=== PATIENT | male | born 1975 | race Hispanic/Latino ===

== ENCOUNTER 2017-11-17 07:38 | Emergency (ER) | payer BC, SELFPAY ==
[2017-11-17] MEDS ORDERED: NA CHLORIDE 0.9% 2,000 ML ONE (08:10)
[2017-11-17] MEDS ORDERED: KETOROLAC 30 MG/ML INJ ONE (08:10)
[2017-11-17] MEDS ORDERED: ONDANSETRON 4 MG/2 ML VIAL ONE (08:10)
[2017-11-17 08:26] LABS: Absolute Lymphocytes (CBC) 2.7 K/uL (0.7-4.9); Absolute Monocytes 0.8 K/uL (0.1-1.3); Basophils % 0.5 % (0-1.3); Eosinophils % 4.1 % (0-4.4); Hematocrit 46.7 % (39.6-49.0); Lymphocytes % 30.3 % (15.3-44.8); MCH 33.8 pg (27.0-35.0); MCV 99.3 fL (80-100); MPV 9.9 fL (7.6-11.3); Monocytes % 9.2 % (3.3-12.3)
[2017-11-17 08:30] LABS: Magnesium 1.5 mg/dL (1.8-2.5); Potassium 4.4 mEq/L (3.6-5.0)
[2017-11-17] MEDS ORDERED: Magnesium Sulfate 2gm IVPB 2 G/50 ML BAG IV ONE (08:53)
[2017-11-17 10:00] LABS: Urine Blood NEGATIVE (NEG); Urine Glucose TRACE (NEG); Urine Protein NEGATIVE (NEG); Urine pH 5.5 (5.0-7.0)
[2017-11-17] MEDS ORDERED: MORPHINE 4 MG/ML SYR ONE (10:21)
--- NOTE | 2017-11-17 10:40 | ER ---
Nurse's Notes [facility] Name: Josue Kaba Age: 41 yrs Sex: Male : 1975 Arrival Date: 11/17/2017 Time: 07:43 Bed 20 Private MD: None, None; Out, of [facility], [facility] Diagnosis: Weakness;Dehydration;Headache;Hypomagnesemia Presentation: 11/17 07:54 Presenting complaint: Patient states: "i am on a diuretic and it was really hot tw2 yesterday and i feel like it has just wiped me out, and i have a really bad headache, and some muscle cramps". Transition of care: patient was not received from another setting of care. Onset of symptoms was November 17, 2017. Initial Sepsis Screen: Does the patient meet any 2 criteria? No. Patient's initial sepsis screen is negative. Does the patient have a suspected source of infection? No. Patient's initial sepsis screen is negative. Care prior to arrival: None. 07:54 Method Of Arrival: Ambulatory tw2 07:54 Acuity: JOLYNN 3 tw2 Triage Assessment: 07:59 Headache History: The patient has had previous headaches and this one is more severe tw2 than previous episodes. 09:30 General: Appears in no apparent distress. Pain: Also complains of body cramps. tw2 09:30 Pain: Pain currently is 7 out of 10 on a pain scale. Pain began 1 day ago. tw2 Historical: - Allergies: 08:51 No Known Drug Allergies; tw2 - Home Meds: 07:59 atorvastatin 20 mg Oral tab 1 tab once daily for Hyperlipidemia [Active]; lisinopril 40 tw2 mg Oral tab 1 tab once daily for Hypertension [Active]; metformin 1500 mg Oral tab 1 tab 2 times per day [Active]; Trulicity 0.75 mg/0.5 mL subcutaneous pnij 0.5 mL once wkly [Active]; venlafaxine 25 mg oral tab 1 tab 3 times per day [Active]; hydrochlorothiazide 12.5 mg Oral tab 1 tab 2 times per day [Active]; - PMHx: 07:59 Diabetes - IDDM; Hypertension; Kidney stones; tw2 - PSHx: 07:59 Cholecystectomy; CYST REMOVED FROM FACE; LEFT ROTATOR CUFF; HAND SURG; Appendectomy; tw2 - Immunization history:: Adult Immunizations up to date. - Social history:: Smoking status: Patient/guardian denies using tobacco. Screenin:59 Abuse screen: Denies threats or abuse. Nutritional screening: No deficits noted. tw2 Tuberculosis screening: No symptoms or risk factors identified. Fall Risk None identified. Assessment: 07:50 General: Appears in no apparent distress. slender, well groomed, Behavior is calm, tw2 cooperative, appropriate for age. Pain: Complains of pain in "headache, body cramps". Neuro: Level of Consciousness is awake, alert, obeys commands, Oriented to person, place, time, situation. Neuro: Reports headache. Cardiovascular: Denies chest pain, shortness of breath, Heart tones S1 S2 Capillary refill < 3 seconds. Respiratory: Airway is patent Respiratory effort is even, unlabored, Respiratory pattern is regular, symmetrical, Breath sounds are clear bilaterally. GI: No signs and/or symptoms were reported involving the gastrointestinal system. Abdomen is round obese, Bowel sounds present X 4 quads. : No signs and/or symptoms were reported regarding the genitourinary system. EENT:. Derm: No signs and/or symptoms reported regarding the dermatologic system. Musculoskeletal: Circulation, motion, and sensation intact. Range of motion: intact in all extremities, Reports cramping in muscles. 08:33 Reassessment: Patient appears in no apparent distress at this time. No changes from tw2 previously documented assessment. Patient and/or family updated on plan of care and expected duration. Pain level reassessed. Patient is alert, oriented x 3, equal unlabored respirations, skin warm/dry/pink. 09:29 Reassessment: Patient appears in no apparent distress at this time. No changes from tw2 previously documented assessment. Patient and/or family updated on plan of care and expected duration. Pain level reassessed. Patient is alert, oriented x 3, equal unlabored respirations, skin warm/dry/pink. provider notified pt reports "headache and body cramps still" Patient states symptoms have not improved. 10:42 Reassessment: Patient appears in no apparent distress at this time. No changes from tw2 previously documented assessment. Patient and/or family updated on plan of care and expected duration. Pain level reassessed. Patient is alert, oriented x 3, equal unlabored respirations, skin warm/dry/pink. 11:03 Reassessment: Patient appears in no apparent distress at this time. No changes from tw2 previously documented assessment. Patient and/or family updated on plan of care and expected duration. Pain level reassessed. Patient is alert, oriented x 3, equal unlabored respirations, skin warm/dry/pink. Patient states feeling better. Patient states symptoms have improved. Vital Signs: 07:55 BP 135 / 95; Pulse 103; Resp 18; Temp 97.6; Pulse Ox 97% on R/A; Weight 149.69 kg (R); tw2 Height 6 ft. 1 in. (185.42 cm) (R); Pain 7/10; 08:33 BP 119 / 67; Pulse 90; Resp 17; Pulse Ox 95% on R/A; tw2 09:29 BP 108 / 71; Pulse 81; Resp 11; Pulse Ox 97% on R/A; tw2 10:44 BP 111 / 67; Pulse 84; Resp 14; Pulse Ox 100% on R/A; tw2 11:03 BP 120 / 79; Pulse 76; Resp 17; Pulse Ox 98% on R/A; Pain 5/10; tw2 07:55 Body Mass Index 43.54 (149.69 kg, 185.42 cm) tw2 ED Course: 07:43 Patient arrived in ED. mr 07:44 None, None is Private Physician. mr 07:44 Out, [facility] is Private Physician. mr 07:49 Dylan Walter MD is Attending Physician. kdr 07:54 Ysabel Olivarez, RN is Primary Nurse. tw2 07:55 Triage completed. tw2 07:59 Placed in gown. Bed in low position. Call light in reach. Pulse ox on. NIBP on. pt tw2 educated as to why cardiac monitoring is needed, pt refused, stated "i'd rather not be billed for that if i dont have to be". Warm blanket given. 07:59 Arm band placed on. tw2 08:30 Inserted saline lock: 20 gauge in right antecubital area, using aseptic technique. tw2 Blood collected. 09:30 No provider procedures requiring assistance completed. tw2 10:42 Awaiting: Completion of IV fluids prior to discharge. tw2 11:04 IV discontinued, intact, bleeding controlled, No redness/swelling at site. Pressure tw2 dressing applied. Administered Medications: 08:14 Drug: Zofran 4 mg Route: IVP; Site: right antecubital; tw2 09:29 Follow up: Response: No adverse reaction tw2 08:16 Drug: NS 0.9% 1000 ml Route: IV; Rate: 1 bolus; Site: right antecubital; tw2 09:28 Follow up: IV Intake: 1000ml ; 2nd liter of NS administered at this time. tw2 11:03 Follow up: Response: No adverse reaction; IV Status: Completed infusion; IV Intake: tw2 1000ml 08:16 Drug: TORadol 30 mg Route: IVP; Site: right antecubital; tw2 09:28 Follow up: Response: No adverse reaction; Pain is unchanged, physician notified tw2 09:01 Drug: Magnesium Sulfate 2 grams Route: IVPB; Infused Over: 2 hrs; Site: right tw2 antecubital; 11:02 Follow up: Response: No adverse reaction; IV Status: Completed infusion tw2 10:30 Drug: morphine 4 mg Route: IVP; Site: right antecubital; tw2 11:02 Follow up: Response: No adverse reaction tw2 Point of Care Testing: Blood Glucose: 07:53 Blood Glucose: 223 mg/dL; tw2 08:56 Blood Glucose: 201 mg/dL; tw2 Ranges: Intake: 09:28 IV: 1000ml; Total: 1000ml. tw2 11:03 IV: 1000ml; Total: 2000ml. tw2 Outcome: 10:39 Discharge ordered by . kdr 11:04 Discharged to home ambulatory. tw2 11:04 Condition: stable 11:04 Discharge instructions given to patient, Instructed on discharge instructions, follow up and referral plans. no drinking with medication, no driving heavy equipment, medication usage, Demonstrated understanding of instructions, follow-up care, medications, Prescriptions given X 1. 11:04 Patient left the ED. tw2 Signatures: Dylan Walter MD MD kdr Rivera, Maria mr Wise, Tara RN RN tw2 Corrections: (The following items were deleted from the chart) 08:49 07:59 school lunch monitor on. Pulse ox on. NIBP on. tw2 tw2
--- NOTE | 2017-11-17 10:40 | EDPHYS ---
Physician Documentation [facility] Name: Josue Kaba Age: 41 yrs Sex: Male : 1975 Arrival Date: 11/17/2017 Time: 07:43 Bed 20 Private MD: None, None; Out, of [facility], [facility] ED Physician Dylan Walter HPI: 11/17 08:05 This 41 yrs old Male presents to ER via Ambulatory with complaints of kdr Headache, Dehydration. 08:06 The patient feels as if be became overheated yesterday. 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 [id number], he has a CAMPBELL and is generally hurting all over with cramps and generalized myalgias. Onset: The symptoms/episode began/occurred gradually, yesterday. Severity of symptoms: At their worst the symptoms were mild moderate in the emergency department the symptoms have improved mildly. The patient has not experienced similar symptoms in the past, The patient has experienced a previous episode, last year. The patient has not recently seen a physician. Historical: - Allergies: 08:51 No Known Drug Allergies; tw2 - Home Meds: 07:59 atorvastatin 20 mg Oral tab 1 tab once daily for Hyperlipidemia [Active]; lisinopril 40 tw2 mg Oral tab 1 tab once daily for Hypertension [Active]; metformin 1500 mg Oral tab 1 tab 2 times per day [Active]; Trulicity 0.75 mg/0.5 mL subcutaneous pnij 0.5 mL once wkly [Active]; venlafaxine 25 mg oral tab 1 tab 3 times per day [Active]; hydrochlorothiazide 12.5 mg Oral tab 1 tab 2 times per day [Active]; - PMHx: 07:59 Diabetes - IDDM; Hypertension; Kidney stones; tw2 - PSHx: 07:59 Cholecystectomy; CYST REMOVED FROM FACE; LEFT ROTATOR CUFF; HAND SURG; Appendectomy; tw2 - Immunization history:: Adult Immunizations up to date. - Social history:: Smoking status: Patient/guardian denies using tobacco. ROS: 08:06 Constitutional: Negative for fever, chills, and weight loss, Eyes: Negative for injury, kdr pain, redness, and discharge, Neck: Negative for injury, pain, and swelling, Cardiovascular: Negative for chest pain, palpitations, and edema, Respiratory: Negative for shortness of breath, cough, wheezing, and pleuritic chest pain, Abdomen/GI: Negative for abdominal pain, nausea, vomiting, diarrhea, and constipation, Back: Negative for injury and pain, : Negative for injury, bleeding, discharge, and swelling, MS/Extremity: Negative for injury and deformity, Skin: Negative for injury, rash, and discoloration, Psych: Negative for depression, anxiety, suicide ideation, homicidal ideation, and hallucinations, Allergy/Immunology: Negative for hives, rash, and allergies, Endocrine: Negative for neck swelling, polydipsia, polyuria, polyphagia, and marked weight changes, Hematologic/Lymphatic: Negative for swollen nodes, abnormal bleeding, and unusual bruising. 08:06 Neuro: Positive for headache, Negative for altered mental status, dizziness, gait disturbance, loss of consciousness, numbness, seizure activity, speech changes, syncope, near syncope, tingling, tinnitus, tremor, visual changes, weakness. Exam: 08:06 Constitutional: This is a well developed, well nourished patient who is awake, alert, kdr and in no acute distress. Head/Face: Normocephalic, atraumatic. Eyes: Pupils equal round and reactive to light, extra-ocular motions intact. Lids and lashes normal. Conjunctiva and sclera are non-icteric and not injected. Cornea within normal limits. Periorbital areas with no swelling, redness, or edema. Neck: Trachea midline, no thyromegaly or masses palpated, and no cervical lymphadenopathy. Supple, full range of motion without nuchal rigidity, or vertebral point tenderness. No Meningismus. Chest/axilla: Normal chest wall appearance and motion. Nontender with no deformity. No lesions are appreciated. Cardiovascular: Regular rate and rhythm with a normal S1 and S2. No gallops, murmurs, or rubs. Normal PMI, no JVD. No pulse deficits. Respiratory: Lungs have equal breath sounds bilaterally, clear to auscultation and percussion. No rales, rhonchi or wheezes noted. No increased work of breathing, no retractions or nasal flaring. Abdomen/GI: Soft, non-tender, with normal bowel sounds. No distension or tympany. No guarding or rebound. No evidence of tenderness throughout. Back: No spinal tenderness. No costovertebral tenderness. Full range of motion. Skin: Warm, dry with normal turgor. Normal color with no rashes, no lesions, and no evidence of cellulitis. MS/ Extremity: Pulses equal, no cyanosis. Neurovascular intact. Full, normal range of motion. Neuro: Awake and alert, GCS 15, oriented to person, place, time, and situation. Cranial nerves II-XII grossly intact. Motor strength 5/5 in all extremities. Sensory grossly intact. Cerebellar exam normal. Normal gait. Psych: Awake, alert, with orientation to person, place and time. Behavior, mood, and affect are within normal limits. Vital Signs: 07:55 BP 135 / 95; Pulse 103; Resp 18; Temp 97.6; Pulse Ox 97% on R/A; Weight 149.69 kg (R); tw2 Height 6 ft. 1 in. (185.42 cm) (R); Pain 7/10; 08:33 BP 119 / 67; Pulse 90; Resp 17; Pulse Ox 95% on R/A; tw2 09:29 BP 108 / 71; Pulse 81; Resp 11; Pulse Ox 97% on R/A; tw2 10:44 BP 111 / 67; Pulse 84; Resp 14; Pulse Ox 100% on R/A; tw2 11:03 BP 120 / 79; Pulse 76; Resp 17; Pulse Ox 98% on R/A; Pain 5/10; tw2 07:55 Body Mass Index 43.54 (149.69 kg, 185.42 cm) tw2 MDM: 08:06 Data reviewed: vital signs, nurses notes. kdr 10:10 Counseling: I had a detailed discussion with the patient and/or guardian regarding: the kdr historical points, exam findings, and any diagnostic results supporting the discharge/admit diagnosis, lab results, radiology results. ED course: The patient has had minimal improvement but does not appear to be in any distress at this time. 10:39 Patient medically screened. kdr 10:40 ED course: The patient is feeling much better.. kdr 11/17 08:03 Order name: Chem 7; Complete Time: 08:53 kdr 11/17 08:03 Order name: CBC with Diff; Complete Time: 08:53 kdr 11/17 08:03 Order name: Magnesium; Complete Time: 08:53 kdr 11/17 09:11 Order name: Urine Dipstick--Ancillary (enter results); Complete Time: 10:31 em1 11/17 09:12 Order name: Urine Dipstick-Ancillary (obtain specimen); Complete Time: 09:12 em1 Administered Medications: 08:14 Drug: Zofran 4 mg Route: IVP; Site: right antecubital; tw2 09:29 Follow up: Response: No adverse reaction tw2 08:16 Drug: NS 0.9% 1000 ml Route: IV; Rate: 1 bolus; Site: right antecubital; tw2 09:28 Follow up: IV Intake: 1000ml ; 2nd liter of NS administered at this time. tw2 11:03 Follow up: Response: No adverse reaction; IV Status: Completed infusion; IV Intake: tw2 1000ml 08:16 Drug: TORadol 30 mg Route: IVP; Site: right antecubital; tw2 09:28 Follow up: Response: No adverse reaction; Pain is unchanged, physician notified tw2 09:01 Drug: Magnesium Sulfate 2 grams Route: IVPB; Infused Over: 2 hrs; Site: right tw2 antecubital; 11:02 Follow up: Response: No adverse reaction; IV Status: Completed infusion tw2 10:30 Drug: morphine 4 mg Route: IVP; Site: right antecubital; tw2 11:02 Follow up: Response: No adverse reaction tw2 Point of Care Testing: Blood Glucose: 07:53 Blood Glucose: 223 mg/dL; tw2 08:56 Blood Glucose: 201 mg/dL; tw2 Ranges: Critical Glucose Levels:Adult <50 mg/dl or >400 mg/dl <40 mg/dl or >180 mg/dl Disposition: 11/17/17 10:39 Discharged to Home. Impression: Weakness, Dehydration, Headache, Hypomagnesemia. - Condition is Stable. - Discharge Instructions: Dehydration, Adult, General Headache Without Cause, Hypomagnesemia, Fatigue, Weakness, [id number]. - Prescriptions for Tramadol 50 mg Oral Tablet - take 1 tablet by ORAL route every 8 hours as needed; 12 tablet. - Medication Reconciliation Form, Thank You Letter, Antibiotic Education, Prescription Opioid Use, Work release form form. - Follow up: Private Physician; When: 2 - 3 days; Reason: If symptoms return, Further diagnostic work-up, Recheck today's complaints, Continuance of care, Re-evaluation by your physician. - Problem is new. - Symptoms have improved. Signatures: Dispatcher [employer] EDMS Dylan Walter MD MD kdr Martinez, Eric em1 Ysabel Olivarez RN RN tw2 Corrections: (The following items were deleted from the chart) 11:04 10:39 11/17/2017 10:39 Discharged to Home. Impression: Weakness; Dehydration; Headache; tw2 Hypomagnesemia. Condition is Stable. Forms are Medication Reconciliation Form, Thank You Letter, Antibiotic Education, Prescription Opioid Use. Follow up: Private Physician; When: 2 - 3 days; Reason: If symptoms return, Further diagnostic work-up, Recheck today's complaints, Continuance of care, Re-evaluation by your physician. Problem is new. Symptoms have improved. kdr
[2017-11-17 11:12] VITALS: TEMP 97.6
[2017-11-17 11:17] VITALS: BP 120/79; O2SAT 98
== END 2017-11-17 11:04 | disposition home or self-care (01) ==
LOC: ER 07:38
DX: E83.42 Hypomagnesemia (principal); E86.0 Dehydration; E11.9 Type 2 diabetes mellitus without complications; I10 Essential (primary) hypertension
CPT/HCPCS: 36415; 80048; 81003; 82962; 83735; 85025; 96361; 96365; 96366; 96375; 99284; J2405; J3475; J7030

== ENCOUNTER 2018-12-12 20:14 | Emergency (ER) | payer BC, SELFPAY ==
--- OUTSIDE RECORDS SUMMARY | 2018-12-12 20:16 | XMS REPORT | Clinical Summary ---
:1975 Author Organization [facility] Address [address] [place] [id number] Care Team Providers Name Role Phone Marli Thompson NP Primary Care Provider Allergies No Known Allergies Medications Medication Sig Dispensed Refills Start Date End Date Status butalbital-acetamin Take 1 tablet by 6 tablet 0 08/15/2018 08/21/2018 ophen-caff (ESGIC) mouth every 4 50-325-40 mg per (four) hours as tablet needed for headaches for up to 6 days. Active Problems Not on file Encounters Date Type Specialty Care Team Description 08/15/2018 Emergency Emergency Medicine Noris Miller Hyperglycemia without ketosis (Primary Dx); MD Theron Atypical chest pain; Hyponatremia; Elevated LFTs; Blurred vision; Acute nonintractable headache, unspecified headache type 08/15/2018 Travel after 12/11/2017 Social History Tobacco Use Types Packs/Day Years Used Date Never Smoker Smokeless Tobacco: Never Used Alcohol Use Drinks/Week oz/Week Comments Yes occasionally Sex Assigned at Date Recorded Not on file Job Start Date Occupation Industry Not on file Not on file Not on file Travel History Travel Start Travel End No recent travel history available. Last Filed Vital Signs Vital Sign Reading Time Taken Blood Pressure 135/65 08/15/2018 8:30 PM [employer]INDER CRANE OPERATOR Pulse 100 08/15/2018 8:30 PM CINDER CRANE OPERATOR Temperature 37.2 C (98.9 F) 08/15/2018 4:36 PM CINDER CRANE OPERATOR Respiratory Rate 18 08/15/2018 8:30 PM [employer]INDER CRANE OPERATOR Oxygen Saturation 95% 08/15/2018 8:30 PM CINDER CRANE OPERATOR Inhaled Oxygen Concentration - - Weight - - Height - - Body Mass Index - - Plan of Treatment Health Maintenance Due Date Last Done Comments INFLUENZA VACCINE 02/02/2019 Procedures Procedure Name Priority Date/Time Associated Comments Diagnosis POC GLUCOSE Routine 08/15/2018 8:07 Results for this PM [employer]ER CRANE OPERATOR procedure are in the results section. TROPONIN Routine 08/15/2018 7:27 Results for this PM [employer] OPERATOR procedure are in the results section. ECG 12-LEAD STAT 08/15/2018 7:21 Results for this PM [employer] CR[employer] OPERATOR procedure are in the results section. POC GLUCOSE Routine 08/15/2018 6:42 Results for this PM [employer]ER CRANE OPERATOR procedure are in the results section. XR CHEST 1 VW PORTABLE STAT 08/15/2018 5:26 Results for this PM [employer]ER CRANE OPERATOR procedure are in the results section. TYPE AND SCREEN Routine 08/15/2018 5:24 Results for this PM [employer]ER CRANE OPERATOR procedure are in the results section. URINALYSIS SCREEN AND Routine 08/15/2018 5:19 Results for this MICROSCOPY, WITH REFLEX PM [employer]ER CRANE OPERATOR procedure are in TO CULTURE the results section. URINE CULTURE Routine 08/15/2018 5:19 Results for this PM [employer]ER CRANE OPERATOR procedure are in the results section. ECG ED PRELIMINARY Routine 08/15/2018 5:07 Results for this INTERPRETATION PM [employer] CRANE OPERATOR procedure are in the results section. ECG ED PRELIMINARY Routine 08/15/2018 5:07 Results for this INTERPRETATION PM [employer] CRANE OPERATOR procedure are in the results section. LIPASE LEVEL STAT 08/15/2018 4:56 Results for this PM [employer] CR[employer] OPERATOR procedure are in the results section. AMYLASE LEVEL STAT 08/15/2018 4:56 Results for this PM [employer] CRANE OPERATOR procedure are in the results section. BETA HYDROXYBUTYRATE STAT 08/15/2018 4:56 Results for this PM [employer] CRANE OPERATOR procedure are in the results section. ESTIMATED GFR STAT 08/15/2018 4:56 Results for this PM [employer]ER CRANE OPERATOR procedure are in the results section. CREATINE KINASE, TOTAL STAT 08/15/2018 4:56 Results for this (CPK) PM [employer]ER CRANE OPERATOR procedure are in the results section. B NATRIURETIC PEPTIDE STAT 08/15/2018 4:56 Results for this PM [employer]ER CRANE OPERATOR procedure are in the results section. TROPONIN STAT 08/15/2018 4:56 Results for this PM [employer]ER CRANE OPERATOR procedure are in the results section. COMPREHENSIVE METABOLIC STAT 08/15/2018 4:56 Results for this PANEL PM [employer]INDER CRANE OPERATOR procedure are in the results section. PARTIAL THROMBOPLASTIN STAT 08/15/2018 4:56 Results for this TIME (PTT) PM [employer]ER CRANE OPERATOR procedure are in the results section. PROTHROMBIN TIME WITH STAT 08/15/2018 4:56 Results for this INR PM CINDER CRANE OPERATOR procedure are in the results section. HC COMPLETE BLD COUNT STAT 08/15/2018 4:56 Results for this W/AUTO DIFF PM [employer] CRANE OPERATOR procedure are in the results section. ECG 12-LEAD STAT 08/15/2018 4:45 Results for this PM [employer]ER CRANE OPERATOR procedure are in the results section. POC GLUCOSE Routine 08/15/2018 4:43 Results for this PM [employer]ER CRANE OPERATOR procedure are in the results section. after 12/11/2017 Results POC glucose (08/15/2018 8:07 PM CINDER CRANE OPERATOR)Only the most recent of3 resultswithin the time period is included. [facility] POC glucose 227 (H) 65 - 99 mg/dL [facility] Comment: [facility] RN Notified Meter ID: [id number] Dining Host: Jorge Lugo Specimen Performing Organization Address [facility] Phone Number [facility] DEPARTMENT OF PATHOLOGY [address] [place] [address] Troponin (08/15/2018 7:27 PM CINDER CRANE OPERATOR)Only the most recent of2 resultswithin the time period is included. [facility] Troponin <0.30 0.00 - 0.30 [facility] Comment: ng/mL [facility] 0.11 - 1.49 ng/mlMay indicate increased risk of acute coronary syndrome. >=1.5 ng/mlConsistent with acute myocardial infarction. The diagnostic value of a single normal or non-diagnostic result is questionable.Serial samples at 2-6 hour intervals are required to rule out acute myocardial injury. Specimen Plasma specimen Performing Organization Address [facility] Phone Number [facility] DEPARTMENT OF PATHOLOGY [address] [place] [address] ECG 12 lead (08/15/2018 7:21 PM CINDER CRANE OPERATOR)Only the most recent of2 resultswithin the time period is included. [facility] Ventricular rate 96 [facility]USE Atrial rate 96 [facility] MO interval 152 [facility] QRSD interval 92 [facility] QT interval 358 [facility] QTC interval 452 [facility] P axis 1 25 [facility] QRS axis 1 34 [facility] T wave axis 38 [facility] MUSE EKG impression Normal sinus rhythm-In [facility] MUSE automated comparison with ECG of 11-FEB-2019 16:45,-No significant change was found- Specimen Narrative Performed At Performing Organization Address City/[facility]/Zipcode Phone Number [facility] MUSE [address] [place] [address] XR Chest 1 Vw Portable (08/15/2018 5:26 PM CINDER CRANE OPERATOR) Specimen Narrative Performed At EXAMINATION:XR CHEST 1 VW PORTABLE RADIANT CLINICAL HISTORY:chest pain COMPARISON:None. IMPRESSION: The lungs and pleural spaces are clear.The cardiomediastinal silhouette is within normal limits.There is no significant skeletal finding. [id number] Procedure Note Hm Interface, Radiology Results Incoming - 08/15/2018 5:29 PM CINDER CRANE OPERATOR EXAMINATION: XR CHEST 1 VW PORTABLE CLINICAL HISTORY: chest pain COMPARISON: None. IMPRESSION: The lungs and pleural spaces are clear. The cardiomediastinal silhouette is within normal limits. There is no significant skeletal finding. [id number] Performing Organization Address City/[facility]/Zipcode Phone Number [facility] [address] [place] [address] Type and screen (08/15/2018 5:24 PM CINDER CRANE OPERATOR) ABO grouping O [facility] Rh type POS [facility] Antibody screen (gel) NEG [facility] Specimen Blood Performing Organization Address City/[facility]/Zipcode Phone Number [facility] DEPARTMENT OF PATHOLOGY [address] [place] [address] AND [facility] [id number] [place] [address] HOSPITAL Urinalysis screen and microscopy, with reflex to culture (08/15/2018 5:19 PM CINDER CRANE OPERATOR) Specimen site Clean catch [facility] Color, UA Yellow [facility] Appearance, UA Clear [facility] Specific gravity, 1.020 1.001 - 1.030 [facility] pH, UA 6.0 5.0 - 9.0 [facility] Protein, UA Negative Negative [facility] Glucose, UA 3+ (A) Negative [facility] Ketones, UA Negative Negative [facility] Bilirubin, UA Negative Negative [facility] Blood, UA Negative Negative [facility] Nitrite, UA Negative Negative [facility] Urobilinogen, UA <2.0 <2.0 E.U./dL [facility] Leukocyte esterase, Negative Negative [facility] WBC, UA <1 0 - 1 /HPF [facility] RBC, UA 1 0 - 5 /HPF [facility] Bacteria, UA None seen None seen [facility] Yeast, UA None seen [facility] Yeast with None seen [facility] pseudohyphae, UA [facility] Specimen Urine Performing Organization Address City/[facility]/Zipcode Phone Number [facility] DEPARTMENT OF PATHOLOGY [id number] [place] [address] AND [facility] [address] Urine culture (08/15/2018 5:19 PM CINDER CRANE OPERATOR) Pathologist [facility] Urine culture SEE COMMENTComment: [facility] Bacteriuria screen [facility] negative. Specimen Performing Organization Address City/[facility]/Zipcode Phone Number [facility] DEPARTMENT OF PATHOLOGY [address] [place] [address] ECG ED Preliminary Interpretation - Not an Order (08/15/2018 5:07 PM CINDER CRANE OPERATOR)Only the most recent of2 resultswithin the time period is included. Narrative Performed At Noris Miller MD 08/15/20189:24 PM ECG ED Preliminary Interpretation - Not an Order Performed by: Noris Miller MD Authorized by: Noris Miller MD ECG reviewed by ED Physician in the absence of a deputy court: yes Previous ECG: Previous ECG:Unavailable Interpretation: Interpretation: non-specific Rate: ECG rate:96 ECG rate assessment: normal Rhythm: Rhythm: sinus rhythm Ectopy: Ectopy: none QRS: QRS axis:Normal QRS intervals:Normal Conduction: Conduction: normal ST segments: ST segments:Normal T waves: T waves: normal Comments: Nsr, no stemi Estimated GFR (08/15/2018 4:56 PM CINDER CRANE OPERATOR) Estimated GFR 86 mL/min/1.73 [facility] Comment: m2 [place] CatergoryUnitsInterpretation HOSPITAL G1 >=90 Normal or high G2 60-89Mildly decreased [id number] to moderately decreased [id number] to severely decreased G4 15-29Severely decreased G5 <15Kidney failure The eGFR was calculated using the Chronic Kidney Disease Epidemiology Collaboration (CKD-EPI) equation. Interpretation is based on recommendations of the National Kidney Foundation-Kidney Disease Outcomes Quality Initiative (NKF-KDOQI) published in 2014. Specimen Plasma specimen Performing Organization Address City/[facility] Phone Number [facility] DEPARTMENT OF PATHOLOGY [address] [place] [address] Beta hydroxybutyrate (08/15/2018 4:56 PM CINDER CRANE OPERATOR) [facility] Beta hydroxybutyrate 0.25 0.02 - 0.27 [facility] mmol/L [facility] Specimen Blood Performing Organization Address [facility] Phone Number [facility] DEPARTMENT OF PATHOLOGY [address] [place] [address] Partial thromboplastin time, activated (08/15/2018 4:56 PM CINDER CRANE OPERATOR) [facility] PTT 28.2 23.0 - 36.0 ADITYA CANELA Comment: [facility] PTT therapeutic range for unfractionated heparin is HOSPITAL 61.0-112.0 seconds which corresponds to Anti-Xa 0.3-0.7 U/ml. Specimen Blood Performing Organization Address [facility]/Zipcode Phone Number [facility] DEPARTMENT OF PATHOLOGY [address] [place] [address] Prothrombin time with INR (08/15/2018 4:56 PM CINDER CRANE OPERATOR) [facility] Prothrombin time 12.0 11.5 - 14.5 [facility] INR 0.9 [facility] Comment: [facility] International Normalized Ratio (INR) is a [facility] monitoring tool for patients who are stable on oral anticoagulant therapy. An INR of 2.0-3.0 is suggested for deep vein thrombosis/pulmonary embolism. Specimen Blood Performing Organization Address City/State/Zipcode Phone Number [facility] DEPARTMENT OF PATHOLOGY [address] [place] [address] CBC with platelet and differential (08/15/2018 4:56 PM CINDER CRANE OPERATOR) WBC 5.4 4.5 - 11.0 k/uL [facility] RBC 4.70 4.40 - 6.00 [facility] m/uL [facility] HGB 16.3 14.0 - 18.0 [facility] g/dL [facility] HCT 46.9 41.0 - 51.0 % [facility] MCV 99.8 82.0 - 100.0 fL [facility] MCH 34.7 (H) 27.0 - 34.0 pg [facility] MCHC 34.8 31.0 - 37.0 [facility] g/[facility] RDW - SD 44.4 37.0 - 55.0 fL [facility] MPV 11.7 (H) 6.9 - 11.0 fL [facility] Platelet count 202 150 - 400 K/uL [facility] Nucleated RBC 0.00 /100 WBC [facility] Neutrophils 57.4 39.0 - 69.0 % [facility] Lymphocytes 19.9 (L) 25.0 - 45.0 % [facility] Monocytes 19.9 (H) 0.0 - 10.0 % [facility] Eosinophils 1.5 0.0 - 5.0 % [facility] Basophils 0.9 0.0 - 1.0 % [facility] Immature granulocytes 0.4 0.0 - 1.0 % [facility] Specimen Blood Performing Organization Address City/State/Zipcode Phone Number [facility] DEPARTMENT OF PATHOLOGY [address] [place] [address] AND [facility] [id number] [place] [address] B natriuretic peptide (08/15/2018 4:56 PM CINDER CRANE OPERATOR) BNP 7 0 - 100 pg/mL [facility] Specimen Blood Performing Organization Address City/[facility]/Zipcode Phone Number [facility] DEPARTMENT OF PATHOLOGY [address] [place] [address] [place] [address] HOSPITAL Lipase level (08/15/2018 4:56 PM CINDER CRANE OPERATOR) Lipase 73 (H) 13 - 60 U/L [facility] Specimen Plasma specimen Performing Organization Address City/State/Zipcode Phone Number [facility] DEPARTMENT OF PATHOLOGY [address] [place] [address] Creatine kinase, total (CPK) (08/15/2018 4:56 PM CINDER CRANE OPERATOR) Creatine kinase 175 39 - 308 U/L [facility] Specimen Plasma specimen Performing Organization Address City/[facility]/Zipcode Phone Number [facility] DEPARTMENT OF PATHOLOGY [address] [place] [address] [place] [address] HOSPITAL Amylase level (08/15/2018 4:56 PM CINDER CRANE OPERATOR) Amylase 22 13 - 73 U/L [facility] Specimen Plasma specimen Performing Organization Address City/[facility]/Zipcode Phone Number [facility] DEPARTMENT OF PATHOLOGY [address] [place] [address] Comprehensive metabolic panel (08/15/2018 4:56 PM CINDER CRANE OPERATOR) Sodium 134 (L) 135 - 148 mEq/L [facility] Potassium 4.2 3.5 - 5.0 mEq/L [facility] Chloride 95 (L) 98 - 112 mEq/L [facility] CO2 26 24 - 31 mEq/L [facility] Anion gap 13@ANIO 7 - 15 mEq/L [facility] BUN 19 6 - 20 mg/dL [facility] Creatinine 1.06 0.70 - 1.20 [facility] mg/dL [facility] Glucose 342 (H) 65 - 99 mg/dL [facility] Calcium 10.1 8.3 - 10.2 mg/dL [facility] Protein 7.8 6.3 - 8.3 g/dL [facility] Albumin 4.3 3.5 - 5.0 g/dL [facility] A/G ratio 1.2 0.7 - 3.8 [facility] Alkaline phosphatase 135 (H) 40 - 129 U/L [facility] AST 60 (H) 10 - 50 U/L [facility] ALT 87 (H) 5 - 50 U/L [facility] Total bilirubin <0.2 0.2 - 1.2 mg/dL [facility] Specimen Plasma specimen Performing Organization Address City/State/Zipcode Phone Number [facility] DEPARTMENT OF PATHOLOGY [address] [place] [address] AND [facility] [address] [place] [address] HOSPITAL after 12/11/2017 Advance Directives Patient has advance care planning documents on file. For more information, please contact:Aditya Canela[address] [place] [address]
--- OUTSIDE RECORDS SUMMARY | 2018-12-12 20:17 | XMS REPORT | Clinical Summary ---
:1975 Author Organization [facility] Address [address] [place] [address] Care Team Providers Name Role Phone Carlos Mistry Angelina Primary Care Provider Allergies No Known Allergies Medications Medication Sig Dispensed Refills Start Date End Date Status lisinopril Take 10 mg by mouth 0 Active (PRINIVIL,ZESTRIL) 10 daily. MG tablet metFORMIN Take 1,000 mg by 0 Active (GLUCOPHAGE) 1000 MG mouth 2 (two) times tablet daily with breakfast and dinner. Active Problems Problem Noted Date Bilateral hand numbness 11/01/2016 Migraine without aura and without status migrainosus, not intractable 2016 TIA (transient ischemic attack) 10/31/2016 Diabetes mellitus Hypertension Social History Tobacco Use Types Packs/Day Years Used Date Never Smoker Alcohol Use Drinks/Week oz/Week Comments No Sex Assigned at Date Recorded Not on file Job Start Date Occupation Industry Not on file Not on file Not on file Travel History Travel Start Travel End No recent travel history available. Last Filed Vital Signs Not on file Plan of Treatment Not on file Results Not on fileafter 12/11/2017 Advance Directives For more information, please contact:[facility]viewMove In HistoryKlickitat Valley HealthGobzqq[address] [place], [place] [phone] Code Status Date Activated Date Inactivated Comments Full Code 10/31/2016 9:35 PM 11/03/2016 2:30 PM This code status was determined by: Patient
--- OUTSIDE RECORDS SUMMARY | 2018-12-12 20:38 | XMS REPORT | Continuity of Care Document ---
:1975 Author Organization Interface Problems Problem Status Onset Classification Date Comments Source Date Reported BACK PAIN Active 12/16/19 [place] Discharge 12/16/19 12/19/2015 [place] Diagnosis: Acute 16 [place] flank pain Discharge 01/29/20 01/31/2015 [place] Diagnosis: Acute 15 [place] flank pain Discharge 01/29/20 01/31/2015 [place] Diagnosis: Pain of 15 [place] male genitalia LEFT SIDE Active 01/26/20 [place] PAIN/STENT KIDNEY 15 [place] ABDOMINAL Active 01/18/20 [place] INTRACTABLE LEFT Active 01/18/20 [place] GROIN PAIN, 15 [place] HEMATURIA Ureteric Active 01/12/20 Problem 11/08/2018 Data stone<sup>1</sup> 15 migrated Medical from [facility], [facility] [place] on 02/06/15. [place] PAIN URINARY/KIDNEY Active 01/09/20 [place] STONE 15 [place] ABDOMINAL PAIN Active 01/07/20 [place] ACUTE RENAL COLIC, Active 01/07/20 [place] INTRACTABLE PAIN 15 [place] Discharge 12/21/19 12/23/2014 [place] Diagnosis: 15 [place] Abdominal pain DIZZINESS, WEAKNESS Active 12/21/19 [place] Discharge 10/19/19 10/21/2014 [place] Diagnosis: 15 [place] Ureterolithiasis KIDNEY STONE PAIN Active 10/19/19 [place] Discharge 10/05/19 10/06/2014 [place] Diagnosis: 15 [place] Dizziness WEAKNESS, FATIGUE Active 10/05/19 [place] CHEST PAIN Active 10/01/[address] [facility] SYNCOPE Active 10/01/[address] XAVIER BILLING Active 09/29/[address] Anxiety Resolved Problem 11/08/2018 [facility], [place] Diabetes Active Problem 11/08/2018 [facility] [place] DM (<span Active Problem 11/08/2018 ID="[id number]">[facility] nfirmed</span>) Group, [place] Acute flank pain Active Problem 11/08/2018 [facility] [place] HTN (<span Resolved Problem 11/08/2018 ID="[id number]">Co Medical nfirmed</span>) Group, [place] Hyperlipemia Resolved Problem 11/08/2018 [facility], [place] Hypertension Active Problem 11/08/2018 [facility], [place] Male impotence Active Problem 11/08/2018 Medical Group Kidney stone Resolved Problem 11/08/2018 [facility], [place] Morbid obesity Active Problem 11/08/2018 Medical Group ACUTE KIDNEY Active [place] FAILURE NOS [place] OTHER GENERAL Active [place] SYMPTOMS [place] GROSS HEMATURIA Active [place] SYNCOPE AND Active [facility] Medications Medication Details Route Status Patient Ordering Order Source Instructions Provider Date 3 ML insulin 70 unit, SUB-Q, Active 05/24/ degludec 200 UNT/ML Daily, # 10 2018 Medical Pen Injector pen(s), 0 Group [Tresiba] Refill(s), Pharmacy: [id number] metFORMIN 500 mg 1,000 mg=2 tab, Active oral tablet, PO, BID, # 360 2018 Medical extended release tab, 1 Group Refill(s), Pharmacy: [facility] lisinopril 40 mg 40 mg=1 tab, Active oral tablet PO, Daily, # 90 2018 Medical tab, 1 Group Refill(s), Pharmacy: [facility] Hydrochlorothiazide 12.5 mg=1 cap, Active 12.5 MG Oral PO, Daily, # 90 2018 Medical Capsule cap, 1 Group Refill(s), Pharmacy: [facility] atorvastatin 20 mg 20 mg=1 tab, Active 04/20/ oral tablet PO, Daily, # 90 2018 Medical tab, 1 Group Refill(s), Pharmacy: [facility] 3 ML insulin 70 unit, SUB-Q, No Longer 03/11/ degludec 200 UNT/ML Daily, # 10 Active 2018 Medical Pen Injector pen(s), 0 Group [Tresiba] Refill(s), Pharmacy: [id number] 3 ML insulin 70 unit, SUB-Q, No Longer 02/10 degludec 200 UNT/ML Daily, # 3 Active 2018 Medical Pen Injector pen(s), 0 Group [Tresiba] Refill(s), Pharmacy: [facility] [id number] Hydrochlorothiazide See No Longer 12.5 MG Oral Instructions, # Active 2018 Medical Capsule 90 unknown Group unit, TAKE 1 CAPSULE DAILY, Pharmacy: [facility] lisinopril 40 mg See No Longer oral tablet Instructions, # Active 2018 Medical 90 tab, TAKE 1 Group TABLET DAILY, Pharmacy: [facility] atorvastatin 20 mg See No Longer oral tablet Instructions, # Active 2018 Medical 90 tab, TAKE 1 Group TABLET DAILY, Pharmacy: [facility] metFORMIN 500 mg See No Longer oral tablet, Instructions, # Active 2018 Medical extended release 360 tab, TAKE 2 Group TABLETS TWICE A DAY, Pharmacy: [facility] sitagliptin 50 MG 50 mg=1 tab, Active Oral Tablet PO, Daily, # 90 2018 Medical [Januvia] tab, 1 Group Refill(s), Pharmacy: [id number] EasyTouch Lancets 1 , [facility], Active Device ONCE, Use for 2018 Medical blood glucose Group monitoring, # 1 box, Insulin dependent, Does not use insulin pump, Last DM eval date 08/18/17, 2 Refill(s) Blood Glucose Test 1 box, [facility], Active Strips Daily, # 100 2018 Medical strip, 1 Group Refill(s) Blood Glucose 1 ea, [facility], Active Monitor Daily, Use as 2018 Medical directed., # 1 Group ea, 0 Refill(s) 3 ML insulin 30 unit, SUB-Q, Active degludec 200 UNT/ML Daily, # 3 2018 Medical Pen Injector pen(s), 3 Group [Tresiba] Refill(s), Pharmacy: [facility] [id number] Regular Insulin, SUB-Q, 0 Inactive Human 100 UNT/ML Refill(s) 2018 Medical Injectable Solution Group [Novolin R] 0.5 ML dulaglutide 0.75 mg, SUB-Q, Active 1.5 MG/ML Prefilled qWeek, # 4 2018 Medical Syringe [Trulicity] pen(s), 1 Group Refill(s), [id number] OneTouch Delica 1 ea, MISC, Active Lancets Device ONCE, Use for 2018 Medical blood glucose Group monitoring, # 1 ea, 0 Refill(s) tadalafil 20 MG 20 mg=1 tab, Active Oral Tablet PO, Daily, PRN 2018 Medical [Cialis] for erectile Group dysfunction, Take prior to intercourse, # 60 tab, 3 Refill(s), Pharmacy: [facility] Lancets 1 ea, MISC, No Longer Device ONCE, Use for Active 2018 Medical blood glucose Group monitoring, # 1 box, Insulin dependent, Does not use insulin pump, Last DM eval date 08/18/17, 2 Refill(s) Blood Glucose Test 1 box, MISC, No Longer Strips Daily, # 100 Active 2018 Medical strip, 1 Group Refill(s) Blood Glucose 1 ea, MISC, No Longer Monitor Daily, Use as Active 2018 Medical directed., # 1 Group ea, 0 Refill(s) 3 ML liraglutide 6 1.8 mg, SUB-Q, No Longer MG/ML Prefilled Daily, # 15 mL, Active 2018 Medical Syringe [Victoza] 4 Refill(s), Group other Amoxicillin 875 MG 875 mg=1 tab, No Longer / Clavulanate 125 PO, Q12H, X 7 Active 2018 Medical MG Oral Tablet day, # 14 tab, Group [Augmentin 875-mg] 0 Refill(s), Pharmacy: [facility] Ipratropium [place] 2 spray, NASAL, No Longer 0.042 MG/ACTUAT TID, X 7 day, # Active 2018 Medical Metered Dose Nasal 15 mL, 4 Group [place] [Atrovent] Refill(s), Pharmacy: [facility] 482 tadalafil 20 MG 20 mg=1 tab, No Longer Oral Tablet PO, Daily, PRN Active 2018 Medical [Cialis] for erectile Group dysfunction, Take prior to intercourse, # 10 tab, 3 Refill(s), Pharmacy: [facility] 482 venlafaxine 37.5 mg 37.5 mg=1 tab, Active oral tablet, PO, Daily, # 90 2018 Medical extended release tab, 1 Group Refill(s), Pharmacy: [facility] metFORMIN 500 mg 1,000 mg=2 tab, Active oral tablet, PO, BID, # 360 2018 Medical extended release tab, 0 Group Refill(s), Pharmacy: [facility] Hydrochlorothiazide 12.5 mg=1 cap, Active 12.5 MG Oral PO, Daily, # 90 2018 Medical Capsule cap, 0 Group Refill(s), Pharmacy: [facility] atorvastatin 20 mg 20 mg=1 tab, Active oral tablet PO, Daily, # 90 2018 Medical tab, 0 Group Refill(s), Pharmacy: [facility] sildenafil 50 MG 50 mg=1 tab, No Longer Oral Tablet PO, Daily, 1 Active 2018 Medical hour before Group sexual activity, # 90 tab, 0 Refill(s), Pharmacy: [facility] lisinopril 40 mg 40 mg=1 tab, Active oral tablet PO, Daily, # 90 2018 Medical tab, 0 Group Refill(s), Pharmacy: [facility] Blood Pressure 1 ea, MISC, No Longer Monitor Wrist ONCE, Will need 2017 Medical Misc/Other a letter of Group medical necessity for Medicare/insura cae reimbursement, # 1 ea, 0 Refill(s) EasyTouch Lancets 1 ea MIS, No Longer Device ONCE, Use for 2017 Medical blood glucose Group monitoring, # 1 ea, Insulin dependent, Does not use insulin pump, Last DM eval date 08/18/17, 2 Refill(s) Blood Glucose Test 1 box MIS, No Longer 08/18/ Strips BID-Before Active 2017 Medical Meals, # 100 Group strip, 0 Refill(s) Blood Glucose 1 ea, MISC, No Longer Monitor Daily, Use as Active 2018 Medical directed., # 1 Group ea, 0 Refill(s) venlafaxine 37.5 mg 37.5 mg=1 tab, No Longer oral tablet, PO, Daily, # 30 Active 2018 Medical extended release tab, 2 Group Refill(s), Pharmacy: [facility] 482 metFORMIN 500 mg 1,000 mg=2 tab, No Longer oral tablet, PO, BID, # 360 Active 2018 Medical extended release tab, 0 Group Refill(s), Pharmacy: [facility] lisinopril 40 mg 40 mg=1 tab, No Longer MH oral tablet PO, Daily, # 90 Active 2018 Medical tab, 0 Group Refill(s), Pharmacy: [facility] atorvastatin 20 mg 20 mg=1 tab, No Longer MH oral tablet PO, Daily, # 90 Active 2018 Medical tab, 0 Group Refill(s), Pharmacy: [facility] 3 ML liraglutide 6 1.2 mg, SUB-Q, No Longer 08/18/ MH MG/ML Prefilled Daily, # 6 mL, Active 2018 Medical Syringe [Victoza] 3 Refill(s), Group Pharmacy: [facility] 482 Cefuroxime 500 MG 500 mg=1 tab, No Longer Oral Tablet PO, BID, X 10 Active 2018 Medical [Ceftin] day, # 20 tab, Group 0 Refill(s), Pharmacy: [facility] Hydrochlorothiazide 12.5 mg=1 cap, No Longer 12.5 MG Oral PO, Daily, # 90 Active 2018 Medical Capsule cap, 1 Group Refill(s), Pharmacy: [facility] sildenafil 50 MG 50 mg=1 tab, No Longer Oral Tablet PO, Daily, 1 Active 2018 Medical hour before Group sexual activity, # 30 tab, 3 Refill(s), Pharmacy: [facility] Codeine Phosphate 2 5 mL, PO, Q6H, No Longer 07/19/ MH MG/ML / Guaifenesin PRN cough, X 6 Active 2018 Medical 20 MG/ML Oral day, # 120 mL, Group Solution 0 Refill(s) [Cheratussin] Levofloxacin 500 MG 500 mg=1 tab, No Longer MH Oral Tablet PO, Q24H, X 10 Active 2018 Medical [Levaquin] day, # 10 tab, Group 0 Refill(s), Pharmacy: [id number] 3 ML liraglutide 6 1.2 mg, SUB-Q, No Longer MG/ML Prefilled Daily, # 6 mL, Active 2018 Medical Syringe [Victoza] 3 Refill(s), Group other venlafaxine 37.5 mg 37.5 mg=1 tab, No Longer oral tablet, PO, Daily, # 30 Active 2017 Medical extended release tab, 2 Group Refill(s), Pharmacy: [facility] 482 atorvastatin 20 mg 20 mg=1 tab, No Longer oral tablet PO, Daily, # 90 Active 2017 Medical tab, 0 Group Refill(s), Pharmacy: [facility] lisinopril 40 mg 40 mg=1 tab, No Longer oral tablet PO, Daily, # 90 Active 2017 Medical tab, 0 Group Refill(s), Pharmacy: [facility] 482 metFORMIN 500 mg 1,000 mg=2 tab, No Longer oral tablet, PO, BID, # 360 Active 2017 Medical extended release tab, 0 Group Refill(s), Pharmacy: [facility] 482 benzonatate 200 MG 200 mg=1 cap, No Longer Oral Capsule PO, TID, X 10 Active 2018 Medical [Tessalon] day, # 30 cap, Group 0 Refill(s), Pharmacy: [facility] 482 Brompheniramine 5 mL, PO, TID, No Longer Maleate 0.4 MG/ML / PRN cough, X 8 Active 2017 Medical Dextromethorphan day, # 120 mL, Group Hydrobromide 2 0 Refill(s), MG/ML / Pharmacy: [facility] Hydrochloride 6 [facility] 482 MG/ML Oral Solution [Bromfed DM] Oseltamivir 75 MG 75 mg, PO, No Longer Oral Capsule Q12H, X 5 day, Active 2018 Medical [Tamiflu] # 10 cap, 0 Group Refill(s), Pharmacy: [facility] lisinopril 40 mg 40 mg=1 tab, Inactive oral tablet PO, Daily, 0 2017 Medical Refill(s) Group atorvastatin 20 mg 20 mg=1 tab, Inactive oral tablet PO, Daily, 0 2017 Medical Refill(s) Group sertraline 100 mg 100 mg=1 tab, Inactive oral tablet PO, Daily, 0 2017 Medical Refill(s) Group NovoLIN 70/30 20 unit, SUB-Q, No Longer PenFill BID, # 3 ml, 0 Active 2018 Medical subcutaneous Refill(s) Group injection Ketorolac 10 mg=1 tab, Active [place] Tromethamine 10 MG PO, TID, X 5 2015 [place] Oral Tablet day, # 15 tab, 0 Refill(s) Ondansetron 4 MG 4 mg=1 tab, PO, Active [place] Disintegrating TID, PRN Nausea 2016 [place] Tablet [Zofran] and Vomiting, X 4 day, # 10 tab, 0 Refill(s) Acetaminophen 325 2 tab, Route: Inactive [place] MG / Hydrocodone PO, Drug Form: 2015 [place] Bitartrate 5 MG TAB, Dosing Oral Tablet [Lyons Weight 143.182, 5/325] kg, ONCE, Start date: 12/16/15 22:40:00 CDT, Stop date: 12/16/15 22:40:00 CDTNotes: (Same as: Lyons 325/5) Do not exceed 4gm/day of acetaminophen. Hydromorphone 1 mg, 0.5 mL, Inactive [place] Route: IVP2015 [facility] Drug form: INJ, ONCE, Dosing Weight 143.182, kg, Priority: STAT, Start date: 12/16/15 20:57:00 CDT, Stop date: 12/16/15 20:57:00 CDTNotes: (Same as: Dilaudid) Ondansetron 4 mg, 2 mL, Inactive Sugar Route: IVP2015 [facility] Drug form: INJ, ONCE, Dosing Weight 143.182, kg, Priority: STAT, Start date: 12/16/15 19:36:00 CDT, Stop date: 12/16/15 19:36:00 CDTNotes: (Same as: Zofran) MEDICATION WASTE Product Size: 4 mg Product Wasted: ___ mg Ketorolac 30 mg, 1 mL, Inactive Sugar Route: IVP, 2015 [facility] Drug form: INJ, ONCE, Dosing Weight 143.182, kg, Priority: STAT, Start date: 12/16/15 19:36:00 CDT, Stop date: 12/16/15 19:36:00 CDTNotes: (Same as:Toradol) IV bolus must be given >15 seconds. Give IM administration slowly and deeply into the muscle. Not for use > 4 days MEDICATION WASTE Product Size: 30 mg Product Wasted: ___ mg Hydromorphone 1 mg, 0.5 mL, Inactive Sugar Route: IVP, 2015 [facility] Drug form: INJ, ONCE, Dosing Weight 143.182, kg, Priority: STAT, Start date: 12/16/15 19:36:00 CDT, Stop date: 12/16/15 19:36:00 CDTNotes: (Same as: Dilaudid) Saline Flush 0.9% 10 mL, Route: No Longer Sugar IVP, Drug Form: Active 2015 INJ, Dosing Weight 143.182, kg, PRN, PRN Line Flush, Start date: 12/16/15 19:36:00 CDT, Duration: 30 day, Stop date: 01/15/16 19:35:00 CDTNotes: (Same as: BD Posiflush) Sodium Chloride 1,000 mL, 2,000 Inactive [place] 0.154 MEQ/ML ml/hr, Infuse 2015 Injectable Solution Over: 30 minutes, Route: IV, 1,000, Drug form: INJ, ONCE, Priority: STAT, Dosing Weight 143.182 kg, Start date: 12/16/15 19:36:00 CDT, Duration: 1 doses or times, Stop date: 12/16/15 19:36:00 CDT Ciprofloxacin 500 500 mg=1 tab, Active [place] MG Oral Tablet PO, Q12H, X 14 2014 [Cipro] day, # 28 tab, 0 Refill(s) Ketorolac 10 mg=1 tab, Active [place] Tromethamine 10 MG PO, Q6H, take 2014 Oral Tablet with food. not to exceed 40 mg/day and 5 days duration for all dose forms, X 5 day, # 20 tab, 0 Refill(s)Specia l Instructions: take with food. not to exceed 40 mg/day and 5 days duration for all dose forms Ondansetron 4 MG 4 mg=1 tab, PO, Active [place] Disintegrating BID, PRN Nausea 2014 [place] Tablet [Zofran] and Vomiting, Dissolve tab under tongue, X 5 day, # 10 tab, 0 Refill(s)Specia l Instructions: Dissolve tab under tongue Tamsulosin 0.4 mg=1 cap, Active [place] hydrochloride 0.4 PO, Daily, # 30 2014 [place] MG Oral Capsule cap, 0 [Flomax] Refill(s) Acetaminophen 325 1 tab, Route: Inactive [place] MG / Hydrocodone PO, Drug Form: 2014 [place] Bitartrate 10 MG TAB, Dosing Oral Tablet [Lyons Weight 146, kg, 10/325] ONCE, STAT, Start date: 01/28/15 17:08:00, Stop date: 01/28/15 17:08:00 Ketorolac 15 mg, 0.5 mL, Inactive Sugar Route: IVP2014 [facility] Drug form: INJ, ONCE, Dosing Weight 146, kg, Priority: STAT, Start date: 01/28/15 15:23:00, Stop date: 01/28/15 15:23:00Notes: (Same as:Toradol) IV bolus must be given >15 seconds. Give IM administration slowly and deeply into the muscle. Not for use > 4 days MEDICATION WASTE Product Size: 30 mg Product Wasted: ___ mg Zofran 4 mg, 2 mL, Inactive Sugar Route: IVP2014 [facility] Drug form: INJ, ONCE, Dosing Weight 146, kg, Priority: STAT, Start date: 01/28/15 15:23:00, Stop date: 01/28/15 15:23:00Notes: (Same as: Zofran) MEDICATION WASTE Product Size: 4 mg Product Wasted: ___ mg Dilaudid 2 mg, 1 mL, Inactive Sugar Route: IVP2014 [facility] Drug form: INJ, ONCE, Dosing Weight 146, kg, Priority: STAT, Start date: 01/28/15 15:22:00, Stop date: 01/28/15 15:22:00Notes: (Same as: Dilaudid) Sodium Chloride 1,000 mL, 1,000 Inactive 01/28[facility] Sugar 0.154 MEQ/ML ml/hr, Infuse 2014 [facility] Injectable Solution Over: 1 hr, Route: IV, 1,000, Drug form: INJ, ONCE, Priority: STAT, Dosing Weight 146 kg, Start date: 01/28/15 15:22:00, Duration: 1 doses or times, Stop date: 01/28/15 15:22:00 Ketorolac 15 mg, Route: Inactive 01/28[facility] Sugar IVP, Drug form: 2014 [place] INJ, ONCE, Dosing Weight 146, kg, Priority: STAT, Start date: 01/28/15 14:10:00, Stop date: 01/28/15 14:10:00 Dilaudid 1 mg, Route: Inactive 01/28[facility] Sugar IVP, ONCE, 2014 [facility] Dosing Weight 146, kg, Priority: STAT, Start date: 01/28/15 14:09:00, Stop date: 01/28/15 14:09:00 Saline Flush 0.9% 10 mL, Route: Inactive 01/28[facility] Sugar IVP, Drug Form: 2014 [place] INJ, Dosing Weight 146, kg, PRN, PRN Line Flush, Start date: 01/28/15 13:46:00, Duration: 30 day, Stop date: 02/27/15 13:45:00Notes: (Same as: BD Posiflush) Ondansetron 4 mg, Route: Inactive 01/28[facility] Sugar IVP, ONCE, 2014 [facility] Dosing Weight 146, kg, Priority: STAT, Start date: 01/28/15 13:46:00, Stop date: 01/28/15 13:46:00 Hydromorphone 1 mg, Route: Inactive 01/28[facility] Sugar IVP, ONCE, 2014 [facility] Dosing Weight 146, kg, Priority: STAT, Start date: 01/28/15 13:46:00, Stop date: 01/28/15 13:46:00 Sodium Chloride 1,000 mL, Inactive 01/28[facility] Sugar 0.154 MEQ/ML Infuse Over: 1 2014 [place] Injectable Solution hr, Route: IV, ONCE, Priority: STAT, Dosing Weight 146 kg, Start date: 01/28/15 13:46:00, Duration: 1 doses or times, Stop date: 01/28/15 13:46:00 Acetaminophen 325 2 tab, Route: Inactive [place] MG / Hydrocodone PO, Dosing 2014 [place] Bitartrate 10 MG Weight 150, kg, Oral Tablet [Lyons ONCE, Start 10325] date: 01/25/15 17:19:00, Stop date: 01/25/15 17:19:00 Ondansetron 4 MG 4 mg=1 tab, PO, Active [place] Disintegrating TID, PRN Nausea 2015 [place] Tablet [Zofran] and Vomiting, X 4 day, # 10 tab, 0 Refill(s), Pharmacy: [facility]/pharmacy #[id number] Ketorolac 10 mg=1 tab, Active [place] Tromethamine 10 MG PO, TID, X 5 2015 [place] Oral Tablet day, # 15 tab, 0 Refill(s), Pharmacy: [facility]/pharmacy #[id number] Acetaminophen 325 1-2 tab, PO, Active Sugar MG / Hydrocodone Q4-6H, PRN 2014 [place] Bitartrate 10 MG Pain, X 5 day, Oral Tablet [Lyons # 30 tab, 0 325] Refill(s) Dilaudid 1 mg, Route: Inactive Sugar IV, ONCE, 2014 [facility] Dosing Weight 150, kg, Priority: STAT, Start date: 01/25/15 16:16:00, Stop date: 01/25/15 16:16:00 Ceftriaxone 1 gm, Route: Inactive Sugar IVPB, ONCE, 2014 [facility] Dosing Weight 150, kg, Priority: STAT, Start date: 01/25/15 15:11:00, Stop date: 01/25/15 15:11:00 Hydromorphone 1 mg, Route: Inactive [place] IVP, ONCE, 2014 [place] Dosing Weight 150, kg, Priority: STAT, Start date: 01/25/15 15:00:00, Stop date: 01/25/15 15:00:00 Ketorolac 30 mg, Route: Inactive Sugar IVP, ONCE, 2014 [facility] Dosing Weight 150, kg, Priority: STAT, Start date: 01/25/15 13:57:00, Stop date: 01/25/15 13:57:00 Ondansetron 4 mg, 2 mL, Inactive Sugar Route: IVP, 2014 [facility] Drug form: INJ, ONCE, Dosing Weight 150, kg, Priority: STAT, Start date: 01/25/15 13:44:00, Stop date: 01/25/15 13:44:00Notes: (Same as: Zofran) MEDICATION WASTE Product Size: 4 mg Product Wasted: ___ mg Hydromorphone 2 mg, 1 mL, Inactive Sugar Route: IVP, 2014 [facility] Drug form: INJ, ONCE, Dosing Weight 150, kg, Priority: STAT, Start date: 01/25/15 13:44:00, Stop date: 01/25/15 13:44:00Notes: (Same as: Dilaudid) Sodium Chloride 1,000 mL, 1000 Inactive Sugar 0.154 MEQ/ML ml/hr, Infuse 2014 [facility] Injectable Solution Over: 1 hr, Route: IV, 1,000, Drug form: INJ, ONCE, Priority: STAT, Dosing Weight 150 kg, Start date: 01/25/15 13:44:00, Duration: 1 doses or times, Stop date: 01/25/15 13:44:00 Saline Flush 0.9% 10 mL, Route: Inactive Sugar IVP, Drug Form: 2014 INJ, Dosing Weight 150, kg, PRN, PRN Line Flush, Start date: 01/25/15 13:44:00, Duration: 30 day, Stop date: 02/24/15 13:43:00Notes: (Same as: BD Posiflush) Glipizide PO, Daily, 0 Active Sugar Refill(s) 2014 Habitrol 14 mg, 1 patch, No Longer Sugar Route: TOP, Active 2014 [facility] Drug form: ERFILM, Daily, Start date: 01/20/15 9:00:00, Duration: 30 day, Stop date: 02/18/15 9:00:00Notes: (Same as: Habitrol) "Remove old patch before application of new patch" Sulfamethoxazole 1 tab, PO, BID, Active Sugar 800 MG / X 7 day, # 14 2015 [facility] Trimethoprim 160 MG tab, 0 Oral Tablet Refill(s) [Bactrim] Acetaminophen 325 1 tab, PO, Q4H, Active Sugar MG / Hydrocodone PRN Pain Score 2015 [facility] Bitartrate 10 MG 1-5, 0 Oral Tablet [Lyons Refill(s) 10/325] Tamsulosin 0.4 mg=1 cap, Active [place] hydrochloride 0.4 PO, Daily, # 30 2015 [place] MG Oral Capsule cap, 0 [Flomax] Refill(s) 24 HR tolterodine 4 mg=1 cap, PO, Active Sugar tartrate 4 MG Daily, # 30 2015 [facility] Extended Release cap, 1 Capsule [Detrol] Refill(s) Motrin 800 mg, 2 tab, Inactive Sugar Route: PO, Drug 2014 [facility] form: TAB, ONCE, Dosing Weight 150.909, kg, Start date: 01/19/15 11:41:00, Stop date: 01/19/15 11:41:00Notes: (Same as: Motrin) "Do Not Crush" Give with food. Acetaminophen 325 2 tab, Route: Inactive Sugar MG / Hydrocodone PO, Drug Form: 2014 [facility] Bitartrate 10 MG TAB, Dosing Oral Tablet [Lyons Weight 150.909, 10/325] kg, ONCE, PRN Pain Score 7-10, Start date: 01/19/15 11:41:00, Stop date: 02/18/15 11:40:00Notes: Do not exceed 4gm/day of acetaminophen. (Same as: Lyons 325/10) Habitrol 14 mg, 1 patch, Inactive Sugar Route: TOP, 2014 [facility] Drug form: ERFILM, Daily, Priority: NOW, Start date: 01/19/15 10:18:00, Duration: 1 doses or times, Stop date: 01/19/15 10:18:00Notes: (Same as: Habitrol) "Remove old patch before application of new patch" Hydrochlorothiazide 1 tab, Route: No Longer Sugar 12.5 MG / PO, Drug Form: Active 2014 [facility] Lisinopril 10 MG TAB, Dosing Oral Tablet Weight 150.909, kg, Daily, Start date: 01/19/15 9:00:00, Duration: 30 day, Stop date: 02/17/15 9:00:00 Detrol LA 4 mg, 2 cap, No Longer Sugar Route: PO, Drug Active 2014 [place] form: ERCAP, Daily, Dosing Weight 150.909, kg, Start date: 01/18/15 19:42:00, Duration: 30 day, Stop date: 02/17/15 9:00:00Notes: (Same As: Detrol [place]) (Do Not Crush) Flomax 0.4 mg, 1 cap, No Longer Sugar Route: PO, Drug Active 2014 [place] form: CAP, After Breakfast, Dosing Weight 150.909, kg, Start date: 01/18/15 19:42:00, Duration: 30 day, Stop date: 02/17/15 8:30:00Notes: (Same As: Flomax) "Do Not Crush" Pyridium 200 mg, 2 tab, No Longer Sugar Route: PO, Drug Active 2014 [place] form: TAB, TID-After Meals, Dosing Weight 150.909, kg, Start date: 01/18/15 17:30:00, Duration: 2 day, Stop date: 01/20/15 12:30:00Notes: Give with meals. (Same as: Pyridium) Flomax 0.4 mg, Route: Inactive Sugar PO, After 2014 Dinner, Dosing Weight 150.909, kg, Start date: 01/18/15 17:00:00, Duration: 30 day, Stop date: 02/16/15 17:00:00 pantoprazole 20 mg, Route: Inactive Sugar PO, Drug form: 2014 ECTAB, Before Dinner, Dosing Weight 150.909, kg, Start date: 01/18/15 16:30:00, Duration: 30 day, Stop date: 02/16/15 16:30:00 Protonix 40 mg, 1 tab, No Longer Sugar Route: PO, Drug Active 2014 [place] form: ECTAB, Before Dinner, Start date: 01/18/15 16:30:00, Duration: 30 day, Stop date: 02/16/15 16:30:00Notes: Tablet should not be chewed or crushed. (Same as: Protonix) Meperidine 12.5 mg, Route: Inactive Sugar IVP, Q30Min, 2014 [facility] Dosing Weight 150.909, kg, PRN Other -See Comment, For shivering, Priority: NOW, Start date: 01/18/15 13:19:00, Duration: 2 doses or times, Stop date: Limited # of times Flumazenil 0.2 mg, Route: Inactive Sugar IVP, PRN, 2014 [facility] Dosing Weight 150.909, kg, PRN Benzodiazepine Reversal, Initial dose, Start date: 01/18/15 13:19:00, Duration: 30 day, Stop date: 02/17/15 13:18:00 Morphine 2 mg, Route: Inactive Sugar IVP, Q5Min, 2014 [facility] Dosing Weight 150.909, kg, PRN Pain Score 4-6, Start date: 01/18/15 13:19:00, Duration: 5 doses or times, Stop date: Limited # of times Ketorolac 30 mg, Route: Inactive Sugar IVP, ONCE, 2014 [facility] Dosing Weight 150.909, kg, Start date: 01/18/15 13:19:00, Duration: 1 doses or times, Stop date: 01/18/15 13:19:00 Oxycodone 5 mg, Route: Inactive Sugar PO, Drug form: 2014 [facility] TAB, Q4H, Dosing Weight 150.909, kg, PRN Pain Score 4-6, Start date: 01/18/15 13:19:00, Duration: 30 day, Stop date: 02/17/15 13:18:00 Acetaminophen 1,000 mg, Inactive Sugar Route: IVPB, 2014 [facility] Drug form: INJ, ONCE, Dosing Weight 150.909, kg, PRN Pain Score 1-3, Start date: 01/18/15 13:19:00, Duration: 1 doses or times, Stop date: Limited # of times Ondansetron 4 mg, Route: Inactive Sugar IVP, ONCE, 2014 [facility] Dosing Weight 150.909, kg, PRN Nausea & Vomiting, Start date: 01/18/15 13:19:00 Naloxone 0.04 mg, Route: Inactive Sugar IVP, Q2MIN, 2014 Dosing Weight 150.909, kg, PRN Narcotic Reversal, Start date: 01/18/15 13:19:00, Duration: 8 doses or times, Stop date: Limited # of times Calcium Chloride 1,000 mL, Rate: Inactive Sugar 0.0014 MEQ/ML / 125 ml/hr, 2014 Potassium Chloride Infuse over: 8 0.004 MEQ/ML / hr, Route: IV, Sodium Chloride Dosing Weight 0.103 MEQ/ML / 150.909 kg, Sodium Lactate Total Volume: 0.028 MEQ/ML 1,000, Start Injectable Solution date: 01/18/15 13:19:00, Duration: 30 day, Stop date: 02/17/15 13:18:00 Lactated Ringers IV 1,000 mL, Rate: No Longer Sugar 1,000 mL 25 ml/hr, Active 2014 Infuse over: 40 hr, Route: IV, Dosing Weight 150.909 kg, Total Volume: 1,000, Start date: 01/18/15 11:12:00, Duration: 30 day, Stop date: 02/17/15 11:11:00 Prinivil 10 mg, 2 tab, No Longer Sugar Route: PO, Drug Active 2014 [place] form: TAB, Daily, Priority: NOW, Start date: 01/18/15 10:03:00, Duration: 30 day, Stop date: 02/17/15 9:00:00Notes: (Same as: Prinivil, Zestril) hydrochlorothiazide 12.5 mg, 0.5 No Longer Sugar 25 mg oral tablet tab, Route: PO, Active 2014 Drug form: TAB, Daily, Priority: NOW, Start date: 01/18/15 10:02:00, Duration: 30 day, Stop date: 02/17/15 9:00:00Notes: (Same as: Hydrodiuril) With food. Flomax 0.4 mg, 1 cap, No Longer Sugar Route: PO, Drug Active 2014 [place] form: CAP, Daily, Dosing Weight 150.955, kg, Start date: 01/18/15 9:00:00, Duration: 30 day, Stop date: 02/16/15 9:00:00Notes: (Same As: Flomax) "Do Not Crush" Rocephin 2 gm, Route: No Longer Sugar IVPB, Drug Active 2014 [place] form: PDR/INJ, [id number], Dosing Weight 150.909, kg, Start date: 01/18/15 9:00:00, Duration: 30 day, Stop date: 02/16/15 9:00:00Notes: (Same As: Rocephin). MEDICATION WASTE Product Size: 2000 mg Product Wasted: ___ mg Acetaminophen 325 1 tab, Route: No Longer Sugar MG / Hydrocodone PO, Drug Form: Active 2014 Bitartrate 10 MG TAB, Dosing Oral Tablet [Lyons Weight 150.909, 10/325] kg, Q4H, PRN Pain Score 1-5, Start date: 01/17/15 21:32:00, Duration: 30 day, Stop date: 02/16/15 21:31:00Notes: Do not exceed 4gm/day of acetaminophen. (Same as: Lyons 325/10) Ketorolac 30 mg, 1 mL, No Longer Sugar Route: IV, Drug Active 2014 [place] form: INJ, Q6H, Dosing Weight 150.909, kg, PRN Pain Score 1-5, Start date: 01/17/15 21:31:00, Duration: 4 day, Stop date: 01/21/15 21:30:00Notes: (Same as:Toradol) IV bolus must be given >15 seconds. Give IM administration slowly and deeply into the muscle. Not for use > 4 days MEDICATION WASTE Product Size: 30 mg Product Wasted: ___ mg Nicotine 14 mg, 1 patch, No Longer Sugar Route: TOP, Active 2014 Drug form: ERFILM, Daily, Dosing Weight 150.909, kg, Start date: 01/17/15 21:30:00, Stop date: 02/16/15 9:00:00Notes: (Same as: Habitrol) "Remove old patch before application of new patch" remove patch 1 patch, Route: No Longer Sugar TOP, Drug form: Active 2014 [place] ERFILM, Daily, Start date: 01/17/15 21:29:00, Stop date: 02/16/15 8:59:00Notes: Remove old patch before application of new patch. Ciprofloxacin 2 400 mg, 200 mL, No Longer Sugar MG/ML Injectable Route: IVPB, Active 2014 [facility] [Cipro] Drug form: INJ, [id number], Dosing Weight 150.909, kg, Start date: 01/17/15 17:00:00, Duration: 30 day, Stop date: 02/16/15 5:00:00Notes: Do not refrigerate Insulin, Aspart, 3 unit, 0.03 No Longer Sugar Human mL, Route: Active 2014 [place] SUB-Q, Drug form: SOLN, Bedtime, Dosing Weight 150.909, kg, PRN Blood Glucose Results, Start date: 01/17/15 16:30:00, Duration: 30 day, Stop date: 02/16/15 16:29:00Notes: Roll in palms of hands gently; Do not shake vigorously. (Same as: NovoLOG) "single patient use only" Stable for 28 days at room temperature. Expires in days from D ate Dextrose 50% 12.5 gm, 25 mL, No Longer Sugar Syringe Route: IVP, Active 2014 [facility] Drug Form: INJ, Dosing Weight 150.909, kg, PRN, PRN Blood Glucose Results, Start date: 01/17/15 16:30:00, Duration: 30 day, Stop date: 02/16/15 16:29:00 Glucagon 1 mg, Route: No Longer Sugar IM, Drug form: Active 2014 [place] PDR/INJ, PRN, Dosing Weight 150.909, kg, PRN Blood Glucose Results, Start date: 01/17/15 16:30:00, Duration: 30 day, Stop date: 02/16/15 16:29:00 Sodium Chloride 1,000 mL, Rate: No Longer Sugar 0.154 MEQ/ML 125 ml/hr, Active 2014 [facility] Injectable Solution Infuse over: 8 hr, Route: IV, Dosing Weight 150.909 kg, Total Volume: 1,000, Start date: 01/17/15 16:16:00, Duration: 30 day, Stop date: 02/16/15 16:15:00 Dilaudid 0.5 mg, 0.25 Inactive Sugar mL, Route: IV, 2014 [facility] Drug form: INJ, Q8H, Dosing Weight 150.955, kg, PRN Pain Score 4-6, Priority: Routine, Start date: 01/17/15 16:16:00, Duration: 30 day, Stop date: 02/16/15 16:15:00Notes: (Same as: Dilaudid) Ketorolac 30 mg, 1 mL, Inactive Sugar Route: IVP, 2014 [facility] Drug form: INJ, Q8H, Dosing Weight 150.955, kg, PRN Pain Score 4-6, Priority: Routine, Start date: 01/17/15 16:16:00, Duration: 4 day, Stop date: 01/21/15 16:15:00Notes: (Same as:Toradol) IV bolus must be given >15 seconds. Give IM administration slowly and deeply into the muscle. Not for use > 4 days MEDICATION WASTE Product Size: 30 mg Product Wasted: ___ mg Ondansetron 4 mg, 2 mL, No Longer Sugar Route: IVP, Active 2014 [facility] Drug form: INJ, Q6H, Dosing Weight 150.909, kg, PRN Nausea & Vomiting, Start date: 01/17/15 16:16:00, Duration: 30 day, Stop date: 02/16/15 16:15:00Notes: (Same as: Zofran) MEDICATION WASTE Product Size: 4 mg Product Wasted: ___ mg Acetaminophen 325 1 tab, Route: Inactive Sugar MG / Hydrocodone PO, Drug Form: 2014 [facility] Bitartrate 10 MG TAB, Dosing Oral Tablet [Lyons Weight 150.909, 10/325] kg, Q6H, PRN Pain Score 4-6, Start date: 01/17/15 16:08:00, Duration: 30 day, Stop date: 02/16/15 16:07:00Notes: Do not exceed 4gm/day of acetaminophen. (Same as: Lyons 325/10) Dilaudid 0.5 mg, 0.25 No Longer Sugar mL, Route: IVP, Active 2014 Drug form: INJ, Q3H, Dosing Weight 150.909, kg, PRN Pain Score 6-10, Start date: 01/17/15 16:05:00, Duration: 30 day, Stop date: 02/16/15 16:04:00Notes: (Same as: Dilaudid) Ketorolac 30 mg, Route: Inactive Sugar IVP, Drug form: 2014 INJ, ONCE, Dosing Weight 150.955, kg, Priority: STAT, Start date: 01/17/15 13:27:00, Stop date: 01/17/15 13:27:00 Dilaudid 0.5 mg, Route: Inactive Sugar IVP, ONCE, 2014 Dosing Weight 150.955, kg, Priority: STAT, Start date: 01/17/15 13:26:00, Stop date: 01/17/15 13:26:00 Flomax 0.4 mg, Route: Inactive Sugar PO, ONCE, 2014 Dosing Weight 150.955, kg, Priority: STAT, Start date: 01/17/15 13:18:00, Stop date: 01/17/15 13:18:00 Fentanyl 50 microgram, Inactive Sugar Route: IVP, 2014 ONCE, Dosing Weight 150.955, kg, Priority: STAT, Start date: 01/17/15 11:07:00, Stop date: 01/17/15 11:07:00 Omnipaque 300 100 mL, Route: Inactive Sugar INJ, Drug Form: 2014 SOLN, ONCE, Start date: 01/17/15 10:14:00, Stop date: 01/17/15 10:14:00Notes: (Same as:Omnipaque 300). Morphine 6 mg, Route: Inactive Sugar IVP, Drug form: 2014 INJ, ONCE, Dosing Weight 150.955, kg, Priority: STAT, Start date: 01/17/15 8:55:00, Stop date: 01/17/15 8:55:00 Ketorolac 30 mg, Route: Inactive Sugar IVP, Drug form: 2014 [place] INJ, ONCE, Dosing Weight 150.955, kg, Priority: STAT, Start date: 01/17/15 7:18:00, Stop date: 01/17/15 7:18:00 Zofran 4 mg, Route: Inactive Sugar IVP, Drug form: 2014 [place] INJ, ONCE, Dosing Weight 150.955, kg, Priority: STAT, Start date: 01/17/15 6:58:00, Stop date: 01/17/15 6:58:00 Dilaudid 1 mg, Route: Inactive Sugar IV, ONCE, 2014 [facility] Dosing Weight 150.955, kg, Priority: STAT, Start date: 01/17/15 6:57:00, Stop date: 01/17/15 6:57:00 Sodium Chloride 1,000 mL, Rate: Inactive Sugar 0.154 MEQ/ML 125 ml/hr, 2014 [facility] Injectable Solution Infuse over: 8 hr, Route: IV, Dosing Weight 150.955 kg, Total Volume: 1,000, Start date: 01/17/15 6:46:00, Duration: 30 day, Stop date: 02/16/15 6:45:00 tolterodine 2 mg 4 mg=2 cap, PO, Active Sugar oral capsule, Daily, # 30 2014 [facility] extended release cap, 0 Refill(s) Acetaminophen 325 1 tab, PO, Q6H, Active Sugar MG / Hydrocodone PRN Pain, X 5 2014 [facility] Bitartrate 7.5 MG day, # 20 tab, Oral Tablet [Lyons 0 Refill(s) 7.5/325] ketOROLAC 15 mg/mL 15 mg, 1 mL, Inactive Sugar injectable solution Route: IV, Drug 2014 [place] form: INJ, ONCE, Dosing Weight 150.909, kg, Start date: 01/09/15 11:45:00, Stop date: 01/09/15 11:45:00Notes: (Same as:Toradol) IV bolus must be given >15 seconds. Give IM administration slowly and deeply into the muscle. Not for use > 4 days. Acetaminophen 325 1 tab, Route: Inactive Sugar MG / Hydrocodone PO, Drug Form: 2014 Bitartrate 10 MG TAB, Dosing Oral Tablet [Lyons Weight 150.909, 10/325] kg, Q4H, PRN Pain Score 1-3, Start date: 01/09/15 11:41:00, Duration: 30 day, Stop date: 02/08/15 11:40:00Notes: Do not exceed 4gm/day of acetaminophen. (Same as: Lyons 325/10) Detrol LA 4 mg, 2 cap, Inactive Sugar Route: PO, Drug 2014 [place] form: ERCAP, Daily, Dosing Weight 150.909, kg, Start date: 01/09/15 9:00:00, Duration: 30 day, Stop date: 02/07/15 9:00:00Notes: (Same As: Detrol LA) (Do Not Crush) Pyridium 200 mg, 2 tab, Inactive Sugar Route: PO, Drug 2014 [place] form: TAB, TID-After Meals, Dosing Weight 150.909, kg, Start date: 01/09/15 8:30:00, Duration: 2 day, Stop date: 01/10/15 17:30:00Notes: Give with meals. (Same as: Pyridium) Dilaudid 0.5 mg, 0.25 No Longer Sugar mL, Route: IV, Active 2014 Drug form: INJ, Q3H, Dosing Weight 150.909, kg, PRN Pain Score 7-10, Start date: 01/08/15 21:12:00, Duration: 30 day, Stop date: 02/07/15 21:11:00Notes: (Same as: Dilaudid) Pyridium 100 mg, 1 tab, No Longer Sugar Route: PO, Drug Active 2014 [place] form: TAB, TID-After Meals, Dosing Weight 150.909, kg, Start date: 01/08/15 17:30:00, Duration: 2 day, Stop date: 01/10/15 12:30:00Notes: Give with meals. (Same as: Pyridium) Acetaminophen 325 1 tab, Route: No Longer Sugar MG / Hydrocodone PO, Drug Form: Active 2014 [facility] Bitartrate 7.5 MG TAB, Dosing Oral Tablet [Lyons Weight 150.909, 7.5/325] kg, Q4H, PRN Pain Score 4-6, Start date: 01/08/15 17:17:00, Duration: 30 day, Stop date: 02/07/15 17:16:00Notes: Same as Lyons 325-7.5mg Do not exceed 4gm/day of acetaminophen. Flomax 0.4 mg, 1 cap, No Longer Sugar Route: PO, Drug Active 2014 [place] form: CAP, After Dinner, Dosing Weight 150.909, kg, Start date: 01/08/15 17:00:00, Duration: 30 day, Stop date: 02/06/15 17:00:00Notes: (Same As: Flomax) "Do Not Crush" Ceftriaxone 1 gm, Route: No Longer Sugar IVPB, Daily, Active 2014 [facility] Dosing Weight 150.909, kg, Start date: 01/08/15 17:00:00, Duration: 30 day, Stop date: 02/06/15 17:00:00Notes: (Same As: Rocephin). Use with 100ml NS mini-bag PLUS and infuse over 30 min MEDICATION WASTE Product Size: 1000 mg Product Wasted: ___ mg Insulin, Aspart, 6 unit, 0.06 No Longer Sugar Human mL, Route: Active 2014 [facility] SUB-Q, Drug form: SOLN, TID-Before Meals, Dosing Weight 150.909, kg, PRN Blood Glucose Results, Start date: 01/08/15 15:45:00, Duration: 30 day, Stop date: 02/07/15 15:44:00Notes: Roll in palms of hands gently; Do not shake vigorously. (Same as: NovoLOG) "single patient use only" Stable for 28 days at room temperature. Expires in days from D ate Glucagon 1 mg, Route: No Longer Sugar IM, Drug form: Active 2014 [place] PDR/INJ, PRN, Dosing Weight 150.909, kg, PRN Blood Glucose Results, Start date: 01/08/15 15:45:00, Duration: 30 day, Stop date: 02/07/15 15:44:00 Dextrose 50% 12.5 gm, 25 mL, No Longer Sugar Syringe Route: IVP, Active 2014 [facility] Drug Form: INJ, Dosing Weight 150.909, kg, PRN, PRN Blood Glucose Results, Start date: 01/08/15 15:45:00, Duration: 30 day, Stop date: 02/07/15 15:44:00 Ketorolac 15 mg, 0.5 mL, No Longer Sugar Route: IV, Drug Active 2014 [place] form: INJ, Q6H, Dosing Weight 150.909, kg, PRN Pain Score 6-10, Start date: 01/08/15 15:39:00, Duration: 4 day, Stop date: 01/12/15 15:38:00Notes: (Same as:Toradol) IV bolus must be given >15 seconds. Give IM administration slowly and deeply into the muscle. Not for use > 4 days MEDICATION WASTE Product Size: 30 mg Product Wasted: __15_ mg Dilaudid 1 mg, 0.5 mL, Inactive Sugar Route: IV, Drug 2014 [place] form: INJ, Q4H, Dosing Weight 153.636, kg, PRN Pain 4-6/Temp > 100.4 F, Start date: 01/08/15 14:51:00, Duration: 30 day, Stop date: 02/07/15 14:50:00Notes: (Same as: Dilaudid) Ondansetron 4 mg, 2 mL, No Longer Sugar Route: IVP, Active 2014 Drug form: INJ, Q8H, Dosing Weight 153.636, kg, PRN Nausea & Vomiting, Start date: 01/08/15 14:51:00, Duration: 30 day, Stop date: 02/07/15 14:50:00Notes: (Same as: Zofran) MEDICATION WASTE Product Size: 4 mg Product Wasted: ___ mg Acetaminophen 650 mg, 2 tab, No Longer Sugar Route: PO, Drug Active 2014 [facility] form: TAB, Q4H, Dosing Weight 153.636, kg, PRN Pain 1-3/Temp > 100.4 F, Start date: 01/08/15 14:51:00, Duration: 30 day, Stop date: 02/07/15 14:50:00Notes: Do not exceed 4 gm/day. (Same as: Tylenol) Dilaudid 1 mg, Route: Inactive Sugar IV, ONCE, 2014 Dosing Weight 153.636, kg, Start date: 01/08/15 13:27:00, Stop date: 01/08/15 13:27:00 Ketorolac 30 mg, Route: Inactive Sugar IVP, Drug form: 2014 INJ, ONCE, Dosing Weight 153.636, kg, Priority: STAT, Start date: 01/08/15 13:12:00, Stop date: 01/08/15 13:12:00 Hydromorphone 1 mg, 0.5 mL, Inactive Sugar Route: IVP, 2014 Drug form: INJ, ONCE, Dosing Weight 153.636, kg, Priority: STAT, Start date: 01/08/15 12:47:00, Stop date: 01/08/15 12:47:00Notes: (Same as: Dilaudid) Ondansetron 4 mg, 2 mL, Inactive Sugar Route: IVP, 2014 Drug form: INJ, ONCE, Dosing Weight 153.636, kg, Priority: STAT, Start date: 01/08/15 12:47:00, Stop date: 01/08/15 12:47:00Notes: (Same as: Zofran) MEDICATION WASTE Product Size: 4 mg Product Wasted: ___ mg Saline Flush 0.9% 10 mL, Route: No Longer Sugar IVP, Drug Form: Active 2014 INJ, Dosing Weight 153.636, kg, PRN, PRN Line Flush, Start date: 01/08/15 12:47:00, Duration: 30 day, Stop date: 02/07/15 12:46:00Notes: (Same as: BD Posiflush) Sodium Chloride 1,000 mL, 1000 Inactive Sugar 0.154 MEQ/ML ml/hr, Infuse 2014 [facility] Injectable Solution Over: 1 hr, Route: IV, 1,000, Drug form: INJ, ONCE, Priority: STAT, Dosing Weight 153.636 kg, Start date: 01/08/15 12:47:00, Duration: 1 doses or times, Stop date: 01/08/15 12:47:00 Oxycodone 10 mg, 2 tab, Inactive Sugar Route: PO, Drug 2014 form: TAB, Q4H, Dosing Weight 151.051, kg, PRN Pain Score 7-10, Start date: 01/07/15 16:22:00, Duration: 30 day, Stop date: 02/06/15 16:21:00Notes: (Same as: Roxicodone) Acetaminophen 1,000 mg, 100 Inactive Sugar mL, Route: 2014 [facility] IVPB, Drug form: INJ, ONCE, Dosing Weight 151.051, kg, PRN Pain Score 1-3, Start date: 01/07/15 16:22:00, Duration: 1 doses or times, Stop date: Limited # of timesNotes: Infuse over 15 minutes Do not exceed 4gm/day of acetaminophen MEDICATION WASTE Product Size: 1000 mg Product Wasted: ___ mg Ketorolac 30 mg, 1 mL, Inactive Sugar Route: IVP2014 [facility] Drug form: INJ, ONCE, Dosing Weight 151.051, kg, Start date: 01/07/15 16:22:00, Duration: 1 doses or times, Stop date: 01/07/15 16:22:00Notes: (Same as:Toradol) IV bolus must be given >15 seconds. Give IM administration slowly and deeply into the muscle. Not for use > 4 days MEDICATION WASTE Product Size: 30 mg Product Wasted: ___ mg Morphine 2 mg, 1 mL, Inactive Sugar Route: IVP, 2014 [facility] Drug form: INJ, Q5Min, Dosing Weight 151.051, kg, PRN Pain Score 4-6, Start date: 01/07/15 16:22:00, Duration: 5 doses or times, Stop date: Limited # of timesNotes: (Same as:MORPhine Sulfate) Hydromorphone 0.5 mg, 0.25 Inactive Sugar mL, Route: IVP2014 [place] Drug form: INJ, Q5Min, Dosing Weight 151.051, kg, PRN Pain Score 7-10, Start date: 01/07/15 16:22:00, Duration: 4 doses or times, Stop date: Limited # of timesNotes: (Same as: Dilaudid) Meperidine 12.5 mg, 0.25 Inactive Sugar mL, Route: IVP2014 [facility] Drug form: INJ, Q30Min, Dosing Weight 151.051, kg, PRN Other -See Comment, For shivering, Start date: 01/07/15 16:22:00, Duration: 2 doses or times, Stop date: Limited # of timesNotes: (Same as: Demerol) "Use Precaution in Elderly, Seizure disorders, and Renal impairment" Fentanyl 50 microgram, 1 Inactive Sugar mL, Route: IV2014 [place] Drug form: INJ, Q5Min, Dosing Weight 151.051, kg, PRN Pain Score 7-10, Start date: 01/07/15 16:22:00, Duration: 2 doses or times, Stop date: Limited # of timesNotes: (Same as: Sublimaze) Preservative free. Naloxone 0.04 mg, 0.1 Inactive Sugar mL, Route: IV2014 [facility] Drug form: INJ, Q2MIN, Dosing Weight 151.051, kg, PRN Narcotic Reversal, Start date: 01/07/15 16:22:00, Duration: 8 doses or times, Stop date: Limited # of timesNotes: Same as Narcan Flumazenil 0.2 mg, 2 mL, Inactive Sugar Route: IV2014 [place] Drug form: INJ, PRN, Dosing Weight 151.051, kg, PRN Benzodiazepine Reversal, Initial dose, Start date: 01/07/15 16:22:00, Duration: 30 day, Stop date: 02/06/15 16:21:00Notes: (Same as: Romazicon) Dexamethasone 4 mg, 1 mL, Inactive Sugar Route: IVP2014 [facility] Drug form: INJ, ONCE, Dosing Weight 151.051, kg, PRN Nausea & Vomiting, Start date: 01/07/15 16:22:00Notes: Concentration: 4mg/ml Ondansetron 4 mg, 2 mL, Inactive Sugar Route: IVP2014 [facility] Drug form: INJ, ONCE, Dosing Weight 151.051, kg, PRN Nausea & Vomiting, Start date: 01/07/15 16:22:00Notes: (Same as: Zofran) MEDICATION WASTE Product Size: 4 mg Product Wasted: ___ mg Promethazine 6.25 mg, 0.25 Inactive Sugar mL, Route: IM, 2014 [facility] Drug form: INJ, ONCE, Dosing Weight 151.051, kg, PRN Nausea & Vomiting, Start date: 01/07/15 16:22:00Notes: Do not give IV push. (Same as: Phenergan) Labetalol 10 mg, 2 mL, Inactive Sugar Route: IVP2014 [facility] Drug form: INJ, Q5Min, Dosing Weight 151.051, kg, PRN Elevated BP, Start date: 01/07/15 16:22:00, Duration: 5 doses or times, Stop date: Limited # of timesNotes: (Same as: Normodyne, Trandate) Push over 2 minutes Give bolus over 2-3 minutes. Docusate Sodium 100 100 mg=1 cap, Active Sugar MG Oral Capsule PO, BID, PRN 2014 [facility] [Colace] Constipation, # 60 cap, 0 Refill(s) Acetaminophen 300 1 - 2 tab, PO, No Longer Sugar MG / Codeine Q6H, PRN Pain, Active 2014 [facility] Phosphate 30 MG X 4 day, # 32 Oral Tablet tab, 0 [Tylenol with Refill(s) Codeine #3] Phenazopyridine 200 mg=1 tab, Active Sugar hydrochloride 200 PO, TID, PRN 2014 [place] MG Oral Tablet Dysuria, X 3 [Pyridium] day, # 9 tab, 0 Refill(s) Ciprofloxacin 250 250 mg=1 tab, Active Sugar MG Oral Tablet PO, Q12H, X 7 2015 [place] [Cipro] day, # 14 tab, 0 Refill(s) Tamsulosin =1 tab, PO, Active Sugar hydrochloride 0.4 Daily, # 14 2015 [place] MG Oral Capsule tab, 0 [Flomax] Refill(s) Ketorolac 10 mg=1 tab, Active Sugar Tromethamine 10 MG PO, Q6H, PRN 2014 [place] Oral Tablet Pain Score 6-10, X 5 day, # 20 tab, 0 Refill(s) tamsulosin 0.4 mg 0.4 mg=1 cap, Active Sugar oral capsule PO, After 2015 [place] Dinner, # 15 cap, 0 Refill(s) Ciprofloxacin 2 400 mg, Route: Inactive Sugar MG/ML Injectable IVPB, PRE OP, 2014 [place] Solution [Cipro] Dosing Weight 151.051, kg, Start date: 01/07/15 14:00:00 24 HR Metformin 1,000 mg=2 tab, Active Sugar hydrochloride 500 PO, BID, 0 2014 [place] MG Extended Release Refill(s) Tablet ketOROLAC 15 mg/mL 15 mg, 0.5 mL, Inactive Sugar injectable solution Route: IVP2014 [facility] Drug form: INJ, Q6H, Dosing Weight 151.051, kg, PRN Pain Score 4-6, Start date: 01/07/15 9:12:00, Duration: 4 day, Stop date: 01/11/15 9:11:00Notes: (Same as:Toradol) IV bolus must be given >15 seconds. Give IM administration slowly and deeply into the muscle. Not for use > 4 days MEDICATION WASTE Product Size: 30 mg Product Wasted: 15 mg Hydromorphone 0.5 mg, 0.25 Inactive Sugar mL, Route: IVP2014 [facility] Drug form: INJ, Q2H, Dosing Weight 151.051, kg, PRN Pain Score 7-10, Start date: 01/07/15 8:56:00, Duration: 30 day, Stop date: 02/06/15 8:55:00Notes: (Same as: Dilaudid) Dilaudid 0.5 mg, 0.25 Inactive Sugar mL, Route: IV, 2014 [facility] Drug form: INJ, Q3H, Dosing Weight 151.051, kg, PRN Pain Score 7-10, Start date: 01/07/15 1:11:00, Duration: 30 day, Stop date: 02/06/15 1:10:00Notes: (Same as: Dilaudid) Ondansetron 4 mg, 2 mL, Inactive Sugar Route: IVP, 2014 [facility] Drug form: INJ, Q4H, Dosing Weight 150.909, kg, PRN Nausea & Vomiting, Start date: 01/07/15 1:10:00, Duration: 30 day, Stop date: 02/06/15 1:09:00Notes: (Same as: Ho) MEDICATION WASTE Product Size: 4 mg Product Wasted: ___ mg Insulin, Aspart, 4 unit, 0.04 Inactive Sugar Human mL, Route: 2014 [facility] SUB-Q, Drug form: SOLN, Sliding Scale, Dosing Weight 151.051, kg, PRN Blood Glucose Results, Start date: 01/07/15 1:09:00, Duration: 30 day, Stop date: 02/06/15 1:08:00Notes: Roll in palms of hands gently; Do not shake vigorously. (Same as: NovoLOG) "single patient use only" Stable for 28 days at room temperature. Expires in days from D ate Glucagon 1 mg, Route: Inactive Sugar IM, Drug form: 2014 [facility] PDR/INJ, PRN, Dosing Weight 151.051, kg, PRN Blood Glucose Results, Start date: 01/07/15 1:09:00, Duration: 30 day, Stop date: 02/06/15 1:08:00 Dextrose 50% 25 gm, 50 mL, Inactive Sugar Syringe Route: IVP, 2014 [facility] Drug Form: INJ, Dosing Weight 151.051, kg, PRN, PRN Blood Glucose Results, Start date: 01/07/15 1:09:00, Duration: 30 day, Stop date: 02/06/15 1:08:00 Flomax 0.4 mg, 1 cap, Inactive Sugar Route: PO, Drug 2014 [place] form: CAP, After Dinner, Dosing Weight 151.051, kg, Priority: NOW, Start date: 01/07/15 1:09:00, Duration: 30 day, Stop date: 02/05/15 17:00:00Notes: (Same As: Flomax) "Do Not Crush" NS 1,000 mL 1,000 mL, Rate: Inactive Sugar 150 ml/hr, 2014 Infuse over: 6.7 hr, Route: IV, Dosing Weight 151.051 kg, Total Volume: 1,000, Start date: 01/07/15 1:09:00, Duration: 30 day, Stop date: 02/06/15 1:08:00 Ondansetron 4 mg, 2 mL, No Longer Sugar Route: IVP, Active 2014 Drug form: INJ, Q8H, Dosing Weight 150.909, kg, PRN Nausea & Vomiting, Start date: 01/06/15 23:23:00, Duration: 30 day, Stop date: 02/05/15 23:22:00Notes: (Same as: Alberan) MEDICATION WASTE Product Size: 4 mg Product Wasted: ___ mg Docusate 100 mg, 1 cap, No Longer Sugar Route: PO, Drug Active 2014 Land form: CAP, BID, Dosing Weight 150.909, kg, PRN Constipation, Start date: 01/06/15 23:23:00, Duration: 30 day, Stop date: 02/05/15 23:22:00Notes: (Same as: Colace) (Do Not Crush) Dilaudid 1 mg, Route: Inactive Sugar IV, ONCE, 2014 Dosing Weight 150.909, kg, Start date: 01/06/15 22:56:00, Stop date: 01/06/15 22:56:00 Saline Flush 0.9% 10 mL, Route: No Longer [place] IVP, Drug Form: Active 2014 [place] INJ, Dosing Weight 150.909, kg, PRN, PRN Line Flush, Start date: 01/06/15 22:10:00, Duration: 30 day, Stop date: 02/05/15 22:09:00Notes: (Same as: BD Posiflush) Sodium Chloride 1,000 mL, 1000 Inactive [place] 0.154 MEQ/ML ml/hr, Infuse 2014 [facility] Injectable Solution Over: 1 hr, Route: IV, 1,000, Drug form: INJ, ONCE, Priority: STAT, Dosing Weight 150.909 kg, Start date: 01/06/15 22:10:00, Duration: 1 doses or times, Stop date: 01/06/15 22:10:00 Hydromorphone 1 mg, 0.5 mL, Inactive [place] Route: IVP2014 [facility] Drug form: INJ, ONCE, Dosing Weight 150.909, kg, Priority: STAT, Start date: 01/06/15 22:10:00, Stop date: 01/06/15 22:10:00Notes: (Same as: Dilaudid) Ketorolac 30 mg, 1 mL, Inactive [place] Route: IVP2014 [facility] Drug form: INJ, ONCE, Dosing Weight 150.909, kg, Priority: STAT, Start date: 01/06/15 22:10:00, Stop date: 01/06/15 22:10:00Notes: (Same as:Toradol) IV bolus must be given >15 seconds. Give IM administration slowly and deeply into the muscle. Not for use > 4 days MEDICATION WASTE Product Size: 30 mg Product Wasted: ___ mg Ondansetron 4 mg, 2 mL, Inactive [place] Route: IVP2014 [facility] Drug form: INJ, ONCE, Dosing Weight 150.909, kg, Priority: STAT, Start date: 01/06/15 22:10:00, Stop date: 01/06/15 22:10:00Notes: (Same as: Zofran) MEDICATION WASTE Product Size: 4 mg Product Wasted: ___ mg Acetaminophen 300 1 tab, PO, Q6H, Active [place] MG / Codeine PRN as needed 2014 [facility] Phosphate 30 MG for pain, X 4 Oral Tablet day, # 16 tab, [Tylenol with 0 Refill(s) Codeine #3] Ondansetron 4 MG 4 mg=1 tab, PO, Active [facility] Disintegrating TID, PRN Nausea 2014 Tablet [Zofran] and Vomiting, X 4 day, # 10 tab, 0 Refill(s) Reglan 10 mg, Route: Inactive [place] IVP, Drug form: 2014 [place] INJ, ONCE, Dosing Weight 150.455, kg, Priority: STAT, Start date: 12/20/14 11:05:00, Stop date: 12/20/14 11:05:00 Ondansetron 4 mg, Route: Inactive [place] IVP, ONCE, 2014 Dosing Weight 150.455, kg, Priority: STAT, Start date: 12/20/14 10:42:00, Stop date: 12/20/14 10:42:00 Hydromorphone 1 mg, Route: Inactive [facility] IVP, ONCE, 2014 Dosing Weight 150.455, kg, Priority: STAT, Start date: 12/20/14 10:42:00, Stop date: 12/20/14 10:42:00 NS 1000 mL 1,000 mL, Rate: Inactive [place] 1,000 ml/hr, 2014 Infuse over: 1 hr, Route: IV, Dosing Weight 150.455 kg, Total Volume: 1,000, Start date: 12/20/14 10:31:00, Duration: 1 doses or times, Stop date: 12/20/14 11:30:00, Bolus DoseSpecial Instructions: Bolus Dose Ondansetron 4 mg, Route: Inactive [place] IVP, ONCE, 2014 Dosing Weight 150.455, kg, Priority: STAT, Start date: 12/20/14 8:50:00, Stop date: 12/20/14 8:50:00 Saline Flush 0.9% 10 mL, Route: Inactive [facility] IVP, Drug Form: 2014 INJ, Dosing Weight 150.455, kg, PRN, PRN Line Flush, Start date: 12/20/14 8:50:00, Duration: 30 day, Stop date: 01/19/15 8:49:00Notes: (Same as: BD Posiflush) Sodium Chloride 1,000 mL, Inactive [place] 0.154 MEQ/ML Infuse Over: 1 2014 [facility] Injectable Solution hr, Route: IV, ONCE, Priority: STAT, Dosing Weight 150.455 kg, Start date: 12/20/14 8:50:00, Duration: 1 doses or times, Stop date: 12/20/14 8:50:00 Morphine 4 mg, Route: Inactive [facility] IVP, ONCE, 2014 Dosing Weight 150.455, kg, Priority: STAT, Start date: 12/20/14 8:50:00, Stop date: 12/20/14 8:50:00 Dilaudid 1 mg, 0.5 mL, Inactive [place] Route: IV, Drug 2014 [place] form: INJ, ONCE, Dosing Weight 151.534, kg, Start date: 10/18/14 22:53:00, Stop date: 10/18/14 22:53:00Notes: (Same as: Dilaudid) Acetaminophen 325 1 tab, PO, Q6H, Active [facility] MG / Hydrocodone # 24 tab, 0 2014 [facility] Bitartrate 5 MG Refill(s) Oral Tablet [[place]ons 5/325] Dilaudid 1 mg, 0.5 mL, Inactive [facility] Route: IV, Drug 2014 [place] form: INJ, ONCE, Dosing Weight 151.534, kg, Start date: 10/18/14 21:13:00, Stop date: 10/18/14 21:13:00Notes: (Same as: Dilaudid) Saline Flush 0.9% 10 mL, Route: Inactive [place] IVP, Drug Form: 2014 [place] INJ, Dosing Weight 151.534, kg, PRN, PRN Line Flush, Start date: 10/18/14 20:30:00, Duration: 30 day, Stop date: 11/17/14 20:29:00Notes: (Same as: BD Posiflush) Sodium Chloride 1,000 mL, Inactive [facility] 0.154 MEQ/ML Infuse Over: 1 2014 [facility] Injectable Solution hr, Route: IV, ONCE, Priority: STAT, Dosing Weight 151.534 kg, Start date: 10/18/14 20:30:00, Duration: 1 doses or times, Stop date: 10/18/14 20:30:00 Ondansetron 4 mg, Route: Inactive [place] IVP, ONCE, 2014 [facility] Dosing Weight 151.534, kg, Priority: STAT, Start date: 10/18/14 20:30:00, Stop date: 10/18/14 20:30:00 Hydromorphone 1 mg, Route: Inactive [facility] IVP, ONCE, 2014 [facility] Dosing Weight 151.534, kg, Priority: STAT, Start date: 10/18/14 20:30:00, Stop date: 10/18/14 20:30:00 Ketorolac 30 mg, Route: Inactive [facility] IVP, ONCE, 2014 [facility] Dosing Weight 151.534, kg, Priority: STAT, Start date: 10/18/14 20:30:00, Stop date: 10/18/14 20:30:00 meclizine 50 mg 50 mg=1 tab, Active [facility] oral tablet PO, BID, PRN 2014 [facility] Dizziness, # 20 tab, 0 Refill(s) Meclizine 50 mg, 2 tab, Inactive [facility] Route: PO, Drug 2014 [place] form: TAB, ONCE, Dosing Weight 159.091, kg, Priority: STAT, Start date: 10/04/14 14:45:00, Stop date: 10/04/14 14:45:00Notes: (Same as: Antivert) Ondansetron 4 mg, 2 mL, Inactive [facility] Route: IVP, 2014 [facility] Drug form: INJ, ONCE, Dosing Weight 159.091, kg, Priority: STAT, Start date: 10/04/14 14:45:00, Stop date: 10/04/14 14:45:00Notes: (Same as: Zofran) MEDICATION WASTE Product Size: 4 mg Product Wasted: ___ mg Sodium Chloride 1,000 mL, 1,000 Inactive [place] 0.154 MEQ/ML ml/hr, Infuse 2014 [facility] Injectable Solution Over: 1 hr, Route: IV, ONCE, Priority: STAT, Dosing Weight 159.091 kg, Start date: 10/04/14 14:45:00, Duration: 1 doses or times, Stop date: 10/04/14 14:45:00 Saline Flush 0.9% 10 mL, Route: Inactive [place] IVP, Drug Form: 2014 [place] INJ, Dosing Weight 159.091, kg, PRN, PRN Line Flush, Start date: 10/04/14 14:45:00, Duration: 30 day, Stop date: 11/03/14 14:44:00Notes: (Same as: BD Posiflush) Simvastatin 20 mg, 1 tab, Inactive [place] Route: PO, Drug 2014 Medical form: TAB, Center Bedtime, Dosing Weight 159.091, kg, Start date: 10/01/14 21:00:00, Duration: 30 day, Stop date: 10/30/14 21:00:00Notes: (Same as: Zocor) Microzide 12.5 mg, 1 cap, Inactive [place] Route: PO, Drug 2014 Medical form: CAP, Center Daily, Start date: 10/01/14 9:00:00, Duration: 30 day, Stop date: 10/30/14 9:00:00Notes: (Same as: Microzide) With food. Prinivil 10 mg, 1 tab, Inactive [place] Route: PO, Drug 2014 Medical form: TAB, Center Daily, Start date: 10/01/14 9:00:00, Duration: 30 day, Stop date: 10/30/14 9:00:00Notes: (Same as: Prinivil, Zestril) Hydrochlorothiazide 1 tab, Route: Inactive [place] 12.5 MG / PO, Dosing 2014 Medical Lisinopril 10 MG Weight 159.091, Center Oral Tablet kg, Daily, Start date: 10/01/14 9:00:00, Duration: 30 day, Stop date: 10/30/14 9:00:00 Bupropion 150 mg, 2 tab, Inactive [place] Route: PO, Drug 2014 Medical form: TAB, BID, Center Dosing Weight 159.091, kg, Start date: 10/01/14 9:00:00, Duration: 30 day, Stop date: 10/30/14 17:00:00Notes: (Same As: Wellbutrin) Metformin 1,000 mg=2 tab, Active [facility] hydrochloride 500 PO, BID, # 30 2014 Medical MG Oral Tablet tab, 0 Center Refill(s) busPIRone 15 mg 15 mg=1 tab, Inactive [facility] oral tablet PO, BID, 0 2014 Medical Refill(s) Center 3 ML liraglutide 6 See Active [facility] MG/ML Prefilled Instructions, 2015 Medical Syringe [Victoza] 1.8 mg units Center daily, 0 Refill(s)Specia l Instructions: 1.8 mg units daily heparin 7,500 unit, 1.5 Inactive [facility] mL, Route: 2014 Medical SUB-Q, Drug Center form: INJ, Q8H, Dosing Weight 159.091, kg, Start date: 10/01/14 8:00:00, Duration: 30 day, Stop date: 10/31/14 0:00:00Notes: porcine heparin Simvastatin 20 mg=1 tab, Active [facility] PO, Bedtime, # 2015 Medical 30 tab, 0 Center Refill(s) Hydrochlorothiazide 1 tab, PO, Active [facility] 12.5 MG / Daily, # 30 2014 Medical Lisinopril 10 MG tab, 0 Center Oral Tablet Refill(s) Bupropion 150 mg, PO, Inactive [facility] BID, 0 2014 Medical Refill(s) [place] iodixanol 100 mL, Route: Inactive [facility] IVP, Drug Form: 2014 Medical SOLN, Dosing Center Weight 159.091, kg, ONCALL, STAT, Start date: 10/01/14 5:36:00, Duration: 1 doses or times, Dose=2.2ml/kg, Max [id number] -- "To be infused by Radiology Staff ONLY"Special Instructions: Dose=2.2ml/kg, Max [id number] -- "To be infused by Radiology Staff ONLY" normal saline 0.9% 1,000 mL, Rate: Inactive [facility] IV 1,000 mL 50 ml/hr, 2014 Medical Infuse over: 20 Center hr, Route: IV, Dosing Weight 159.091 kg, Total Volume: 1,000, Start date: 10/01/14 5:16:00, Duration: 30 day, Stop date: 10/31/14 5:15:00 normal saline 0.9% 1,000 mL, Rate: Inactive [facility] IV 1000 mL 75 ml/hr, 2014 Medical Infuse over: Center 13.3 hr, Route: IV, Dosing Weight 159.091 kg, Total Volume: 1,000, Start date: 10/01/14 5:16:00, Duration: 30 day, Stop date: 10/31/14 5:15:00 potassium chloride 40 mEq, 2 tab, Inactive [facility] Route: PO, Drug 2014 Medical form: ERTAB, Center ONCE, Dosing Weight 159.091, kg, Start date: 10/01/14 5:16:00, Stop date: 10/01/14 5:16:00Notes: (Same as: K-Dur 20) "Do Not Crush" With food and full glass of water normal saline 0.9% 1,000 mL, Rate: Inactive [facility] IV 1,000 mL 50 ml/hr, 2014 Medical Infuse over: 20 Center hr, Route: IV, Dosing Weight 159.091 kg, Total Volume: 1,000, Start date: 10/01/14 4:47:00, Duration: 30 day, Stop date: 10/31/14 4:46:00 normal saline 0.9% 1,000 mL, Rate: Inactive [facility] IV 1,000 mL 75 ml/hr, 2014 Medical Infuse over: Center 13.3 hr, Route: IV, Dosing Weight 159.091 kg, Total Volume: 1,000, Start date: 10/01/14 4:16:00, Duration: 30 day, Stop date: 10/31/14 4:15:00 Glucagon 1 mg, Route: Inactive 10/01[facility] IM, Drug form: 2014 Medical PDR/INJ, PRN, Center Dosing Weight 159.091, kg, PRN Blood Glucose Results, Start date: 10/01/14 4:15:00, Duration: 30 day, Stop date: 10/31/14 4:14:00 Insulin, Aspart, 2 unit, 0.02 Inactive [facility] Human mL, Route: 2014 Medical SUB-Q, Drug Center form: SOLN, TID-Before Meals, Dosing Weight 159.091, kg, PRN Blood Glucose Results, Start date: 10/01/14 4:15:00, Duration: 30 day, Stop date: 10/31/14 4:14:00Notes: Roll in palms of hands gently; Do not shake vigorously. (Same as: NovoLOG) "single patient use only" Stable for 28 days at room temperature. Expires in days from D ate Dextrose 50% 12.5 gm, 25 mL, Inactive [facility] Syringe Route: IVP, 2014 Medical Drug Form: INJ, Center Dosing Weight 159.091, kg, PRN, PRN Blood Glucose Results, Start date: 10/01/14 4:15:00, Duration: 30 day, Stop date: 10/31/14 4:14:00 Acetaminophen 650 mg, 2 tab, Inactive [facility] Route: PO, Drug 2014 Medical form: TAB, Q4H, Center Dosing Weight 159.091, kg, PRN Pain 1-3/Temp > 100.4 F, Start date: 10/01/14 4:13:00, Duration: 30 day, Stop date: 10/31/14 4:12:00Notes: Do not exceed 4 gm/day. (Same as: Tylenol) Tylenol 650 mg, 2 tab, Inactive [facility] Route: PO, Drug 2014 Medical form: TAB, Center ONCE, Dosing Weight 159.091, kg, Priority: STAT, Start date: 10/01/14 0:58:00, Stop date: 10/01/14 0:58:00Notes: Do not exceed 4 gm/day. (Same as: Tylenol) Potassium Chloride 40 mEq, 30 mL, Inactive [place] 1.33 MEQ/ML Oral Route: PO, Drug 2014 Medical Solution form: LIQ, Center ONCE, Dosing Weight 159.091, kg, Priority: STAT, Start date: 10/01/14 0:53:00, Stop date: 10/01/14 0:53:00Notes: (Same as: Potassium Chloride) Reglan 10 mg, 2 mL, Inactive 10/01[facility] [place] Route: IVP, 2014 Medical Drug form: INJ, Center ONCE, Dosing Weight 159.091, kg, Priority: STAT, Start date: 10/01/14 0:52:00, Stop date: 10/01/14 0:52:00Notes: (Same as: Reglan) potassium chloride 20 mEq, 100 mL, Inactive [place] Route: IVPB, 2014 Medical Drug form: INJ, Center ONCE, Dosing Weight 159.091, kg, Start date: 10/01/14 0:38:00, Stop date: 10/01/14 0:38:00Notes: (Same as: KCL) Infuse no faster than 10 mEq/hr if given peripherally. Tylenol 650 mg, 2 tab, Inactive [place] Route: PO, Drug 2014 Medical form: TAB, [place] ONCE, Dosing Weight 159.091, kg, Priority: STAT, Start date: 09/30/14 23:19:00, Stop date: 09/30/14 23:19:00Notes: Do not exceed 4 gm/day. (Same as: Tylenol) Dilaudid 1 mg, Route: Inactive [facility] 06/18[facility] Sugar IM, ONCE, 2012 [facility] Dosing Weight 159.091, kg, Start date: 06/18/13 10:55:00, Stop date: 06/18/13 10:55:00 Robaxin 500 mg oral 1,000 mg=2 tab, Active [facility] 06/18[facility] Sugar tablet PO, QID, # 56 2012 [facility] tab, 0 Refill(s) ibuprofen 800 mg 800 mg=1 tab, Active [facility] 06/18[facility] Sugar oral tablet PO, TID, # 90 2012 [facility] tab, 0 Refill(s) [place] 5/325 oral 1 tab, PO, Active [facility] 06/18[facility] Sugar tablet Q4-6H, Pain, # 2012 [place] 30 tab, 0 Refill(s) Dilaudid 1 mg, Route: Inactive [facility] 06/18[facility] Sugar IM, ONCE, 2012 [facility] Dosing Weight 159.091, kg, Start date: 06/18/13 9:57:00, Stop date: 06/18/13 9:57:00 ketorolac 30 mg, Route: Inactive [facility] 06/18[facility] Sugar IM, Drug form: 2012 [facility] INJ, ONCE, Dosing Weight 159.091, kg, Priority: STAT, Start date: 06/18/13 9:57:00, Stop date: 06/18/13 9:57:00 Allergies, Adverse Reactions, Alerts Substance Category Reaction Severity Reaction Status Date Comments Source type Reported NKFA Assertion Food Active allergy Medical Group No Known Assertion Drug Medication allergy Medical Allergies Group Immunizations Immunization Date Given Site Status Last Updated Comments Source Results Order Name Results Value Reference Date Interpretation Comments Source Range CHEM PANEL A/G Ratio 1.0 0.7 - 1.6 12/16 [facility] CHEM PANEL Globulin 4.0 g/dL 2.0 - 4.0 12/16 [facility] CHEM PANEL AGAP 15.0 meq/L 10.0 - 12/16 [place] 20.0 [facility] CHEM PANEL B/C Ratio 13 6 - 25 12/16 [facility] CHEM PANEL eGFR 84 12/16 Result Comment: The eGFR is calculated using the CKD-EPI formula. In most young, healthy individuals the eGFR will be >90 mL/ min/1.73m2. The eGFR declines with age. An eGFR of 60-89 may be normal in mL/min/1. some populations, particularly the elderly, for whom the CKD-EPI formula has not been extensively validated. Use of the eGFR is not recommended in the following populations: [place] 3m2 Individuals with unstable creatinine concentrations, including patients and those with serious co-morbid conditions. Patients with extremes in muscle mass or diet. The data above are obtained from the National Kidney Disease Education Program (NKDEP) which additionally recommends that when the eGFR is used in patients with extremes of body mass index for purposes of drug dosing, the eGFR should be multiplied by the estimated BMI. CHEM PANEL Bili Total 0.5 mg/dL 0.2 - 1.3 12/16 [place] CHEM PANEL AST 13 unit/L 0 - 37 12/16 [facility] CHEM PANEL Alk Phos 128 unit/L 39 - 136 12/16 [facility] CHEM PANEL Glucose Lvl 213 mg/dL 70 - 99 12/16 [facility] CHEM PANEL BUN 14 mg/dL 7 - 22 12/16 [facility] CHEM PANEL Potassium Lvl 4.0 meq/L 3.5 - 5.1 12/16 [facility] CHEM PANEL Creatinine 1.09 mg/dL 0.50 - 12/16 [facility] Lvl 1.40 /2015 [facility] CHEM PANEL Sodium Lvl 141 meq/L 135 - 145 12/16 [facility] CHEM PANEL Chloride Lvl 105 meq/L 95 - 109 12/16 [facility] CHEM PANEL CO2 25 meq/L 24 - 32 12/16 [facility] CHEM PANEL Calcium Lvl 9.5 mg/dL 8.5 - 10.5 12/16 [facility] CHEM PANEL Total Protein 7.9 g/dL 6.4 - 8.4 12/16 [place] CHEM PANEL Albumin Lvl 3.9 g/dL 3.5 - 5.0 12/16 [facility] CHEM PANEL ALT 38 unit/L 0 - 65 12/16 [facility] CHEM PANEL Lipase Lvl 178 unit/L 73 - 393 12/16 [facility] HEMATOLOGY Basophils 0.6 % 0.0 - 1.0 12/16 [facility] HEMATOLOGY Monocytes # 0.8 K/CMM 0.0 - 0.8 12/16 [place] HEMATOLOGY Lymphocytes # 2.8 K/CMM 1.0 - 5.5 12/16 [place] HEMATOLOGY Segs-Bands # 3.5 K/CMM 1.5 - 8.1 12/16 [place] HEMATOLOGY Eosinophils 2.6 % 0.0 - 4.0 12/16 [place] HEMATOLOGY Basophils # 0.0 K/CMM 0.0 - 0.2 12/16 [facility] HEMATOLOGY Eosinophils # 0.2 K/CMM 0.0 - 0.5 12/16 [facility] HEMATOLOGY Segs 47.8 % 45.0 - 12/16 [place] 75.0 2016 [place] HEMATOLOGY Monocytes 11.0 % 2.0 - 12.0 12/16 [facility] HEMATOLOGY Lymphocytes 38.0 % 20.0 - 12/16 [facility] 40.0 [facility] HEMATOLOGY RBC 5.03 M/CMM 4.70 - 12/16 [facility] 6.10 [facility] HEMATOLOGY RDW 13.4 % 11.5 - 12/16 [facility] 14.5 [facility] HEMATOLOGY Platelet 259 K/CMM 133 - 450 12/16 [facility] HEMATOLOGY MPV 9.7 fL 7.4 - 10.4 12/16 [facility] HEMATOLOGY MCHC 33.0 g/dL 32.0 - 12/16 [facility] 36.0 [facility] HEMATOLOGY MCH 32.2 pg 27.0 - 12/16 [place] 31.0 [facility] HEMATOLOGY MCV 97.8 fL 80.0 - 12/16 [facility] 94.0 [facility] HEMATOLOGY Hct 49.2 % 42.0 - 12/16 [place] 54.0 [facility] HEMATOLOGY Hgb 16.2 g/dL 14.0 - 12/16 [place] 18.0 [facility] HEMATOLOGY WBC 7.3 K/CMM 3.7 - 10.4 12/16 [facility] URINE AND UA RBC None Seen 0 - 2 12/16 [place] STOOL [facility] (12/16/15 7:45 PM) URINE AND UA WBC 0-2 /HPF None Seen 12/16 [place] STOOL /HPF [facility] URINE AND UA Bacteria Occasional None Seen 12/16 [place] STOOL /HPF /HPF [facility] URINE AND UA Sq Epi Occasional Few /LPF 12/16 [place] STOOL /LPF /2015 [facility] URINE AND UA Color Yellow Yellow 12/16 [facility] STOOL [place] *NA* (12/16/15 7:45 PM) URINE AND UA 0.2 EU/dL 0.1 - 1.0 12/16 [facility] STOOL Urobilinogen /2015 [facility] URINE AND UA Ketones Negative Negative 12/16 [place] STOOL mg/dL mg/dL [facility] URINE AND UA Blood Negative Negative 12/16 [facility] STOOL [facility] (12/16/15 7:45 PM) URINE AND UA Bili Negative Negative 12/16 [facility] STOOL [facility] *NA* (12/16/15 7:45 PM) URINE AND UA Glucose Negative Negative 12/16 [place] STOOL mg/dL mg/dL [facility] URINE AND UA Turbidity Clear Clear 12/16 [facility] STOOL [facility] (12/16/15 7:45 PM) URINE AND UA pH 6.5 5.0 - 8.0 12/16 [facility] STOOL [facility] URINE AND UA Protein Negative Negative 12/16 [facility] STOOL mg/dL mg/dL [facility] URINE AND UA Spec Grav 1.025 <=1.030 12/16 [facility] STOOL [facility] URINE AND UA Leuk Est Negative Negative 12/16 [facility] STOOL [facility] (12/16/15 7:45 PM) URINE AND UA Nitrite Negative Negative 12/16 [facility] STOOL /2015 [facility] (12/16/15 7:45 PM) Renal Stone Renal Stone CLINICAL HISTORY: Abdominal pain, acute 12/15 - [facility] CT - [facility] AGE: 40 years GENDER: Male Read by: Len Tong MD Dictated Date/time: 12/16/15 21:39 Electronically Signed by: Len Tong MD 12/16/15 21:49 FINAL REPORT TECHNIQUE: Noncontrast CT of the abdomen and pelvis was performed. Multiplanar reconstructions were reviewed. Please note lack of IV contrast limits evaluation of solid organ pathology and lymphadenopathy. DLP: 1475.11 mGy-cm COMPARISON: 01/28/2015 FINDINGS: The visualized lung bases are unremarkable. There is marked hepatomegaly. The liver measures 24.6 cm and critical dimension. The spleen, pancreas and adrenal glands are unremarkable. The gallbladder is absent. Surgical clips are noted in the hepatic hilum compatible with previous cholecystectomy. . There is no CT evidence of hydronephrosis. There is no hydroureter. Nonobstructive nephrolithiasis seen in both kidneys. The largest stone in the left kidney measures 7 mm and is located in the inferi or pole. The largest on the right kidney measures 3 mm and is seen in the midpole. No significant retroperitoneal adenopathy is seen. There is no significant atherosclerotic calcification of the abdominal aorta. There is no evidence of abdominal aortic aneurysm. Linear radiopaque density seen in the right lower quadrant adjacent to distal small bowel. Correlate for history of previous surgical intervention.. The appendix is not visualized. However, no inflammat ory change is seen in the right lower quadrant. There is no significant free fluid in the abdomen or pelvis. The bladder is partially collapsed. No significant pelvic adenopathy is seen. 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 Moderate fatty atrophy of the right rectus mukesh muscle is noted. This may related to sequela from old trauma. IMPRESSION: Bilateral nonobstructive nephrolithiasis. Marked hepatomegaly. Linear radiopaque density in the right lower quadrant adjacent to distal small bowel. This is suggestive of previous surgical intervention. CHEM PANEL Lipase Lvl 226 unit/L 73 - 393 01/28 [place] /2014 [facility] CHEM PANEL eGFR 84 01/28 Result Comment: The eGFR is calculated using the CKD-EPI formula. In most young, healthy individuals the eGFR will be >90 mL/ min/1.73m2. The eGFR declines with age. An eGFR of 60-89 may be normal in mL/min/1. some populations, particularly the elderly, for whom the CKD-EPI formula has not been extensively validated. Use of the eGFR is not recommended in the following populations: [place] 3m2 Individuals with unstable creatinine concentrations, including patients and those with serious co-morbid conditions. Patients with extremes in muscle mass or diet. The data above are obtained from the National Kidney Disease Education Program (NKDEP) which additionally recommends that when the eGFR is used in patients with extremes of body mass index for purposes of drug dosing, the eGFR should be multiplied by the estimated BMI. CHEM PANEL Bili Total 0.9 mg/dL 0.2 - 1.3 01/28 [facility] CHEM PANEL AST 52 unit/L 0 - 37 01/28 [facility] CHEM PANEL ALT 170 unit/L 0 - 65 01/28 [facility] CHEM PANEL Alk Phos 140 unit/L 39 - 136 01/28 [facility] CHEM PANEL Albumin Lvl 4.1 g/dL 3.5 - 5.0 01/28 [facility] CHEM PANEL Total Protein 7.8 g/dL 6.4 - 8.4 01/28 [facility] CHEM PANEL Calcium Lvl 9.9 mg/dL 8.5 - 10.5 01/28 [facility] CHEM PANEL Sodium Lvl 137 meq/L 135 - 145 01/28 [facility] CHEM PANEL CO2 21 meq/L 24 - 32 01/28 [facility] CHEM PANEL Potassium Lvl 3.8 meq/L 3.5 - 5.1 01/28 [facility] CHEM PANEL Chloride Lvl 104 meq/L 95 - 109 01/28 [facility] CHEM PANEL Creatinine 1.1 mg/dL 0.5 - 1.4 01/28 [facility] CHEM PANEL Glucose Lvl 167 mg/dL 70 - 99 01/28 [facility] CHEM PANEL BUN 13 mg/dL 7 - 22 01/28 [facility] CHEM PANEL A/G Ratio 1.1 0.7 - 1.6 01/28 [facility] CHEM PANEL Globulin 3.7 g/dL 2.0 - 4.0 01/28 [facility] CHEM PANEL B/C Ratio 12 6 - 25 01/28 [facility] CHEM PANEL AGAP 15.8 meq/L 10.0 - 01/28 [place] 20.0 [facility] HEMATOLOGY Eosinophils 12.7 % 0.0 - 4.0 01/28 [facility] HEMATOLOGY Lymphocytes 24.8 % 20.0 - 01/28 [place] 40.0 [place] HEMATOLOGY Monocytes 6.2 % 2.0 - 12.0 01/28 [facility] HEMATOLOGY Basophils # 0.1 K/CMM 0.0 - 0.2 01/28 [facility] HEMATOLOGY Eosinophils # 1.0 K/CMM 0.0 - 0.5 01/28 [facility] HEMATOLOGY Monocytes # 0.5 K/CMM 0.0 - 0.8 01/28 [facility] HEMATOLOGY Segs 55.5 % 45.0 - 01/28 [place] 75.0 [facility] HEMATOLOGY Segs-Bands # 4.4 K/CMM 1.5 - 8.1 01/28 [facility] HEMATOLOGY Lymphocytes # 1.9 K/CMM 1.0 - 5.5 01/28 [facility] HEMATOLOGY Basophils 0.8 % 0.0 - 1.0 01/28 [facility] HEMATOLOGY MPV 9.6 fL 7.4 - 10.4 01/28 [facility] HEMATOLOGY Platelet 318 K/CMM 133 - 450 01/28 [facility] HEMATOLOGY MCHC 33.0 g/dL 32.0 - 01/28 [place] 36.0 [facility] HEMATOLOGY RDW 14.6 % 11.5 - 01/28 [facility] 14.5 [facility] HEMATOLOGY Hgb 16.1 g/dL 14.0 - 01/28 [facility] 18.0 [facility] HEMATOLOGY Hct 48.7 % 42.0 - 01/28 [place] 54.0 [facility] HEMATOLOGY MCH 33.2 pg 27.0 - 01/28 [place] 31.0 [facility] HEMATOLOGY MCV 100.6 fL 80.0 - 01/28 [facility] 94.0 /2014 [facility] HEMATOLOGY WBC 7.9 K/CMM 3.7 - 10.4 01/28 [facility] HEMATOLOGY RBC 4.84 M/CMM 4.70 - 01/28 [facility] 6.10 /2014 [facility] HEMATOLOGY PTT 31.0 s 22.9 - 01/28 [place] 35.8 /2014 [facility] HEMATOLOGY PT 12.3 s 12.0 - 01/28 [place] 14.7 /2014 [facility] HEMATOLOGY INR 0.92 0.85 - 01/28 [place] 1.17 /2014 [place] URINE AND UA WBC 3-5 /HPF None Seen 01/28 [place] STOOL /HPF /2014 [facility] URINE AND UA Bacteria Few /HPF None Seen 01/28 [place] STOOL /HPF /2014 [facility] URINE AND UA RBC >100 /HPF 0 - 2 01/28 [facility] URINE AND UA Leuk Est Trace Negative 01/28 [facility] *ABN* (01/28/15 2:05 PM) URINE AND UA Sq Epi Few /LPF Few /LPF 01/28 [facility] [facility] URINE AND UA Blood Large Negative 01/28 [place] [facility] *ABN* (01/28/15 2:05 PM) URINE AND UA Bili Small Negative 01/28 [place] [facility] *ABN* (01/28/15 2:05 PM) URINE AND UA Nitrite Positive Negative 01/28 [place] [facility] *ABN* (01/28/15 2:05 PM) URINE AND UA 1.0 EU/dL 0.1 - 1.0 01/28 [place] STOOL Urobilinogen /2014 [facility] URINE AND UA Spec Grav 1.015 <=1.030 01/28 STOOL [facility] URINE AND UA pH 7.0 5.0 - 8.0 01/28 STOOL [facility] URINE AND UA Glucose Negative Negative 01/28 [place] [facility] [place] (01/28/15 2:05 PM) URINE AND UA Ketones 40 mg/dL Negative 01/28 [place] STOOL mg/dL /2014 [facility] URINE AND UA Protein >=300 Negative 01/28 [place] [facility]OOL mg/dL mg/dL /2014 [facility] URINE AND UA Turbidity Turbid Clear 01/28 [place] *ABN* (01/28/15 2:05 PM) URINE AND UA Color Red Yellow 01/28 [place] [facility]OOL [place] *ABN* (01/28/15 2:05 PM) Renal Stone Renal Stone EXAM: CT ABDOMEN/PELVIS WITHOUT CONTRAST (RENAL STONE) 01/28 - [facility] [place] CT CT /2014 - [facility] DATE: Jan 28, 2015 02:46:35 PM . Read by: Davide Mills MD Dictated Date/time: 01/28/15 14:47 Electronically Signed by: Davide Mills MD 01/28/15 14:53 FINAL REPORT CLINICAL INDICATION: acute abdominal pain. TECHNIQUE: Volumetric acquisition of abdomen from the level of the domes of the diaphragm to the symphysis pubis using 5mm collimation without the use of intravenous or oral contrast as per our renal CT protocol. Axial and coronal images were reviewed. DLP - 1479 mGy-cm COMPARISON: January 25, [address] FINDINGS: Kidneys: Left-sided double-J ureteral stent remains in place in good position. There is mild prominence of the lower pole left renal pelvis with immediate tapering. There is no significant ureteral ston e or encrustation. There are small, nonobstructing stones within the left frontal pelvis measuring up to 7 mm. There punctate, nonobstructing stones in the right renal pelvis as well. Inflammatory fat s tranding around the distal left ureter persists. Is no fluid collection. Urinary bladder: Unremarkable. Gastrointestinal tract: unremarkable. Liver: Unremarkable noncontrast evaluation. Spleen: Unremarkable noncontrast evaluation. Pancreas: Unremarkable noncontrast evaluation Reproductive organs: Unremarkable. Vasculature: Unremarkable noncontrast evaluation Gallbladder/biliary tree: Unremarkable. Mesentery: Unremarkable. Skeleton: The left SI joint is fused. Pelvis: Unremarkable Lung bases: Unremarkable . Heart: Unremarkable where visualized. IMPRESSION: 1. The left renal pelvis is slightly more prominent on the current study than on the previous. There is no ureteral dilatation, ureteral stone, or encrustation identified however. 2. Left ureteral stent remains in good position 3. Nonobstructive bilateral renal calculi CHEM PANEL Globulin 3.8 g/dL 2.0 - 4.0 01/25 [facility] [place] /2014 [facility] CHEM PANEL A/G Ratio 1.1 0.7 - 1.6 01/25 [place] /2014 [facility] CHEM PANEL AGAP 15.8 meq/L 10.0 - 01/25 [facility] [place] 20.0 /2014 [facility] CHEM PANEL B/C Ratio 13 6 - 25 01/25 [place] /2014 [place] CHEM PANEL eGFR 76 01/25 Result Comment: The eGFR is calculated using the CKD-EPI formula. In most young, healthy individuals the eGFR will be >90 mL/ min/1.73m2. The eGFR declines with age. An eGFR of 60-89 may be normal in mL/min/1.7 /2014 some populations, particularly the elderly, for whom the CKD-EPI formula has not been extensively validated. Use of the eGFR is not recommended in the following populations: [place] 3m2 Individuals with unstable creatinine concentrations, including patients and those with serious co-morbid conditions. Patients with extremes in muscle mass or diet. The data above are obtained from the National Kidney Disease Education Program (NKDEP) which additionally recommends that when the eGFR is used in patients with extremes of body mass index for purposes of drug dosing, the eGFR should be multiplied by the estimated BMI. CHEM PANEL Potassium Lvl 3.8 meq/L 3.5 - 5.1 01/25 [facility] [place] CHEM PANEL Sodium Lvl 135 meq/L 135 - 145 01/25 [place] CHEM PANEL BUN 16 mg/dL 7 - 22 01/25 [facility] [place] CHEM PANEL Creatinine 1.2 mg/dL 0.5 - 1.4 01/25 [facility] [place] Lvl /2014 [place] CHEM PANEL Glucose Lvl 153 mg/dL 70 - 99 01/25 [place] CHEM PANEL Albumin Lvl 4.3 g/dL 3.5 - 5.0 01/25 [facility] [place] CHEM PANEL Calcium Lvl 9.7 mg/dL 8.5 - 10.5 01/25 [facility] [place] CHEM PANEL Total Protein 8.1 g/dL 6.4 - 8.4 01/25 [facility] [place] CHEM PANEL CO2 21 meq/L 24 - 32 01/25 [facility] [place] CHEM PANEL Chloride Lvl 102 meq/L 95 - 109 / [facility] [place] CHEM PANEL Bili Total 0.9 mg/dL 0.2 - 1.3 24 [facility] [place] CHEM PANEL Alk Phos 129 unit/L 39 - 136 / [facility] [place] CHEM PANEL AST 59 unit/L 0 - 37 / [facility] [place] CHEM PANEL ALT 141 unit/L 0 - 65 / [facility] [place] HEMATOLOGY INR 0.92 0.85 - 07 [facility] [place] 1.17 /2014 [place] HEMATOLOGY PT 12.3 s 12.0 - 07 [facility] [place] 14.7 [place] HEMATOLOGY PTT 31.7 s 22.9 - 01/25 [facility] [place] 35.8 /2014 [place] HEMATOLOGY MPV 10.0 fL 7.4 - 10.4 01/25 [facility] [place] /2014 [place] HEMATOLOGY RBC 5.13 M/CMM 4.70 - 01/25 [facility] [place] 6.10 /2014 [place] HEMATOLOGY Hct 51.6 % 42.0 - 01/25 [facility] [place] 54.0 /2014 [place] HEMATOLOGY Hgb 17.1 g/dL 14.0 - 01/25 [facility] [place] 18.0 [place] HEMATOLOGY WBC 11.5 K/CMM 3.7 - 10.4 01/25 [facility] [place] HEMATOLOGY RDW 15.4 % 11.5 - 01/25 [facility] [place] 14.5 [place] HEMATOLOGY Platelet 359 K/CMM 133 - 450 01/25 [facility] [place] HEMATOLOGY MCHC 33.2 g/dL 32.0 - 01/25 [facility] [place] 36.0 /2014 [place] HEMATOLOGY MCH 33.4 pg 27.0 - 01/25 [facility] [place] 31.0 /2014 [place] HEMATOLOGY MCV 100.7 fL 80.0 - 01/25 [facility] [place] 94.0 /2014 [place] HEMATOLOGY Basophils # 0.1 K/CMM 0.0 - 0.2 07 [facility] [place] HEMATOLOGY Eosinophils # 1.4 K/CMM 0.0 - 0.5 01/25 [facility] [place] HEMATOLOGY Monocytes # 0.7 K/CMM 0.0 - 0.8 01/25 [facility] [place] HEMATOLOGY Lymphocytes # 2.6 K/CMM 1.0 - 5.5 01/25 [facility] [place] HEMATOLOGY Segs-Bands # 6.7 K/CMM 1.5 - 8.1 01/25 [facility] [place] HEMATOLOGY Monocytes 6.0 % 2.0 - 12.0 01/25 [facility] [place] HEMATOLOGY Lymphocytes 22.3 % 20.0 - 01/25 [facility] [place] 40.0 [place] HEMATOLOGY Segs 58.2 % 45.0 - 01/25 [facility] [place] 75.0 /2014 [place] HEMATOLOGY Basophils 0.9 % 0.0 - 1.0 01/25 [facility] [place] HEMATOLOGY Eosinophils 12.6 % 0.0 - 4.0 01/25 [facility] [place] URINE AND UA Sq Epi None Seen Few 01/25 [facility] [place] (01/25/15 2:42 PM) URINE AND UA RBC >100 /HPF 0 - 2 01/25 [place] STOOL URINE AND UA Bacteria Occasional None Seen 01/25 [place] STOOL /HPF /HPF URINE AND UA WBC 3-5 /HPF None Seen 01/25 [place] STOOL /HPF URINE AND UA Mucus Few /LPF None Seen 01/25 [place] STOOL /LPF /2014 [facility] URINE AND UA Ketones Negative Negative 01/25 [place] STOOL *NA* (01/25/15 2:42 PM) URINE AND UA Bili Negative Negative 01/25 [place] *NA* (01/25/15 2:42 PM) URINE AND UA Glucose Negative Negative 01/25 [place] STOOL [facility] (01/25/15 2:42 PM) URINE AND UA Protein 100 mg/dL Negative 01/25 [place] STOOL mg/dL [facility] URINE AND UA pH 8.5 5.0 - 8.0 01/25 [place] [facility] URINE AND UA Nitrite Negative Negative 01/25 [place] (01/25/15 2:42 PM) URINE AND UA 0.2 EU/dL 0.1 - 1.0 01/25 [place] STOOL Urobilinogen /2014 [facility] URINE AND UA Blood Large Negative 01/25 [place] *ABN* (01/25/15 2:42 PM) URINE AND UA Leuk Est Trace Negative 01/25 [place] *ABN* (01/25/15 2:42 PM) URINE AND UA Color [place] Yellow 01/25 [place] *ABN* (01/25/15 2:42 PM) URINE AND UA Turbidity Clear Clear 01/25 [place] (01/25/15 2:42 PM) URINE AND UA Spec Grav 1.010 <=1.030 01/25 [place] STOOL [facility] Renal Stone Renal Stone Renal Stone CT , January 25, 2015 02:31:[address] - INDICATION: Flank Pain /See Clinic Indication . Read by: Syed Ac MD Dictated Date/time: 01/25/15 14:35 Electronically Signed by: Syed Ac MD 01/25/15 14:46 FINAL REPORT COMMENTS: Axially oriented images were obtained from the lung bases through the ischial tuberosities, without contrast. Coronal reformat images of the abdomen and pelvis are provided as well. Exam DLP: 1391 mGy-cm. Comparison: 01/08/2015. Left nephroureteral stent is again noted with multiple bilateral nonobstructive renal calculi measuring up to 7 mm in the left lower pole. Minimal perinephric stranding is again noted. No evidence of hy droureter. Patient is status post cholecystectomy. A Mckenzie's lobe is noted. Visualized portions of the liver, spleen, pancreas, adrenals and reproductive organs are otherwise unremarkable. Right small bowel suture anastomosis is noted. No free peritoneal gas or fluid is identified. Left lower lobe calcified pulmonary granulomas again noted. A moises- umbilical and separate l eft fat-containing inguinal hernias are noted, without evidence of bowel involvement, stranding or fluid. There are mild diffuse degenerative changes especially involving the thoracic spine. IMPRESSION: No acute abnormality nor significant change. Findings include: Left ureter stent, bilateral nephrolithiasis measuring up to 7 mm left lower pole, and likely incidental fat-containing periumbilical/ left inguinal hernias. CHEM PANEL AST 35 unit/L 0 - 37 01/19 [facility] CHEM PANEL ALT 166 unit/L 0 - 65 01/19 [facility] HEMATOLOGY Macrocyte 1+ None Seen 01/19 [facility] *ABN* (01/19/15 5:39 AM) HEMATOLOGY Segs-Bands # 7.6 K/CMM 1.5 - 8.1 01/19 [facility] HEMATOLOGY Eosinophils 2.5 % 0.0 - 4.0 01/19 [facility] HEMATOLOGY Basophils 0.3 % 0.0 - 1.0 01/19 [facility] HEMATOLOGY Basophils # 0.0 K/CMM 0.0 - 0.2 01/19 [facility] HEMATOLOGY Eosinophils # 0.3 K/CMM 0.0 - 0.5 01/19 [facility] HEMATOLOGY Monocytes 7.9 % 2.0 - 12.0 01/19 [facility] HEMATOLOGY Plt Morph Normal 01/19 [place] (01/19/15 5:39 AM) HEMATOLOGY Monocytes # 0.8 K/CMM 0.0 - 0.8 01/19 [facility] HEMATOLOGY Lymphocytes # 1.6 K/CMM 1.0 - 5.5 01/19 [place] /2014 [facility] HEMATOLOGY Segs 73.9 % 45.0 - 01/19 [facility] [place] 75.0 /2014 [facility] HEMATOLOGY Lymphocytes 15.4 % 20.0 - 01/19 [place] 40.0 /2014 [facility] HEMATOLOGY MPV 9.5 fL 7.4 - 10.4 01/19 [place] /2014 [facility] HEMATOLOGY Platelet 295 K/CMM 133 - 450 01/19 [place] /2014 [facility] HEMATOLOGY MCH 34.5 pg 27.0 - 01/19 [place] 31.0 /2014 [facility] HEMATOLOGY MCHC 34.1 g/dL 32.0 - 01/19 [place] 36.0 /2014 [facility] HEMATOLOGY RDW 15.6 % 11.5 - 01/19 [place] 14.5 /2014 [facility] HEMATOLOGY MCV 101.2 fL 80.0 - 01/19 [place] 94.0 /2014 [facility] HEMATOLOGY Hct 40.5 % 42.0 - 01/19 [place] 54.0 /2014 [facility] HEMATOLOGY WBC 10.3 K/CMM 3.7 - 10.4 01/19 [place] /2014 [facility] HEMATOLOGY RBC 3.99 M/CMM 4.70 - 01/19 [place] 6.10 /2014 [facility] HEMATOLOGY Hgb 13.8 g/dL 14.0 - 01/19 [place] 18.0 /2014 [place] Fluoroscopy Fluoroscopy No report is required for this exam. 01/18 - [place] assist to 1 assist to - [place] hour DX hour DX Technical component complete. Dose report sent to PACS. Electronically Signed by: Mahnaz French, RT 01/21/15 10:04 FINAL REPORT CHEM PANEL Alk Phos 118 unit/L 39 - 136 01/18 [place] [facility] CHEM PANEL AST 104 unit/L 0 - 37 01/18 [place] CHEM PANEL Total Protein 6.5 g/dL 6.4 - 8.4 01/18 [place] CHEM PANEL A/G Ratio 1.1 0.7 - 1.6 01/18 [place] /2014 [place] CHEM PANEL Bili Total 0.7 mg/dL 0.2 - 1.3 01/18 [place] CHEM PANEL Globulin 3.1 g/dL 2.0 - 4.0 01/18 [place] CHEM PANEL ALT 251 unit/L 0 - 65 01/18 [place] CHEM PANEL eGFR 76 01/18 Result Comment: The eGFR is calculated using the CKD-EPI formula. In most young, healthy individuals the eGFR will be >90 mL/ min/1.73m2. The eGFR declines with age. An eGFR of 60-89 may be normal in mL/min/1. some populations, particularly the elderly, for whom the CKD-EPI formula has not been extensively validated. Use of the eGFR is not recommended in the following populations: [place] 3m2 Individuals with unstable creatinine concentrations, including patients and those with serious co-morbid conditions. Patients with extremes in muscle mass or diet. The data above are obtained from the National Kidney Disease Education Program (NKDEP) which additionally recommends that when the eGFR is used in patients with extremes of body mass index for purposes of drug dosing, the eGFR should be multiplied by the estimated BMI. CHEM PANEL Albumin Lvl 3.4 g/dL 3.5 - 5.0 01/18 [place] CHEM PANEL Calcium Lvl 8.5 mg/dL 8.5 - 10.5 01/18 [place] CHEM PANEL Potassium Lvl 4.0 meq/L 3.5 - 5.1 01/18 [place] CHEM PANEL CO2 29 meq/L 24 - 32 01/18 [place] CHEM PANEL Chloride Lvl 105 meq/L 95 - 109 01/18 [place] CHEM PANEL Sodium Lvl 141 meq/L 135 - 145 01/18 [place] CHEM PANEL Creatinine 1.2 mg/dL 0.5 - 1.4 01/18 [place] l /2014 [place] CHEM PANEL Glucose Lvl 120 mg/dL 70 - 99 01/18 [place] CHEM PANEL BUN 18 mg/dL 7 - 22 01/18 [place] CHEM PANEL AGAP 11.0 meq/L 10.0 - 01/18 [place] 20.0 [place] CHEM PANEL B/C Ratio 15 6 - 25 01/18 [place] HEMATOLOGY PTT 33.0 s 22.9 - 01/18 [facility] [place] 35.8 /2014 [place] HEMATOLOGY PT 13.2 s 12.0 - 01/18 [place] 14.7 /2014 [place] HEMATOLOGY INR 1.00 0.85 - 01/18 [place] 1. [place] HEMATOLOGY Hct 40.1 % 42.0 - 07/17 [place] 54.0 /2014 [place] HEMATOLOGY MCV 100.5 fL 80.0 - 01/18 [place] 94.0 /2014 [place] HEMATOLOGY Hgb 13.7 g/dL 14.0 - 01/18 [place] 18.0 /2014 [place] HEMATOLOGY RBC 3.99 M/CMM 4.70 - 01/18 [place] 6.10 /2014 [place] HEMATOLOGY WBC 7.1 K/CMM 3.7 - 10.4 01/18 [place] HEMATOLOGY MPV 8.6 fL 7.4 - 10.4 01/18 [place] HEMATOLOGY Platelet 267 K/CMM 133 - 450 01/18 [place] HEMATOLOGY RDW 15.7 % 11.5 - 01/18 [place] 14.5 [place] HEMATOLOGY MCHC 34.2 g/dL 32.0 - 01/18 [place] 36.0 /2014 [place] HEMATOLOGY MCH 34.4 pg 27.0 - 01/18 [place] 31.0 /2014 [place] HEMATOLOGY Monocytes # 0.7 K/CMM 0.0 - 0.8 01/18 [place] HEMATOLOGY Basophils # 0.1 K/CMM 0.0 - 0.2 01/18 [place] HEMATOLOGY Eosinophils # 1.1 K/CMM 0.0 - 0.5 01/18 [place] HEMATOLOGY Segs 35.5 % 45.0 - 01/18 [place] 75.0 /2014 [place] HEMATOLOGY Lymphocytes 38.8 % 20.0 - 01/18 [place] 40.0 /2014 [place] HEMATOLOGY Monocytes 9.5 % 2.0 - 12.0 01/18 [place] HEMATOLOGY Eosinophils 15.5 % 0.0 - 4.0 01/18 [place] HEMATOLOGY Lymphocytes # 2.8 K/CMM 1.0 - 5.5 01/18 [place] HEMATOLOGY Basophils 0.7 % 0.0 - 1.0 01/18 [place] HEMATOLOGY Segs-Bands # 2.5 K/CMM 1.5 - 8.1 01/18 [place] Abdomen AP Abdomen AP DX Abdomen one view, 01/18/201501/18 - [place] /2014 - [place] HISTORY: Renal calculus. Compared to IVP and abdomen films dated 2014. Read by: Santhosh Joy MD Dictated Date/time: 01/18/15 07:08 Electronically Signed by: Santhosh Joy MD 01/18/15 07:15 FINAL REPORT No residual contrast in the left renal pelvis or left ureter. Faint contrast within the urinary bladder. 6 mm left lower pole renal calculus again noted, unchanged in position. No other new finding or change seen. Abdomen AP Abdomen AP DX EXAM: Abdomen one view 01/17 - [place] /2014 - HISTORY: Acute abdominal pain Read by: Syed Ac MD Dictated Date/time: 01/17/15 17:53 Electronically Signed by: Syed Ac MD 01/17/15 18:02 FINAL REPORT COMPARISON: Today's IVP FINDINGS: Again noted is grade 3 hydronephrosis with moderate hydroureter. There is tapering of the distal left ureter with nonvisualization of the ureterovesicular junction (for a 1 cm length), however , no definite stone is seen in this region. Bowel gas pattern is nonobstructive. Suture anastomosis again noted in the right upper quadrant as well status post cholecystectomy. No acute bony abnormality. IMPRESSION: 1. Contrast remains within the dilated left renal collecting system with distal tapering and nonvisualization of the left ureterovesicular junction, but no definite stone seen. Given the significant del ay in emptying, a stricture or hemorrhage obstructing the distal left ureter is suspected. Findings discussed with Dr. Hodge at 18:00 on 01/17/2015 Intravenous Intravenous IVP with tomograms 01/17 [place] Pyelogram Pyelogram DX /2014 - [place] DX Clinical Indication: Hematuria Read by: Syed Ac MD Dictated Date/time: 01/17/15 11:51 Comparison: 01/08/[address] Electronically Signed by: Syed Ac MD 01/17/15 11:58 FINAL REPORT Findings: Numerical Control Programmer view demonstrates a normal bowel gas pattern. Again noted are multiple (approximately the 5) small bilateral renal stones. The largest measures approximately 6 mm in the left lower pole. There has been interval roots removal of the left ureteral stent. Patient is also status post cholecystectomy and small bowel anastomosis. After administration of IV contrast multiple tomographic views of the kidneys as well as overhead spot films of the abdomen and bladder were obtained. The kidneys have normal size and contours. There is residual grade 2 left hydronephrosis and moderate hydroureter . The left hydroureter tapers at the pelvic brim with nonvisualization of the left ureterovesicular junction, though there is no clear filling defect. No dilatation of the right renal collecting system. The bladder is unremarkable. There is no significant postvoid residual. Impression: 1. Bilateral nonobstructive nephrolithiasis with residual grade 2 left hydronephrosis and hydroureter, without definite current filling defect. Interval left ureteral stent removal. CHEM PANEL eGFR 76 01/17 Result Comment: The eGFR is calculated using the CKD-EPI formula. In most young, healthy individuals the eGFR will be >90 mL/ min/1.73m2. The eGFR declines with age. An eGFR of 60-89 may be normal in mL/min/1. some populations, particularly the elderly, for whom the CKD-EPI formula has not been extensively validated. Use of the eGFR is not recommended in the following populations: [place] 2 Individuals with unstable creatinine concentrations, including patients and those with serious co-morbid conditions. Patients with extremes in muscle mass or diet. The data above are obtained from the National Kidney Disease Education Program (NKDEP) which additionally recommends that when the eGFR is used in patients with extremes of body mass index for purposes of drug dosing, the eGFR should be multiplied by the estimated BMI. CHEM PANEL Bili Total 0.4 mg/dL 0.2 - 1.3 01/17 [place] CHEM PANEL Alk Phos 125 unit/L 39 - 136 01/17 [place] CHEM PANEL AST 28 unit/L 0 - 37 01/17 [place] CHEM PANEL ALT 100 unit/L 0 - 65 01/17 [place] CHEM PANEL Albumin Lvl 3.7 g/dL 3.5 - 5.0 01/17 [place] CHEM PANEL Total Protein 7.3 g/dL 6.4 - 8.4 01/17 [place] CHEM PANEL Calcium Lvl 9.4 mg/dL 8.5 - 10.5 01/17 [place] CHEM PANEL CO2 27 meq/L 24 - 32 01/17 [place] CHEM PANEL Glucose Lvl 148 mg/dL 70 - 99 01/17 [place] CHEM PANEL Chloride Lvl 105 meq/L 95 - 109 01/17 [place] CHEM PANEL Potassium Lvl 3.7 meq/L 3.5 - 5.1 01/17 [place] CHEM PANEL Sodium Lvl 144 meq/L 135 - 145 01/17 [place] CHEM PANEL Creatinine 1.2 mg/dL 0.5 - 1.4 01/17 [facility] [place] CHEM PANEL BUN 14 mg/dL 7 - 22 01/17 [place] CHEM PANEL A/G Ratio 1.0 0.7 - 1.6 01/17 [place] CHEM PANEL B/C Ratio 12 6 - 25 01/17 [place] CHEM PANEL Globulin 3.6 g/dL 2.0 - 4.0 01/17 [place] CHEM PANEL AGAP 15.7 meq/L 10.0 - 01/17 [facility] [place] 20.0 [place] HEMATOLOGY Basophils # 0.1 K/CMM 0.0 - 0.2 01/17 [place] HEMATOLOGY Eosinophils # 1.2 K/CMM 0.0 - 0.5 01/17 [place] HEMATOLOGY Monocytes # 0.7 K/CMM 0.0 - 0.8 01/17 [place] HEMATOLOGY Eosinophils 12.9 % 0.0 - 4.0 01/17 [place] HEMATOLOGY Lymphocytes # 2.7 K/CMM 1.0 - 5.5 01/17 [place] HEMATOLOGY Basophils 0.7 % 0.0 - 1.0 01/17 [place] HEMATOLOGY Segs-Bands # 4.4 K/CMM 1.5 - 8.1 01/17 [place] HEMATOLOGY Lymphocytes 29.6 % 20.0 - 0716 [facility] [place] 40.0 [place] HEMATOLOGY Segs 49.1 % 45.0 - 01/17 [facility] [place] 75.0 [place] HEMATOLOGY Monocytes 7.7 % 2.0 - 12.0 01/17 [place] HEMATOLOGY PTT 31.3 s 22.9 - 01/17 [facility] [place] 35.8 /2014 [place] HEMATOLOGY PT 12.4 s 12.0 - 01/17 [facility] [place] 14.7 /2014 [place] HEMATOLOGY INR 0.93 0.85 - 01/17 [facility] [place] 1.17 [place] HEMATOLOGY MPV 9.2 fL 7.4 - 10.4 01/17 [place] HEMATOLOGY Hgb 15.4 g/dL 14.0 - 01/17 [place] 18.0 /2014 [facility] HEMATOLOGY MCV 100.6 fL 80.0 - 01/17 [place] 94.0 /2014 [facility] HEMATOLOGY RDW 15.9 % 11.5 - 01/17 [place] 14.5 /2014 [facility] HEMATOLOGY Platelet 296 K/CMM 133 - 450 01/17 [facility] HEMATOLOGY MCH 34.0 pg 27.0 - 01/17 [place] 31.0 [facility] HEMATOLOGY MCHC 33.8 g/dL 32.0 - 01/17 [place] 36.0 /2014 [facility] HEMATOLOGY Hct 45.4 % 42.0 - 01/17 [place] 54.0 /2014 [facility] HEMATOLOGY RBC 4.51 M/CMM 4.70 - 01/17 [place] 6.10 /2014 [facility] HEMATOLOGY WBC 9.0 K/CMM 3.7 - 10.4 01/17 [place] URINE AND UA Bacteria Occasional None Seen 01/17 [place] STOOL /HPF /HPF /2014 [place] URINE AND UA RBC >100 /HPF 0 - 2 01/17 [place] URINE AND UA Sq Epi Rare /LPF Few /LPF 01/17 [place] URINE AND UA WBC 3-5 /HPF None Seen 01/17 [place] STOOL /HPF /2014 [place] URINE AND UA Leuk Est Trace Negative 01/17 [place] *ABN* (01/17/15 7:05 AM) URINE AND UA 1.0 EU/dL 0.1 - 1.0 01/17 [place] STOOL Urobilinogen /2014 [facility] URINE AND UA Nitrite Positive Negative 01/17 [place] *ABN* (01/17/15 7:05 AM) URINE AND UA Bili Negative Negative 01/17 [place] STOOL [place] *NA* (01/17/15 7:05 AM) URINE AND UA Protein 100 mg/dL Negative 01/17 [place] STO[facility] mg/dL [facility] URINE AND UA Blood Large Negative 01/17 [place] *ABN* (01/17/15 7:05 AM) URINE AND UA Spec Grav 1.015 <=1.030 01/17 [place] URINE AND UA pH 6.5 5.0 - 8.0 01/17 [place] URINE AND UA Glucose Negative Negative 01/17 [place] [facility]OL [place] (01/17/15 7:05 AM) URINE AND UA Ketones Trace Negative 01/17 [place] [facility]OL [place] *ABN* (01/17/15 7:05 AM) URINE AND UA Turbidity Turbid Clear 01/17 [place] STOOL [place] *ABN* (01/17/15 7:05 AM) URINE AND UA Color Red Yellow 01/17 [place] STOOL [place] *ABN* (01/17/15 7:05 AM) Scrotal/Dalia Scrotal/Testi SCROTAL ULTRASOUND AND ULTRASOUND SCROTAL DOPPLER, 01/17/201501/17 - [place] ticle w kenroy w Doppler /2014 - [facility] Doppler US US HISTORY: Left testicular pain. Read by: Santhosh Joy MD Dictated Date/time: 01/17/15 07:59 Electronically Signed by: Santhosh Joy MD 01/17/15 08:01 FINAL REPORT TECHNIQUE: The testicles and scrotum were studies in the longitudinal and transverse planes. Ultrasound scrotal Doppler was also performed. FINDINGS: The right testicle measures 4.8 x 2.1 x 4.2 cm. The left testicle measures 5.2 x 1.9 x 3.7 cm. The testicular echo architecture is normal. Normal color doppler flow to both testicles seen.. No evidence of testicular mass. The right epididymis has a normal appearance. The left epididymis has a normal appearance. Small bilateral hydroceles and possible small varicoceles. CONCLUSION: No significant abnormality identified on scrotal ultrasound with scrotal Doppler. ELECTROLYTE Chloride Lvl 104 meq/L 95 - 109 01/09 [place] ELECTROLYTE CO2 29 meq/L 24 - 32 01/09 [place] ELECTROLYTE Sodium Lvl 143 meq/L 135 - 145 01/09 [place] ELECTROLYTE Potassium Lvl 4.1 meq/L 3.5 - 5.1 01/09 [place] ELECTROLYTE AGAP 14.1 meq/L 10.0 - 01/09 [place] S 20.0 /2014 [facility] ELECTROLYTE eGFR 69 01/09 1Result Comment: The eGFR is calculated using the CKD-EPI formula. In most young, healthy individuals the eGFR will be > 90 mL/min/1.73m2. The eGFR declines with age. An eGFR of 60-89 may be normal in [place] mL/min/1.7 some populations, particularly the elderly, for whom the CKD-EPI formula has not been extensively validated. Use of the eGFR is not recommended in the following populations: [place] 3m2 Individuals with unstable creatinine concentrations, including patients and those with serious co-morbid conditions. Patients with extremes in muscle mass or diet. The data above are obtained from the National Kidney Disease Education Program (NKDEP) which additionally recommends that when the eGFR is used in patients with extremes of body mass index for purposes of drug dosing, the eGFR should be multiplied by the estimated BMI. ELECTROLYTE Calcium Lvl 8.8 mg/dL 8.5 - 10.5 01/09 [place] ELECTROLYTE Creatinine 1.3 mg/dL 0.5 - 1.4 01/09 [place] S Lvl [place] ELECTROLYTE Glucose Lvl 141 mg/dL 70 - 99 01/09 3Interpretive Data: Adult reference range values reflect the clinical guidelines [place] of the [place] [employer]. [place] ELECTROLYTE BUN 15 mg/dL 7 - 22 01/09 [place] URINE AND UA RBC >100 /HPF 0 - 2 01/08 [place] STOOL [place] URINE AND UA Bacteria Occasional None Seen 01/08 [place] STOOL /HPF /HPF /2014 [place] URINE AND UA Mucus Rare /LPF None Seen 01/08 [place] STOOL /LPF [place] URINE AND UA Leuk Est Trace Negative 01/08 [place] STOOL [place] *ABN* (01/08/15 1:16 PM) URINE AND UA Sq Epi Occasional Few /LPF 01/08 [place] STOOL /LPF [place] URINE AND UA WBC 3-5 /HPF None Seen 01/08 [place] STOOL /HPF [place] URINE AND UA Blood Large Negative 01/08 [place] STOOL [place] *ABN* (01/08/15 1:16 PM) URINE AND UA 2.0 EU/dL 0.1 - 1.0 01/08 [place] STOOL Urobilinogen /2014 [place] URINE AND UA Nitrite Positive Negative 01/08 [place] STOOL [place] *ABN* (01/08/15 1:16 PM) URINE AND UA Glucose 100 mg/dL Negative 01/08 [place] STOOL mg/dL /2014 [place] URINE AND UA Ketones Negative Negative 01/08 [place] STOOL [place] *NA* (01/08/15 1:16 PM) URINE AND UA Bili Small Negative 01/08 [place] STOOL [place] *ABN* (01/08/15 1:16 PM) URINE AND UA Protein >=300 Negative 01/08 [place] STOOL mg/dL mg/dL /2014 [place] URINE AND UA Spec Grav 1.015 <=1.030 01/08 [place] STOOL [place] URINE AND UA pH 7.0 5.0 - 8.0 01/08 [place] STOOL [place] URINE AND UA Turbidity Cloudy Clear 01/08 [place] STOOL [place] *ABN* (01/08/15 1:16 PM) URINE AND UA Color [place] Yellow 01/08 [place] STOOL [place] *ABN* (01/08/15 1:16 PM) ELECTROLYTE AGAP 11.1 meq/L 10.0 - 01/08 [place] S 20.0 [facility] ELECTROLYTE eGFR 63 01/08 2Result Comment: The eGFR is calculated using the CKD-EPI formula. In most young, healthy individuals the eGFR will be > 90 mL/min/1.73m2. The eGFR declines with age. An eGFR of 60-89 may be normal in S mL/min/1. some populations, particularly the elderly, for whom the CKD-EPI formula has not been extensively validated. Use of the eGFR is not recommended in the following populations: [place] 3m2 Individuals with unstable creatinine concentrations, including patients and those with serious co-morbid conditions. Patients with extremes in muscle mass or diet. The data above are obtained from the National Kidney Disease Education Program (NKDEP) which additionally recommends that when the eGFR is used in patients with extremes of body mass index for purposes of drug dosing, the eGFR should be multiplied by the estimated BMI. ELECTROLYTE Chloride Lvl 104 meq/L 95 - 109 01/08 [place] S [facility] ELECTROLYTE CO2 27 meq/L 24 - 32 01/08 [place] S [facility] ELECTROLYTE Calcium Lvl 9.0 mg/dL 8.5 - 10.5 01/08 S [facility] ELECTROLYTE Potassium Lvl 4.1 meq/L 3.5 - 5.1 01/08 [place] S [facility] ELECTROLYTE Sodium Lvl 138 meq/L 135 - 145 01/08 [place] S [facility] ELECTROLYTE Glucose Lvl 300 mg/dL 70 - 99 01/08 4Interpretive Data: Adult reference range values reflect the clinical guidelines [facility] of the [place] [employer]. [place] ELECTROLYTE Creatinine 1.4 mg/dL 0.5 - 1.4 01/08 [facility] S [place] ELECTROLYTE BUN 13 mg/dL 7 - 22 01/08 [place] S [place] HEMATOLOGY Basophils # 0.0 K/CMM 0.0 - 0.2 01/08 [place] HEMATOLOGY Monocytes # 0.6 K/CMM 0.0 - 0.8 01/08 [place] HEMATOLOGY Lymphocytes # 1.7 K/CMM 1.0 - 5.5 01/08 [place] HEMATOLOGY Segs-Bands # 4.1 K/CMM 1.5 - 8.1 01/08 [place] HEMATOLOGY Eosinophils # 0.5 K/CMM 0.0 - 0.5 01/08 [place] HEMATOLOGY Eosinophils 7.7 % 0.0 - 4.0 01/08 [place] HEMATOLOGY Basophils 0.5 % 0.0 - 1.0 01/08 [place] HEMATOLOGY Monocytes 8.1 % 2.0 - 12.0 01/08 [place] HEMATOLOGY Lymphocytes 24.5 % 20.0 - 01/08 [place] 40.0 /2014 [place] HEMATOLOGY Segs 59.2 % 45.0 - 01/08 [place] 75.0 /2014 [place] HEMATOLOGY RBC 4.56 M/CMM 4.70 - 01/08 [place] 6.10 /2014 [place] HEMATOLOGY MCHC 33.5 g/dL 32.0 - 01/08 [place] 36.0 /2014 [place] HEMATOLOGY MCV 100.1 fL 80.0 - 01/08 [facility] [place] 94.0 /2014 [place] HEMATOLOGY MCH 33.5 pg 27.0 - 07 [facility] [place] 31.0 /2014 [place] HEMATOLOGY Hgb 15.3 g/dL 14.0 - 01/08 [place] 18.0 /2014 [place] HEMATOLOGY WBC 6.9 K/CMM 3.7 - 10.4 01/08 [place] HEMATOLOGY Hct 45.7 % 42.0 - 01/08 [facility] [place] 54.0 /2014 [place] HEMATOLOGY MPV 9.5 fL 7.4 - 10.4 01/08 [place] HEMATOLOGY Platelet 284 K/CMM 133 - 450 01/08 [facility] HEMATOLOGY RDW 15.4 % 11.5 - 01/08 [place] 14.5 [facility] Renal Stone Renal Stone CT ABDOMEN PELVIS WITHOUT CONTRAST 01/08 - [facility] CT CT /2014 [facility] INDICATION: Followup renal stones Read by: Derek Bullock MD Dictated Date/time: 01/08/15 16:40 Electronically Signed by: Derek Bullock MD 01/08/15 16:43 FINAL REPORT COMPARISON: 01/06/2015 TECHNIQUE: Multiple computerized axial tomographic images were obtained of the abdomen and pelvis from the superior pole of the kidneys through the bladder base without IV or enteric contrast as per renal calculus protocol. FINDINGS: The lung bases are clear. There has been placement of a left ureteral stent which terminates in expected position. There is a 6 mm stone in the lower pole collecting system of the left kidney and punctate stones throughout the l eft collecting system. Punctate stones on the right also noted as well. No ureteral stone or bladder stone is seen. Limited evaluation of the visualized liver, spleen, adrenal glands and pancreas is grossly unremarkable, though not considered diagnostic quality due to specialized protocol. The gallbladder is absent. The bowel is nondilated. No abdominal/pelvic fluid is seen. The bones show no acute or aggressive abnormality. IMPRESSION: Left ureteral stent is in place. There are small stones in the left collecting system, the largest measuring 6 mm. No left ureteral stone is evident on the current exam. No bladder stone. Abdomen 2 Abdomen 2 Examination: Abdomen 2 views 01/08 [facility] views DX views DX - [facility] Provided History: Abdominal pain, acute Read by: Paulo Marte MD Dictated Date/time: 01/08/15 13:32 Electronically Signed by: Paulo Marte MD 01/08/15 13:42 FINAL REPORT DIAGNOSIS: 1. Left-sided ureteral stent in place. 2. Left nephrolithiasis. 3. Intraureteral calcific debris or gravel adjacent to the ureteral stent just cephalad to the bladder DISCUSSION: KUB demonstrates a left-sided double-J ureteral stent in place. A 9 mm calcification projects in the inferior pole of the left kidney. Other calcific stones evident on a prior CT scan of 5 J kong 2014 in both kidneys are not clearly identified, likely obscured by overlying fecal material within the colon. There is calcific debris or "gravel" at the level of the mid sacrum on the left, adjacent to the ureteral stent. Fluoroscopy Fluoroscopy No report is required for this exam. 01/07 - [place] assist to assist to - [facility] hour DX hour DX Technical component complete. Dose report sent to PACS. Electronically Signed by: Mahnaz French RT 01/08/15 10:44 FINAL REPORT ELECTROLYTE AGAP 12.7 meq/L 10.0 - 01/07 [place] S 20.0 [place] ELECTROLYTE eGFR 63 01/07 1Result Comment: The eGFR is calculated using the CKD-EPI formula. In most young, healthy individuals the eGFR will be > 90 mL/min/1.73m2. The eGFR declines with age. An eGFR of 60-89 may be normal in S mL/min/1. some populations, particularly the elderly, for whom the CKD-EPI formula has not been extensively validated. Use of the eGFR is not recommended in the following populations: [place] 3m2 Individuals with unstable creatinine concentrations, including patients and those with serious co-morbid conditions. Patients with extremes in muscle mass or diet. The data above are obtained from the National Kidney Disease Education Program (NKDEP) which additionally recommends that when the eGFR is used in patients with extremes of body mass index for purposes of drug dosing, the eGFR should be multiplied by the estimated BMI. ELECTROLYTE CO2 28 meq/L 24 - 32 01/07 [place] ELECTROLYTE Calcium Lvl 9.1 mg/dL 8.5 - 10.5 01/07 [place] ELECTROLYTE Glucose Lvl 164 mg/dL 70 - 99 01/07 3Interpretive Data: Adult reference range values reflect the clinical guidelines [place] of the [place] [employer]. [place] ELECTROLYTE BUN 22 mg/dL 7 - 22 01/07 [place] S [place] ELECTROLYTE Creatinine 1.4 mg/dL 0.5 - 1.4 01/07 [place] S Lvl /2014 [place] ELECTROLYTE Sodium Lvl 138 meq/L 135 - 145 01/07 [place] S [place] ELECTROLYTE Potassium Lvl 3.7 meq/L 3.5 - 5.1 01/07 [place] S [place] ELECTROLYTE Chloride Lvl 101 meq/L 95 - 109 01/07 [place] S [place] HEMATOLOGY MPV 9.2 fL 7.4 - 10.4 / [place] HEMATOLOGY Platelet 287 K/CMM 133 - 450 01/07 [place] HEMATOLOGY RDW 15.3 % 11.5 - 01/07 [facility] [place] 14.5 /2014 [place] HEMATOLOGY WBC 10.3 K/CMM 3.7 - 10.4 01/07 [place] HEMATOLOGY RBC 4.39 M/CMM 4.70 - 01/07 [place] 6.10 /2014 [place] HEMATOLOGY MCHC 34.0 g/dL 32.0 - 01/07 [facility] [place] 36.0 /2014 [place] HEMATOLOGY Hgb 14.8 g/dL 14.0 - 01/07 [place] 18.0 /2014 [place] HEMATOLOGY Hct 43.5 % 42.0 - 01/07 [facility] [place] 54.0 /2014 [place] HEMATOLOGY MCV 99.0 fL 80.0 - 01/07 [place] 94.0 /2014 [place] HEMATOLOGY MCH 33.7 pg 27.0 - 01/07 [place] 31.0 /2014 [place] HEMATOLOGY Basophils # 0.0 K/CMM 0.0 - 0.2 01/07 [place] HEMATOLOGY Lymphocytes # 3.6 K/CMM 1.0 - 5.5 01/07 [place] HEMATOLOGY Eosinophils # 0.5 K/CMM 0.0 - 0.5 01/07 [place] HEMATOLOGY Monocytes # 0.9 K/CMM 0.0 - 0.8 01/07 [place] HEMATOLOGY Basophils 0.4 % 0.0 - 1.0 01/07 [place] HEMATOLOGY Segs-Bands # 5.3 K/CMM 1.5 - 8.1 01/07 [place] HEMATOLOGY Monocytes 8.3 % 2.0 - 12.0 01/07 [place] HEMATOLOGY Eosinophils 4.4 % 0.0 - 4.0 01/07 [place] HEMATOLOGY Lymphocytes 34.8 % 20.0 - 07 [facility] [place] 40.0 /2014 [place] HEMATOLOGY Segs 52.1 % 45.0 - 07 [place] 75.0 /2014 [place] ELECTROLYTE AGAP 15.8 meq/L 10.0 - 07 [place] S 20.0 /2014 [place] ELECTROLYTE eGFR 63 01/07 2Result Comment: The eGFR is calculated using the CKD-EPI formula. In most young, healthy individuals the eGFR will be > 90 mL/min/1.73m2. The eGFR declines with age. An eGFR of 60-89 may be normal in mL/min/1. some populations, particularly the elderly, for whom the CKD-EPI formula has not been extensively validated. Use of the eGFR is not recommended in the following populations: [place] 3m2 Individuals with unstable creatinine concentrations, including patients and those with serious co-morbid conditions. Patients with extremes in muscle mass or diet. The data above are obtained from the National Kidney Disease Education Program (NKDEP) which additionally recommends that when the eGFR is used in patients with extremes of body mass index for purposes of drug dosing, the eGFR should be multiplied by the estimated BMI. ELECTROLYTE CO2 24 meq/L 24 - 32 01/07 [place] ELECTROLYTE Calcium Lvl 9.5 mg/dL 8.5 - 10.5 01/07 [place] ELECTROLYTE Sodium Lvl 137 meq/L 135 - 145 01/07 [place] ELECTROLYTE Chloride Lvl 101 meq/L 95 - 109 01/07 [place] ELECTROLYTE Potassium Lvl 3.8 meq/L 3.5 - 5.1 01/07 [place] ELECTROLYTE Glucose Lvl 224 mg/dL 70 - 99 01/07 4Interpretive Data: Adult reference range values reflect the clinical guidelines of the [place] [employer]. [place] ELECTROLYTE BUN 18 mg/dL 7 - 22 01/07 [place] ELECTROLYTE Creatinine 1.4 mg/dL 0.5 - 1.4 01/07 S [facility] HEMATOLOGY Eosinophils # 0.5 K/CMM 0.0 - 0.5 01/07 [facility] HEMATOLOGY Lymphocytes # 4.3 K/CMM 1.0 - 5.5 01/07 [facility] HEMATOLOGY Segs-Bands # 4.4 K/CMM 1.5 - 8.1 01/07 [facility] HEMATOLOGY Monocytes # 1.0 K/CMM 0.0 - 0.8 01/07 [facility] HEMATOLOGY Basophils # 0.1 K/CMM 0.0 - 0.2 01/07 [facility] HEMATOLOGY Basophils 0.6 % 0.0 - 1.0 01/07 [place] HEMATOLOGY Eosinophils 5.1 % 0.0 - 4.0 01/07 [place] HEMATOLOGY Monocytes 9.4 % 2.0 - 12.0 01/07 [place] HEMATOLOGY Lymphocytes 42.0 % 20.0 - 01/07 [place] 40.0 /2014 [place] HEMATOLOGY Segs 42.9 % 45.0 - 01/07 [place] 75.0 /2014 [facility] HEMATOLOGY MCHC 34.0 g/dL 32.0 - 01/07 [place] 36.0 /2014 [place] HEMATOLOGY Hct 47.2 % 42.0 - 01/07 [place] 54.0 /2014 [facility] HEMATOLOGY MCH 33.9 pg 27.0 - 01/07 [place] 31.0 /2014 [place] HEMATOLOGY MCV 99.5 fL 80.0 - 01/07 [place] 94.0 /2014 [facility] HEMATOLOGY Hgb 16.0 g/dL 14.0 - 01/07 [place] 18.0 [facility] HEMATOLOGY RBC 4.74 M/CMM 4.70 - 01/07 [place] 6.10 [facility] HEMATOLOGY WBC 10.4 K/CMM 3.7 - 10.4 01/07 [facility] HEMATOLOGY RDW 15.2 % 11.5 - 01/07 [place] 14.5 /2014 [facility] HEMATOLOGY MPV 9.6 fL 7.4 - 10.4 01/07 [facility] HEMATOLOGY Platelet 324 K/CMM 133 - 450 01/07 [place] URINE AND UA Bacteria Occasional None Seen 01/07 [place] STOOL /HPF /HPF [facility] URINE AND UA Nitrite Negative Negative 01/07 [place] [facility] (01/06/15 10:34 PM) URINE AND UA WBC 3-5 /HPF None Seen 01/07 [place] STOOL /HPF [place] URINE AND UA Leuk Est Negative Negative 01/07 [place] STOOL [facility] (01/06/15 10:34 PM) URINE AND UA Sq Epi Occasional Few /LPF 01/07 [place] STOOL /LPF [place] URINE AND UA RBC 51-100 0 - 2 01/07 [place] STOOL /HPF [place] URINE AND UA Bili Negative Negative 01/07 [place] STOOL [place] *NA* (01/06/15 10:34 PM) URINE AND UA Blood Trace Negative 01/07 [place] *ABN* (01/06/15 10:34 PM) URINE AND UA 0.2 EU/dL 0.1 - 1.0 01/07 [place] STOOL Urobilinogen /2014 [facility] URINE AND UA Glucose Negative Negative 01/07 [place] (01/06/15 10:34 PM) URINE AND UA Ketones Trace Negative 01/07 [place] [facility] *ABN* (01/06/15 10:34 PM) URINE AND UA Color [place] Yellow 01/07 [place] *ABN* (01/06/15 10:34 PM) URINE AND UA Turbidity Cloudy Clear 01/07 [facility] *ABN* (01/06/15 10:34 PM) URINE AND UA pH 6.5 5.0 - 8.0 01/07 [facility] URINE AND UA Protein 30 mg/dL Negative 01/07 [place] mg/dL [facility] URINE AND UA Spec Grav 1.010 <=1.030 01/07 [facility] Renal Stone Renal Stone CT ABDOMEN PELVIS WITHOUT CONTRAST 01/06 [facility] CT - [facility] INDICATION: Acute abdominal pain Read by: Robert Hutson MD Dictated Date/time: 01/06/15 22:47 Electronically Signed by: Robert Hutson MD 01/06/15 22:51 FINAL REPORT COMPARISON: 12/20/2014 TECHNIQUE: Multiple computerized axial tomographic images were obtained of the abdomen and pelvis from the superior pole of the kidneys through the bladder base without IV or enteric contrast as per renal calculus protocol. FINDINGS: The lung bases are clear. There is a 5 mm stone within the proximal left ureter and a 4 mm stone within the distal left ureter. There is no significant hydronephrosis or hydroureter bilaterally. Both kidneys contain punctate nonobstructing stones, worse on the left. Limited evaluation of the visualized liver, spleen, adrenal glands and pancreas is grossly unremarkable, though not considered diagnostic quality due to specialized protocol. Cholecystectomy. The bowel is nondilated. no abdominal/pelvic fluid is seen. The bones show no acute or aggressive abnormality. IMPRESSION: A 5 mm stone within the proximal left ureter and a 4 mm stone is in the distal left ureter. Bilateral punctate nonobstructing nephrolithiasis. CHEM PANEL Globulin 3.8 g/dL 2.0 - 4.0 12/20 [facility] CHEM PANEL AGAP 16.5 meq/L 10.0 - 12/20 [facility] [place] 20.0 /2014 [place] CHEM PANEL A/G Ratio 1.1 0.7 - 1.6 12/20 [place] CHEM PANEL B/C Ratio 12 6 - 25 12/20 [place] CHEM PANEL eGFR 53 12/20 1Result Comment: The eGFR is calculated using the CKD-EPI formula. In most young, healthy individuals the eGFR will be >90 mL/ min/1.73m2. The eGFR declines with age. An eGFR of 60-89 may be normal in mL/min/1.7 /2014 some populations, particularly the elderly, for whom the CKD-EPI formula has not been extensively validated. Use of the eGFR is not recommended in the following populations: [place] 3m2 Individuals with unstable creatinine concentrations, including patients and those with serious co-morbid conditions. Patients with extremes in muscle mass or diet. The data above are obtained from the National Kidney Disease Education Program (NKDEP) which additionally recommends that when the eGFR is used in patients with extremes of body mass index for purposes of drug dosing, the eGFR should be multiplied by the estimated BMI. CHEM PANEL Bili Total 0.9 mg/dL 0.2 - 1.3 12/20 [place] CHEM PANEL Albumin Lvl 4.1 g/dL 3.5 - 5.0 12/20 [place] CHEM PANEL CO2 22 meq/L 24 - 32 12/20 [place] CHEM PANEL Calcium Lvl 10.4 mg/dL 8.5 - 10.5 12/20 [place] CHEM PANEL ALT 71 unit/L 0 - 65 12/20 [place] CHEM PANEL AST 22 unit/L 0 - 37 12/20 [place] CHEM PANEL Total Protein 7.9 g/dL 6.4 - 8.4 12/20 [place] CHEM PANEL Alk Phos 108 unit/L 39 - 136 12/20 [place] CHEM PANEL Glucose Lvl 182 mg/dL 70 - 99 12/20 2Interpretive Data: Adult reference range values reflect the clinical guidelines of the [place] [employer]. [place] CHEM PANEL Sodium Lvl 136 meq/L 135 - 145 12/20 [place] CHEM PANEL Creatinine 1.6 mg/dL 0.5 - 1.4 06/18 [facility] [place] Lvl /2014 [place] CHEM PANEL Chloride Lvl 101 meq/L 95 - 109 12/20 [facility] [place] CHEM PANEL Potassium Lvl 3.5 meq/L 3.5 - 5.1 12/20 [place] CHEM PANEL BUN 19 mg/dL 7 - 22 12/20 [place] /2014 [place] CHEM PANEL Amylase Lvl 64 unit/L 25 - 115 12/20 [facility] [place] CHEM PANEL Lipase Lvl 204 unit/L 73 - 393 12/20 [facility] [place] HEMATOLOGY RBC 4.81 M/CMM 4.70 - 12/20 [facility] [place] 6.10 /2014 [place] HEMATOLOGY MCHC 33.7 g/dL 32.0 - 12/20 [facility] [place] 36.0 /2014 [place] HEMATOLOGY MCV 99.6 fL 80.0 - 12/20 [facility] [place] 94.0 /2014 [place] HEMATOLOGY MCH 33.6 pg 27.0 - 12/20 [place] 31.0 [place] HEMATOLOGY Hgb 16.1 g/dL 14.0 - 12/20 [place] 18.0 [place] HEMATOLOGY Hct 48.0 % 42.0 - 12/20 [place] 54.0 /2014 [place] HEMATOLOGY WBC 10.1 K/CMM 3.7 - 10.4 12/20 [place] HEMATOLOGY MPV 9.3 fL 7.4 - 10.4 12/20 [place] HEMATOLOGY Platelet 311 K/CMM 133 - 450 12/20 [place] HEMATOLOGY RDW 14.7 % 11.5 - 12/20 [place] 14.5 /2014 [place] HEMATOLOGY Monocytes 8.6 % 2.0 - 12.0 12/20 [place] HEMATOLOGY Lymphocytes 27.3 % 20.0 - 12/20 [place] 40.0 /2014 [place] HEMATOLOGY Segs 61.2 % 45.0 - 12/20 [facility] [place] 75.0 /2014 [place] HEMATOLOGY Segs-Bands # 6.2 K/CMM 1.5 - 8.1 12/20 [place] HEMATOLOGY Basophils 0.4 % 0.0 - 1.0 12/20 [place] HEMATOLOGY Eosinophils 2.5 % 0.0 - 4.0 12/20 [place] HEMATOLOGY Lymphocytes # 2.8 K/CMM 1.0 - 5.5 12/20 [place] HEMATOLOGY Basophils # 0.0 K/CMM 0.0 - 0.2 12/20 [facility] HEMATOLOGY Eosinophils # 0.3 K/CMM 0.0 - 0.5 12/20 [facility] HEMATOLOGY Monocytes # 0.9 K/CMM 0.0 - 0.8 12/20 [facility] Abdomen/Pel Abdomen/Pelvi Study: CT abdomen and pelvis without contrast. 12/20 - [place] vis wo IV s wo IV /2014 - [facility] contrast CT contrast CT COMPARISON: CT dated 10/18/2014 Read by: Krystle Reddy MD Dictated Date/time: 12/20/14 10:29 Electronically Signed by: Krystle Reddy MD 12/20/14 10:40 FINAL REPORT HISTORY: Abdominal pain, acute. TECHNIQUE: Contiguous axial images of the abdomen and pelvis were obtained without intravenous or enteric contrast administration. Sagittal and coronal reformats were performed. DLP: 1531 mGy-cm. FINDINGS: A calcified granuloma is seen in the left lung base. The osseous structures are unremarkable. The gallbladder has been removed. Fatty liver is seen. The spleen, adrenal glands and pancreas have unremarkable unenhanced appearance. Bilateral renal stones ar e seen measuring up to 6 mm. No hydronephrosis, hydroureter or ureteral stone is seen. Previously noted left distal ureteral stone is no longer seen. Surgical anastomotic suture is seen within a loop of small bowel in the right upper quadrant. The stomach, small bowel and colon otherwise have unremarkable unenhanced appearance. The appendix has been removed. The urinary bladder has unremarkable unenha nced appearance. The prostate has unremarkable CT appearance. No enlarged lymph nodes or inflammatory changes are seen in the abdomen or pelvis. IMPRESSION: 1. No acute abnormality in the abdomen or pelvis. 2. Bilateral nephrolithiasis. 3. Previously noted left distal ureteral stone is no longer visualized. CHEM PANEL Amylase Lvl 111 unit/L 25 - 115 10/19 [facility] CHEM PANEL Lipase Lvl 815 unit/L 73 - 393 10/19 [facility] CHEM PANEL eGFR 76 10/19 1Result Comment: The eGFR is calculated using the CKD-EPI formula. In most young, healthy individuals the eGFR will be >90 mL/ min/1.73m2. The eGFR declines with age. An eGFR of 60-89 may be normal in mL/min/1.7 /2014 some populations, particularly the elderly, for whom the CKD-EPI formula has not been extensively validated. Use of the eGFR is not recommended in the following populations: [place] 3m2 Individuals with unstable creatinine concentrations, including patients and those with serious co-morbid conditions. Patients with extremes in muscle mass or diet. The data above are obtained from the National Kidney Disease Education Program (NKDEP) which additionally recommends that when the eGFR is used in patients with extremes of body mass index for purposes of drug dosing, the eGFR should be multiplied by the estimated BMI. CHEM PANEL BUN 11 mg/dL 7 - 22 10/19 [place] CHEM PANEL Glucose Lvl 135 mg/dL 70 - 99 10/19 2Interpretive Data: Adult reference range values reflect the clinical guidelines of the [place] [employer]. [place] CHEM PANEL Sodium Lvl 140 meq/L 135 - 145 10/19 [place] CHEM PANEL Creatinine 1.2 mg/dL 0.5 - 1.4 10/19 [place] CHEM PANEL Bili Total 0.7 mg/dL 0.2 - 1.3 10/19 [place] CHEM PANEL Alk Phos 120 unit/L 39 - 136 10/19 [place] CHEM PANEL Total Protein 7.7 g/dL 6.4 - 8.4 10/19 [place] CHEM PANEL Albumin Lvl 4.1 g/dL 3.5 - 5.0 10/19 [place] CHEM PANEL ALT 226 unit/L 0 - 65 10/19 [place] CHEM PANEL AST 104 unit/L 0 - 37 10/19 [place] CHEM PANEL Potassium Lvl 4.0 meq/L 3.5 - 5.1 10/19 [place] CHEM PANEL Calcium Lvl 9.8 mg/dL 8.5 - 10.5 10/19 [place] CHEM PANEL CO2 25 meq/L 24 - 32 10/19 [place] CHEM PANEL Chloride Lvl 106 meq/L 95 - 109 10/19 [place] CHEM PANEL B/C Ratio 9 6 - 25 10/19 [place] CHEM PANEL AGAP 13.0 meq/L 10.0 - 10/19 [place] 20.0 [place] CHEM PANEL Globulin 3.6 g/dL 2.0 - 4.0 10/19 [place] CHEM PANEL A/G Ratio 1.1 0.7 - 1.6 10/19 [place] CHEM PANEL Lipase Lvl 1016 73 - 393 10/19 [place] unit/L /2014 [place] HEMATOLOGY Hct 46.2 % 42.0 - 10/19 [place] 54.0 /2014 [place] HEMATOLOGY MCV 100.3 fL 80.0 - 10/19 [place] 94.0 /2014 [place] HEMATOLOGY Hgb 15.4 g/dL 14.0 - 10/19 [place] 18.0 /2014 [place] HEMATOLOGY WBC 8.1 K/CMM 3.7 - 10.4 10/19 [place] HEMATOLOGY RBC 4.60 M/CMM 4.70 - 10/19 [place] 6.10 /2014 [place] HEMATOLOGY MPV 10.2 fL 7.4 - 10.4 10/19 [place] HEMATOLOGY RDW 12.3 % 11.5 - 10/19 [place] 14.5 /2014 [place] HEMATOLOGY Platelet 287 K/CMM 133 - 450 10/19 [place] HEMATOLOGY MCH 33.5 pg 27.0 - 10/19 [place] 31.0 /2014 [place] HEMATOLOGY MCHC 33.4 g/dL 32.0 - 10/19 [place] 36.0 /2014 [place] HEMATOLOGY Segs 42.9 % 45.0 - 10/19 [place] 75.0 /2014 [place] HEMATOLOGY Lymphocytes # 3.2 K/CMM 1.0 - 5.5 10/19 [place] HEMATOLOGY Lymphocytes 39.5 % 20.0 - 10/19 [place] 40.0 /2014 [place] HEMATOLOGY Monocytes 9.4 % 2.0 - 12.0 10/19 [place] HEMATOLOGY Eosinophils 7.7 % 0.0 - 4.0 10/19 [place] HEMATOLOGY Monocytes # 0.8 K/CMM 0.0 - 0.8 10/19 [place] HEMATOLOGY Eosinophils # 0.6 K/CMM 0.0 - 0.5 10/19 [place] HEMATOLOGY Basophils 0.5 % 0.0 - 1.0 10/19 [place] HEMATOLOGY Segs-Bands # 3.5 K/CMM 1.5 - 8.1 10/19 [place] HEMATOLOGY Basophils # 0.0 K/CMM 0.0 - 0.2 10/19 [facility] URINE AND UA RBC 21-50 /HPF 0 - 2 10/19 [place] STOOL [facility] URINE AND UA Bacteria Occasional None Seen 10/19 [place] STOOL /HPF /HPF [facility] URINE AND UA Protein Negative Negative 10/19 [place] STOOL [facility] (10/18/14 8:38 PM) URINE AND UA Glucose Negative Negative 10/19 [place] STOOL [facility] (10/18/14 8:38 PM) URINE AND UA Sq Epi Occasional Few /LPF 10/19 [place] STOOL /LPF /2014 [facility] URINE AND UA WBC 3-5 /HPF None Seen 10/19 [place] STOOL /HPF [facility] URINE AND UA Ketones Negative Negative 10/19 [place] STOOL [facility] *NA* (10/18/14 8:38 PM) URINE AND UA Bili Negative Negative 10/19 [facility] *NA* (10/18/14 8:38 PM) URINE AND UA Blood Large Negative 10/19 [facility] *ABN* (10/18/14 8:38 PM) URINE AND UA 0.2 EU/dL 0.1 - 1.0 10/19 [place] STOOL Urobilinogen [facility] URINE AND UA Nitrite Negative Negative 10/19 [place] STOOL [facility] (10/18/14 8:38 PM) URINE AND UA Leuk Est Negative Negative 10/19 [place] [facility] (10/18/14 8:38 PM) URINE AND UA Turbidity Clear Clear 10/19 [place] STOOL [facility] (10/18/14 8:38 PM) URINE AND UA Spec Grav 1.010 <=1.030 10/19 [facility] URINE AND UA pH 6.0 5.0 - 8.0 10/19 [facility] URINE AND UA Color Yellow Yellow 10/19 [place] STOOL [facility] *NA* (10/18/14 8:38 PM) Renal Stone Renal Stone Clinical history: Abdominal pain, acute. 10/18 - [facility] CT CT - [facility] Sex: M. : 1975. Read by: Sae Pastrana MD Dictated Date/time: 10/18/14 21:22 Electronically Signed by: Sae Pastrana MD 10/18/14 21:26 FINAL REPORT Technique: Axial scans through the abdomen and pelvis without contrast including multiplanar computer reformations. Total Dose (DLP): 1421 mGy-cm. Findings: Enlarged fatty liver is 26 cm. Cholecystectomy. No biliary dilatation. Normal pancreas, spleen and adrenal glands. Renal length is 13.1 cm on the right. 2 mm calculus upper pole right kidney and 2 mm ca lculus midpole right kidney. 2 2-mm calculi lower pole right kidney. No right ureteral obstruction. Left renal length is 13.8 cm. 2 3-mm calculi upper pole left kidney, 2 3-mm calculi medial midpole lef t kidney, 2 2-mm calculi lateral midpole left kidney an 4 calculi between 2 and 4 mm in the lower pole of the left kidney. There is slight left renal pelviectasis 17 mm. There is a 2 mm calculus in the distal left ureter just above the ureterovesical junction. Normal bladder. Normal seminal vesicles and prostate. No intestinal dilatation or obstruction. No ascites. Normal aorta and iliac arteries. The lung bases are clear. No acute skeletal findings. Impression: 1. Bilateral nephrolithiasis and distal left ureteral stone. CARDIAC Total CK 105 unit/L 12 - 191 10/04 [place] [facility] /2014 [facility] CARDIAC CK MB 0.5 ng/mL 0.5 - 3.6 10/04 [place] [facility] /2014 [facility] CARDIAC Troponin-I null 0.00 - 10/04 [place] [facility] 0.40 /2015 [facility] CARDIAC CK MB Index 0.5 0.0 - 2.5 10/04 [place] [facility] /2014 [facility] CHEM PANEL eGFR 63 10/04 1Result Comment: The eGFR is calculated using the CKD-EPI formula. In most young, healthy individuals the eGFR will be >90 mL/ min/1.73m2. The eGFR declines with age. An eGFR of 60-89 may be normal in [place] mL/min/1.7 /2015 some populations, particularly the elderly, for whom the CKD-EPI formula has not been extensively validated. Use of the eGFR is not recommended in the following populations: [place] 3m2 Individuals with unstable creatinine concentrations, including patients and those with serious co-morbid conditions. Patients with extremes in muscle mass or diet. The data above are obtained from the National Kidney Disease Education Program (NKDEP) which additionally recommends that when the eGFR is used in patients with extremes of body mass index for purposes of drug dosing, the eGFR should be multiplied by the estimated BMI. CHEM PANEL Albumin Lvl 4.4 g/dL 3.5 - 5.0 / [place] CHEM PANEL Total Protein 7.9 g/dL 6.4 - 8.4 10/04 [place] CHEM PANEL ALT 117 unit/L 0 - 65 10/04 [place] CHEM PANEL AST 37 unit/L 0 - 37 10/04 [place] CHEM PANEL Bili Total 0.6 mg/dL 0.2 - 1.3 10/04 [place] CHEM PANEL Alk Phos 96 unit/L 39 - 136 10/04 [place] CHEM PANEL Potassium Lvl 3.5 meq/L 3.5 - 5.1 10/04 [place] CHEM PANEL Sodium Lvl 140 meq/L 135 - 145 10/04 [place] CHEM PANEL Creatinine 1.4 mg/dL 0.5 - 1.4 10/04 [place] CHEM PANEL Chloride Lvl 107 meq/L 95 - 109 10/04 [place] CHEM PANEL Calcium Lvl 9.9 mg/dL 8.5 - 10.5 10/04 [place] CHEM PANEL CO2 24 meq/L 24 - 32 10/04 [place] CHEM PANEL B/C Ratio 9 6 - 25 10/04 [place] CHEM PANEL AGAP 12.5 meq/L 10.0 - 10/04 [facility] [place] 20.0 [place] CHEM PANEL Globulin 3.5 g/dL 2.0 - 4.0 10/04 [place] CHEM PANEL A/G Ratio 1.3 0.7 - 1.6 10/04 [place] CHEM PANEL BUN 12 mg/dL 7 - 22 10/04 [place] CHEM PANEL Glucose Lvl 140 mg/dL 70 - 99 10/04 2Interpretive Data: Adult reference range values reflect the clinical guidelines of the [place] [employer]. [place] HEMATOLOGY Hgb 16.0 g/dL 14.0 - 10/04 [place] 18.0 [place] HEMATOLOGY Hct 46.2 % 42.0 - 10/04 [place] 54.0 [place] HEMATOLOGY MCV 100.0 fL 80.0 - 10/04 [place] 94.0 [place] HEMATOLOGY RDW 12.2 % 11.5 - 04 [place] 14.5 /2014 [place] HEMATOLOGY Platelet 302 K/CMM 133 - 450 04/ [place] HEMATOLOGY MPV 9.6 fL 7.4 - 10.4 10/04 [place] HEMATOLOGY MCH 34.7 pg 27.0 - 10/04 [place] 31.0 /2014 [place] HEMATOLOGY MCHC 34.7 g/dL 32.0 - 10/04 [place] 36.0 /2014 [place] HEMATOLOGY RBC 4.61 M/CMM 4.70 - 04 [place] 6.10 /2014 [place] HEMATOLOGY WBC 10.1 K/CMM 3.7 - 10.4 10/04 [place] HEMATOLOGY Lymphocytes 20.1 % 20.0 - 04 [place] 40.0 [place] HEMATOLOGY Segs 64.9 % 45.0 - 10/04 [place] 75.0 /2014 [place] HEMATOLOGY Basophils 0.3 % 0.0 - 1.0 10/04 [place] HEMATOLOGY Segs-Bands # 6.6 K/CMM 1.5 - 8.1 10/04 [place] HEMATOLOGY Monocytes 9.9 % 2.0 - 12.0 / [place] HEMATOLOGY Eosinophils # 0.5 K/CMM 0.0 - 0.5 10/04 [place] HEMATOLOGY Monocytes # 1.0 K/CMM 0.0 - 0.8 10/04 [place] HEMATOLOGY Basophils # 0.0 K/CMM 0.0 - 0.2 10/04 [place] HEMATOLOGY Eosinophils 4.8 % 0.0 - 4.0 10/04 [place] HEMATOLOGY Lymphocytes # 2.0 K/CMM 1.0 - 5.5 10/04 [place] CARDIAC CK MB Index 0.5 0.0 - 2.5 10/01 [place] [facility] CARDIAC CK MB 0.7 ng/mL 0.5 - 3.6 10/01 [place] [facility] /2014 [facility] CARDIAC Troponin-T null 0.000 - 10/01 [place] [facility] 0.100 /2014 [facility] CARDIAC Troponin-I null 0.00 - 10/01 [place] [facility] 0.40 /2014 [facility] CARDIAC Total CK 154 unit/L 12 - 191 10/01 [place] [facility] /2014 [facility] CARDIAC Total CK 124 unit/L 12 - 191 10/01 [facility] EN[facility]YMES [facility] CARDIAC Troponin-T null 0.000 - 10/01 [facility] ENZYMES 0.100 /2014 [facility] CARDIAC Troponin-I null 0.00 - 10/01 [facility] ENZYMES 0.40 /2014 [facility] CARDIAC CK MB Index 0.9 0.0 - 2.5 10/01 [facility] CARDIAC CK MB 1.1 ng/mL 0.5 - 3.6 10/01 [facility] CHEM PANEL Calcium Lvl 9.7 mg/dL 8.5 - 10.5 10/01 [facility] CHEM PANEL AGAP 11.3 meq/L 10.0 - 10/01 20.0 [facility] CHEM PANEL Potassium Lvl 3.3 meq/L 3.5 - 5.1 10/01 [facility] CHEM PANEL Chloride Lvl 104 meq/L 95 - 109 10/01 [facility] CHEM PANEL CO2 26 meq/L 24 - 32 10/01 [facility] CHEM PANEL BUN 11 mg/dL 7 - 22 10/01 [facility] CHEM PANEL Creatinine 1.4 mg/dL 0.5 - 1.4 10/01 [facility] Lvl [facility] CHEM PANEL Sodium Lvl 138 meq/L 135 - 145 10/01 [facility] CHEM PANEL Glucose Lvl 188 mg/dL 70 - 99 10/01 4Interpretive Data: Adult reference range values reflect the clinical guidelines of the [place] [employer]. [facility] CHEM PANEL eGFR 63 10/01 2Result Comment: The eGFR is calculated using the CKD-EPI formula. In most young, healthy individuals the eGFR will be >90 mL/ min/1.73m2. The eGFR declines with age. An eGFR of 60-89 may be normal in [facility] mL/min/1.7 some populations, particularly the elderly, for whom the CKD-EPI formula has not been extensively validated. Use of the eGFR is not recommended in the following populations: [address] Individuals with unstable creatinine concentrations, including patients and those with serious co-morbid conditions. Patients with extremes in muscle mass or diet. The data above are obtained from the National Kidney Disease Education Program (NKDEP) which additionally recommends that when the eGFR is used in patients with extremes of body mass index for purposes of drug dosing, the eGFR should be multiplied by the estimated BMI. DRUG SCREEN UDS Note See Note 7 10/01 7Interpretive Data: Drugs reported as positive have not been confirmed by a second method and should be used for medical purposes only. To order Medical *NA* confirmation, contact laboratory. Center (10/01/14 4:56 AM) note: Below are cut-off concentrations for all urine drugs of abuse performed in the laboratory. Some drugs listed in the table may not be included in this panel. Description Cut-off concentration Amphetamine 1000 ng/mL Barbiturates 200 ng/mL Benzodiazepines 300 ng/mL Cocaine metabolites 300 ng/mL Opiates 300 ng/mL Phencyclidine 25 ng/mL Propoxyphene 300 ng/mL Marijuana metabolites 50 ng/mL Methadone 300 ng/mL Urine alcohol 20 mg/dL DRUG SCREEN U Cannab Scr Negative Negative 10/01 [facility] *NA* [place] (10/01/14 4:56 AM) DRUG SCREEN U Opiate Scr Negative Negative 10/01 [facility] *NA* [place] (10/01/14 4:56 AM) DRUG SCREEN U Phencyc Scr Negative Negative 10/01 [facility] *NA* [place] (10/01/14 4:56 AM) DRUG SCREEN U Amph Scr Negative Negative 10/01 [facility] *NA* [place] (10/01/14 4:56 AM) DRUG SCREEN U Benzodia Negative Negative 10/01 [facility] *NA* [place] (10/01/14 4:56 AM) DRUG SCREEN U [place] Scr Negative Negative 10/01 [facility] *NA* [place] (10/01/14 4:56 AM) DRUG SCREEN U Cocaine Scr Negative Negative 10/01 [facility] *NA* [place] (10/01/14 4:56 AM) TOXICOLOGY Ethanol Lvl null 10/01 9Interpretive Data: Negative Range: <3 mg/dL Toxic Range: >250 mg/dL [facility] TOXICOLOGY Etoh (%) null 10/01 8Interpretive Data: Ethanol testing results should be used for medical purposes only. Negative Range: <0.003% Medical Toxic Range: >0.25% [place] CARDIAC BNP null <=100 10/01 6Interpretive Data: Elevated results are in line with increasing severity of [facility] ENZYMES pg/mL /2014 congestive heart failure. Minor elevations between 100 and 300 Medical may be seen with Myocardial Ischemia, Sodium retaining drugs, Center and compensated/treated heart failure. Chest Chest EXAM: CTA CHEST WITH CONTRAST 10/01 - [facility] Pulmonary Pulmonary /2014 - Medical Embolism Embolism CTA This report was dictated by a Finished Cloth Examiner/Fellow. I have personally reviewed the images as Center CTA well as the Resident's interpretation and agree with the findings. DATE: 2014-10-01 05:40:00 Read by: Johan Garcia MD Resident: Johan Garcia MD Dictated Date/time: 10/01/14 08:29 Electronically Signed by: Wendi Das MD 10/01/14 12:01 FINAL REPORT INDICATION: Syncope COMPARISON: Chest Radiographic 09/30/2014 2329 hours TECHNIQUE: Following the intravenous administration of 100 cc Visipaque 320 , the chest was scanned from bases to apices. Sagittal, coronal and oblique MIP images were created at the CT workstation. FINDINGS: The lung parenchyma demonstrates mild bilateral dependent subsegmental atelectasis without focal consolidation. A 9 mm left lower lobe granuloma is noted series 4, image 167. There is no pleural effusion or pneumothorax. The measured thoracic aorta (34 mm at the pulmonary bifurcation) and pulmonary arteries are within normal limits. The coronary arteries are unremarkable. There is suboptimal opacification of the pulmonary arteries. Within these confines, no large central pulmonary embolus is evident. The heart is borderline in size with a cardiothoracic ratio of 14.5/30. There is no pericardial effusion. There is no bowing of the interventricular septum or reflux of contrast into the IVC. There is no mediastinal, hilar, axillary, diaphragmatic, internal mammillary or visualized supraclavicular lymphadenopathy. A small partially calcified left infrahilar node is noted as well as a partial ly calcified tiny subcarinal node possibly reflecting prior granulomatous disease. The visualized upper abdomen is poorly opacified, but unremarkable in appearance. No acute bony abnormality is evident. Mild thoracic osteophytosis is noted. Post surgical change to the left glenoid is evident. Cholecystectomy clips are noted. IMPRESSION: 1. Suboptimal opacification of the pulmonary arteries with no large central pulmonary embolus. Evaluation beyond this level is limited. 2. Bilateral dependent subsegmental atelectasis. 3. 9 mm left lower lobe granuloma and partially calcified left infrahilar and subcarinal lymph nodes likely reflecting prior granulomatous disease. HEMATOLOGY PTT 28.9 s 22.9 - 10/01 11Interpretiv [place] 35.8 /2014 e Data: [facility] Heparin Center Therapeutic Range: 57 - 92 Second[place] HEMATOLOGY PT 13.4 s 12.0 - 10/01 [place] 14.7 /2014 [facility] HEMATOLOGY INR 1.02 0.85 - 10/01 10Interpretive Data: RECOMMENDED RANGES FOR PROTIME INR: [facility] .17 2.0-3.0 for most medical and surgical thromboembolic states. Medical 2.5-3.5 for artificial heart valves and recurrent embolism. Center INR SHOULD BE USED ONLY FOR PATIENTS ON STABLE ANTICOAGULANT THERAPY. CARDIAC Total CK 129 unit/L 12 - 191 10/01 [place] ENZYMES [facility] CARDIAC Troponin-T null 0.000 - 10/01 [facility] ENZYMES 0.100 /2014 [facility] CARDIAC Troponin-I null 0.00 - 10/01 [facility] ENZYMES 0.40 /2014 [facility] CARDIAC CK MB Index 0.7 0.0 - 2.5 10/01 [facility] ENZYMES /2014 [facility] CARDIAC CK MB 0.9 ng/mL 0.5 - 3.6 10/01 [facility] ENZYMES [facility] CHEM PANEL Lactic Acid 2.5 mMol/L 0.5 - 2.2 10/01 [place] Lvl /2014 [facility] CHEM PANEL Lipase Lvl 371 unit/L 73 - 393 10/01 [facility] /2014 [facility] CHEM PANEL eGFR 58 10/01 3Result Comment: The eGFR is calculated using the CKD-EPI formula. In most young, healthy individuals the eGFR will be >90 mL/ min/1.73m2. The eGFR declines with age. An eGFR of 60-89 may be normal in [facility] mL/min/1.7 /2014 some populations, particularly the elderly, for whom the CKD-EPI formula has not been extensively validated. Use of the eGFR is not recommended in the following populations: [address] [facility] Individuals with unstable creatinine concentrations, including patients and those with serious co-morbid conditions. Patients with extremes in muscle mass or diet. The data above are obtained from the National Kidney Disease Education Program (NKDEP) which additionally recommends that when the eGFR is used in patients with extremes of body mass index for purposes of drug dosing, the eGFR should be multiplied by the estimated BMI. CHEM PANEL Bili Total 1.2 mg/dL 0.2 - 1.3 10/01 [facility] CHEM PANEL Albumin Lvl 4.4 g/dL 3.5 - 5.0 10/01 [facility] CHEM PANEL Total Protein 8.0 g/dL 6.4 - 8.4 10/01 [facility] CHEM PANEL B/C Ratio 8 6 - 25 10/01 [facility] CHEM PANEL Calcium Lvl 10.4 mg/dL 8.5 - 10.5 10/01 [facility] CHEM PANEL A/G Ratio 1.2 0.7 - 1.6 10/01 [facility] CHEM PANEL Alk Phos 97 unit/L 39 - 136 10/01 [facility] CHEM PANEL ALT 113 unit/L 0 - 65 10/01 [facility] CHEM PANEL AST 38 unit/L 0 - 37 10/01 [facility] CHEM PANEL Globulin 3.6 g/dL 2.0 - 4.0 10/01 [facility] CHEM PANEL BUN 12 mg/dL 7 - 22 10/01 [facility] CHEM PANEL Glucose Lvl 145 mg/dL 70 - 99 10/01 5Interpretive Data: Adult reference range values reflect the clinical guidelines of the [place] [employer]. [facility] CHEM PANEL Potassium Lvl 2.9 meq/L 3.5 - 5.1 10/01 1Result Comment: Medical Critical Center Result(s) called to Juan A Emmanuel)_ at 09/30/2014 23:52 by stp. Read back OK. CHEM PANEL Chloride Lvl 101 meq/L 95 - 109 10/01 [facility] CHEM PANEL Sodium Lvl 139 meq/L 135 - 145 10/01 [facility] CHEM PANEL CO2 24 meq/L 24 - 32 10/01 [facility] CHEM PANEL Creatinine 1.5 mg/dL 0.5 - 1.4 10/01 [facility] CHEM PANEL AGAP 16.9 meq/L 10.0 - 10/01 [place] 20.0 [facility] HEMATOLOGY Hgb 15.9 g/dL 14.0 - 10/01 18.0 [facility] HEMATOLOGY RBC 4.76 M/CMM 4.70 - 10/01 6.10 /2014 [facility] HEMATOLOGY WBC 10.2 K/CMM 3.7 - 10.4 10/01 [facility] HEMATOLOGY MCV 99.7 fL 80.0 - 10/01 [facility] 94.0 [facility] HEMATOLOGY Hct 47.4 % 42.0 - 10/01 [facility] 54.0 [facility] HEMATOLOGY RDW 11.3 % 11.5 - 10/01 14.5 [facility] HEMATOLOGY MCHC 33.5 g/dL 32.0 - 10/01 [facility] 36.0 [facility] HEMATOLOGY MCH 33.4 pg 27.0 - 10/01 [facility] 31.0 [facility] HEMATOLOGY MPV 9.4 fL 7.4 - 10.4 10/01 [facility] HEMATOLOGY Platelet 249 K/CMM 133 - 450 10/01 [facility] HEMATOLOGY Basophils # 0.1 K/CMM 0.0 - 0.2 10/01 [facility] HEMATOLOGY Macrocyte 1+ None Seen 10/01 [facility]* Center (09/30/14 11:10 PM) HEMATOLOGY Segs 46.8 % 45.0 - 10/01 75.0 [facility] HEMATOLOGY Lymphocytes 41.8 % 20.0 - 10/01 40.0 [facility] HEMATOLOGY Monocytes 8.9 % 2.0 - 12.0 10/01 [facility] HEMATOLOGY Eosinophils 1.6 % 0.0 - 4.0 10/01 [facility] HEMATOLOGY Basophils 0.9 % 0.0 - 1.0 10/01 [facility] HEMATOLOGY Segs-Bands # 4.7 K/CMM 1.5 - 8.1 10/01 2014 [facility] HEMATOLOGY Eosinophils # 0.2 K/CMM 0.0 - 0.5 10/01 [facility] HEMATOLOGY Monocytes # 0.9 K/CMM 0.0 - 0.8 10/01 [facility]2014 [facility] HEMATOLOGY Lymphocytes # 4.3 K/CMM 1.0 - 5.5 10/[address] Brain wo Brain wo EXAM: CT BRAIN WITHOUT CONTRAST 10/01 - [facility] contrast CT contrast CT /2014 [facility] DATE: 10/01/2014 Read by: Jakob Car MD Dictated Date/time: 10/01/14 08:40 Electronically Signed by: Jakob Car MD 10/01/14 08:46 FINAL REPORT INDICATION: Headache with trauma TECHNIQUE: Noncontrast axial imaging was obtained from the vertex to the skull base. COMPARISON: None FINDINGS: No acute intracranial hemorrhage or extra-axial collection. No hydrocephalus or midline shift. The ordaz-white matter interface is preserved. The included paranasal sinuses and tympanomastoid cavities are clear. The calvarium and skull base are intact. IMPRESSION: No acute abnormality. Vital Signs Vital Sign Value Date Comments Source BMI Calculated 50.66 03/28/2018 [facility] Height 180.34 cm 03/28/2018 [facility] Weight 164.773 03/28/2018 [facility] Systolic (mm Hg) 135 03/28/2018 [facility] Diastolic (mm Hg) 91 03/28/2018 [facility] Heart Rate 111 03/28/2018 [facility] Height 180.34 cm 01/03/2018 [facility] BMI Calculated 48.78 01/03/2018 [facility] Weight 158.636 01/03/2018 [facility] Heart Rate 96 01/03/2018 [facility] Temperature Oral (F) 98.1 F 01/03/2018 [facility] Systolic (mm Hg) 135 01/03/2018 [facility] Diastolic (mm Hg) 88 01/03/2018 [facility] Heart Rate 99 10/05/2017 [facility] Systolic (mm Hg) 139 10/05/2017 [facility] Diastolic (mm Hg) 91 10/05/2017 [facility] Weight 157.443 10/05/2017 [facility] BMI Calculated 47.74 10/05/2017 [facility] Height 181.61 cm 10/05/2017 [facility] Weight 157.443 08/18/2017 [facility] Heart Rate 94 08/18/2017 [facility] Systolic (mm Hg) 161 08/18/2017 [facility] Diastolic (mm Hg) 95 08/18/2017 [facility] BMI Calculated 46.27 07/15/2017 [facility] Weight 159.091 07/15/2017 [facility] Height 185.42 cm 07/15/2017 [facility] Heart Rate 104 07/15/2017 [facility] Systolic (mm Hg) 139 07/15/2017 [facility] Diastolic (mm Hg) 90 07/15/2017 [facility] Respitory Rate 19 12/17/2015 [place] Systolic (mm Hg) 114 12/17/2015 [place] Diastolic (mm Hg) 73 12/17/2015 [place] Heart Rate 79 12/17/2015 [place] Temperature Oral (F) 98 F 12/17/2015 [place] Heart Rate 83 12/17/2015 [place] Temperature Oral (F) 98.3 F 12/17/2015 [place] Respitory Rate 18 12/17/2015 [place] Systolic (mm Hg) 128 12/17/2015 [place] Diastolic (mm Hg) 81 12/17/2015 [place] Height 185.42 cm 12/16/2015 [place] BMI Calculated 41.65 12/16/2015 [place] Weight 143.182 12/16/2015 [place] Respitory Rate 18 12/16/2015 [place] Heart Rate 88 12/16/2015 [place] Systolic (mm Hg) 136 12/16/2015 [place] Diastolic (mm Hg) 101 12/16/2015 [place] Temperature Oral (F) 98 F 12/16/2015 [place] Temperature Oral (F) 98.7 F 01/28/2015 [place] Systolic (mm Hg) 129 01/28/2015 [place] Diastolic (mm Hg) 78 01/28/2015 [place] Respitory Rate 16 01/28/2015 [place] Heart Rate 68 01/28/2015 [place] Systolic (mm Hg) 126 01/28/2015 [place] Diastolic (mm Hg) 83 01/28/2015 [place] Heart Rate 80 01/28/2015 [place] Respitory Rate 16 01/28/2015 [place] Weight 146 01/28/2015 [place] Temperature Oral (F) 98.3 F 01/28/2015 [place] Systolic (mm Hg) 121 01/28/2015 [place] Diastolic (mm Hg) 79 01/28/2015 [place] Heart Rate 83 01/28/2015 [facility] [place] Respitory Rate 20 01/28/2015 [place] Heart Rate 98 01/25/2015 [place] Temperature Oral (F) 97.2 F 01/25/2015 [facility] [place] Respitory Rate 20 01/25/2015 [facility] [place] Systolic (mm Hg) 132 01/25/2015 [place] Diastolic (mm Hg) 77 01/25/2015 [place] Systolic (mm Hg) 146 01/25/2015 [facility] [place] Diastolic (mm Hg) 88 01/25/2015 [facility] [place] Respitory Rate 18 01/25/2015 [place] Heart Rate 92 01/25/2015 [place] Temperature Oral (F) 97.5 F 01/25/2015 [place] Respitory Rate 22 01/25/2015 [place] Heart Rate 98 01/25/2015 [place] Systolic (mm Hg) 141 01/25/2015 [place] Diastolic (mm Hg) 88 01/25/2015 [place] BMI Calculated 44.85 01/25/2015 [place] Weight 150 01/25/2015 [facility] [place] Height 182.88 cm 01/25/2015 [place] Temperature Oral (F) 98.0 F 01/25/2015 [place] Heart Rate 93 01/19/2015 [place] Temperature Oral (F) 97.8 F 01/19/2015 [facility] [place] Systolic (mm Hg) 137 01/19/2015 [facility] [place] Diastolic (mm Hg) 80 01/19/2015 [place] Respitory Rate 20 01/19/2015 [place] Respitory Rate 20 01/19/2015 [facility] [place] Systolic (mm Hg) 124 01/19/2015 [facility] [place] Diastolic (mm Hg) 72 01/19/2015 [place] Heart Rate 82 01/19/2015 [place] Temperature Oral (F) 97.9 F 01/19/2015 [facility] [place] Systolic (mm Hg) 123 01/19/2015 [facility] [place] Diastolic (mm Hg) 76 01/19/2015 [place] Heart Rate 77 01/19/2015 [place] Respitory Rate 18 01/19/2015 [place] Temperature Oral (F) 97.8 F 01/19/2015 [place] BMI Calculated 45.12 01/17/2015 [facility] [place] Weight 150.909 01/17/2015 [facility] [place] Height 182.88 cm 01/17/2015 [facility] [place] Height 182.88 cm 01/17/2015 [facility] [place] Weight 150.955 01/17/2015 [facility] [place] BMI Calculated 45.14 01/17/2015 [facility] [place] Temperature Oral (F) 98.3 F 01/09/2015 [facility] [place] Heart Rate 75 01/09/2015 [facility] [place] Respitory Rate 20 01/09/2015 [facility] [place] Systolic (mm Hg) 134 01/09/2015 [facility] [place] Diastolic (mm Hg) 88 01/09/2015 [facility] [place] Respitory Rate 20 01/09/2015 [facility] [place] Diastolic (mm Hg) 84 01/09/2015 [facility] [place] Systolic (mm Hg) 134 01/09/2015 [facility] [place] Heart Rate 87 01/09/2015 [place] Temperature Oral (F) 98.6 F 01/09/2015 [facility] [place] Systolic (mm Hg) 132 01/09/2015 [facility] [place] Diastolic (mm Hg) 83 01/09/2015 [place] Temperature Oral (F) 98.6 F 01/09/2015 [place] Respitory Rate 20 01/09/2015 [place] Heart Rate 94 01/09/2015 [facility] [place] Height 182.88 cm 01/08/2015 [facility] [place] BMI Calculated 45.12 01/08/2015 [facility] [place] Weight 150.909 01/08/2015 [facility] [place] Weight 153.636 01/08/2015 [facility] [place] BMI Calculated 45.94 01/08/2015 [facility] [place] Height 182.88 cm 01/08/2015 [place] Temperature Oral (F) 97.5 F 01/07/2015 [facility] [place] Systolic (mm Hg) 140 01/07/2015 [facility] [place] Diastolic (mm Hg) 72 01/07/2015 [facility] [place] Respitory Rate 14 01/07/2015 [facility] [place] Temperature Oral (F) 98.0 F 01/07/2015 [facility] [place] Respitory Rate 15 01/07/2015 [facility] [place] Systolic (mm Hg) 136 01/07/2015 [facility] [place] Diastolic (mm Hg) 80 01/07/2015 [facility] [place] Temperature Oral (F) 98.3 F 01/07/2015 [facility] [place] Respitory Rate 18 01/07/2015 [facility] [place] Systolic (mm Hg) 142 01/07/2015 [facility] [place] Diastolic (mm Hg) 76 01/07/2015 [facility] [place] Heart Rate 94 01/07/2015 [facility] [place] Heart Rate 105 01/07/2015 [place] Heart Rate 86 01/07/2015 [facility] [place] Height 182.88 cm 01/07/2015 [place] Weight 151.051 01/07/2015 [place] BMI Calculated 45.16 01/07/2015 [facility] [place] Weight 150.909 01/07/2015 [facility] [place] Systolic (mm Hg) 120 12/20/2014 [facility] [place] Diastolic (mm Hg) 75 12/20/2014 [place] Respitory Rate 17 12/20/2014 [place] Heart Rate 96 12/20/2014 [place] Temperature Oral (F) 98.1 F 12/20/2014 [place] Heart Rate 99 12/20/2014 [facility] [place] Systolic (mm Hg) 115 12/20/2014 [facility] [place] Diastolic (mm Hg) 68 12/20/2014 [place] Respitory Rate 16 12/20/2014 [place] Temperature Oral (F) 98.3 F 12/20/2014 [place] Heart Rate 98 12/20/2014 [place] Respitory Rate 19 12/20/2014 [place] Systolic (mm Hg) 100 12/20/2014 [facility] [place] Diastolic (mm Hg) 66 12/20/2014 [place] Temperature Oral (F) 98.3 F 12/20/2014 [place] Height 182.88 cm 12/20/2014 [place] BMI Calculated 44.99 12/20/2014 [place] Weight 150.455 12/20/2014 [place] Heart Rate 115 10/19/2014 [place] Respitory Rate 20 10/19/2014 [facility] [place] Systolic (mm Hg) 134 10/19/2014 [facility] [place] Diastolic (mm Hg) 96 10/19/2014 [place] Temperature Oral (F) 98.6 F 10/19/2014 [place] Respitory Rate 20 10/19/2014 [place] Temperature Oral (F) 97.4 F 10/19/2014 [facility] [place] Weight 151.534 10/19/2014 [facility] [place] Systolic (mm Hg) 122 10/19/2014 [facility] [place] Diastolic (mm Hg) 90 10/19/2014 [place] Heart Rate 112 10/19/2014 [place] Heart Rate 82 10/04/2014 [place] Respitory Rate 18 10/04/2014 [place] Systolic (mm Hg) 129 10/04/2014 [place] Diastolic (mm Hg) 72 10/04/2014 [place] Temperature Oral (F) 98.4 F 10/04/2014 [place] Weight 159.091 10/04/2014 [place] Systolic (mm Hg) 114 10/04/2014 [place] Diastolic (mm Hg) 77 10/04/2014 [place] Respitory Rate 18 10/04/2014 [place] Heart Rate 108 10/04/2014 [place] Temperature Oral (F) 98.6 F 10/04/2014 [place] Systolic (mm Hg) 120 10/01/2014 [facility] Diastolic (mm Hg) 73 10/01/2014 [facility] Respitory Rate 18 10/01/2014 [facility] Temperature Oral (F) 96.7 F 10/01/2014 [facility] Heart Rate 95 10/01/2014 [facility] Systolic (mm Hg) 124 10/01/2014 [facility] Diastolic (mm Hg) 70 10/01/2014 [facility] Heart Rate 93 10/01/2014 [facility] Respitory Rate 18 10/01/2014 [facility] Temperature Oral (F) 97.2 F 10/01/2014 [facility] Weight 158.004 10/01/2014 [facility] BMI Calculated 47.24 10/01/2014 [facility] Height 182.88 cm 10/01/2014 [facility] Temperature Oral (F) 97.2 F 10/01/2014 [facility] Heart Rate 91 10/01/2014 [facility] Systolic (mm Hg) 130 10/01/2014 [facility] Diastolic (mm Hg) 68 10/01/2014 [facility] Respitory Rate 18 10/01/2014 [facility] Weight 159.091 10/01/2014 [facility] BMI Calculated 47.57 10/01/2014 [facility] Height 182.88 cm 10/01/2014 [facility] Respitory Rate 18 06/18/2013 [place] Systolic (mm Hg) 129 06/18/2013 [place] Heart Rate 89 06/18/2013 [place] Diastolic (mm Hg) 76 06/18/2013 [place] Height 182.88 cm 06/18/2013 [place] Weight 159.091 06/18/2013 [place] Heart Rate 93 06/18/2013 [place] Respitory Rate 20 06/18/2013 [place] Temperature Oral (F) 98.0 F 06/18/2013 [place] Systolic (mm Hg) 136 06/18/2013 [place] Diastolic (mm Hg) 84 06/18/2013 [place] Encounters Location Location Encounter Encounter Reason Attending ADM DC Status Source Details Type Number For Provider Date Date Visit Emergency [id number] ANKUR ARANGO 06/18 06/18 [facility] [place] [facility] [id number] [place] 10/01 10/01 [place] [facility] [facility] Emergency [id number] Amrik Yancey 10/04 10/04 [place] [facility] [place] [facility] Emergency [id number] Ethel Hamm 10/19 10/19 [place] [facility] [place] [facility] Emergency [id number] Amrik Yancey 12/20 12/20 [facility] [place] [facility] [place] [facility] OBS [id number] Mustaq 01/07 01/08 [facility] [place] [facility] [place] [facility] OBS [id number] Angie 01/08 01/09 [place] [facility] [place] [facility] Inpatient [id number] Mustaq 01/17 01/19 [facility] [place] 6 [facility] [place] [facility] Emergency [id number] Heather Martinezel 01/25 01/25 [place] [facility] [place] Outpatient [id number] ROSIBEL TEYKL 01/28 Active [facility] Emergency [id number] Heather Martinezel 01/28 01/28 [place] [facility] [place] Outpatient [id number] ROSIBEL TEYKL 02/27 Active [facility] [place] [facility] [id number] ROSIBEL TEYKL 02/27 Active [facility] EC Emergency [id number] Norm Webster 12/15 12/16 [place] [facility] [place] Outpatient [id number] MARLI THOMPSON 07/15 Active [facility] [id number] Marli Thompson 07/15 07/16 [facility] Phone [id number] 07/19 07/21 [facility] [place] [facility] Phone [id number] 08/11 08/13 [facility] [place] Outpatient [id number] MARLI THOMPSON 08/12 Active [facility] Ambulatory [id number] Marli Thompson 08/12 08/12 [facility] [place] [facility] Phone [id number] 08/16 08/18 [facility] [place] Outpatient [id number] MARLI THOMPSON 08/18 [facility]patient [id number] Marli Thompson 08/18 08/19 [facility] [place] [facility] Phone [id number] 08/18 08/20 [facility] [place] [facility] Phone [id number] 08/19 08/21 [facility] [place] [facility] Phone [id number] 08/24 08/26 [facility] [place] [facility] Phone [id number] 09/16 09/18 [facility] [place] [facility] Phone [id number] 09/27 09/29 [facility] [place] [facility] Phone [id number] 10/04 10/06 [facility] [place] [facility] Phone [id number] 10/04 10/06 [facility] [place] Outpatient [id number] MARLI THOMPSON 10/05 Active [facility] [place] [facility] Outpatient [id number] Marli Thompson 10/05 10/06 [facility] [place] [facility] Phone [id number] 10/12 10/14 [facility] [place] [facility] Phone [id number] 10/27 10/29 [facility] [place] [facility] Phone [id number] 11/11 11/13 [facility] [place] [facility] Phone [id number] 11/16 11/18 [facility] [place] [facility] Phone [id number] 12/30 01/01 [facility] [place] Outpatient [id number] MARLI THOMPSON 01/03 Active [facility] [place] [facility] Outpatient [id number] Marli Thompson 01/03 01/04 [facility] [place] [facility] Phone [id number] 01/04 01/06 [facility] [place] [facility] Phone [id number] 01/12 01/14 [facility] [place] [facility] Phone [id number] 01/13 01/15 [facility] [place] [facility] Phone [id number] 01/18 01/20 [facility] [place] Outpatient [id number] MARLI THOMPSON 01/28 Active [facility] [facility] Ambulatory [id number] Marli Thompson 01/28 01/28 [facility] [place] [facility] Phone [id number] 02/03 02/05 [facility] [place] [facility] Phone [id number] 02/10 02/12 [facility] [place] [facility] Phone [id number] 03/11 03/13 [facility] [place] [facility] Phone [id number] 03/23 03/25 [facility] [place] Outpatient [id number] [place] 03/25 Active [facility] [place] [facility]ulatory [id number] [place] 03/25 03/25 [facility] Family Pre-Reg [facility] [place] Outpatient [id number] MARLI THOMPSON 03/28 Active [facility] [place] [facility] Outpatient [id number] Marli Thompson 03/28 03/29 [facility] [place] [facility] Phone [id number] 04/12 04/14 [facility] Phone [id number] 04/12 04/14 [facility] [place] [facility] Phone [id number] 04/20 04/22 [facility] [place] Procedures Procedure Code Date Perfomer Comments Source Cystoscopy<sup>1</sup [id number] 01/18/2015 with left [facility] > ureter stent Group placement Cystoscopy<sup>1</sup [id number] 01/18/2015 with left [facility] > ureter stent [place] placement Cystoscopic laser [id number] 01/07/2015 stent left [facility] lithotripsy of Group ureteric calculus<sup>2</sup> Stent [id number] 01/07/2015 Left kidney [facility] placement<sup>3</sup> Group Cystoscopic laser [id number] 01/07/2015 1stent left [facility] lithotripsy of Land ureteric calculus<sup>1</sup> Stent [id number] 01/07/2015 2Left kidney [facility] placement<sup>2</sup> Land Cystoscopic laser [id number] 01/07/2015 stent left [facility] lithotripsy of Land ureteric calculus<sup>2</sup> Stent [id number] 01/07/2015 Left kidney [facility] placement<sup>3</sup> Land Appendectomy [id number] Medical Group Cholecystectomy [id number] Medical Group Lipoma of face [id number] Medical Group Lipoma of 307470483 left hand [facility] hand<sup>4</sup> removal of Group lipoma Miscellaneous 910005940 left shoulder, [facility] operations<sup>5</sup left hand Group > Shoulder joint 713595961 right shoulder [facility] operations<sup>6</sup Group > Appendectomy [id number] [place] Cholecystectomy [id number] [facility] [place] Miscellaneous 650515754 1left [facility] operations<sup>1</sup shoulder, left [place] > hand Lipoma of face 79391969 [place] Lipoma of 450151388 3left hand [facility] hand<sup>3</sup> removal of Land lipoma Miscellaneous 149838135 4left [facility] operations<sup>4</sup shoulder, left [facility] > hand Shoulder joint 347133808 5right [place] operations<sup>5</sup shoulder Land > Lipoma of 744957320 left hand [facility] hand<sup>4</sup> removal of Land lipoma Miscellaneous 674028937 left shoulder, [place] operations<sup>5</sup left hand Land > Shoulder joint 031974683 right shoulder [facility] operations<sup>6</sup [place] > Lipoma of 683215266 1left hand [facility] hand<sup>1</sup> removal of Land lipoma Miscellaneous 579036512 2left [place] operations<sup>2</sup shoulder, left [facility] > hand Shoulder joint 572711285 3right [facility] operations<sup>3</sup shoulder Land > Appendectomy 53789028 [facility] Cholecystectomy 46549074 [facility] Lipoma of face 82951068 [facility] Lipoma of 080570200 1left hand [facility] hand<sup>1</sup> removal of Medical lipoma Center Miscellaneous 132520961 2left [facility] operations<sup>2</sup shoulder, left Medical > hand Center Shoulder joint 674140138 3right [facility] operations<sup>3</sup shoulder Medical > Center
--- OUTSIDE RECORDS SUMMARY | 2018-12-12 20:39 | XMS REPORT | Summary of Care ---
:1975 Author Organization [facility] Address [address] [place] [address]- Encounter HQ Encntr_tramaine(FIN) [id number] Date(s): 03/11/18 - 03/12/18 [facility] [address] [place] [address]- [phone] Vital Signs No data available for this section Problem List Condition Effective Dates Status Health Status Informant Anxiety(Confirmed) Resolved Diabetes(Confirmed) Active DM (diabetes mellitus)(Confirmed) Active Acute flank pain(Confirmed) Active HTN (hypertension)(Confirmed) Resolved Hyperlipemia(Confirmed) Resolved Hypertension(Confirmed) Active Male impotence(Confirmed) Active Kidney stone(Confirmed) Resolved Morbid obesity(Confirmed) Active Ureteric stone1 01/11/15 Active 1Data migrated from [facility] on 02/06/15. Allergies, Adverse Reactions, Alerts Substance Reaction Severity Status NKFA Active NKDA Active Medications Tresiba FlexTouch 200 units/mL subcutaneous solution 70 unit, SUB-Q, Daily, # 10 pen(s), 0 Refill(s), Pharmacy: [facility] [id number] Start Date: 03/11/18 Stop Date: 05/24/18 Status: DiscontinuedTresiba FlexTouch 200 units/mL subcutaneous solution 70 unit, SUB-Q, Daily, # 10 pen(s), 0 Refill(s), Pharmacy: [facility] [id number] Start Date: 05/24/18 Stop Date: 08/22/18 Status: Ordered Results No data available for this section Immunizations No data available for this section Procedures Procedure Date Related Diagnosis Body Site Status Cystoscopy1 01/18/15 Completed Cystoscopic laser lithotripsy of 01/07/15 Completed ureteric calculus2 Stent placement3 01/07/15 Completed Appendectomy Completed Cholecystectomy Completed Lipoma of face Completed Lipoma of hand4 Completed Miscellaneous operations5 Completed Shoulder joint operations6 Completed 1with left ureter stent rofayctpv2dwmlr qrdp9Yotu fhwbow1kdfw hand removal of ihhlzn3mzee shoulder, left rock0ickzj shoulder Social History Social History Type Response Substance Abuse Use: None. IV drug use: No. Exercise 1 Employment/School Status: Employed. 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 Alcohol Current, Type Beer, Liquor. Frequency: 3-5 times per week. Alcohol use interferes with work or home: No. Drinks more than intended: No. Others hurt by drinking: No. Ready to change: No. Household alcohol concerns: No. 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
--- OUTSIDE RECORDS SUMMARY | 2018-12-12 20:39 | XMS REPORT | Summary of Care ---
:1975 Author Organization [facility] Address [address] [place] [address]- Encounter HQ Caitlynntr_tramaine(FIN) [id number] Date(s): 02/03/18 - 02/04/18 [facility] [address] [place] [address]- [phone] Vital Signs No data available for this section Problem List Condition Effective Dates Status Health Status Informant Anxiety(Confirmed) Resolved Diabetes(Confirmed) Active DM (diabetes mellitus)(Confirmed) Active Acute flank pain(Confirmed) Active HTN (hypertension)(Confirmed) Resolved Hyperlipemia(Confirmed) Resolved Hypertension(Confirmed) Active Male impotence(Confirmed) Active Kidney stone(Confirmed) Resolved Morbid obesity(Confirmed) Active Ureteric stone1 01/11/15 Active 1Data migrated from [employer] on 02/06/15. Allergies, Adverse Reactions, Alerts Substance Reaction Severity Status NKFA Active NKDA Active Medications atorvastatin 20 mg oral tablet See Instructions, # 90 tab, TAKE 1 TABLET DAILY, Pharmacy: [facility] Start Date: 02/03/18 Stop Date: 04/20/18 Status: Discontinuedhydrochlorothiazide 12.5 mg oral capsule See Instructions, # 90 unknown unit, TAKE 1 CAPSULE DAILY, Pharmacy: [facility] Start Date: 02/03/18 Stop Date: 04/20/18 Status: Discontinuedlisinopril 40 mg oral tablet See Instructions, # 90 tab, TAKE 1 TABLET DAILY, Pharmacy: [facility] Start Date: 02/03/18 Stop Date: 04/20/18 Status: DiscontinuedmetFORMIN 500 mg oral tablet, extended release See Instructions, # 360 tab, TAKE 2 TABLETS TWICE A DAY, Pharmacy: [facility] Start Date: 02/03/18 Stop Date: 04/20/18 Status: Discontinued Results No data available for this section Immunizations No data available for this section Procedures Procedure Date Related Diagnosis Body Site Status Cystoscopy1 01/18/15 Completed Cystoscopic laser lithotripsy of 01/07/15 Completed ureteric calculus2 Stent placement3 01/07/15 Completed Appendectomy Completed Cholecystectomy Completed Lipoma of face Completed Lipoma of hand4 Completed Miscellaneous operations5 Completed Shoulder joint operations6 Completed 1with left ureter stent eimpykgfi7towwj chsi6Rsni zupass2doox hand removal of lwmhmi6cday shoulder, left dztx9yszpo shoulder Social History Social History Type Response Substance Abuse Use: None. IV drug use: No. Exercise 1 Employment/School Status: Employed. 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 Alcohol Current, Type [...] OF PHYSICAL WORK WITH TRUCK AND HEAVY [id number] SMOKING 4 MONTHS AGO Assessment and Plan No data available for this section
--- OUTSIDE RECORDS SUMMARY | 2018-12-12 20:40 | XMS REPORT | Summary of Care ---
:1975 Author Organization [facility] Address [address] [place] [address]- Encounter HQ Encntr_alias(FIN) [id number] Date(s): 08/18/17 - 08/19/17 [place] [address] [place] [address]- [phone] Vital Signs No data available for this section Problem List Condition Effective Dates Status Health Status Informant Anxiety(Confirmed) Resolved Diabetes(Confirmed) Active DM (diabetes mellitus)(Confirmed) Active Acute flank pain(Confirmed) Active HTN (hypertension)(Confirmed) Resolved Hyperlipemia(Confirmed) Resolved Hypertension(Confirmed) Active Male impotence(Confirmed) Active Kidney stone(Confirmed) Resolved Morbid obesity(Confirmed) Active Ureteric stone1 01/11/15 Active 1Data migrated from [facility] on 02/06/15. Allergies, Adverse Reactions, Alerts Substance Reaction Severity Status NKFA Active NKDA Active Medications No data available for this section Results No data available for this section Immunizations No data available for this section Procedures Procedure Date Related Diagnosis Body Site Status Cystoscopy1 01/18/15 Completed Cystoscopic laser lithotripsy of 01/07/15 Completed ureteric calculus2 Stent placement3 01/07/15 Completed Appendectomy Completed Cholecystectomy Completed Lipoma of face Completed Lipoma of hand4 Completed Miscellaneous operations5 Completed Shoulder joint operations6 Completed 1with left ureter stent amxapanuj7gsumc uvzn7Smgi lcqzwz9qsgw hand removal of zqrlxk7ovpu shoulder, left ehao4ycfsg shoulder Social History Social History Type Response Substance Abuse Use: None. IV drug use: No. Exercise 1 Employment/School Status: Employed. 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 Alcohol Current, Type [...] use per day: 10; 2 entered on: 10/05/17 1WORK INVOLVES A LOT OF PHYSICAL WORK WITH TRUCK AND HEAVY [id number] SMOKING 4 MONTHS AGO Assessment and Plan No data available for this section
--- OUTSIDE RECORDS SUMMARY | 2018-12-12 20:40 | XMS REPORT | Summary of Care ---
:1975 Author Organization [facility] Address [address] [place] [address]- Encounter HQ Anant_tramaine(FIN) [id number] Date(s): 07/15/17 - 07/15/17 [place] [address] [place] [address]- [phone] Discharge Disposition: Home or Self Care Attending Physician: Marli Thompson MSN, RN, CREDIT OPERATIONS SPECIALIST-C Vital Signs Most recent to oldest [Reference Range]: 1 Height 185.42 cm (07/15/17 12:47 PM) Blood Pressure [90-140/60-90 mmHg] 139/90 mmHg (07/15/17 12:47 PM) Peripheral Pulse Rate [60-100 bpm] 104 bpm *HI* (07/15/17 12:47 PM) Weight 159.091 kg (07/15/17 12:47 PM) Body Mass Index 46.27 m2 (07/15/17 12:47 PM) Problem List Condition Effective Dates Status Health Status Informant Anxiety(Confirmed) Resolved Diabetes(Confirmed) Active DM (diabetes mellitus)(Confirmed) Active Acute flank pain(Confirmed) Active HTN (hypertension)(Confirmed) Resolved Hyperlipemia(Confirmed) Resolved Hypertension(Confirmed) Active Male impotence(Confirmed) Active Kidney stone(Confirmed) Resolved Morbid obesity(Confirmed) Active Ureteric stone1 01/11/15 Active 1Data migrated from [employer] on 02/06/15. Allergies, Adverse Reactions, Alerts Substance Reaction Severity Status NKFA Active NKDA Active Medications atorvastatin 20 mg oral tablet 20 mg=1 tab, PO, Daily, 0 Refill(s) Start Date: 07/15/17 Stop Date: 07/15/17 Status: Discontinuedatorvastatin 20 mg oral tablet 20 mg=1 tab, PO, Daily, # 90 tab, 0 Refill(s), Pharmacy: [facility] Start Date: 07/15/17 Stop Date: 08/18/17 Status: DiscontinuedBromfed DM oral syrup 5 mL, PO, TID, PRN cough, X 8 day, # 120 mL, 0 Refill(s), Pharmacy: [place] [id number] Start Date: 07/15/17 Stop Date: 07/23/17 Status: Completedlisinopril 40 mg oral tablet 40 mg=1 tab, PO, Daily, 0 Refill(s) Start Date: 07/15/17 Stop Date: 07/15/17 Status: Discontinuedlisinopril 40 mg oral tablet 40 mg=1 tab, PO, Daily, # 90 tab, 0 Refill(s), Pharmacy: [place] [id number] Start Date: 07/15/17 Stop Date: 08/18/17 Status: DiscontinuedmetFORMIN 500 mg oral tablet, extended release 1,000 mg=2 tab, PO, BID, # 360 tab, 0 Refill(s), Pharmacy: [place] [id number] Start Date: 07/15/17 Stop Date: 08/18/17 Status: DiscontinuedNovoLIN 70/30 PenFill subcutaneous injection 20 unit, SUB-Q, BID, # 3 ml, 0 Refill(s) Start Date: 07/15/17 Stop Date: 08/18/17 Status: Completedsertraline 100 mg oral tablet 100 mg=1 tab, PO, Daily, 0 Refill(s) Start Date: 07/15/17 Stop Date: 07/15/17 Status: DiscontinuedTamiFLU 75 mg oral capsule 75 mg, PO, Q12H, X 5 day, # 10 cap, 0 Refill(s), Pharmacy: [place] [id number] Start Date: 07/15/17 Stop Date: 07/20/17 Status: CompletedTessalon 200 mg oral capsule 200 mg=1 cap, PO, TID, X 10 day, # 30 cap, 0 Refill(s), Pharmacy: [place] [id number] Start Date: 07/15/17 Stop Date: 07/25/17 Status: Completedvenlafaxine 37.5 mg oral tablet, extended release 37.5 mg=1 tab, PO, Daily, # 30 tab, 2 Refill(s), Pharmacy: [id number] Start Date: 07/15/17 Stop Date: 08/18/17 Status: Discontinued Results No data available for this section Immunizations No data available for this section Procedures Procedure Date Related Diagnosis Body Site Status Cystoscopy1 01/18/15 Completed Cystoscopic laser lithotripsy of 01/07/15 Completed ureteric calculus2 Stent placement3 01/07/15 Completed Appendectomy Completed Cholecystectomy Completed Lipoma of face Completed Lipoma of hand4 Completed Miscellaneous operations5 Completed Shoulder joint operations6 Completed 1with left ureter stent epeqegboi4swilc wmvh2Ncmh lwiznb0yhci hand removal of bjcbeb5pknr shoulder, left pwft9rbbrp shoulder Social History Social History Type Response Substance Abuse Use: None. IV drug use: No. Exercise 1 Employment/School Status: Employed. 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 Alcohol Current, Type [...] OF PHYSICAL WORK WITH TRUCK AND HEAVY [id number] SMOKING 4 MONTHS AGO Assessment and Plan No data available for this section
--- OUTSIDE RECORDS SUMMARY | 2018-12-12 20:40 | XMS REPORT | Summary of Care ---
:[address] [facility] Address [address] [place] [address]- Care Team Providers Name Role Phone Marli Thompson Primary Care Physician Encounter HQ Encntr_alias(FIN) [id number] Date(s): 04/12/18 - 04/13/18 [address] [place] [address]- [phone] Vital Signs No data available for this section Problem List Condition Effective Dates Status Health Status Informant Anxiety(Confirmed) Resolved Diabetes(Confirmed) Active DM (diabetes mellitus)(Confirmed) Active Acute flank pain(Confirmed) Active HTN (hypertension)(Confirmed) Resolved Hyperlipemia(Confirmed) Resolved Hypertension(Confirmed) Active Male impotence(Confirmed) Active Kidney stone(Confirmed) Resolved Morbid obesity(Confirmed) Active Ureteric stone1 01/11/15 Active 1Data migrated from [employer] on 02/06/15. Allergies, Adverse Reactions, Alerts No Known Medication Allergies Substance Reaction Severity Status NKFA Active Medications No data available for this [...] joint operations6 Completed 1with left ureter stent aeyrfmrek8mwhih uhuo7Tkhe jywfqo0hmsm hand removal of ysgcfj9vstk shoulder, left otxs5ovhtc shoulder Social History Social History Type Response Substance Abuse Use: None. IV drug use: No. Exercise 1 Employment/School Status: Employed. 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 Alcohol Current, Type [...] OF PHYSICAL WORK WITH TRUCK AND HEAVY [id number] SMOKING 4 MONTHS AGO Assessment and Plan No data available for this section
--- OUTSIDE RECORDS SUMMARY | 2018-12-12 20:40 | XMS REPORT | Summary of Care ---
:1975 Author Organization [facility] Address [facility] [place] [address]- Care Team Providers Name Role Phone Marli Thompson Primary Care Physician Encounter HQ Encntr_alias(FIN) [id number] Date(s): 04/12/18 - 04/13/18 [place] [id number] [place] [address]- Vital Signs No data available for this section Problem List Condition Effective Dates Status Health Status Informant Anxiety(Confirmed) Resolved Diabetes(Confirmed) Active DM (diabetes mellitus)(Confirmed) Active Acute flank pain(Confirmed) Active HTN (hypertension)(Confirmed) Resolved Hyperlipemia(Confirmed) Resolved Hypertension(Confirmed) Active Male impotence(Confirmed) Active Kidney stone(Confirmed) Resolved Morbid obesity(Confirmed) Active Ureteric stone1 01/11/15 Active 1Data migrated from [employer] on 02/06/15. Allergies, Adverse Reactions, Alerts No [...] joint operations6 Completed 1with left ureter stent mrjyhmvnf6dlyxh zxcr7Hchu wkjjiv5ktdk hand removal of wnipdj9bphv shoulder, left bvne3rvbbw shoulder Social History Social History Type Response Substance Abuse Use: None. IV drug use: No. Exercise 1 Employment/School Status: Employed. 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 Alcohol Current, Type [...] OF PHYSICAL WORK WITH TRUCK AND HEAVY [id number] SMOKING 4 MONTHS AGO Assessment and Plan No data available for this section
--- OUTSIDE RECORDS SUMMARY | 2018-12-12 20:40 | XMS REPORT | Summary of Care ---
:1975 Author Organization [facility] Address [address] [place] [address]- Encounter HQ Caitlynntr_tramaine(FIN) [id number] Date(s): 07/19/17 - 07/20/[address] [address]- [phone] Vital Signs No data available for this section Problem List Condition Effective Dates Status Health Status Informant Anxiety(Confirmed) Resolved Diabetes(Confirmed) Active DM (diabetes mellitus)(Confirmed) Active Acute flank pain(Confirmed) Active HTN (hypertension)(Confirmed) Resolved Hyperlipemia(Confirmed) Resolved Hypertension(Confirmed) Active Male impotence(Confirmed) Active Kidney stone(Confirmed) Resolved Morbid obesity(Confirmed) Active Ureteric stone1 01/11/15 Active 1Data migrated from [facility] on 02/06/15. Allergies, Adverse Reactions, Alerts Substance Reaction Severity Status NKFA Active NKDA Active Medications Cheratussin AC oral syrup 5 mL, PO, Q6H, PRN cough, X 6 day, # 120 mL, 0 Refill(s) Start Date: 07/19/17 Stop Date: 07/25/17 Status: CompletedLevaquin 500 mg oral tablet 500 mg=1 tab, PO, Q24H, X 10 day, # 10 tab, 0 Refill(s), Pharmacy: [facility][id number] Start Date: 07/19/17 Stop Date: 07/29/17 Status: CompletedVictoza 18 mg/3 mL subcutaneous injection 1.2 mg, SUB-Q, Daily, # 6 mL, 3 Refill(s), other Start Date: 07/19/17 Stop Date: 08/18/17 Status: Discontinued Results No [...] joint operations6 Completed 1with left ureter stent yuqofaukm0plpxb aczy9Vwzq bmsznt3fjno hand removal of pwwlgv6fnbx shoulder, left kmmq0thxob shoulder Social History Social History Type Response Substance Abuse Use: None. IV drug use: No. Exercise 1 Employment/School Status: Employed. 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 Alcohol Current, Type [...] OF PHYSICAL WORK WITH TRUCK AND HEAVY [id number] SMOKING 4 MONTHS AGO Assessment and Plan No data available for this section
--- OUTSIDE RECORDS SUMMARY | 2018-12-12 20:40 | XMS REPORT | Summary of Care ---
:1975 Author Organization [facility] Address [address] [place] [address]- Encounter HQ Humble(FIN) [id number] Date(s): 08/18/17 - 08/18/[address] [address]- [phone] Discharge Disposition: Home or Self Care Attending Physician: Marli Thompson MSN, RN, CLINICAL TRIAL LEADER-C Vital Signs Most recent to oldest [Reference Range]: 1 Blood Pressure [90-140/60-90 mmHg] 161/95 mmHg *HI* (08/18/17 12:29 PM) Peripheral Pulse Rate [60-100 bpm] 94 bpm (08/18/17 12:29 PM) Weight 157.443 kg (08/18/17 12:29 PM) Problem List Condition Effective Dates Status Health Status Informant Anxiety(Confirmed) Resolved Diabetes(Confirmed) Active DM (diabetes mellitus)(Confirmed) Active Acute flank pain(Confirmed) Active HTN (hypertension)(Confirmed) Resolved Hyperlipemia(Confirmed) Resolved Hypertension(Confirmed) Active Male impotence(Confirmed) Active Kidney stone(Confirmed) Resolved Morbid obesity(Confirmed) Active Ureteric stone1 01/11/15 Active 1Data migrated from [employer] on 02/06/15. Allergies, Adverse Reactions, Alerts Substance Reaction Severity Status NKFA Active NKDA Active Medications atorvastatin 20 mg oral tablet 20 mg=1 tab, PO, Daily, # 90 tab, 0 Refill(s), Pharmacy: [id number] Start Date: 08/18/17 Stop Date: 09/16/17 Status: DiscontinuedBlood Glucose Monitor 1 ea, MISC, Daily, Use as directed., # 1 ea, 0 Refill(s) Start Date: 08/18/17 Stop Date: 10/05/17 Status: DiscontinuedBlood Glucose Test Strips 1 box, MISC, BID-Before Meals, # 100 strip, 0 Refill(s) Start Date: 08/18/17 Stop Date: 10/05/17 Status: DiscontinuedCeftin 500 mg oral tablet 500 mg=1 tab, PO, BID, X 10 day, # 20 tab, 0 Refill(s), Pharmacy: [place] [id number] Start Date: 08/18/17 Stop Date: 08/28/17 Status: CompletedEasyTouch Lancets Device 1 ea, MISC, ONCE, Use for blood glucose monitoring, # 1 ea, Insulin dependent, Does not use insulin pump, Last DM eval date 08/18/17, 2 Refill(s) Start Date: 08/18/17 Stop Date: 10/05/17 Status: Discontinuedhydrochlorothiazide 12.5 mg oral capsule 12.5 mg=1 cap, PO, Daily, # 90 cap, 1 Refill(s), Pharmacy: [place] [id number] Start Date: 08/18/17 Stop Date: 09/16/17 Status: Discontinuedlisinopril 40 mg oral tablet 40 mg=1 tab, PO, Daily, # 90 tab, 0 Refill(s), Pharmacy: [place] [id number] Start Date: 08/18/17 Stop Date: 09/16/17 Status: DiscontinuedmetFORMIN 500 mg oral tablet, extended release 1,000 mg=2 tab, PO, BID, # 360 tab, 0 Refill(s), Pharmacy: [place] [id number] Start Date: 08/18/17 Stop Date: 09/16/17 Status: Discontinuedvenlafaxine 37.5 mg oral tablet, extended release 37.5 mg=1 tab, PO, Daily, # 30 tab, 2 Refill(s), Pharmacy: [place] [id number] Start Date: 08/18/17 Stop Date: 09/28/17 Status: DiscontinuedVictoza 18 mg/3 mL subcutaneous injection 1.2 mg, SUB-Q, Daily, # 6 mL, 3 Refill(s), Pharmacy: [place] [id number] Start Date: 08/18/17 Stop Date: 10/05/17 Status: Discontinued Results No data available for this section Immunizations No data available for this section Procedures Procedure Date Related Diagnosis Body Site Status Cystoscopy1 01/18/15 Completed Cystoscopic laser lithotripsy of 01/07/15 Completed ureteric calculus2 Stent placement3 01/07/15 Completed Appendectomy Completed Cholecystectomy Completed Lipoma of face Completed Lipoma of hand4 Completed Miscellaneous operations5 Completed Shoulder joint operations6 Completed 1with left ureter stent itchqpsbg8mneeb xsan2Tryq ppfxqx1tqlv hand removal of sydqkq2pqlr shoulder, left iwou8bdtdh shoulder Social History Social History Type Response Substance Abuse Use: None. IV drug use: No. Exercise 1 Employment/School Status: Employed. 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 Alcohol Current, Type [...] OF PHYSICAL WORK WITH TRUCK AND HEAVY [id number] SMOKING 4 MONTHS AGO Assessment and Plan No data available for this section
--- OUTSIDE RECORDS SUMMARY | 2018-12-12 20:40 | XMS REPORT | Summary of Care ---
:1975 Author Organization [facility] Address [address] [place] [address]- Encounter HQ Rickier_tramaine(FIN) [id number] Date(s): 04/20/18 - 04/21/18 [facility] [address] [place] [address]- Vital Signs No data available for this section Problem List Condition Effective Dates Status Health Status Informant Anxiety(Confirmed) Resolved Diabetes(Confirmed) Active DM (diabetes mellitus)(Confirmed) Active Acute flank pain(Confirmed) Active HTN (hypertension)(Confirmed) Resolved Hyperlipemia(Confirmed) Resolved Hypertension(Confirmed) Active Male impotence(Confirmed) Active Kidney stone(Confirmed) Resolved Morbid obesity(Confirmed) Active Ureteric stone1 01/11/15 Active 1Data migrated from [facility] on 02/06/15. Allergies, Adverse Reactions, Alerts No Known Medication Allergies Substance Reaction Severity Status NKFA Active Medications atorvastatin 20 mg oral tablet 20 mg=1 tab, PO, Daily, # 90 tab, 1 Refill(s), Pharmacy: [facility] Start Date: 04/20/18 Status: Orderedhydrochlorothiazide 12.5 mg oral capsule 12.5 mg=1 cap, PO, Daily, # 90 cap, 1 Refill(s), Pharmacy: [facility] Start Date: 04/20/18 Status: Orderedlisinopril 40 mg oral tablet 40 mg=1 tab, PO, Daily, # 90 tab, 1 Refill(s), Pharmacy: [facility] Start Date: 04/20/18 Status: OrderedmetFORMIN 500 mg oral tablet, extended release 1,000 mg=2 tab, PO, BID, # 360 tab, 1 Refill(s), Pharmacy: [facility] Start Date: 04/20/18 Status: Ordered Results No data available for this section Immunizations No data available for this section Procedures Procedure Date Related Diagnosis Body Site Status Cystoscopy1 01/18/15 Completed Cystoscopic laser lithotripsy of 01/07/15 Completed ureteric calculus2 Stent placement3 01/07/15 Completed Appendectomy Completed Cholecystectomy Completed Lipoma of face Completed Lipoma of hand4 Completed Miscellaneous operations5 Completed Shoulder joint operations6 Completed 1with left ureter stent fvusqyuls4xxzdv rxot4Vhmt hskwgp6qang hand removal of lvotqm3vxzp shoulder, left bwpv7taxqf shoulder Social History Social History Type Response Substance Abuse Use: None. IV drug use: No. Exercise 1 Employment/School Status: Employed. 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 Alcohol Current, Type [...] OF PHYSICAL WORK WITH TRUCK AND HEAVY [id number] SMOKING 4 MONTHS AGO Assessment and Plan No data available for this section
--- OUTSIDE RECORDS SUMMARY | 2018-12-12 20:40 | XMS REPORT | Summary of Care ---
:1975 Author Organization [facility] Address [address] [place] [address]- Encounter HQ Encntr_tramaine(FIN) [id number] Date(s): 02/10/18 - 02/11/18 [facility] [address] [place] [address]- [phone] Vital Signs No data available for this section Problem List Condition Effective Dates Status Health Status Informant Anxiety(Confirmed) Resolved Diabetes(Confirmed) Active DM (diabetes mellitus)(Confirmed) Active Acute flank pain(Confirmed) Active HTN (hypertension)(Confirmed) Resolved Hyperlipemia(Confirmed) Resolved Hypertension(Confirmed) Active Male impotence(Confirmed) Active Kidney stone(Confirmed) Resolved Morbid obesity(Confirmed) Active Ureteric stone1 01/11/15 Active 1Data migrated from [employer] on 02/06/15. Allergies, Adverse Reactions, Alerts Substance Reaction Severity Status NKFA Active NKDA Active Medications Tresiba FlexTouch 200 units/mL subcutaneous solution 70 unit, SUB-Q, Daily, # 3 pen(s), 0 Refill(s), Pharmacy: [id number] Start Date: 02/10/18 Stop Date: 03/11/18 Status: Discontinued Results No data available for this section Immunizations No data available for this section Procedures Procedure Date Related Diagnosis Body Site Status Cystoscopy1 01/18/15 Completed Cystoscopic laser lithotripsy of 01/07/15 Completed ureteric calculus2 Stent placement3 01/07/15 Completed Appendectomy Completed Cholecystectomy Completed Lipoma of face Completed Lipoma of hand4 Completed Miscellaneous operations5 Completed Shoulder joint operations6 Completed 1with left ureter stent msrrmrjfq7nftkp omru2Flzh tknrmr0mgmi hand removal of evfnjn5aslf shoulder, left sdep9cnvtp shoulder Social History Social History Type Response Substance Abuse Use: None. IV drug use: No. Exercise 1 Employment/School Status: Employed. 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 Alcohol Current, Type [...] OF PHYSICAL WORK WITH TRUCK AND HEAVY [id number] SMOKING 4 MONTHS AGO Assessment and Plan No data available for this section
--- OUTSIDE RECORDS SUMMARY | 2018-12-12 20:40 | XMS REPORT | Summary of Care ---
:1975 Author Organization [facility] Address [address] [place] [address]- Encounter HQ Caitlynntr_tramaine(FIN) [id number] Date(s): 08/16/17 - 08/17/17 [facility] [address] [place] [address]- [phone] Vital Signs No data available for this section Problem List Condition Effective Dates Status Health Status Informant Anxiety(Confirmed) Resolved Diabetes(Confirmed) Active DM (diabetes mellitus)(Confirmed) Active Acute flank pain(Confirmed) Active HTN (hypertension)(Confirmed) Resolved Hyperlipemia(Confirmed) Resolved Hypertension(Confirmed) Active Male impotence(Confirmed) Active Kidney stone(Confirmed) Resolved Morbid obesity(Confirmed) Active Ureteric stone1 01/11/15 Active 1Data migrated from [facility] on 02/06/15. Allergies, Adverse Reactions, Alerts Substance Reaction Severity Status NKFA Active NKDA Active Medications sildenafil 50 mg oral tablet 50 mg=1 tab, PO, Daily, 1 hour before sexual activity, # 30 tab, 3 Refill(s), [facility] Start Date: 08/16/17 Stop Date: 08/18/17 Status: Discontinued Results No [...] joint operations6 Completed 1with left ureter stent iwtrwdkcw3dmfov qcts8Ozza zfpase2jhro hand removal of ysshho1baaj shoulder, left seih4udedm shoulder Social History Social History Type Response Substance Abuse Use: None. IV drug use: No. Exercise 1 Employment/School Status: Employed. 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 Alcohol Current, Type [...] OF PHYSICAL WORK WITH TRUCK AND HEAVY [id number] SMOKING 4 MONTHS AGO Assessment and Plan No data available for this section
--- OUTSIDE RECORDS SUMMARY | 2018-12-12 20:41 | XMS REPORT | Summary of Care ---
:1975 Author Organization [facility] Address [address] [place] [address]- Encounter HQ Encntr_tramaine(FIN) [id number] Date(s): 10/12/17 - 10/13/17 [facility] [address] [place] [address] [phone] Vital Signs No data available for this section Problem List Condition Effective Dates Status Health Status Informant Anxiety(Confirmed) Resolved Diabetes(Confirmed) Active DM (diabetes mellitus)(Confirmed) Active Acute flank pain(Confirmed) Active HTN (hypertension)(Confirmed) Resolved Hyperlipemia(Confirmed) Resolved Hypertension(Confirmed) Active Male impotence(Confirmed) Active Kidney stone(Confirmed) Resolved Morbid obesity(Confirmed) Active Ureteric stone1 01/11/15 Active 1Data migrated from [employer] on 02/06/15. Allergies, Adverse Reactions, Alerts Substance Reaction Severity Status NKFA Active NKDA Active Medications OneTouch Delica Lancets Device 1 ea, MISC, ONCE, Use for blood glucose monitoring, # 1 ea, 0 Refill(s) Start Date: 10/12/17 Stop Date: 10/12/18 Status: Ordered Results No data available for this section Immunizations No data available for this section Procedures Procedure Date Related Diagnosis Body Site Status Cystoscopy1 01/18/15 Completed Cystoscopic laser lithotripsy of 01/07/15 Completed ureteric calculus2 Stent placement3 01/07/15 Completed Appendectomy Completed Cholecystectomy Completed Lipoma of face Completed Lipoma of hand4 Completed Miscellaneous operations5 Completed Shoulder joint operations6 Completed 1with left ureter stent ddikqfhym3rvhap bvmm1Fpcf uwcegr7wtrj hand removal of waeqjy4mljd shoulder, left qzxm7dgsoh shoulder Social History Social History Type Response Substance Abuse Use: None. IV drug use: No. Exercise 1 Employment/School Status: Employed. 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 Alcohol Current, [...] OF PHYSICAL WORK WITH TRUCK AND HEAVY [id number] SMOKING 4 MONTHS AGO Assessment and Plan No data available for this section
--- OUTSIDE RECORDS SUMMARY | 2018-12-12 20:41 | XMS REPORT | Summary of Care ---
:1975 Author Organization [facility] Address [address] [place] [address]- Encounter HQ Encntr_alias(FIN) [id number] Date(s): 08/11/17 - 08/12/17 [place] [address] [place] [address]- [phone] Vital Signs No data available for this section Problem List Condition Effective Dates Status Health Status Informant Anxiety(Confirmed) Resolved Diabetes(Confirmed) Active DM (diabetes mellitus)(Confirmed) Active Acute flank pain(Confirmed) Active HTN (hypertension)(Confirmed) Resolved Hyperlipemia(Confirmed) Resolved Hypertension(Confirmed) Active Male impotence(Confirmed) Active Kidney stone(Confirmed) Resolved Morbid obesity(Confirmed) Active Ureteric stone1 01/11/15 Active 1Data migrated from [email or web address] on 02/06/15. Allergies, Adverse Reactions, Alerts Substance [...] joint operations6 Completed 1with left ureter stent zsjzaesxh3aizpg iwbg6Auoj qshnrv9lrdo hand removal of fjvsjw0lhvs shoulder, left sfhd5kxcek shoulder Social History Social History Type Response Substance Abuse Use: None. IV drug use: No. Exercise 1 Employment/School Status: Employed. 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 Alcohol Current, Type [...] OF PHYSICAL WORK WITH TRUCK AND HEAVY [id number] SMOKING 4 MONTHS AGO Assessment and Plan No data available for this section
--- OUTSIDE RECORDS SUMMARY | 2018-12-12 20:41 | XMS REPORT | Summary of Care ---
:1975 Author Organization [facility] Address [address] [place] [address]- Encounter HQ Encntr_alikizzy(FIN) [id number] Date(s): 08/24/17 - 08/25/[address] [address]- [phone] Vital Signs No data available for this section Problem List Condition Effective Dates Status Health Status Informant Anxiety(Confirmed) Resolved Diabetes(Confirmed) Active DM (diabetes mellitus)(Confirmed) Active Acute flank pain(Confirmed) Active HTN (hypertension)(Confirmed) Resolved Hyperlipemia(Confirmed) Resolved Hypertension(Confirmed) Active Male impotence(Confirmed) Active Kidney stone(Confirmed) Resolved Morbid obesity(Confirmed) Active Ureteric stone1 01/11/15 Active 1Data migrated from [employer] on 02/06/15. Allergies, Adverse Reactions, Alerts Substance [...] joint operations6 Completed 1with left ureter stent njpphqwzn2dnrpb tbxy9Qwco xuydry4swxh hand removal of sgtrfd4jybi shoulder, left gesp0jrsya shoulder Social History Social History Type Response Substance Abuse Use: None. IV drug use: No. Exercise 1 Employment/School Status: Employed. 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 Alcohol Current, Type [...] OF PHYSICAL WORK WITH TRUCK AND HEAVY [id number] SMOKING 4 MONTHS AGO Assessment and Plan No data available for this section
--- OUTSIDE RECORDS SUMMARY | 2018-12-12 20:41 | XMS REPORT | Summary of Care ---
:1975 Author Organization [facility] Address [address] [place] [address]- Encounter HQ Encntr_tramaine(FIN) [id number] Date(s): 08/19/17 - 08/20/17 [facility] [address] [place] [address] [phone] Vital Signs No data available for this section Problem List Condition Effective Dates Status Health Status Informant Anxiety(Confirmed) Resolved Diabetes(Confirmed) Active DM (diabetes mellitus)(Confirmed) Active Acute flank pain(Confirmed) Active HTN (hypertension)(Confirmed) Resolved Hyperlipemia(Confirmed) Resolved Hypertension(Confirmed) Active Male impotence(Confirmed) Active Kidney stone(Confirmed) Resolved Morbid obesity(Confirmed) Active Ureteric stone1 01/11/15 Active 1Data migrated from [employer] on 02/06/15. Allergies, Adverse Reactions, Alerts Substance Reaction Severity Status NKFA Active NKDA Active Medications Blood Pressure Monitor Wrist Misc/Other 1 ea, MISC, ONCE, Will need a letter of medical necessity for Medicare/ insurance reimbursement, # 1 ea, 0 Refill(s) Start Date: 08/24/17 Stop Date: 10/05/17 Status: Discontinued Results No [...] joint operations6 Completed 1with left ureter stent cndmbxmsn0hosih ubij9Eaca feszlb1xwpb hand removal of annpfp2oqri shoulder, left tibt5zfcpx shoulder Social History Social History Type Response Substance Abuse Use: None. IV drug use: No. Exercise 1 Employment/School Status: Employed. 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 Alcohol Current, Type [...] OF PHYSICAL WORK WITH TRUCK AND HEAVY [id number] SMOKING 4 MONTHS AGO Assessment and Plan No data available for this section
--- OUTSIDE RECORDS SUMMARY | 2018-12-12 20:41 | XMS REPORT | Summary of Care ---
:1975 Author Organization [facility] Address [address] [place] [address]- Encounter HQ Encntr_alias(FIN) [id number] Date(s): 10/27/17 - 10/28/17 [place] [address] [place] [address]- [phone] Vital Signs No data available for this section Problem List Condition Effective Dates Status Health Status Informant Anxiety(Confirmed) Resolved Diabetes(Confirmed) Active DM (diabetes mellitus)(Confirmed) Active Acute flank pain(Confirmed) Active HTN (hypertension)(Confirmed) Resolved Hyperlipemia(Confirmed) Resolved Hypertension(Confirmed) Active Male impotence(Confirmed) Active Kidney stone(Confirmed) Resolved Morbid obesity(Confirmed) Active Ureteric stone1 01/11/15 Active 1Data migrated from [employer] on 02/06/15. Allergies, Adverse Reactions, Alerts Substance [...] joint operations6 Completed 1with left ureter stent iwlfisvoz3amwle kepl9Hkyx ygskuy6bghz hand removal of wdrtql7frnr shoulder, left goua9nezra shoulder Social History Social History Type Response Substance Abuse Use: None. IV drug use: No. Exercise 1 Employment/School Status: Employed. 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 Alcohol Current, Type [...] OF PHYSICAL WORK WITH TRUCK AND HEAVY [id number] SMOKING 4 MONTHS AGO Assessment and Plan No data available for this section
--- OUTSIDE RECORDS SUMMARY | 2018-12-12 20:41 | XMS REPORT | Summary of Care ---
:1975 Author Organization [facility] Address [address] [place] [address]- Encounter HQ Encntr_tramaine(FIN) [id number] Date(s): 11/11/17 - 11/12/17 [facility] [address] [place] [address]- [phone] Vital Signs No data available for this section Problem List Condition Effective Dates Status Health Status Informant Anxiety(Confirmed) Resolved Diabetes(Confirmed) Active DM (diabetes mellitus)(Confirmed) Active Acute flank pain(Confirmed) Active HTN (hypertension)(Confirmed) Resolved Hyperlipemia(Confirmed) Resolved Hypertension(Confirmed) Active Male impotence(Confirmed) Active Kidney stone(Confirmed) Resolved Morbid obesity(Confirmed) Active Ureteric stone1 01/11/15 Active 1Data migrated from [employer] on 02/06/15. Allergies, Adverse Reactions, Alerts Substance Reaction Severity Status NKFA Active NKDA Active Medications Trulicity Pen 0.75 mg/0.5 mL subcutaneous solution 0.75 mg, SUB-Q, qWeek, # 4 pen(s), 1 Refill(s), Pharmacy: [id number] Start Date: 11/11/17 Status: Ordered Results No data available for this section Immunizations No data available for this section Procedures Procedure Date Related Diagnosis Body Site Status Cystoscopy1 01/18/15 Completed Cystoscopic laser lithotripsy of 01/07/15 Completed ureteric calculus2 Stent placement3 01/07/15 Completed Appendectomy Completed Cholecystectomy Completed Lipoma of face Completed Lipoma of hand4 Completed Miscellaneous operations5 Completed Shoulder joint operations6 Completed 1with left ureter stent araogcxyl5szuvp xfjr4Oqak zcpteg8mozw hand removal of hbigck1birm shoulder, left lrgx3rrpjc shoulder Social History Social History Type Response Substance Abuse Use: None. IV drug use: No. Exercise 1 Employment/School Status: Employed. 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 Alcohol Current, Type [...] OF PHYSICAL WORK WITH TRUCK AND HEAVY [id number] SMOKING 4 MONTHS AGO Assessment and Plan No data available for this section
--- OUTSIDE RECORDS SUMMARY | 2018-12-12 20:41 | XMS REPORT | Summary of Care ---
:1975 Author Organization [facility] Address [address] [place] [address]- Encounter HQ Encntr_alikizzy(FIN) [id number] Date(s): 03/23/18 - 03/24/18 [address] [place] [address]- Vital Signs No data available for this section Problem List Condition Effective Dates Status Health Status Informant Anxiety(Confirmed) Resolved Diabetes(Confirmed) Active DM (diabetes mellitus)(Confirmed) Active Acute flank pain(Confirmed) Active HTN (hypertension)(Confirmed) Resolved Hyperlipemia(Confirmed) Resolved Hypertension(Confirmed) Active Male impotence(Confirmed) Active Kidney stone(Confirmed) Resolved Morbid obesity(Confirmed) Active Ureteric stone1 01/11/15 Active 1Data migrated from [facility] on 02/06/15. Allergies, Adverse Reactions, Alerts Substance [...] joint operations6 Completed 1with left ureter stent dthekwatd5vknuy zgba1Vdba lvzitr9udtb hand removal of juzrtk7jjmt shoulder, left ohyw3onoii shoulder Social History Social History Type Response Substance Abuse Use: None. IV drug use: No. Exercise 1 Employment/School Status: Employed. 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 Alcohol Current, Type [...] OF PHYSICAL WORK WITH TRUCK AND HEAVY [id number] SMOKING 4 MONTHS AGO Assessment and Plan No data available for this section
--- OUTSIDE RECORDS SUMMARY | 2018-12-12 20:41 | XMS REPORT | Summary of Care ---
:1975 Author Organization [facility] Address [address] [place] [address]- Encounter HQ Encntr_alikizzy(FIN) [id number] Date(s): 11/11/17 - 11/12/17 [facility] [address] [place] [address]- [phone] Vital Signs No data available for this section Problem List Condition Effective Dates Status Health Status Informant Anxiety(Confirmed) Resolved Diabetes(Confirmed) Active DM (diabetes mellitus)(Confirmed) Active Acute flank pain(Confirmed) Active HTN (hypertension)(Confirmed) Resolved Hyperlipemia(Confirmed) Resolved Hypertension(Confirmed) Active Male impotence(Confirmed) Active Kidney stone(Confirmed) Resolved Morbid obesity(Confirmed) Active Ureteric stone1 01/11/15 Active 1Data migrated from [email or web address] on 02/06/15. Allergies, Adverse Reactions, Alerts Substance Reaction Severity Status NKFA Active NKDA Active Medications Trulicity Pen 0.75 mg/0.5 mL subcutaneous solution 0.75 mg, SUB-Q, qWeek, # 4 pen(s), 1 Refill(s), Pharmacy: [id number] Start Date: 11/11/17 Status: Ordered Results No [...] joint operations6 Completed 1with left ureter stent oiouqkgmr8rzwsk ekhc2Ykei gnuamt4guxr hand removal of ixddaz2lpzx shoulder, left qkoc1euhrq shoulder Social History Social History Type Response Substance Abuse Use: None. IV drug use: No. Exercise 1 Employment/School Status: Employed. 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 Alcohol Current, Type [...] OF PHYSICAL WORK WITH TRUCK AND HEAVY [id number] SMOKING 4 MONTHS AGO Assessment and Plan No data available for this section
--- OUTSIDE RECORDS SUMMARY | 2018-12-12 20:41 | XMS REPORT | Summary of Care ---
:1975 Author Organization [facility] Address [address] [place] [address]- Encounter HQ Encntr_alikizzy(FIN) [id number] Date(s): 03/25/18 - 03/25/18 [facility] [address] [place] [address]- [phone] Attending Physician: Tosin Richards PA-C Vital Signs No data available for this section Problem List Condition Effective Dates Status Health Status Informant Anxiety(Confirmed) Resolved Diabetes(Confirmed) Active DM (diabetes mellitus)(Confirmed) Active Acute flank pain(Confirmed) Active HTN (hypertension)(Confirmed) Resolved Hyperlipemia(Confirmed) Resolved Hypertension(Confirmed) Active Male impotence(Confirmed) Active Kidney stone(Confirmed) Resolved Morbid obesity(Confirmed) Active Ureteric stone1 01/11/15 Active 1Data migrated from [facility] on 02/06/15. Allergies, Adverse Reactions, Alerts Substance [...] joint operations6 Completed 1with left ureter stent ggbjnbknv9fjeus svjf3Vpll jbratn2dide hand removal of wusayv5aaur shoulder, left hcjj7gbirj shoulder Social History Social History Type Response Substance Abuse Use: None. IV drug use: No. Exercise 1 Employment/School Status: Employed. 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 Alcohol Current, Type [...] OF PHYSICAL WORK WITH TRUCK AND HEAVY [id number] SMOKING 4 MONTHS AGO Assessment and Plan No data available for this section
--- OUTSIDE RECORDS SUMMARY | 2018-12-12 20:42 | XMS REPORT | Summary of Care ---
:1975 Author Organization [facility] Address [address] [place] [address]- Encounter HQ Anant_tramaine(FIN) [id number] Date(s): 03/28/18 - 03/28/[address] [address]- [phone] Discharge Disposition: Home or Self Care Attending Physician: Marli Thompson MSN, RN, MANAGING EDITOR-C Vital Signs Most recent to oldest [Reference Range]: 1 Height 180.34 cm (03/28/18 1:12 PM) Blood Pressure [90-140/60-90 mmHg] 135/91 mmHg (03/28/18 1:12 PM) Peripheral Pulse Rate [60-100 bpm] 111 bpm *HI* (03/28/18 1:12 PM) Weight 164.773 kg (03/28/18 1:12 PM) Body Mass Index 50.66 m2 (03/28/18 1:12 PM) Problem List Condition Effective Dates Status Health Status Informant Anxiety(Confirmed) Resolved Diabetes(Confirmed) Active DM (diabetes mellitus)(Confirmed) Active Acute flank pain(Confirmed) Active HTN (hypertension)(Confirmed) Resolved Hyperlipemia(Confirmed) Resolved Hypertension(Confirmed) Active Male impotence(Confirmed) Active Kidney stone(Confirmed) Resolved Morbid obesity(Confirmed) Active Ureteric stone1 01/11/15 Active 1Data migrated from [employer] on 02/06/15. Allergies, Adverse Reactions, Alerts Substance Reaction Severity Status NKFA Active NKDA Active Medications No Known Medications Results No data available for this section Immunizations No data available for this section Procedures Procedure Date Related Diagnosis Body Site Status Cystoscopy1 01/18/15 Completed Cystoscopic laser lithotripsy of 01/07/15 Completed ureteric calculus2 Stent placement3 01/07/15 Completed Appendectomy Completed Cholecystectomy Completed Lipoma of face Completed Lipoma of hand4 Completed Miscellaneous operations5 Completed Shoulder joint operations6 Completed 1with left ureter stent jntgerzjp3xlnes tzqn7Grbf aospvz0lqxw hand removal of auvemh2skjt shoulder, left htpq5dpdpr shoulder Social History Social History Type Response Substance Abuse Use: None. IV drug use: No. Exercise 1 Employment/School Status: Employed. 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 Alcohol Current, Type [...] OF PHYSICAL WORK WITH TRUCK AND HEAVY [id number] SMOKING 4 MONTHS AGO Assessment and Plan No data available for this section
--- OUTSIDE RECORDS SUMMARY | 2018-12-12 20:42 | XMS REPORT | Summary of Care ---
:1975 Author Organization [facility] Address [address] [place] [address]- Encounter HQ Caitlynntr_tramaine(FIN) [id number] Date(s): 08/12/17 - 08/12/[address] [address]- [phone] Attending Physician: Marli Thompson, RN, SOAKING PIT OPERATOR-C Vital Signs No data available for this section Problem List Condition Effective Dates Status Health Status Informant Anxiety(Confirmed) Resolved Diabetes(Confirmed) Active DM (diabetes mellitus)(Confirmed) Active Acute flank pain(Confirmed) Active HTN (hypertension)(Confirmed) Resolved Hyperlipemia(Confirmed) Resolved Hypertension(Confirmed) Active Male impotence(Confirmed) Active Kidney stone(Confirmed) Resolved Morbid obesity(Confirmed) Active Ureteric stone1 01/11/15 Active 1Data migrated from [employer] on 02/06/15. Allergies, Adverse Reactions, Alerts Substance [...] joint operations6 Completed 1with left ureter stent cvkabflyb3nubzi tvwc9Hqam zlwtyr7dzmg hand removal of gpbgip9lzac shoulder, left ygdu8aqdsz shoulder Social History Social History Type Response Substance Abuse Use: None. IV drug use: No. Exercise 1 Employment/School Status: Employed. 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 Alcohol Current, Type [...] OF PHYSICAL WORK WITH TRUCK AND HEAVY [id number] SMOKING 4 MONTHS AGO Assessment and Plan No data available for this section
--- OUTSIDE RECORDS SUMMARY | 2018-12-12 20:42 | XMS REPORT | Summary of Care ---
:1975 Author Organization [facility] Address [address] [place] [address]- Encounter HQ Rickier_tramaine(FIN) [id number] Date(s): 09/16/17 - 09/17/[address] [address]- [phone] Vital Signs No data available for this section Problem List Condition Effective Dates Status Health Status Informant Anxiety(Confirmed) Resolved Diabetes(Confirmed) Active DM (diabetes mellitus)(Confirmed) Active Acute flank pain(Confirmed) Active HTN (hypertension)(Confirmed) Resolved Hyperlipemia(Confirmed) Resolved Hypertension(Confirmed) Active Male impotence(Confirmed) Active Kidney stone(Confirmed) Resolved Morbid obesity(Confirmed) Active Ureteric stone1 01/11/15 Active 1Data migrated from [employer] on 02/06/15. Allergies, Adverse Reactions, Alerts Substance Reaction Severity Status NKFA Active NKDA Active Medications atorvastatin 20 mg oral tablet 20 mg=1 tab, PO, Daily, # 90 tab, 0 Refill(s), Pharmacy: [facility] Start Date: 09/17/17 Status: Orderedhydrochlorothiazide 12.5 mg oral capsule 12.5 mg=1 cap, PO, Daily, # 90 cap, 0 Refill(s), Pharmacy: [facility] Start Date: 09/17/17 Status: Orderedlisinopril 40 mg oral tablet 40 mg=1 tab, PO, Daily, # 90 tab, 0 Refill(s), Pharmacy: [facility] Start Date: 09/17/17 Status: OrderedmetFORMIN 500 mg oral tablet, extended release 1,000 mg=2 tab, PO, BID, # 360 tab, 0 Refill(s), Pharmacy: [facility] Start Date: 09/17/17 Status: Orderedsildenafil 50 mg oral tablet 50 mg=1 tab, PO, Daily, 1 hour before sexual activity, # 90 tab, 0 Refill(s), Pharmacy: [facility] Start Date: 09/17/17 Stop Date: 09/28/17 Status: Discontinued Results No data available for this section Immunizations No data available for this section Procedures Procedure Date Related Diagnosis Body Site Status Cystoscopy1 01/18/15 Completed Cystoscopic laser lithotripsy of 01/07/15 Completed ureteric calculus2 Stent placement3 01/07/15 Completed Appendectomy Completed Cholecystectomy Completed Lipoma of face Completed Lipoma of hand4 Completed Miscellaneous operations5 Completed Shoulder joint operations6 Completed 1with left ureter stent frjhsbvwt1gvfce klty2Fcqc isflii1xquk hand removal of jgvjnm1jbqk shoulder, left nrqa3citfc shoulder Social History Social History Type Response Substance Abuse Use: None. IV drug use: No. Exercise 1 Employment/School Status: Employed. 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 Alcohol Current, Type [...] OF PHYSICAL WORK WITH TRUCK AND HEAVY [id number] SMOKING 4 MONTHS AGO Assessment and Plan No data available for this section
--- OUTSIDE RECORDS SUMMARY | 2018-12-12 20:42 | XMS REPORT | Summary of Care ---
:1975 Author Organization [facility] Address [address] [place] [address]- Encounter HQ Encntr_alias(FIN) [id number] Date(s): 11/16/17 - 11/17/17 [address] [place] [address]- [phone] Vital Signs No data available for this section Problem List Condition Effective Dates Status Health Status Informant Anxiety(Confirmed) Resolved Diabetes(Confirmed) Active DM (diabetes mellitus)(Confirmed) Active Acute flank pain(Confirmed) Active HTN (hypertension)(Confirmed) Resolved Hyperlipemia(Confirmed) Resolved Hypertension(Confirmed) Active Male impotence(Confirmed) Active Kidney stone(Confirmed) Resolved Morbid obesity(Confirmed) Active Ureteric stone1 01/11/15 Active 1Data migrated from [employer] on 02/06/15. Allergies, Adverse Reactions, Alerts Substance [...] joint operations6 Completed 1with left ureter stent bwxitsczl5gfdsw odrs6Fkno gvacvn8ogla hand removal of zcalkk5asmr shoulder, left dtvn0uiabs shoulder Social History Social History Type Response Substance Abuse Use: None. IV drug use: No. Exercise 1 Employment/School Status: Employed. 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 Alcohol Current, Type [...] OF PHYSICAL WORK WITH TRUCK AND HEAVY [id number] SMOKING 4 MONTHS AGO Assessment and Plan No data available for this section
--- OUTSIDE RECORDS SUMMARY | 2018-12-12 20:43 | XMS REPORT | Summary of Care ---
:1975 Author Organization [facility] Address [address] [place] [address]- Encounter HQ Encntr_alias(FIN) [id number] Date(s): 01/13/18 - 01/14/18 [address] [place] [address]- [phone] Vital Signs No data available for this section Problem List Condition Effective Dates Status Health Status Informant Anxiety(Confirmed) Resolved Diabetes(Confirmed) Active DM (diabetes mellitus)(Confirmed) Active Acute flank pain(Confirmed) Active HTN (hypertension)(Confirmed) Resolved Hyperlipemia(Confirmed) Resolved Hypertension(Confirmed) Active Male impotence(Confirmed) Active Kidney stone(Confirmed) Resolved Morbid obesity(Confirmed) Active Ureteric stone1 01/11/15 Active 1Data migrated from [employer] on 02/06/15. Allergies, Adverse Reactions, Alerts Substance [...] joint operations6 Completed 1with left ureter stent wxbgltivg9qkiml cghg3Qgue ppuhfe6zfel hand removal of cdywhg4ixvu shoulder, left qidz1ejdmc shoulder Social History Social History Type Response Substance Abuse Use: None. IV drug use: No. Exercise 1 Employment/School Status: Employed. 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 Alcohol Current, Type [...] use per day: 10; 2 entered on: 01/03/18 1WORK INVOLVES A LOT OF PHYSICAL WORK WITH TRUCK AND HEAVY [id number] SMOKING 4 MONTHS AGO Assessment and Plan No data available for this section
--- OUTSIDE RECORDS SUMMARY | 2018-12-12 20:43 | XMS REPORT | Summary of Care ---
:1975 Author Organization [facility] Address [address] [place] [address]- Encounter HQ Encntr_tramaine(FIN) [id number] Date(s): 10/04/17 - 10/05/[address] [address]- [phone] Vital Signs No data available for this section Problem List Condition Effective Dates Status Health Status Informant Anxiety(Confirmed) Resolved Diabetes(Confirmed) Active DM (diabetes mellitus)(Confirmed) Active Acute flank pain(Confirmed) Active HTN (hypertension)(Confirmed) Resolved Hyperlipemia(Confirmed) Resolved Hypertension(Confirmed) Active Male impotence(Confirmed) Active Kidney stone(Confirmed) Resolved Morbid obesity(Confirmed) Active Ureteric stone1 01/11/15 Active 1Data migrated from [employer] on 02/06/15. Allergies, Adverse Reactions, Alerts Substance [...] joint operations6 Completed 1with left ureter stent avttjvkbl3pdchs pefs8Nldr jsoecg9tafg hand removal of hexems4nuzz shoulder, left jlzf2fwbrv shoulder Social History Social History Type Response Substance Abuse Use: None. IV drug use: No. Exercise 1 Employment/School Status: Employed. 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 Alcohol Current, Type [...] OF PHYSICAL WORK WITH TRUCK AND HEAVY [id number] SMOKING 4 MONTHS AGO Assessment and Plan No data available for this section
--- OUTSIDE RECORDS SUMMARY | 2018-12-12 20:43 | XMS REPORT | Summary of Care ---
:1975 Author Organization [facility] Address [address] [place] [address]- Encounter HQ Caitlynntr_tramaine(FIN) [id number] Date(s): 01/12/18 - 01/13/18 [facility] [address] [place] [address]- [phone] Vital Signs No data available for this section Problem List Condition Effective Dates Status Health Status Informant Anxiety(Confirmed) Resolved Diabetes(Confirmed) Active DM (diabetes mellitus)(Confirmed) Active Acute flank pain(Confirmed) Active HTN (hypertension)(Confirmed) Resolved Hyperlipemia(Confirmed) Resolved Hypertension(Confirmed) Active Male impotence(Confirmed) Active Kidney stone(Confirmed) Resolved Morbid obesity(Confirmed) Active Ureteric stone1 01/11/15 Active 1[facility] migrated from [facility] on 02/06/15. Allergies, Adverse Reactions, Alerts Substance Reaction Severity Status NKFA Active NKDA Active Medications Januvia 50 mg oral tablet 50 mg=1 tab, PO, Daily, # 90 tab, 1 Refill(s), Pharmacy: [facility] [id number] Start Date: 01/12/18 Stop Date: 07/11/18 Status: Ordered Results No data available for this section Immunizations No data available for this section Procedures Procedure Date Related Diagnosis Body Site Status Cystoscopy1 01/18/15 Completed Cystoscopic laser lithotripsy of 01/07/15 Completed ureteric calculus2 Stent placement3 01/07/15 Completed Appendectomy Completed Cholecystectomy Completed Lipoma of face Completed Lipoma of hand4 Completed Miscellaneous operations5 Completed Shoulder joint operations6 Completed 1with left ureter stent zjaluagkk3hulfx bjdb4Smap bdpune9iclk hand removal of wrorvo1supm shoulder, left mutn4prpeb shoulder Social History Social History Type Response Substance Abuse Use: None. IV drug use: No. Exercise 1 Employment/School Status: Employed. 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 Alcohol Current, [...] OF PHYSICAL WORK WITH TRUCK AND HEAVY [id number] SMOKING 4 MONTHS AGO Assessment and Plan No data available for this section
--- OUTSIDE RECORDS SUMMARY | 2018-12-12 20:43 | XMS REPORT | Summary of Care ---
:1975 Author Organization [facility] Address [address] [place] [address]- Encounter HQ Humble(FIN) [id number] Date(s): 10/05/17 - 10/05/[address] [address]- [phone] Discharge Disposition: Home or Self Care Attending Physician: Marli Thompson, RN, INTERIOR DESIGN PROGRAM CHAIR-C Vital Signs Most recent to oldest [Reference Range]: 1 Height 181.61 cm (10/05/17 1:30 PM) Blood Pressure [90-140/60-90 mmHg] 139/91 mmHg (10/05/17 1:30 PM) Peripheral Pulse Rate [60-100 bpm] 99 bpm (10/05/17 1:30 PM) Weight 157.443 kg (10/05/17 1:30 PM) Body Mass Index 47.74 m2 (10/05/17 1:30 PM) Problem List Condition Effective Dates Status Health Status Informant Anxiety(Confirmed) Resolved Diabetes(Confirmed) Active DM (diabetes mellitus)(Confirmed) Active Acute flank pain(Confirmed) Active HTN (hypertension)(Confirmed) Resolved Hyperlipemia(Confirmed) Resolved Hypertension(Confirmed) Active Male impotence(Confirmed) Active Kidney stone(Confirmed) Resolved Morbid obesity(Confirmed) Active Ureteric stone1 01/11/15 Active 1Data migrated from [employer] on 02/06/15. Allergies, Adverse Reactions, Alerts Substance Reaction Severity Status NKFA Active NKDA Active Medications Atrovent Nasal 0.06% nasal spray 2 spray, NASAL, TID, X 7 day, # 15 mL, 4 Refill(s), Pharmacy: [id number] Start Date: 10/05/17 Stop Date: 11/09/17 Status: CompletedAugmentin 875 mg oral tablet 875 mg=1 tab, PO, Q12H, X 7 day, # 14 tab, 0 Refill(s), Pharmacy: [facility] Start Date: 10/05/17 Stop Date: 10/12/17 Status: CompletedBlood Glucose Monitor 1 ea, MISC, Daily, Use as directed., # 1 ea, 0 Refill(s) Start Date: 10/05/17 Stop Date: 01/03/18 Status: DiscontinuedBlood Glucose Test Strips 1 box, MISC, Daily, # 100 strip, 1 Refill(s) Start Date: 10/05/17 Stop Date: 01/03/18 Status: DiscontinuedCialis 20 mg oral tablet 20 mg=1 tab, PO, Daily, PRN for erectile dysfunction, Take prior to intercourse , # 60 tab, 3 Refill(s), Pharmacy: [facility] Start Date: 10/05/17 Stop Date: 09/30/18 Status: OrderedEasyTouch Lancets Device 1 ea, MISC, ONCE, Use for blood glucose monitoring, # 1 box, Insulin dependent, Does not use insulinpump, Last DM eval date 08/18/17, 2 Refill(s) Start Date: 10/05/17 Stop Date: 01/03/18 Status: DiscontinuedVictoza 18 mg/3 mL subcutaneous injection 1.8 mg, SUB-Q, Daily, # 15 mL, 4 Refill(s), other Start Date: 10/05/17 Stop Date: 01/03/18 Status: Completed Results No data available for this section Immunizations No data available for this section Procedures Procedure Date Related Diagnosis Body Site Status Cystoscopy1 01/18/15 Completed Cystoscopic laser lithotripsy of 01/07/15 Completed ureteric calculus2 Stent placement3 01/07/15 Completed Appendectomy Completed Cholecystectomy Completed Lipoma of face Completed Lipoma of hand4 Completed Miscellaneous operations5 Completed Shoulder joint operations6 Completed 1with left ureter stent tdyjghwpy6eqtqs tvdr8Soqd rarvfv3rodk hand removal of lpydzk8hwlx shoulder, left ofjx1urkos shoulder Social History Social History Type Response Substance Abuse Use: None. IV drug use: No. Exercise 1 Employment/School Status: Employed. 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 Alcohol Current, Type [...] OF PHYSICAL WORK WITH TRUCK AND HEAVY [id number] SMOKING 4 MONTHS AGO Assessment and Plan No data available for this section
--- OUTSIDE RECORDS SUMMARY | 2018-12-12 20:43 | XMS REPORT | Summary of Care ---
:1975 Author Organization [facility] Address [address] [place] [address]- Encounter HQ Encntr_alias(FIN) [id number] Date(s): 01/18/18 - 01/19/18 [id number] [place] [address]- [phone] Vital Signs No data available for this section Problem List Condition Effective Dates Status Health Status Informant Anxiety(Confirmed) Resolved Diabetes(Confirmed) Active DM (diabetes mellitus)(Confirmed) Active Acute flank pain(Confirmed) Active HTN (hypertension)(Confirmed) Resolved Hyperlipemia(Confirmed) Resolved Hypertension(Confirmed) Active Male impotence(Confirmed) Active Kidney stone(Confirmed) Resolved Morbid obesity(Confirmed) Active Ureteric stone1 01/11/15 Active 1Data migrated from [employer] on 02/06/15. Allergies, Adverse Reactions, Alerts Substance [...] joint operations6 Completed 1with left ureter stent vfniemwyg7ivyvk vzup3Zhzf ksvqzd9fzqw hand removal of eeinye8ejus shoulder, left jtte3kgiaq shoulder Social History Social History Type Response Substance Abuse Use: None. IV drug use: No. Exercise 1 Employment/School Status: Employed. 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 Alcohol Current, Type [...] OF PHYSICAL WORK WITH TRUCK AND HEAVY [id number] SMOKING 4 MONTHS AGO Assessment and Plan No data available for this section
--- OUTSIDE RECORDS SUMMARY | 2018-12-12 20:43 | XMS REPORT | Summary of Care ---
:1975 Author Organization [facility] Address [address] [place] [address]- Encounter HQ Anant_tramaine(FIN) [id number] Date(s): 01/03/18 - 01/03/18 [address] [place] [address]- [phone] Discharge Disposition: Home or Self Care Attending Physician: Marli Thompson MSN, RN, F[employer] Vital Signs Most recent to oldest [Reference Range]: 1 Height 180.34 cm (01/03/18 10:45 AM) Temperature Oral [96.4-99.1 DegF] 98.1 DegF (01/03/18 10:45 AM) Blood Pressure [90-140/60-90 mmHg] 135/88 mmHg (01/03/18 10:45 AM) Peripheral Pulse Rate [60-100 bpm] 96 bpm (01/03/18 10:45 AM) Weight 158.636 kg (01/03/18 10:45 AM) Body Mass Index 48.78 m2 (01/03/18 10:45 AM) Problem List Condition Effective Dates Status Health Status Informant Anxiety(Confirmed) Resolved Diabetes(Confirmed) Active DM (diabetes mellitus)(Confirmed) Active Acute flank pain(Confirmed) Active HTN (hypertension)(Confirmed) Resolved Hyperlipemia(Confirmed) Resolved Hypertension(Confirmed) Active Male impotence(Confirmed) Active Kidney stone(Confirmed) Resolved Morbid obesity(Confirmed) Active Ureteric stone1 01/11/15 Active 1Data migrated from [email or web address] on 02/06/15. Allergies, Adverse Reactions, Alerts Substance Reaction Severity Status NKFA Active NKDA Active Medications Blood Glucose Monitor 1 ea, MISC, Daily, Use as directed., # 1 ea, 0 Refill(s) Start Date: 01/03/18 Status: OrderedBlood Glucose Test Strips 1 box, MISC, Daily, # 100 strip, 1 Refill(s) Start Date: 01/03/18 Status: OrderedEasyTouch Lancets Device 1 ea, MISC, ONCE, Use for blood glucose monitoring, # 1 box, Insulin dependent, Does not use insulinpump, Last DM eval date 08/18/17, 2 Refill(s) Start Date: 01/03/18 Status: OrderedNovoLIN R 100 units/mL injectable solution SUB-Q, 0 Refill(s) Start Date: 01/03/18 Stop Date: 01/03/18 Status: DiscontinuedTresiba FlexTouch 200 units/mL subcutaneous solution 30 unit, SUB-Q, Daily, # 3 pen(s), 3 Refill(s), Pharmacy: [facility] [id number] Start Date: 01/03/18 Stop Date: 12/29/18 Status: Ordered Results No data available for this section Immunizations No data available for this section Procedures Procedure Date Related Diagnosis Body Site Status Cystoscopy1 01/18/15 Completed Cystoscopic laser lithotripsy of 01/07/15 Completed ureteric calculus2 Stent placement3 01/07/15 Completed Appendectomy Completed Cholecystectomy Completed Lipoma of face Completed Lipoma of hand4 Completed Miscellaneous operations5 Completed Shoulder joint operations6 Completed 1with left ureter stent sbjibegbw5ipygy sodu8Toaj vogskw7zsao hand removal of yxgzfd5jdhx shoulder, left efja1oeoxa shoulder Social History Social History Type Response Substance Abuse Use: None. IV drug use: No. Exercise 1 Employment/School Status: Employed. 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 Alcohol Current, Type [...] OF PHYSICAL WORK WITH TRUCK AND HEAVY [id number] SMOKING 4 MONTHS AGO Assessment and Plan No data available for this section
--- OUTSIDE RECORDS SUMMARY | 2018-12-12 20:43 | XMS REPORT | Summary of Care ---
:1975 Author Organization [facility] Address [address] [place] [address]- Encounter HQ Encntr_alikizzy(FIN) [id number] Date(s): 10/04/17 - 10/05/17 [address] [place] [address]- [phone] Vital Signs No data available for this section Problem List Condition Effective Dates Status Health Status Informant Anxiety(Confirmed) Resolved Diabetes(Confirmed) Active DM (diabetes mellitus)(Confirmed) Active Acute flank pain(Confirmed) Active HTN (hypertension)(Confirmed) Resolved Hyperlipemia(Confirmed) Resolved Hypertension(Confirmed) Active Male impotence(Confirmed) Active Kidney stone(Confirmed) Resolved Morbid obesity(Confirmed) Active Ureteric stone1 01/11/15 Active 1Data migrated from [employer] on 02/06/15. Allergies, Adverse Reactions, Alerts Substance [...] joint operations6 Completed 1with left ureter stent dcsmkwhat3odcmh uxyv4Ajno ouokjl6szur hand removal of vczttj7omvb shoulder, left zinn1hnwvg shoulder Social History Social History Type Response Substance Abuse Use: None. IV drug use: No. Exercise 1 Employment/School Status: Employed. 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 Alcohol Current, Type [...] OF PHYSICAL WORK WITH TRUCK AND HEAVY [id number] SMOKING 4 MONTHS AGO Assessment and Plan No data available for this section
--- OUTSIDE RECORDS SUMMARY | 2018-12-12 20:43 | XMS REPORT | Summary of Care ---
:1975 Author Organization [facility] Address [address] [place] [address]- Encounter HQ Encntr_alias(FIN) [id number] Date(s): 01/04/18 - 01/05/18 [address] [place] [address]- [phone] Vital Signs No data available for this section Problem List Condition Effective Dates Status Health Status Informant Anxiety(Confirmed) Resolved Diabetes(Confirmed) Active DM (diabetes mellitus)(Confirmed) Active Acute flank pain(Confirmed) Active HTN (hypertension)(Confirmed) Resolved Hyperlipemia(Confirmed) Resolved Hypertension(Confirmed) Active Male impotence(Confirmed) Active Kidney stone(Confirmed) Resolved Morbid obesity(Confirmed) Active Ureteric stone1 01/11/15 Active 1Data migrated from [employer] on 02/06/15. Allergies, Adverse Reactions, Alerts Substance [...] joint operations6 Completed 1with left ureter stent msdfpphvr9mwcwe gzxe0Vkns fsvtng9jzxw hand removal of mknhbv5qyld shoulder, left xvoy8sgjio shoulder Social History Social History Type Response Substance Abuse Use: None. IV drug use: No. Exercise 1 Employment/School Status: Employed. 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 Alcohol Current, Type [...] OF PHYSICAL WORK WITH TRUCK AND HEAVY [id number] SMOKING 4 MONTHS AGO Assessment and Plan No data available for this section
--- OUTSIDE RECORDS SUMMARY | 2018-12-12 20:43 | XMS REPORT | Summary of Care ---
:1975 Author Organization [facility] Address [address] [place] [address]- Encounter HQ Rickier_tramaine(FIN) [id number] Date(s): 09/27/17 - 09/28/17 [facility] [address] [place] [address]- [phone] Vital Signs No data available for this section Problem List Condition Effective Dates Status Health Status Informant Anxiety(Confirmed) Resolved Diabetes(Confirmed) Active DM (diabetes mellitus)(Confirmed) Active Acute flank pain(Confirmed) Active HTN (hypertension)(Confirmed) Resolved Hyperlipemia(Confirmed) Resolved Hypertension(Confirmed) Active Male impotence(Confirmed) Active Kidney stone(Confirmed) Resolved Morbid obesity(Confirmed) Active Ureteric stone1 01/11/15 Active 1Data migrated from [employer] on 02/06/15. Allergies, Adverse Reactions, Alerts Substance Reaction Severity Status NKFA Active NKDA Active Medications Cialis 20 mg oral tablet 20 mg=1 tab, PO, Daily, PRN for erectile dysfunction, Take prior to intercourse , # 10 tab, 3 Refill(s), Pharmacy: [id number] Start Date: 09/28/17 Stop Date: 10/05/17 Status: Discontinuedvenlafaxine 37.5 mg oral tablet, extended release 37.5 mg=1 tab, PO, Daily, # 90 tab, 1 Refill(s), Pharmacy: [facility] Start Date: 09/28/17 Stop Date: 03/27/18 Status: Ordered Results No data available for this section Immunizations No data available for this section Procedures Procedure Date Related Diagnosis Body Site Status Cystoscopy1 01/18/15 Completed Cystoscopic laser lithotripsy of 01/07/15 Completed ureteric calculus2 Stent placement3 01/07/15 Completed Appendectomy Completed Cholecystectomy Completed Lipoma of face Completed Lipoma of hand4 Completed Miscellaneous operations5 Completed Shoulder joint operations6 Completed 1with left ureter stent ynijqfdxf4ijexh oyat9Ntvn mbifpz4kcox hand removal of ocqvsw7mcty shoulder, left lvgu0hwomm shoulder Social History Social History Type Response Substance Abuse Use: None. IV drug use: No. Exercise 1 Employment/School Status: Employed. 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 Alcohol Current, [...] OF PHYSICAL WORK WITH TRUCK AND HEAVY [id number] SMOKING 4 MONTHS AGO Assessment and Plan No data available for this section
--- OUTSIDE RECORDS SUMMARY | 2018-12-12 20:44 | XMS REPORT | Summary of Care ---
:1975 Author Organization [facility] Address [address], [place] [address]- Encounter [facility]) [phone] Date(s): 01/17/15 - 01/19/15 [facility] [address] [place] [address]- Discharge Disposition: Home Attending Physician: Duncan Simmons MD Admitting Physician: Duncan Simmons MD Vital Signs Most recent to oldest [Reference Range]: 1 2 3 Height 182.88 cm 182.88 cm (01/17/15 3:30 PM) (01/17/15 6:35 AM) Most recent to oldest 1 2 3 [Reference Range]: Temperature Oral [96.4-99.1 97.8 DegF 97.9 DegF 97.8 DegF DegF] (01/19/15 12:13 PM) (01/19/15 8:26 AM) (01/19/15 4:50 AM) Most recent to oldest 1 2 3 [Reference Range]: Blood Pressure [90-140/60-90 137/80 mmHg 124/72 mmHg 123/76 mmHg mmHg] (01/19/15 12:13 PM) (01/19/15 8:26 AM) (01/19/15 4:50 AM) Most recent to oldest 1 2 3 [Reference Range]: Respiratory Rate [14-20 BRMIN] 20 BRMIN 20 BRMIN 18 BRMIN (01/19/15 12:13 PM) (01/19/15 8:26 AM) (01/19/15 4:50 AM) Most recent to oldest 1 2 3 [Reference Range]: Peripheral Pulse Rate [60-100 93 bpm 82 bpm 77 bpm bpm] (01/19/15 12:13 PM) (01/19/15 8:26 AM) (01/19/15 4:50 AM) Most recent to oldest [Reference Range]: 1 2 3 Weight 150.909 kg 150.955 kg (01/17/15 3:30 PM) (01/17/15 6:35 AM) Most recent to oldest [Reference Range]: 1 2 3 Body Mass Index 45.12 m2 45.14 m2 (01/17/15 3:30 PM) (01/17/15 6:35 AM) Problem List Condition Effective Dates Status Health Status Informant Anxiety(Confirmed) Resolved Diabetes(Confirmed) Active DM (diabetes mellitus)(Confirmed) Active HTN (hypertension)(Confirmed) Resolved Hyperlipemia(Confirmed) Resolved Hypertension(Confirmed) Active Kidney stone(Confirmed) Resolved Allergies, Adverse Reactions, Alerts Substance Reaction Severity Status NKDA Active NKFA Active Medications acetaminophen 1,000 mg, Route: IVPB, Drug form: INJ, ONCE, Dosing Weight 150.909, kg, PRN Pain Score 1-3, Start date: 01/18/15 13:19:00, Duration: 1 doses or times, Stop date: Limited # of times Start Date: 01/18/15 Stop Date: 01/18/15 Status: DiscontinuedBactrim DS 800 mg- 160 mg oral tablet 1 tab, PO, BID, X 7 day, # 14 tab, 0 Refill(s) Start Date: 01/19/15 Stop Date: 01/26/15 Status: OrderedCipro I.V. 400 mg/200 mL intravenous solution 400 mg, 200 mL, Route: IVPB, Drug form: INJ, [id number], Dosing Weight 150.909, kg , Start date: 01/17/15 17:00:00, Duration: 30 day, Stop date: 02/16/15 5:00:00 Notes: Do not refrigerate Start Date: 01/17/15 Stop Date: 01/19/15 Status: DiscontinuedDetrol LA 4 mg, 2 cap, Route: PO, Drug form: ERCAP, Daily, Dosing Weight 150.909, kg, Start date: 01/18/15 19:42:00, Duration: 30 day, Stop date: 02/17/15 9:00:00 Notes: (Same As: Detrol LA) (Do Not Crush) Start Date: 01/18/15 Stop Date: 01/19/15 Status: DiscontinuedDetrol LA 4 mg oral capsule, extended release 4 mg=1 cap, PO, Daily, # 30 cap, 1 Refill(s) Start Date: 01/19/15 Stop Date: 03/20/15 Status: OrderedDextrose 50% Syringe 12.5 gm, 25 mL, Route: IVP, Drug Form: INJ, Dosing Weight 150.909, kg, PRN, PRN Blood Glucose Results, Start date: 01/17/15 16:30:00, Duration: 30 day, Stop date: 02/16/15 16:29:00 Start Date: 01/17/15 Stop Date: 01/19/15 Status: DiscontinuedDextrose 50% Syringe 25 gm, 50 mL, Route: IVP, Drug Form: INJ, Dosing Weight 150.909, kg, PRN, PRN Blood Glucose Results,Start date: 01/17/15 16:30:00, Duration: 30 day, Stop date : 02/16/15 16:29:00 Start Date: 01/17/15 Stop Date: 01/19/15 Status: DiscontinuedDilaudid 0.5 mg, 0.25 mL, Route: IVP, Drug form: INJ, Q3H, Dosing Weight 150.909, kg, PRN Pain Score 6-10, Start date: 01/17/15 16:05:00, Duration: 30 day, Stop date : 02/16/15 16:04:00 Notes: (Same as: Dilaudid) Start Date: 01/17/15 Stop Date: 01/19/15 Status: DiscontinuedDilaudid 1 mg, Route: IV, ONCE, Dosing Weight 150.955, kg, Priority: STAT, Start date: 6:57:00, Stopdate: 01/17/15 6:57:00 Start Date: 01/17/15 Stop Date: 01/17/15 Status: CompletedDilaudid 0.5 mg, Route: IVP, ONCE, Dosing Weight 150.955, kg, Priority: STAT, Start date : 01/17/15 13:26:00, Stop date: 01/17/15 13:26:00 Start Date: 01/17/15 Stop Date: 01/17/15 Status: CompletedDilaudid 0.5 mg, 0.25 mL, Route: IV, Drug form: INJ, Q8H, Dosing Weight 150.955, kg, PRN Pain Score 4-6, Priority: Routine, Start date: 01/17/15 16:16:00, Duration: 30 day, Stop date: 02/16/15 16:15:00 Notes: (Same as: Dilaudid) Start Date: 01/17/15 Stop Date: 01/17/15 Status: DiscontinuedfentaNYL 50 microgram, Route: IVP, ONCE, Dosing Weight 150.955, kg, Priority: STAT, Start date: 01/17/15 11:07:00, Stop date: 01/17/15 11:07:00 Start Date: 01/17/15 Stop Date: 01/17/15 Status: CompletedFlomax 0.4 mg, 1 cap, Route: PO, Drug form: CAP, Daily, Dosing Weight 150.955, kg, Start date: 01/18/15 9:00:00, Duration: 30 day, Stop date: 02/16/15 9:00:00 Notes: (Same As: Flomax) "Do Not Crush" Start Date: 01/18/15 Stop Date: 01/19/15 Status: DiscontinuedFlomax 0.4 mg, Route: PO, ONCE, Dosing Weight 150.955, kg, Priority: STAT, Start date: 01/17/15 13:18:00, Stop date: 01/17/15 13:18:00 Start Date: 01/17/15 Stop Date: 01/17/15 Status: CompletedFlomax 0.4 mg, Route: PO, After Dinner, Dosing Weight 150.909, kg, Start date: 17:00:00, Duration:30 day, Stop date: 02/16/15 17:00:00 Start Date: 01/18/15 Stop Date: 01/18/15 Status: DeletedFlomax 0.4 mg, 1 cap, Route: PO, Drug form: CAP, After Breakfast, Dosing Weight 150.909 , kg, Start date: 01/18/15 19:42:00, Duration: 30 day, Stop date: 02/17/15 8:30: 00 Notes: (Same As: Flomax) "Do Not Crush" Start Date: 01/18/15 Stop Date: 01/19/15 Status: DiscontinuedFlomax 0.4 mg oral capsule 0.4 mg=1 cap, PO, Daily, # 30 cap, 0 Refill(s) Start Date: 01/19/15 Status: Orderedflumazenil 0.2 mg, Route: IVP, PRN, Dosing Weight 150.909, kg, PRN Benzodiazepine Reversal , Initial dose, Startdate: 01/18/15 13:19:00, Duration: 30 day, Stop date: 02/17 13:18:00 Start Date: 01/18/15 Stop Date: 01/18/15 Status: Discontinuedglucagon 1 mg, Route: IM, Drug form: PDR/INJ, PRN, Dosing Weight 150.909, kg, PRN Blood Glucose Results, Start date: 01/17/15 16:30:00, Duration: 30 day, Stop date: 16:29:00 Start Date: 01/17/15 Stop Date: 01/19/15 Status: DiscontinuedHabitrol 14 mg, 1 patch, Route: TOP, Drug form: ERFILM, Daily, Priority: NOW, Start date : 01/19/15 10:18:00, Duration: 1 doses or times, Stop date: 01/19/15 10:18:00 Notes: (Same as: Habitrol)"Remove old patch before application of new patch" Start Date: 01/19/15 Stop Date: 01/19/15 Status: CompletedHabitrol 14 mg, 1 patch, Route: TOP, Drug form: ERFILM, Daily, Start date: 01/20/15 9:00: 00, Duration: 30 day, Stop date: 02/18/15 9:00:00 Notes: (Same as: Habitrol)"Remove old patch before application of new patch" Start Date: 01/20/15 Stop Date: 01/19/15 Status: Canceledhydrochlorothiazide 25 mg oral tablet 12.5 mg, 0.5 tab, Route: PO, Drug form: TAB, Daily, Priority: NOW, Start date: 01/18/15 10:02:00, Duration: 30 day, Stop date: 02/17/15 9:00:00 Notes: (Same as: Hydrodiuril) With food. Start Date: 01/18/15 Stop Date: 01/19/15 Status: Discontinuedhydrochlorothiazide-lisinopril 12.5 mg-10 mg oral tablet 1 tab, Route: PO, Drug Form: TAB, Dosing Weight 150.909, kg, Daily, Start date: 01/19/15 9:00:00, Duration: 30 day, Stop date: 02/17/15 9:00:00 Start Date: 01/19/15 Stop Date: 01/18/15 Status: Deletedinsulin aspart 3 unit, 0.03 mL, Route: SUB-Q, Drug form: SOLN, Bedtime, Dosing Weight 150.909, kg, PRN Blood Glucose Results, Start date: 01/17/15 16:30:00, Duration: 30 day, Stop date: 02/16/15 16:29:00 Notes: Roll in palms of hands gently; Do not shake vigorously. (Same as: NovoLOG)"single patient use only" Stable for 28 days at room temperature.Expires in days from Date Start Date: 01/17/15 Stop Date: 01/19/15 Status: Discontinuedinsulin aspart 4 unit, 0.04 mL, Route: SUB-Q, Drug form: SOLN, Bedtime, Dosing Weight 150.909, kg, PRN Blood Glucose Results, Start date: 01/17/15 16:30:00, Duration: 30 day, Stop date: 02/16/15 16:29:00 Notes: Roll in palms of hands gently; Do not shake vigorously. (Same as: NovoLOG)"single patient use only" Stable for 28 days at room temperature.Expires in days from Date Start Date: 01/17/15 Stop Date: 01/19/15 Status: Discontinuedinsulin aspart 1 unit, 0.01 mL, Route: SUB-Q, Drug form: SOLN, Bedtime, Dosing Weight 150.909, kg, PRN Blood Glucose Results, Start date: 01/17/15 16:30:00, Duration: 30 day, Stop date: 02/16/15 16:29:00 Notes: Roll in palms of hands gently; Do not shake vigorously. (Same as: NovoLOG)"single patient use only" Stable for 28 days at room temperature.Expires in days from Date Start Date: 01/17/15 Stop Date: 01/19/15 Status: Discontinuedinsulin aspart 2 unit, 0.02 mL, Route: SUB-Q, Drug form: SOLN, Bedtime, Dosing Weight 150.909, kg, PRN Blood Glucose Results, Start date: 01/17/15 16:30:00, Duration: 30 day, Stop date: 02/16/15 16:29:00 Notes: Roll in palms of hands gently; Do not shake vigorously. (Same as: NovoLOG)"single patient use only" Stable for 28 days at room temperature.Expires in days from Date Start Date: 01/17/15 Stop Date: 01/19/15 Status: Discontinuedinsulin aspart 2 unit, 0.02 mL, Route: SUB-Q, Drug form: SOLN, TID-Before Meals, Dosing Weight 150.909, kg, PRN Blood Glucose Results, Start date: 01/17/15 16:30:00, Duration : 30 day, Stop date: 02/16/15 16:29:00 Notes: Roll in palms of hands gently; Do not shake vigorously. (Same as: NovoLOG)"single patient use only" Stable for 28 days at room temperature.Expires in days from Date Start Date: 01/17/15 Stop Date: 01/19/15 Status: Discontinuedinsulin aspart 10 unit, 0.1 mL, Route: SUB-Q, Drug form: SOLN, TID-Before Meals, Dosing Weight 150.909, kg, PRN Blood Glucose Results, Start date: 01/17/15 16:30:00, Duration : 30 day, Stop date: 02/16/15 16:29:00 Notes: Roll in palms of hands gently; Do not shake vigorously. (Same as: NovoLOG)"single patient use only" Stable for 28 days at room temperature.Expires in days from Date Start Date: 01/17/15 Stop Date: 01/19/15 Status: Discontinuedinsulin aspart 4 unit, 0.04 mL, Route: SUB-Q, Drug form: SOLN, TID-Before Meals, Dosing Weight 150.909, kg, PRN Blood Glucose Results, Start date: 01/17/15 16:30:00, Duration : 30 day, Stop date: 02/16/15 16:29:00 Notes: Roll in palms of hands gently; Do not shake vigorously. (Same as: NovoLOG)"single patient use only" Stable for 28 days at room temperature.Expires in days from Date Start Date: 01/17/15 Stop Date: 01/19/15 Status: Discontinuedinsulin aspart 8 unit, 0.08 mL, Route: SUB-Q, Drug form: SOLN, TID-Before Meals, Dosing Weight 150.909, kg, PRN Blood Glucose Results, Start date: 01/17/15 16:30:00, Duration : 30 day, Stop date: 02/16/15 16:29:00 Notes: Roll in palms of hands gently; Do not shake vigorously. (Same as: NovoLOG)"single patient use only" Stable for 28 days at room temperature.Expires in days from Date Start Date: 01/17/15 Stop Date: 01/19/15 Status: Discontinuedinsulin aspart 6 unit, 0.06 mL, Route: SUB-Q, Drug form: SOLN, TID-Before Meals, Dosing Weight 150.909, kg, PRN Blood Glucose Results, Start date: 01/17/15 16:30:00, Duration : 30 day, Stop date: 02/16/15 16:29:00 Notes: Roll in palms of hands gently; Do not shake vigorously. (Same as: NovoLOG)"single patient use only" Stable for 28 days at room temperature.Expires in days from Date Start Date: 01/17/15 Stop Date: 01/19/15 Status: DiscontinuedketOROLAC 30 mg, Route: IVP, Drug form: INJ, ONCE, Dosing Weight 150.955, kg, Priority: STAT, Start date: 01/17/15 7:18:00, Stop date: 01/17/15 7:18:00 Start Date: 01/17/15 Stop Date: 01/17/15 Status: CompletedketOROLAC 30 mg, Route: IVP, Drug form: INJ, ONCE, Dosing Weight 150.955, kg, Priority: STAT, Start date: 01/17/15 13:27:00, Stop date: 01/17/15 13:27:00 Start Date: 01/17/15 Stop Date: 01/17/15 Status: CompletedketOROLAC 30 mg, 1 mL, Route: IV, Drug form: INJ, Q6H, Dosing Weight 150.909, kg, PRN Pain Score 1-5, Start date: 01/17/15 21:31:00, Duration: 4 day, Stop date: 01/21 21:30:00 Notes: (Same as:Toradol) IV bolus must be given >15 seconds. Give IM administration slowly and deeply into the muscle.Not for use > 4 days MEDICATION WASTE Product Size: 30 mgProduct Wasted: ___ mg Start Date: 01/17/15 Stop Date: 01/19/15 Status: DiscontinuedketOROLAC 30 mg, Route: IVP, ONCE, Dosing Weight 150.909, kg, Start date: 01/18/15 13:19: 00, Duration: 1 dosesor times, Stop date: 01/18/15 13:19:00 Start Date: 01/18/15 Stop Date: 01/18/15 Status: DiscontinuedketOROLAC 30 mg, 1 mL, Route: IVP, Drug form: INJ, Q8H, Dosing Weight 150.955, kg, PRN Pain Score 4-6, Priority: Routine, Start date: 01/17/15 16:16:00, Duration: 4 day, Stop date: 01/21/15 16:15:00 Notes: (Same as:Toradol) IV bolus must be given >15 seconds. Give IM administration slowly and deeply into the muscle.Not for use > 4 days MEDICATION WASTE Product Size: 30 mgProduct Wasted: ___ mg Start Date: 01/17/15 Stop Date: 01/17/15 Status: DiscontinuedLactated Ringers Injection IV 1000 mL 1,000 mL, Rate: 125 ml/hr, Infuse over: 8 hr, Route: IV, Dosing Weight 150.909 kg, Total Volume: 1,000, Start date: 01/18/15 13:19:00, Duration: 30 day, Stop date: 02/17/15 13:18:00 Start Date: 01/18/15 Stop Date: 01/18/15 Status: DiscontinuedLactated Ringers IV 1,000 mL 1,000 mL, Rate: 25 ml/hr, Infuse over: 40 hr, Route: IV, Dosing Weight 150.909 kg, Total Volume: 1,000, Start date: 01/18/15 11:12:00, Duration: 30 day, Stop date: 02/17/15 11:11:00 Start Date: 01/18/15 Stop Date: 01/19/15 Status: Discontinuedmeperidine 12.5 mg, Route: IVP, Q30Min, Dosing Weight 150.909, kg, PRN Other -See Comment, For shivering, Priority: NOW, Start date: 01/18/15 13:19:00, Duration: 2 doses or times, Stop date: Limited # of times Start Date: 01/18/15 Stop Date: 01/18/15 Status: Discontinuedmorphine Sulfate 2 mg, Route: IVP, Q5Min, Dosing Weight 150.909, kg, PRN Pain Score 4-6, Start date: 01/18/15 13:19:00, Duration: 5 doses or times, Stop date: Limited # of times Start Date: 01/18/15 Stop Date: 01/18/15 Status: Discontinuedmorphine Sulfate 6 mg, Route: IVP, Drug form: INJ, ONCE, Dosing Weight 150.955, kg, Priority: STAT, Start date: 01/17/15 8:55:00, Stop date: 01/17/15 8:55:00 Start Date: 01/17/15 Stop Date: 01/17/15 Status: CompletedMotrin 800 mg, 2 tab, Route: PO, Drug form: TAB, ONCE, Dosing Weight 150.909, kg, Start date: 01/19/15 11:41:00, Stop date: 01/19/15 11:41:00 Notes: (Same as: Motrin)"Do Not Crush" Give with food. Start Date: 01/19/15 Stop Date: 01/19/15 Status: Completednaloxone 0.04 mg, Route: IVP, Q2MIN, Dosing Weight 150.909, kg, PRN Narcotic Reversal, Start date: 01/18/15 13:19:00, Duration: 8 doses or times, Stop date: Limited # of times Start Date: 01/18/15 Stop Date: 01/18/15 Status: Discontinuednicotine 14 mg, 1 patch, Route: TOP, Drug form: ERFILM, Daily, Dosing Weight 150.909, kg , Start date: 01/17/15 21:30:00, Stop date: 02/16/15 9:00:00 Notes: (Same as: Habitrol)"Remove old patch before application of new patch" Start Date: 01/17/15 Stop Date: 01/19/15 Status: DiscontinuedNorco 10/325 oral tablet 1 tab, PO, Q4H, PRN Pain Score 1-5, 0 Refill(s) Start Date: 01/19/15 Status: OrderedNorco 10/325 oral tablet 2 tab, Route: PO, Drug Form: TAB, Dosing Weight 150.909, kg, ONCE, PRN Pain Score 7-10, Start date: 01/19/15 11:41:00, Stop date: 02/18/15 11:40:00 Notes: Do not exceed 4gm/day of acetaminophen. (Same as: Dawn 325/10) Start Date: 01/19/15 Stop Date: 01/19/15 Status: CompletedNorco 10/325 oral tablet 1 tab, Route: PO, Drug Form: TAB, Dosing Weight 150.909, kg, Q4H, PRN Pain Score 1-5, Start date: 01/17/15 21:32:00, Duration: 30 day, Stop date: 02/16/15 21:31:00 Notes: Do not exceed 4gm/day of acetaminophen. (Same as: Dawn 325/10) Start Date: 01/17/15 Stop Date: 01/19/15 Status: DiscontinuedNorco 10/325 oral tablet 1 tab, Route: PO, Drug Form: TAB, Dosing Weight 150.909, kg, Q6H, PRN Pain Score 4-6, Start date: 01/17/15 16:08:00, Duration: 30 day, Stop date: 02/16/15 16:07:00 Notes: Do not exceed 4gm/day of acetaminophen. (Same as: Dawn 325/10) Start Date: 01/17/15 Stop Date: 01/17/15 Status: DiscontinuedOmnipaque 300 100 mL, Route: INJ, Drug Form: SOLN, ONCE, Start date: 01/17/15 10:14:00, Stop date: 01/17/15 10:14:00 Notes: (Same as:Omnipaque 300). Start Date: 01/17/15 Stop Date: 01/17/15 Status: Completedondansetron 4 mg, Route: IVP, ONCE, Dosing Weight 150.909, kg, PRN Nausea & Vomiting, Start date: 01/18/15 13:19:00 Start Date: 01/18/15 Stop Date: 01/18/15 Status: Discontinuedondansetron 4 mg, 2 mL, Route: IVP, Drug form: INJ, Q6H, Dosing Weight 150.909, kg, PRN Nausea & Vomiting, Start date: 01/17/15 16:16:00, Duration: 30 day, Stop date: 02/16/15 16:15:00 Notes: (Same as: Ho) MEDICATION WASTE Product Size: 4 mgProduct Wasted: ___ mg Start Date: 01/17/15 Stop Date: 01/19/15 Status: DiscontinuedoxyCODONE 5 mg, Route: PO, Drug form: TAB, Q4H, Dosing Weight 150.909, kg, PRN Pain Score 4-6, Start date: 01/18/15 13:19:00, Duration: 30 day, Stop date: 02/17/15 13:18: 00 Start Date: 01/18/15 Stop Date: 01/18/15 Status: DiscontinuedoxyCODONE 10 mg, Route: PO, Drug form: TAB, Q4H, Dosing Weight 150.909, kg, PRN Pain Score 7-10, Start date: 01/18/15 13:19:00, Duration: 30 day, Stop date: 13:18:00 Start Date: 01/18/15 Stop Date: 01/18/15 Status: Discontinuedpantoprazole 20 mg, Route: PO, Drug form: ECTAB, Before Dinner, Dosing Weight 150.909, kg, Start date: 01/18/15 16:30:00, Duration: 30 day, Stop date: 02/16/15 16:30:00 Start Date: 01/18/15 Stop Date: 01/18/15 Status: DeletedPrinivil 10 mg, 2 tab, Route: PO, Drug form: TAB, Daily, Priority: NOW, Start date: 01/18 10:03:00, Duration: 30 day, Stop date: 02/17/15 9:00:00 Notes: (Same as: Prinivil, Zestril) Start Date: 01/18/15 Stop Date: 01/19/15 Status: DiscontinuedProtonix 40 mg, 1 tab, Route: PO, Drug form: ECTAB, Before Dinner, Start date: 01/18/15 16:30:00, Duration: 30 day, Stop date: 02/16/15 16:30:00 Notes: Tablet should not be chewed or crushed.(Same as: Protonix) Start Date: 01/18/15 Stop Date: 01/19/15 Status: DiscontinuedPyridium 200 mg, 2 tab, Route: PO, Drug form: TAB, TID-After Meals, Dosing Weight 150.909 , kg, Start date: 01/18/15 17:30:00, Duration: 2 day, Stop date: 01/20/15 12:30: 00 Notes: Give with meals.(Same as: Pyridium) Start Date: 01/18/15 Stop Date: 01/19/15 Status: Discontinuedremove patch 1 patch, Route: TOP, Drug form: ERFILM, Daily, Start date: 01/17/15 21:29:00, Stop date: 02/16/15 8:59:00 Notes: Remove old patch before application of new patch. Start Date: 01/17/15 Stop Date: 01/19/15 Status: DiscontinuedRocephin + Sodium Chloride 0.9% IV 100 mL 2 gm, Route: IVPB, Drug form: PDR/INJ, [id number], Dosing Weight 150.909, kg, Start date: 01/18/15 9:00:00, Duration: 30 day, Stop date: 02/16/15 9:00:00 Notes: (Same As: Rocephin). MEDICATION WASTE Product Size: 2000 mgProduct Wasted: ___ mg Start Date: 01/18/15 Stop Date: 01/19/15 Status: DiscontinuedSodium Chloride 0.9% (Bolus) IV 1,000 mL, 1000 ml/hr, Infuse Over: 1 hr, Route: IV, 1,000, Drug form: INJ, ONCE , Priority: STAT, Dosing Weight 150.955 kg, Start date: 01/17/15 6:46:00, Duration: 1 doses or times, Stop date: 01/17/15 6:46:00 Start Date: 01/17/15 Stop Date: 01/17/15 Status: CompletedSodium Chloride 0.9% IV 1,000 mL 1,000 mL, Rate: 125 ml/hr, Infuse over: 8 hr, Route: IV, Dosing Weight 150.909 kg, Total Volume: 1,000, Start date: 01/17/15 16:16:00, Duration: 30 day, Stop date: 02/16/15 16:15:00 Start Date: 01/17/15 Stop Date: 01/19/15 Status: DiscontinuedSodium Chloride 0.9% IV 1,000 mL 1,000 mL, Rate: 125 ml/hr, Infuse over: 8 hr, Route: IV, Dosing Weight 150.955 kg, Total Volume: 1,000, Start date: 01/17/15 6:46:00, Duration: 30 day, Stop date: 02/16/15 6:45:00 Start Date: 01/17/15 Stop Date: 01/17/15 Status: DiscontinuedZofran 4 mg, Route: IVP, Drug form: INJ, ONCE, Dosing Weight 150.955, kg, Priority: STAT, Start date: 01/17/15 6:58:00, Stop date: 01/17/15 6:58:00 Start Date: 01/17/15 Stop Date: 01/17/15 Status: Completed Results ELECTROLYTES Most recent to oldest [Reference Range]: 1 2 3 Sodium Lvl [135-145 mEq/L] 141 mEq/L 144 mEq/L (01/18/15 8:22 AM) (01/17/15 7:05 AM) Potassium Lvl [3.5-5.1 mEq/L] 4.0 mEq/L 3.7 mEq/L (01/18/15 8:22 AM) (01/17/15 7:05 AM) Chloride Lvl [95-109 mEq/L] 105 mEq/L 105 mEq/L (01/18/15 8:22 AM) (01/17/15 7:05 AM) CO2 [24-32 mEq/L] 29 mEq/L 27 mEq/L (01/18/15 8:22 AM) (01/17/15 7:05 AM) AGAP [10.0-20.0 mEq/L] 11.0 mEq/L 15.7 mEq/L (01/18/15 8:22 AM) (01/17/15 7:05 AM) CHEM PANEL Most recent to oldest 1 2 3 [Reference Range]: Creatinine Lvl [0.5-1.4 1.2 mg/dL 1.2 mg/dL mg/dL] (01/18/15 8:22 AM) (01/17/15 7:05 AM) eGFR 76 mL/min/1.73m2 1 76 mL/min/1.73m2 2 *NA* *NA* (01/18/15 8:22 AM) (01/17/15 7:05 AM) BUN [7-22 mg/dL] 18 mg/dL 14 mg/dL (01/18/15 8:22 AM) (01/17/15 7:05 AM) B/C Ratio [6-25] 15 12 (01/18/15 8:22 AM) (01/17/15 7:05 AM) Glucose Lvl [70-99 mg/dL] 120 mg/dL 148 mg/dL *HI* *HI* (01/18/15 8:22 AM) (01/17/15 7:05 AM) Total Protein [6.4-8.4 g/dL] 6.5 g/dL 7.3 g/dL (01/18/15 8:22 AM) (01/17/15 7:05 AM) Albumin Lvl [3.5-5.0 g/dL] 3.4 g/dL 3.7 g/dL *LOW* (01/17/15 7:05 AM) (01/18/15 8:22 AM) Globulin [2.0-4.0 g/dL] 3.1 g/dL 3.6 g/dL (01/18/15 8:22 AM) (01/17/15 7:05 AM) A/G Ratio [0.7-1.6] 1.1 1.0 (01/18/15 8:22 AM) (01/17/15 7:05 AM) Calcium Lvl [8.5-10.5 mg/dL] 8.5 mg/dL 9.4 mg/dL (01/18/15 8:22 AM) (01/17/15 7:05 AM) ALT [0-65 unit/L] 166 unit/L 251 unit/L 100 unit/L *HI* *HI* *HI* (01/19/15 5:39 AM) (01/18/15 8:22 AM) (01/17/15 7:05 AM) AST [0-37 unit/L] 35 unit/L 104 unit/L 28 unit/L (01/19/15 5:39 AM) *HI* (01/17/15 7:05 AM) (01/18/15 8:22 AM) Alk Phos [39-136 unit/L] 118 unit/L 125 unit/L (01/18/15 8:22 AM) (01/17/15 7:05 AM) Bili Total [0.2-1.3 mg/dL] 0.7 mg/dL 0.4 mg/dL (01/18/15 8:22 AM) (01/17/15 7:05 AM) 1Result Comment: The eGFR is calculated using the CKD-EPI formula. In most young , healthy individualsthe eGFR will be >90 mL/min/1.73m2. The eGFR declines with age. An eGFR of 60-89 may be normal in some populations, particularly the elderly, for whom the CKD-EPI formula has not been extensively validated. Use of the eGFR is not recommended in the following populations: Individuals with unstable creatinine concentrations, including patients and those with serious co-morbid conditions. Patients with extremes in muscle mass or diet. The data above are obtained from the National Kid[employer] Education Program ( [employer]) which additionally recommends that when the eGFR is used in patients with extremes of body mass index for purposesof drug dosing, the eGFR should be multiplied by the estimated BMI.2Result Comment: The eGFR is calculated using the CKD-EPI formula. In most young, healthy individualsthe eGFR will be >90 mL/ min/1.73m2. The eGFR declines with age. An eGFR of 60-89 may be normal in some populations, particularly the elderly, for whom the CKD-EPI formula has not been extensively validated. Use of the eGFR is not recommended in the following populations: Individuals with unstable creatinine concentrations, including patients and those with serious co-morbid conditions. Patients with extremes in muscle mass or diet. The data above are obtained from the [employer] ( [employer]) which additionally recommends that when the eGFR is used in patients with extremes of body mass index for purposesof drug dosing, the eGFR should be multiplied by the estimated BMI.URINE AND STOOL Most recent to oldest [Reference Range]: 1 2 3 UA Turbidity [Clear] Turbid *ABN* (01/17/15 7:05 AM) UA Color [Yellow] Red *ABN* (01/17/15 7:05 AM) UA pH [5.0-8.0] 6.5 (01/17/15 7:05 AM) UA Spec Grav [<=1.030] 1.015 (01/17/15 7:05 AM) UA Glucose [Negative] Negative (01/17/15 7:05 AM) UA Blood [Negative] Large *ABN* (01/17/15 7:05 AM) UA Ketones [Negative] Trace *ABN* (01/17/15 7:05 AM) UA Protein [Negative mg/dL] 100 mg/dL *ABN* (01/17/15 7:05 AM) UA Urobilinogen [0.1-1.0 EU/dL] 1.0 EU/dL (01/17/15 7:05 AM) UA Bili [Negative] Negative *NA* (01/17/15 7:05 AM) UA Leuk Est [Negative] Trace *ABN* (01/17/15 7:05 AM) UA Nitrite [Negative] Positive *ABN* (01/17/15 7:05 AM) UA WBC [None Seen /HPF] 3-5 /HPF (01/17/15 7:05 AM) UA RBC [0-2 /HPF] >100 /HPF *ABN* (01/17/15 7:05 AM) UA Bacteria [None Seen /HPF] Occasional /HPF (01/17/15 7:05 AM) UA Sq Epi [Few /LPF] Rare /LPF (01/17/15 7:05 AM) HEMATOLOGY Most recent to oldest 1 2 3 [Reference Range]: WBC [3.7-10.4 K/CMM] 10.3 K/CMM 7.1 K/CMM 9.0 K/CMM (01/19/15 5:39 AM) (01/18/15 8:22 AM) (01/17/15 7:05 AM) RBC [4.70-6.10 M/CMM] 3.99 M/CMM 3.99 M/CMM 4.51 M/CMM *LOW* *LOW* *LOW* (01/19/15 5:39 AM) (01/18/15 8:22 AM) (01/17/15 7:05 AM) Hgb [14.0-18.0 g/dL] 13.8 g/dL 13.7 g/dL 15.4 g/dL *LOW* *LOW* (01/17/15 7:05 AM) (01/19/15 5:39 AM) (01/18/15 8:22 AM) Hct [42.0-54.0 %] 40.5 % 40.1 % 45.4 % *LOW* *LOW* (01/17/15 7:05 AM) (01/19/15 5:39 AM) (01/18/15 8:22 AM) MCV [80.0-94.0 fL] 101.2 fL 100.5 fL 100.6 fL *HI* *HI* *HI* (01/19/15 5:39 AM) (01/18/15 8:22 AM) (01/17/15 7:05 AM) MCH [27.0-31.0 pg] 34.5 pg 34.4 pg 34.0 pg *HI* *HI* *HI* (01/19/15 5:39 AM) (01/18/15 8:22 AM) (01/17/15 7:05 AM) MCHC [32.0-36.0 g/dL] 34.1 g/dL 34.2 g/dL 33.8 g/dL (01/19/15 5:39 AM) (01/18/15 8:22 AM) (01/17/15 7:05 AM) RDW [11.5-14.5 %] 15.6 % 15.7 % 15.9 % *HI* *HI* *HI* (01/19/15 5:39 AM) (01/18/15 8:22 AM) (01/17/15 7:05 AM) Platelet [133-450 K/CMM] 295 K/CMM 267 K/CMM 296 K/CMM (01/19/15 5:39 AM) (01/18/15 8:22 AM) (01/17/15 7:05 AM) MPV [7.4-10.4 fL] 9.5 fL 8.6 fL 9.2 fL (01/19/15 5:39 AM) (01/18/15 8:22 AM) (01/17/15 7:05 AM) Segs [45.0-75.0 %] 73.9 % 35.5 % 49.1 % (01/19/15 5:39 AM) *LOW* (01/17/15 7:05 AM) (01/18/15 8:22 AM) Lymphocytes [20.0-40.0 %] 15.4 % 38.8 % 29.6 % *LOW* (01/18/15 8:22 AM) (01/17/15 7:05 AM) (01/19/15 5:39 AM) Monocytes [2.0-12.0 %] 7.9 % 9.5 % 7.7 % (01/19/15 5:39 AM) (01/18/15 8:22 AM) (01/17/15 7:05 AM) Eosinophils [0.0-4.0 %] 2.5 % 15.5 % 12.9 % (01/19/15 5:39 AM) *HI* *HI* (01/18/15 8:22 AM) (01/17/15 7:05 AM) Basophils [0.0-1.0 %] 0.3 % 0.7 % 0.7 % (01/19/15 5:39 AM) (01/18/15 8:22 AM) (01/17/15 7:05 AM) Segs-Bands # [1.5-8.1 K/CMM] 7.6 K/CMM 2.5 K/CMM 4.4 K/CMM (01/19/15 5:39 AM) (01/18/15 8:22 AM) (01/17/15 7:05 AM) Lymphocytes # [1.0-5.5 1.6 K/CMM 2.8 K/CMM 2.7 K/CMM K/CMM] (01/19/15 5:39 AM) (01/18/15 8:22 AM) (01/17/15 7:05 AM) Monocytes # [0.0-0.8 K/CMM] 0.8 K/CMM 0.7 K/CMM 0.7 K/CMM (01/19/15 5:39 AM) (01/18/15 8:22 AM) (01/17/15 7:05 AM) Eosinophils # [0.0-0.5 0.3 K/CMM 1.1 K/CMM 1.2 K/CMM K/CMM] (01/19/15 5:39 AM) *HI* *HI* (01/18/15 8:22 AM) (01/17/15 7:05 AM) Basophils # [0.0-0.2 K/CMM] 0.0 K/CMM 0.1 K/CMM 0.1 K/CMM (01/19/15 5:39 AM) (01/18/15 8:22 AM) (01/17/15 7:05 AM) Macrocyte [None Seen] 1+ *ABN* (01/19/15 5:39 AM) Plt Morph Normal (01/19/15 5:39 AM) PT [12.0-14.7 seconds] 13.2 seconds 12.4 seconds (01/18/15 8:22 AM) (01/17/15 7:05 AM) INR [0.85-1.17] 1.00 0.93 (01/18/15 8:22 AM) (01/17/15 7:05 AM) PTT [22.9-35.8 seconds] 33.0 seconds 31.3 seconds (01/18/15 8:22 AM) (01/17/15 7:05 AM) Immunizations No data available for this section Procedures Procedure Date Related Diagnosis Body Site Cystoscopy1 01/18/15 Cystoscopic laser lithotripsy of ureteric 01/07/15 calculus2 Stent placement3 01/07/15 Appendectomy Cholecystectomy Lipoma of face Lipoma of hand4 Miscellaneous operations5 Shoulder joint operations6 1with left ureter stent [id number] hand removal of [id number] shoulder, left uzes0gowpc shoulder Social History Social History Type Response Substance Abuse Use: None. IV drug use: No. Exercise 1 Employment/School Status: Employed. 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 Alcohol Current, Type Beer, Liquor. Frequency: 3-5 times per week. Alcohol use interferes with work or home: No. Drinks more than intended: No. Others hurt by drinking: No. Ready to change: No. Household alcohol concerns: No. 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 SURGEON Carl Orosco MD ANESTHESIA General SPECIMENS None DRAINS: A 6-Kittitian 28-cm double-J left ureteral stent. STATEMENT OF OPERATIVE NEED: The patient is a 39-year-old male who presented with persistent left hydroureteronephrosis after ureteroscopy and laser lithotripsy of ureteral and renal stones on 01/07/2015. He had persistent pain. An IVP revealed a standing column of contrast along the left collecting system and ureter down to a slightly narrowed distal ureteral segment. He is also complaining of persistent hematuria. Given his p ersistent pain and findings of partial obstruction with a narrowed distal ureteral segment, cystoscopy under anesthesia, left retrograde pyelogram ureteroscopy and stent placement were explained to the patient and the patient provided written and verbal consent to proceed. SUMMARY OF OPERATION: The patient was taken to the operating room, placed supine on the operating table. After adequate general endotracheal anesthesia was administered, the patient was placed in dorsal lithotomy position u sing Donis stirrups. All pressure points were padded. The patient received both IV Rocephin and IV Cipro prior to the procedure. The patient was prepped and draped in standard surgical fashion. Rigi d cystoscopy was performed which revealed a normal-appearing urethra and bladder. The left ureteral orifice was identified and intubated with a 5- [place] open-ended catheter through which a retrograde p yelogram was performed. This revealed a narrowed distal ureter with a slightly dilated more proximal segment. No stones or filling defects were appreciated. Through the 5-Kittitian open-ended catheter, a 0.035 sensor wire was placed into the collecting system, under fluoroscopic guidance. The catheter and cystoscope were then backloaded off the wire. An 8F /10F dilator was advanced to the mid ureter. The safety wire was then clamped to the drape as a safety wire. The rigid ureteroscope was advanced adjacent to the wire and up the left ureter. I was able to advance the scope without significant dif ficulty into the mid ureter, but there was a definite area of ureteral irritation with some mild oozing of blood and erythema of the urothelium. Beyond this point the ureter appeared more normal. No s tones were identified. At this point the ureteroscope was retracted and removed. A 6-Kittitian any 8-cm double-J left ureteral stent was advanced over the wire into the collecting system under fluoroscop ic guidance. The radiographic pusher was used to ensure good coil both within the collecting system as well as in the bladder. The dangler string was left intact for removal in clinic. Rigid cystosco py was once again performed with retrograde pyelography adjacent to the stent to ensure good placement of the proximal coil in the collecting system . The stent appeared to be in good position througho ut its course. At this point, the patient's bladder was drained. The patient was cleaned, taken out of dorsal lithotomy position, awakened from anesthesia. Extracted from: Title: Urology consult Author: Carl Orosco MD Date: 01/18/15 Impression and Plan Persistent hematurai and flank/groin pain after left uretersocp, laser lithotripsy and subsequent stent removal. Patient at least partially obstructed on IVP. Plan cystoscopy, left ureteral stent, pos sible left ureteroscopy. Await culture results. Thank you for allowing me to participate in this patient's care.
--- OUTSIDE RECORDS SUMMARY | 2018-12-12 20:44 | XMS REPORT | CCD ---
:1975 Author Organization [facility] Team Providers Name Role Phone Garrick Fuentes Consulting Provider Allergies, Adverse Reactions, Alerts Substance Reaction Status NKDA Active Medications Medication Instructions Start Date End Date Status Dilaudid 1 mg, Route: IM, ONCE, 06/18/2013 06/18/2013 Completed Dosing Weight 159.091, kg, Start date: 06/18/13 10:55:00, Stop date: 06/18/13 10:55:00 Dilaudid 1 mg, Route: IM, ONCE, 06/18/2013 06/18/2013 Completed Dosing Weight 159.091, kg, Start date: 06/18/13 9:57:00, Stop date: 06/18/13 9:57:00 ketorolac 30 mg, Route: IM, Drug 06/18/2013 06/18/2013 Completed form: INJ, ONCE, Dosing Weight 159.091, kg, Priority: STAT, Start date: 06/18/13 9:57:00, Stop date: 06/18/13 9:57:00 Robaxin 500 mg oral tablet 1,000 mg=2 tab, PO, QID, # 06/18/2013 06/25/2013 Ordered 56 tab, 0 Refill(s) ibuprofen 800 mg oral 800 mg=1 tab, PO, TID, # 90 06/18/2013 Ordered tablet tab, 0 Refill(s) [place] 5/325 oral tablet 1 tab, PO, Q4-6H, Pain, # 06/18/2013 Ordered 30 tab, 0 Refill(s) Vital Signs Most recent to oldest [Reference 1 2 Range]: Height 182.88 cm (06/18/2013 09:29:00) Temperature Oral [96.4-99.1 DegF] 98.0 DegF (06/18/2013 09:29:00) Systolic Blood Pressure [90-140 mmHg] 129 mmHg 136 mmHg (06/18/2013 11:14:00) (06/18/2013 09:29:00) Diastolic Blood Pressure [60-90 mmHg] 76 mmHg 84 mmHg (06/18/2013 11:14:00) (06/18/2013 09:29:00) Respiratory Rate [14-20 BRMIN] 18 BRMIN 20 BRMIN (06/18/2013 11:14:00) (06/18/2013 09:29:00) Peripheral Pulse Rate [60-100 bpm] 89 bpm 93 bpm (06/18/2013 11:14:00) (06/18/2013 09:29:00) Weight 159.091 kg (06/18/2013 09:29:00) Procedures Procedures Date Related Diagnosis Appendectomy Cholecystectomy Miscellaneous operations1 1left shoulder, left hand
--- OUTSIDE RECORDS SUMMARY | 2018-12-12 20:44 | XMS REPORT | Summary of Care ---
:1975 Author Encounter HQ Humlbe(ARVIND) [id number] Date(s): 01/08/15 - 01/09/15 [facility] [address] [place] [address]- Discharge Disposition: Home Physician Attending: Angie Chaudhari MD Vital Signs Most recent to oldest [Reference 1 2 3 Range]: Height 182.88 cm 182.88 cm (01/08/15 3:06 PM) (01/08/15 12:31 PM) Temperature Oral [96.4-99.1 98.3 DegF 98.6 DegF 98.6 DegF DegF] (01/09/15 4:18 PM) (01/09/15 12:19 PM) (01/09/15 8:20 AM) Blood Pressure [90-140/60-90 134/88 mmHg 132/83 mmHg mmHg] (01/09/15 4:18 PM) (01/09/15 8:20 AM) Systolic Blood Pressure [90-140 134 mmHg 1 mmHg] (01/09/15 12:19 PM) Diastolic Blood Pressure [60-90 84 mmHg 2 mmHg] (01/09/15 12:19 PM) Respiratory Rate [14-20 BRMIN] 20 BRMIN 20 BRMIN 20 BRMIN (01/09/15 4:18 PM) (01/09/15 12:19 PM) (01/09/15 8:20 AM) Peripheral Pulse Rate [60-100 75 bpm 87 bpm 94 bpm bpm] (01/09/15 4:18 PM) (01/09/15 12:19 PM) (01/09/15 8:20 AM) Weight 150.909 kg 153.636 kg (01/08/15 3:06 PM) (01/08/15 12:31 PM) Body Mass Index 45.12 m2 45.94 m2 (01/08/15 3:06 PM) (01/08/15 12:31 PM) 1Result Comment: [id number] Comment: error Problem List Condition Effective Dates Status Health Status Informant Anxiety(Confirmed) Resolved DM (diabetes mellitus)(Confirmed) Active HTN (hypertension)(Confirmed) Resolved Hyperlipemia(Confirmed) Resolved Hypertension(Confirmed) Active Kidney stone(Confirmed) Resolved Allergies, Adverse Reactions, Alerts Substance Reaction Severity Status NKDA Active NKFA Active Medications acetaminophen 650 mg, 2 tab, Route: PO, Drug form: TAB, Q4H, Dosing Weight 153.636, kg, PRN Pain 1-3/Temp > 100.4 F, Start date: 01/08/15 14:51:00, Duration: 30 day, Stop date: 02/07/15 14:50:00 Notes: Do not exceed 4 gm/day. (Same as: Tylenol) Start Date: 01/08/15 Stop Date: 01/09/15 Status: DiscontinuedcefTRIAXone + Sodium Chloride 0.9% IV 100 mL 1 gm, Route: IVPB, Daily, Dosing Weight 150.909, kg, Start date: 01/08/15 17:00: 00, Duration: 30 day, Stop date: 02/06/15 17:00:00 Notes: (Same As: Rocephin).Use with 100ml NS mini-bag PLUS and infuse over 30 min MEDICATION WASTE Product Size: 1000 mgProduct Wasted: ___ mg Start Date: 01/08/15 Stop Date: 01/09/15 Status: DiscontinuedDetrol LA 4 mg, 2 cap, Route: PO, Drug form: ERCAP, Daily, Dosing Weight 150.909, kg, Start date: 01/09/15 9:00:00, Duration: 30 day, Stop date: 02/07/15 9:00:00 Notes: (Same As: Detrol LA) (Do Not Crush) Start Date: 01/09/15 Stop Date: 01/09/15 Status: DiscontinuedDextrose 50% Syringe 12.5 gm, 25 mL, Route: IVP, Drug Form: INJ, Dosing Weight 150.909, kg, PRN, PRN Blood Glucose Results, Start date: 01/08/15 15:45:00, Duration: 30 day, Stop date: 02/07/15 15:44:00 Start Date: 01/08/15 Stop Date: 01/09/15 Status: DiscontinuedDextrose 50% Syringe 25 gm, 50 mL, Route: IVP, Drug Form: INJ, Dosing Weight 150.909, kg, PRN, PRN Blood Glucose Results,Start date: 01/08/15 15:45:00, Duration: 30 day, Stop date : 02/07/15 15:44:00 Start Date: 01/08/15 Stop Date: 01/09/15 Status: DiscontinuedDilaudid 1 mg, Route: IV, ONCE, Dosing Weight 153.636, kg, Start date: 01/08/15 13:27:00 , Stop date: 01/08/1513:27:00 Start Date: 01/08/15 Stop Date: 01/08/15 Status: CompletedDilaudid 1 mg, 0.5 mL, Route: IV, Drug form: INJ, Q4H, Dosing Weight 153.636, kg, PRN Pain 4-6/Temp > 100.4 F, Start date: 01/08/15 14:51:00, Duration: 30 day, Stop date: 02/07/15 14:50:00 Notes: (Same as: Dilaudid) Start Date: 01/08/15 Stop Date: 01/08/15 Status: DiscontinuedDilaudid 0.5 mg, 0.25 mL, Route: IV, Drug form: INJ, Q3H, Dosing Weight 150.909, kg, PRN Pain Score 7-10, Start date: 01/08/15 21:12:00, Duration: 30 day, Stop date: 12/17 21:11:00 Notes: (Same as: Dilaudid) Start Date: 01/08/15 Stop Date: 01/09/15 Status: DiscontinuedFlomax 0.4 mg, 1 cap, Route: PO, Drug form: CAP, After Dinner, Dosing Weight 150.909, kg, Start date: 01/08/15 17:00:00, Duration: 30 day, Stop date: 02/06/15 17:00: 00 Notes: (Same As: Flomax) "Do Not Crush" Start Date: 01/08/15 Stop Date: 01/09/15 Status: Discontinuedglucagon 1 mg, Route: IM, Drug form: PDR/INJ, PRN, Dosing Weight 150.909, kg, PRN Blood Glucose Results, Start date: 01/08/15 15:45:00, Duration: 30 day, Stop date: 12/17 15:44:00 Start Date: 01/08/15 Stop Date: 01/09/15 Status: Discontinuedhydromorphone 1 mg, 0.5 mL, Route: IVP, Drug form: INJ, ONCE, Dosing Weight 153.636, kg, Priority: STAT, Start date: 01/08/15 12:47:00, Stop date: 01/08/15 12:47:00 Notes: (Same as: Dilaudid) Start Date: 01/08/15 Stop Date: 01/08/15 Status: Completedinsulin aspart 6 unit, 0.06 mL, Route: SUB-Q, Drug form: SOLN, TID-Before Meals, Dosing Weight 150.909, kg, PRN Blood Glucose Results, Start date: 01/08/15 15:45:00, Duration : 30 day, Stop date: 02/07/15 15:44:00 Notes: Roll in palms of hands gently; Do not shake vigorously. (Same as: NovoLOG)"single patient use only" Stable for 28 days at room temperature.Expires in days from Date Start Date: 01/08/15 Stop Date: 01/09/15 Status: Discontinuedinsulin aspart 8 unit, 0.08 mL, Route: SUB-Q, Drug form: SOLN, TID-Before Meals, Dosing Weight 150.909, kg, PRN Blood Glucose Results, Start date: 01/08/15 15:45:00, Duration : 30 day, Stop date: 02/07/15 15:44:00 Notes: Roll in palms of hands gently; Do not shake vigorously. (Same as: NovoLOG)"single patient use only" Stable for 28 days at room temperature.Expires in days from Date Start Date: 01/08/15 Stop Date: 01/09/15 Status: Discontinuedinsulin aspart 10 unit, 0.1 mL, Route: SUB-Q, Drug form: SOLN, TID-Before Meals, Dosing Weight 150.909, kg, PRN Blood Glucose Results, Start date: 01/08/15 15:45:00, Duration : 30 day, Stop date: 02/07/15 15:44:00 Notes: Roll in palms of hands gently; Do not shake vigorously. (Same as: NovoLOG)"single patient use only" Stable for 28 days at room temperature.Expires in days from Date Start Date: 01/08/15 Stop Date: 01/09/15 Status: Discontinuedinsulin aspart 1 unit, 0.01 mL, Route: SUB-Q, Drug form: SOLN, Bedtime, Dosing Weight 150.909, kg, PRN Blood Glucose Results, Start date: 01/08/15 15:45:00, Duration: 30 day, Stop date: 02/07/15 15:44:00 Notes: Roll in palms of hands gently; Do not shake vigorously. (Same as: NovoLOG)"single patient use only" Stable for 28 days at room temperature.Expires in days from Date Start Date: 01/08/15 Stop Date: 01/09/15 Status: Discontinuedinsulin aspart 2 unit, 0.02 mL, Route: SUB-Q, Drug form: SOLN, Bedtime, Dosing Weight 150.909, kg, PRN Blood Glucose Results, Start date: 01/08/15 15:45:00, Duration: 30 day, Stop date: 02/07/15 15:44:00 Notes: Roll in palms of hands gently; Do not shake vigorously. (Same as: NovoLOG)"single patient use only" Stable for 28 days at room temperature.Expires in days from Date Start Date: 01/08/15 Stop Date: 01/09/15 Status: Discontinuedinsulin aspart 3 unit, 0.03 mL, Route: SUB-Q, Drug form: SOLN, Bedtime, Dosing Weight 150.909, kg, PRN Blood Glucose Results, Start date: 01/08/15 15:45:00, Duration: 30 day, Stop date: 02/07/15 15:44:00 Notes: Roll in palms of hands gently; Do not shake vigorously. (Same as: NovoLOG)"single patient use only" Stable for 28 days at room temperature.Expires in days from Date Start Date: 01/08/15 Stop Date: 01/09/15 Status: Discontinuedinsulin aspart 4 unit, 0.04 mL, Route: SUB-Q, Drug form: SOLN, Bedtime, Dosing Weight 150.909, kg, PRN Blood Glucose Results, Start date: 01/08/15 15:45:00, Duration: 30 day, Stop date: 02/07/15 15:44:00 Notes: Roll in palms of hands gently; Do not shake vigorously. (Same as: NovoLOG)"single patient use only" Stable for 28 days at room temperature.Expires in days from Date Start Date: 01/08/15 Stop Date: 01/09/15 Status: Discontinuedinsulin aspart 4 unit, 0.04 mL, Route: SUB-Q, Drug form: SOLN, TID-Before Meals, Dosing Weight 150.909, kg, PRN Blood Glucose Results, Start date: 01/08/15 15:45:00, Duration : 30 day, Stop date: 02/07/15 15:44:00 Notes: Roll in palms of hands gently; Do not shake vigorously. (Same as: NovoLOG)"single patient use only" Stable for 28 days at room temperature.Expires in days from Date Start Date: 01/08/15 Stop Date: 01/09/15 Status: Discontinuedinsulin aspart 2 unit, 0.02 mL, Route: SUB-Q, Drug form: SOLN, TID-Before Meals, Dosing Weight 150.909, kg, PRN Blood Glucose Results, Start date: 01/08/15 15:45:00, Duration : 30 day, Stop date: 02/07/15 15:44:00 Notes: Roll in palms of hands gently; Do not shake vigorously. (Same as: NovoLOG)"single patient use only" Stable for 28 days at room temperature.Expires in days from Date Start Date: 01/08/15 Stop Date: 01/09/15 Status: DiscontinuedketOROLAC 15 mg, 0.5 mL, Route: IV, Drug form: INJ, Q6H, Dosing Weight 150.909, kg, PRN Pain Score 6-10, Startdate: 01/08/15 15:39:00, Duration: 4 day, Stop date: 01/12 15:38:00 Notes: (Same as:Toradol) IV bolus must be given >15 seconds. Give IM administration slowly and deeply into the muscle.Not for use > 4 days MEDICATION WASTE Product Size: 30 mgProduct Wasted: __15_ mg Start Date: 01/08/15 Stop Date: 01/09/15 Status: DiscontinuedketOROLAC 30 mg, Route: IVP, Drug form: INJ, ONCE, Dosing Weight 153.636, kg, Priority: STAT, Start date: 01/08/15 13:12:00, Stop date: 01/08/15 13:12:00 Start Date: 01/08/15 Stop Date: 01/08/15 Status: CompletedketOROLAC 15 mg/mL injectable solution 15 mg, 1 mL, Route: IV, Drug form: INJ, ONCE, Dosing Weight 150.909, kg, Start date: 01/09/15 11:45:00, Stop date: 01/09/15 11:45:00 Notes: (Same as:Toradol) IV bolus must be given >15 seconds. Give IM administration slowly and deeply into the muscle. Not for use > 4 days. Start Date: 01/09/15 Stop Date: 01/09/15 Status: CompletedNorco 10/325 oral tablet 1 tab, Route: PO, Drug Form: TAB, Dosing Weight 150.909, kg, Q4H, PRN Pain Score 1-3, Start date: 01/09/15 11:41:00, Duration: 30 day, Stop date: 02/08/15 11:40:00 Notes: Do not exceed 4gm/day of acetaminophen. (Same as: Brandon 325/10) Start Date: 01/09/15 Stop Date: 01/09/15 Status: DiscontinuedNorco 7.5/325 oral tablet 1 tab, Route: PO, Drug Form: TAB, Dosing Weight 150.909, kg, Q4H, PRN Pain Score 4-6, Start date: 01/08/15 17:17:00, Duration: 30 day, Stop date: 02/07/15 17:16:00 Notes: Same as Brandon 325-7.5mg Do not exceed 4gm/day of acetaminophen. Start Date: 01/08/15 Stop Date: 01/09/15 Status: DiscontinuedNorco 7.5/325 oral tablet 1 tab, PO, Q6H, PRN Pain, X 5 day, # 20 tab, 0 Refill(s) Start Date: 01/09/15 Stop Date: 01/14/15 Status: Orderedondansetron 4 mg, 2 mL, Route: IVP, Drug form: INJ, ONCE, Dosing Weight 153.636, kg, Priority: STAT, Start date:01/08/15 12:47:00, Stop date: 01/08/15 12:47:00 Notes: (Same as: Ho) MEDICATION WASTE Product Size: 4 mgProduct Wasted: ___ mg Start Date: 01/08/15 Stop Date: 01/08/15 Status: Completedondansetron 4 mg, 2 mL, Route: IVP, Drug form: INJ, Q8H, Dosing Weight 153.636, kg, PRN Nausea & Vomiting, Start date: 01/08/15 14:51:00, Duration: 30 day, Stop date: 02/07/15 14:50:00 Notes: (Same as: Ho) MEDICATION WASTE Product Size: 4 mgProduct Wasted: ___ mg Start Date: 01/08/15 Stop Date: 01/09/15 Status: DiscontinuedPyridium 200 mg, 2 tab, Route: PO, Drug form: TAB, TID-After Meals, Dosing Weight 150.909 , kg, Start date: 01/09/15 8:30:00, Duration: 2 day, Stop date: 01/10/15 17:30: 00 Notes: Give with meals.(Same as: Pyridium) Start Date: 01/09/15 Stop Date: 01/09/15 Status: DiscontinuedPyridium 100 mg, 1 tab, Route: PO, Drug form: TAB, TID-After Meals, Dosing Weight 150.909 , kg, Start date: 01/08/15 17:30:00, Duration: 2 day, Stop date: 01/10/15 12:30: 00 Notes: Give with meals.(Same as: Pyridium) Start Date: 01/08/15 Stop Date: 01/09/15 Status: DiscontinuedSaline Flush 0.9% 10 mL, Route: IVP, Drug Form: INJ, Dosing Weight 153.636, kg, PRN, PRN Line Flush, Start date: 01/08/15 12:47:00, Duration: 30 day, Stop date: 02/07/15 12: 46:00 Notes: (Same as: BD Posiflush) Start Date: 01/08/15 Stop Date: 01/09/15 Status: DiscontinuedSodium Chloride 0.9% (Bolus) IV 1,000 mL, 1000 ml/hr, Infuse Over: 1 hr, Route: IV, 1,000, Drug form: INJ, ONCE , Priority: STAT, Dosing Weight 153.636 kg, Start date: 01/08/15 12:47:00, Duration: 1 doses or times, Stop date: 01/09/1512:47:00 Start Date: 01/08/15 Stop Date: 01/08/15 Status: Completedtolterodine 2 mg oral capsule, extended release 4 mg=2 cap, PO, Daily, # 30 cap, 0 Refill(s) Start Date: 01/09/15 Status: Ordered Results ELECTROLYTES Most recent to oldest [Reference Range]: 1 2 Sodium Lvl [135-145 mEq/L] 143 mEq/L 138 mEq/L (01/09/15 3:48 AM) (01/08/15 1:10 PM) Potassium Lvl [3.5-5.1 mEq/L] 4.1 mEq/L 4.1 mEq/L (01/09/15 3:48 AM) (01/08/15 1:10 PM) Chloride Lvl [95-109 mEq/L] 104 mEq/L 104 mEq/L (01/09/15 3:48 AM) (01/08/15 1:10 PM) CO2 [24-32 mEq/L] 29 mEq/L 27 mEq/L (01/09/15 3:48 AM) (01/08/15 1:10 PM) AGAP [10.0-20.0 mEq/L] 14.1 mEq/L 11.1 mEq/L (01/09/15 3:48 AM) (01/08/15 1:10 PM) CHEM PANEL Most recent to oldest [Reference Range]: 1 2 Creatinine Lvl [0.5-1.4 mg/dL] 1.3 mg/dL 1.4 mg/dL (01/09/15 3:48 AM) (01/08/15 1:10 PM) eGFR 69 mL/min/1.73m2 1 63 mL/min/1.73m2 2 *NA* *NA* (01/09/15 3:48 AM) (01/08/15 1:10 PM) BUN [7-22 mg/dL] 15 mg/dL 13 mg/dL (01/09/15 3:48 AM) (01/08/15 1:10 PM) Glucose Lvl [70-99 mg/dL] 141 mg/dL 3 300 mg/dL 4 *HI* *HI* (01/09/15 3:48 AM) (01/08/15 1:10 PM) Calcium Lvl [8.5-10.5 mg/dL] 8.8 mg/dL 9.0 mg/dL (01/09/15 3:48 AM) (01/08/15 1:10 PM) 1Result Comment: The eGFR is calculated using [...] eGFR should be multiplied by the estimated BMI.3Interpretive Data: Adult reference range values reflect the clinical guidelines of the [place] [employer].4Interpretive Data: Adult reference range values reflect the clinical guidelines of the [place] [employer].URINE AND STOOL Most recent to oldest [Reference Range]: 1 2 UA Turbidity [Clear] Cloudy *ABN* (01/08/15 1:16 PM) UA Color [Yellow] Sweet Grass *ABN* (01/08/15 1:16 PM) UA pH [5.0-8.0] 7.0 (01/08/15 1:16 PM) UA Spec Grav [<=1.030] 1.015 (01/08/15 1:16 PM) UA Glucose [Negative mg/dL] 100 mg/dL *ABN* (01/08/15 1:16 PM) UA Blood [Negative] Large *ABN* (01/08/15 1:16 PM) UA Ketones [Negative] Negative *NA* (01/08/15 1:16 PM) UA Protein [Negative mg/dL] >=300 mg/dL *ABN* (01/08/15 1:16 PM) UA Urobilinogen [0.1-1.0 EU/dL] 2.0 EU/dL *HI* (01/08/15 1:16 PM) UA Bili [Negative] Small *ABN* (01/08/15 1:16 PM) UA Leuk Est [Negative] Trace *ABN* (01/08/15 1:16 PM) UA Nitrite [Negative] Positive *ABN* (01/08/15 1:16 PM) UA WBC [None Seen /HPF] 3-5 /HPF (01/08/15 1:16 PM) UA RBC [0-2 /HPF] >100 /HPF *ABN* (01/08/15 1:16 PM) UA Bacteria [None Seen /HPF] Occasional /HPF (01/08/15 1:16 PM) UA Sq Epi [Few /LPF] Occasional /LPF (01/08/15 1:16 PM) UA Mucus [None Seen /LPF] Rare /LPF (01/08/15 1:16 PM) HEMATOLOGY Most recent to oldest [Reference Range]: 1 2 WBC [3.7-10.4 K/CMM] 6.9 K/CMM (01/08/15 1:10 PM) RBC [4.70-6.10 M/CMM] 4.56 M/CMM *LOW* (01/08/15 1:10 PM) Hgb [14.0-18.0 g/dL] 15.3 g/dL (01/08/15 1:10 PM) Hct [42.0-54.0 %] 45.7 % (01/08/15 1:10 PM) MCV [80.0-94.0 fL] 100.1 fL *HI* (01/08/15 1:10 PM) MCH [27.0-31.0 pg] 33.5 pg *HI* (01/08/15 1:10 PM) MCHC [32.0-36.0 g/dL] 33.5 g/dL (01/08/15 1:10 PM) RDW [11.5-14.5 %] 15.4 % *HI* (01/08/15 1:10 PM) Platelet [133-450 K/CMM] 284 K/CMM (01/08/15 1:10 PM) MPV [7.4-10.4 fL] 9.5 fL (01/08/15 1:10 PM) Segs [45.0-75.0 %] 59.2 % (01/08/15 1:10 PM) Lymphocytes [20.0-40.0 %] 24.5 % (01/08/15 1:10 PM) Monocytes [2.0-12.0 %] 8.1 % (01/08/15 1:10 PM) Eosinophils [0.0-4.0 %] 7.7 % *HI* (01/08/15 1:10 PM) Basophils [0.0-1.0 %] 0.5 % (01/08/15 1:10 PM) Segs-Bands # [1.5-8.1 K/CMM] 4.1 K/CMM (01/08/15 1:10 PM) Lymphocytes # [1.0-5.5 K/CMM] 1.7 K/CMM (01/08/15 1:10 PM) Monocytes # [0.0-0.8 K/CMM] 0.6 K/CMM (01/08/15 1:10 PM) Eosinophils # [0.0-0.5 K/CMM] 0.5 K/CMM (01/08/15 1:10 PM) Basophils # [0.0-0.2 K/CMM] 0.0 K/CMM (01/08/15 1:10 PM) Immunizations No data available for this section Procedures Procedure Date Related Diagnosis Body Site Cystoscopic laser lithotripsy of ureteric 01/07/15 calculus1 Stent placement2 01/07/15 Appendectomy Appendectomy Cholecystectomy Cholecystectomy Lipoma of face Lipoma of hand3 Miscellaneous operations4 Shoulder joint operations5 1stent [id number] hand removal of [id number] shoulder, left [id number] shoulder Social History Social History Type Response Substance Abuse IV drug use: No. Employment/School Status: Employed. 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 Alcohol Current, Alcohol use interferes with work or home: No. Drinks more than intended: No. Others hurt by drinking: No. Ready to change: No. Household alcohol concerns: No. Smoking Status Current every day smoker; Type: Cigarettes; Previous treatment: None; Ready to change: No; Concerns about tobacco use in household: No; Lives with someone who smokes; Cigarette Smoking Last 365 Days No; Reg Smoking Cessation Counseling No Assessment and Plan Extracted from: Title: Urology consult Author: Carl Orosco MD Date: 01/09/15 Impression and Plan POD#2 S/P left URS with laser lithotripy, with readmission for pain control. No overt signs of infection, awaiting culture. Continue pain control, recommend PO meds with IV dilaudid only as breakrosaline gh. Will add Detrol LA as his pain may be due to stent irritation/bladder irritibility. It is too early to remove his stent, would keep stent for at least 5-7 days. Vital signs stable, HR and BP not indicative of severe pain. Contineu home meds including Flomax.
--- OUTSIDE RECORDS SUMMARY | 2018-12-12 20:44 | XMS REPORT | Summary of Care ---
:1975 Author Organization [facility] Address [address] [place] [id number]- Encounter HQ Caitlynntr_tramaine(FIN) [id number] Date(s): 01/28/18 - 01/28/[address] [address]- [phone] Attending Physician: aMrli Thompson, RN, [employer] Vital Signs No data available for this section Problem List Condition Effective Dates Status Health Status Informant Anxiety(Confirmed) Resolved Diabetes(Confirmed) Active DM (diabetes mellitus)(Confirmed) Active Acute flank pain(Confirmed) Active HTN (hypertension)(Confirmed) Resolved Hyperlipemia(Confirmed) Resolved Hypertension(Confirmed) Active Male impotence(Confirmed) Active Kidney stone(Confirmed) Resolved Morbid obesity(Confirmed) Active Ureteric stone1 01/11/15 Active 1Data migrated from [employer] on 02/06/15. Allergies, Adverse Reactions, Alerts Substance [...] joint operations6 Completed 1with left ureter stent [id number] [id number] hand removal of imtakw6eili shoulder, left jsum6qotky shoulder Social History Social History Type Response Substance Abuse Use: None. IV drug use: No. Exercise 1 Employment/School Status: Employed. 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 Alcohol Current, [...] OF PHYSICAL WORK WITH TRUCK AND HEAVY [id number] SMOKING 4 MONTHS AGO Assessment and Plan No data available for this section
--- OUTSIDE RECORDS SUMMARY | 2018-12-12 20:45 | XMS REPORT | Summary of Care ---
:1975 Author Encounter [facility](ARVIND) [id number] Date(s): 09/30/14 - 10/01/[address] Professional Services provided by [facility] [place] [address]- Discharge Disposition: Admitted as inpatient Physician Attending: Flaquito Chaidez MD Physician Admitting: Flaquito Chaidez MD Vital Signs Most recent to oldest 1 2 3 [Reference Range]: Height 182.88 cm 182.88 cm (10/01/14 8:37 AM) (09/30/14 10:58 PM) Temperature Oral [96.4-99.1 96.7 DegF 97.2 DegF 97.2 DegF DegF] (10/01/14 3:41 PM) (10/01/14 2:30 PM) (10/01/14 8:05 AM) Blood Pressure [90-140/60-90 120/73 mmHg 124/70 mmHg 130/68 mmHg mmHg] (10/01/14 3:41 PM) (10/01/14 2:30 PM) (10/01/14 8:05 AM) Respiratory Rate [14-20 BRMIN] 18 BRMIN 18 BRMIN 18 BRMIN (10/01/14 3:41 PM) (10/01/14 2:30 PM) (10/01/14 8:05 AM) Peripheral Pulse Rate [60-100 95 bpm 93 bpm 91 bpm bpm] (10/01/14 3:41 PM) (10/01/14 2:30 PM) (10/01/14 8:05 AM) Weight 158.004 kg 159.091 kg (10/01/14 8:37 AM) (09/30/14 10:58 PM) Body Mass Index 47.24 m2 47.57 m2 (10/01/14 8:37 AM) (09/30/14 10:58 PM) Problem List Condition Effective Dates Status Health Status Informant Anxiety(Confirmed) Resolved DM (diabetes mellitus)(Confirmed) Active Hypertension(Confirmed) Active Allergies, Adverse Reactions, Alerts Substance Reaction Severity Status NKDA Active Medications acetaminophen 650 mg, 2 tab, Route: PO, Drug form: TAB, Q4H, Dosing Weight 159.091, kg, PRN Pain 1-3/Temp > 100.4 F, Start date: 10/01/14 4:13:00, Duration: 30 day, Stop date: 10/31/14 4:12:00 Notes: Do not exceed 4 gm/day. (Same as: Tylenol) Start Date: 10/01/14 Stop Date: 10/01/14 Status: DiscontinuedbuPROPion 150 mg, 2 tab, Route: PO, Drug form: TAB, BID, Dosing Weight 159.091, kg, Start date: 10/01/14 9:00:00, Duration: 30 day, Stop date: 10/30/14 17:00:00 Notes: (Same As: Wellbutrin) Start Date: 10/01/14 Stop Date: 10/01/14 Status: DiscontinuedbuPROPion 150 mg, PO, BID, 0 Refill(s) Start Date: 10/01/14 Stop Date: 10/01/14 Status: DeletedbusPIRone 15 mg oral tablet 15 mg=1 tab, PO, BID, 0 Refill(s) Start Date: 10/01/14 Stop Date: 10/01/14 Status: DiscontinuedDextrose 50% Syringe 12.5 gm, 25 mL, Route: IVP, Drug Form: INJ, Dosing Weight 159.091, kg, PRN, PRN Blood Glucose Results, Start date: 10/01/14 4:15:00, Duration: 30 day, Stop date : 10/31/14 4:14:00 Start Date: 10/01/14 Stop Date: 10/01/14 Status: DiscontinuedDextrose 50% Syringe 25 gm, 50 mL, Route: IVP, Drug Form: INJ, Dosing Weight 159.091, kg, PRN, PRN Blood Glucose Results,Start date: 10/01/14 4:15:00, Duration: 30 day, Stop date : 10/31/14 4:14:00 Start Date: 10/01/14 Stop Date: 10/01/14 Status: Discontinuedglucagon 1 mg, Route: IM, Drug form: PDR/INJ, PRN, Dosing Weight 159.091, kg, PRN Blood Glucose Results, Start date: 10/01/14 4:15:00, Duration: 30 day, Stop date: 4:14:00 Start Date: 10/01/14 Stop Date: 10/01/14 Status: Discontinuedheparin 7,500 unit, 1.5 mL, Route: SUB-Q, Drug form: INJ, Q8H, Dosing Weight 159.091, kg , Start date: 10/01/14 8:00:00, Duration: 30 day, Stop date: 10/31/14 0:00:00 Notes: porcine heparin Start Date: 10/01/14 Stop Date: 10/01/14 Status: Discontinuedhydrochlorothiazide-lisinopril 12.5 mg-10 mg oral tablet 1 tab, Route: PO, Dosing Weight 159.091, kg, Daily, Start date: 10/01/14 9:00:00 , Duration: 30 day, Stop date: 10/30/14 9:00:00 Start Date: 10/01/14 Stop Date: 10/01/14 Status: Discontinuedhydrochlorothiazide-lisinopril 12.5 mg-10 mg oral tablet 1 tab, PO, Daily, # 30 tab, 0 Refill(s) Start Date: 10/01/14 Status: Orderedinsulin aspart 2 unit, 0.02 mL, Route: SUB-Q, Drug form: SOLN, TID-Before Meals, Dosing Weight 159.091, kg, PRN Blood Glucose Results, Start date: 10/01/14 4:15:00, Duration: 30 day, Stop date: 10/31/14 4:14:00 Notes: Roll in palms of hands gently; Do not shake vigorously. (Same as: NovoLOG)"single patient use only" Stable for 28 days at room temperature.Expires in days from Date Start Date: 10/01/14 Stop Date: 10/01/14 Status: Discontinuedinsulin aspart 3 unit, 0.03 mL, Route: SUB-Q, Drug form: SOLN, TID-Before Meals, Dosing Weight 159.091, kg, PRN Blood Glucose Results, Start date: 10/01/14 4:15:00, Duration: 30 day, Stop date: 10/31/14 4:14:00 Notes: Roll in palms of hands gently; Do not shake vigorously. (Same as: NovoLOG)"single patient use only" Stable for 28 days at room temperature.Expires in days from Date Start Date: 10/01/14 Stop Date: 10/01/14 Status: Discontinuedinsulin aspart 4 unit, 0.04 mL, Route: SUB-Q, Drug form: SOLN, TID-Before Meals, Dosing Weight 159.091, kg, PRN Blood Glucose Results, Start date: 10/01/14 4:15:00, Duration: 30 day, Stop date: 10/31/14 4:14:00 Notes: Roll in palms of hands gently; Do not shake vigorously. (Same as: NovoLOG)"single patient use only" Stable for 28 days at room temperature.Expires in days from Date Start Date: 10/01/14 Stop Date: 10/01/14 Status: Discontinuedinsulin aspart 1 unit, 0.01 mL, Route: SUB-Q, Drug form: SOLN, TID-Before Meals, Dosing Weight 159.091, kg, PRN Blood Glucose Results, Start date: 10/01/14 4:15:00, Duration: 30 day, Stop date: 10/31/14 4:14:00 Notes: Roll in palms of hands gently; Do not shake vigorously. (Same as: NovoLOG)"single patient use only" Stable for 28 days at room temperature.Expires in days from Date Start Date: 10/01/14 Stop Date: 10/01/14 Status: Discontinuedinsulin aspart 5 unit, 0.05 mL, Route: SUB-Q, Drug form: SOLN, TID-Before Meals, Dosing Weight 159.091, kg, PRN Blood Glucose Results, Start date: 10/01/14 4:15:00, Duration: 30 day, Stop date: 10/31/14 4:14:00 Notes: Roll in palms of hands gently; Do not shake vigorously. (Same as: NovoLOG)"single patient use only" Stable for 28 days at room temperature.Expires in days from Date Start Date: 10/01/14 Stop Date: 10/01/14 Status: Discontinuedinsulin aspart 3 unit, 0.03 mL, Route: SUB-Q, Drug form: SOLN, Bedtime, Dosing Weight 159.091, kg, PRN Blood Glucose Results, Start date: 10/01/14 4:15:00, Duration: 30 day, Stop date: 10/31/14 4:14:00 Notes: Roll in palms of hands gently; Do not shake vigorously. (Same as: NovoLOG)"single patient use only" Stable for 28 days at room temperature.Expires in days from Date Start Date: 10/01/14 Stop Date: 10/01/14 Status: Discontinuedinsulin aspart 4 unit, 0.04 mL, Route: SUB-Q, Drug form: SOLN, Bedtime, Dosing Weight 159.091, kg, PRN Blood Glucose Results, Start date: 10/01/14 4:15:00, Duration: 30 day, Stop date: 10/31/14 4:14:00 Notes: Roll in palms of hands gently; Do not shake vigorously. (Same as: NovoLOG)"single patient use only" Stable for 28 days at room temperature.Expires in days from Date Start Date: 10/01/14 Stop Date: 10/01/14 Status: Discontinuedinsulin aspart 1 unit, 0.01 mL, Route: SUB-Q, Drug form: SOLN, Bedtime, Dosing Weight 159.091, kg, PRN Blood Glucose Results, Start date: 10/01/14 4:15:00, Duration: 30 day, Stop date: 10/31/14 4:14:00 Notes: Roll in palms of hands gently; Do not shake vigorously. (Same as: NovoLOG)"single patient use only" Stable for 28 days at room temperature.Expires in days from Date Start Date: 10/01/14 Stop Date: 10/01/14 Status: Discontinuedinsulin aspart 2 unit, 0.02 mL, Route: SUB-Q, Drug form: SOLN, Bedtime, Dosing Weight 159.091, kg, PRN Blood Glucose Results, Start date: 10/01/14 4:15:00, Duration: 30 day, Stop date: 10/31/14 4:14:00 Notes: Roll in palms of hands gently; Do not shake vigorously. (Same as: NovoLOG)"single patient use only" Stable for 28 days at room temperature.Expires in days from Date Start Date: 10/01/14 Stop Date: 10/01/14 Status: DiscontinuedmetFORMIN 500 mg oral tablet 1,000 mg=2 tab, PO, BID, # 30 tab, 0 Refill(s) Start Date: 10/01/14 Status: OrderedMicrozide 12.5 mg, 1 cap, Route: PO, Drug form: CAP, Daily, Start date: 10/01/14 9:00:00, Duration: 30 day, Stop date: 10/30/14 9:00:00 Notes: (Same as: Microzide) With food. Start Date: 10/01/14 Stop Date: 10/01/14 Status: Discontinuednormal saline 0.9% IV 1,000 mL 1,000 mL, Rate: 50 ml/hr, Infuse over: 20 hr, Route: IV, Dosing Weight 159.091 kg, Total Volume: 1,000, Start date: 10/01/14 4:47:00, Duration: 30 day, Stop date: 10/31/14 4:46:00 Start Date: 10/01/14 Stop Date: 10/01/14 Status: Discontinuednormal saline 0.9% IV 1,000 mL 1,000 mL, Rate: 75 ml/hr, Infuse over: 13.3 hr, Route: IV, Dosing Weight 159.091 kg, Total Volume: 1,000, Start date: 10/01/14 4:16:00, Duration: 30 day , Stop date: 10/31/14 4:15:00 Start Date: 10/01/14 Stop Date: 10/01/14 Status: Discontinuednormal saline 0.9% IV 1,000 mL 1,000 mL, Rate: 50 ml/hr, Infuse over: 20 hr, Route: IV, Dosing Weight 159.091 kg, Total Volume: 1,000, Start date: 10/01/14 5:16:00, Duration: 30 day, Stop date: 10/31/14 5:15:00 Start Date: 10/01/14 Stop Date: 10/01/14 Status: Discontinuednormal saline 0.9% IV 1000 mL 1,000 mL, Rate: 75 ml/hr, Infuse over: 13.3 hr, Route: IV, Dosing Weight 159.091 kg, Total Volume: 1,000, Start date: 10/01/14 5:16:00, Duration: 30 day , Stop date: 10/31/14 5:15:00 Start Date: 10/01/14 Stop Date: 10/01/14 Status: Discontinuedpotassium chloride 20 mEq, 100 mL, Route: IVPB, Drug form: INJ, ONCE, Dosing Weight 159.091, kg, Start date: 10/01/14 0:38:00, Stop date: 10/01/14 0:38:00 Notes: (Same as: KCL) Infuse no faster than 10 mEq/hr if given peripherally. Start Date: 10/01/14 Stop Date: 10/01/14 Status: Completedpotassium chloride 40 mEq, 2 tab, Route: PO, Drug form: ERTAB, ONCE, Dosing Weight 159.091, kg, Start date: 10/01/14 5:16:00, Stop date: 10/01/14 5:16:00 Notes: (Same as: K-Dur 20)"Do Not Crush" With food and full glass of water Start Date: 10/01/14 Stop Date: 10/01/14 Status: Completedpotassium chloride 20 mEq/15 mL oral liquid 40 mEq, 30 mL, Route: PO, Drug form: LIQ, ONCE, Dosing Weight 159.091, kg, Priority: STAT, Start date: 10/01/14 0:53:00, Stop date: 10/01/14 0:53:00 Notes: (Same as: Potassium Chloride) Start Date: 10/01/14 Stop Date: 10/01/14 Status: CompletedPrinivil 10 mg, 1 tab, Route: PO, Drug form: TAB, Daily, Start date: 10/01/14 9:00:00, Duration: 30 day, Stopdate: 10/30/14 9:00:00 Notes: (Same as: Prinivil, Zestril) Start Date: 10/01/14 Stop Date: 10/01/14 Status: DiscontinuedReglan 10 mg, 2 mL, Route: IVP, Drug form: INJ, ONCE, Dosing Weight 159.091, kg, Priority: STAT, Start date: 10/01/14 0:52:00, Stop date: 10/01/14 0:52:00 Notes: (Same as: Reglan) Start Date: 10/01/14 Stop Date: 10/01/14 Status: Completedsimvastatin 20 mg=1 tab, PO, Bedtime, # 30 tab, 0 Refill(s) Start Date: 10/01/14 Stop Date: 10/31/14 Status: Orderedsimvastatin 20 mg, 1 tab, Route: PO, Drug form: TAB, Bedtime, Dosing Weight 159.091, kg, Start date: 10/01/14 21:00:00, Duration: 30 day, Stop date: 10/30/14 21:00:00 Notes: (Same as: Zocor) Start Date: 10/01/14 Stop Date: 10/01/14 Status: CanceledTylenol 650 mg, 2 tab, Route: PO, Drug form: TAB, ONCE, Dosing Weight 159.091, kg, Priority: STAT, Start date: 10/01/14 0:58:00, Stop date: 10/01/14 0:58:00 Notes: Do not exceed 4 gm/day. (Same as: Tylenol) Start Date: 10/01/14 Stop Date: 10/01/14 Status: CompletedTylenol 650 mg, 2 tab, Route: PO, Drug form: TAB, ONCE, Dosing Weight 159.091, kg, Priority: STAT, Start date: 09/30/14 23:19:00, Stop date: 09/30/14 23:19:00 Notes: Do not exceed 4 gm/day. (Same as: Tylenol) Start Date: 09/30/14 Stop Date: 09/30/14 Status: CompletedVictoza 6 mg/mL subcutaneous injection See Instructions, 1.8 mg units daily, 0 Refill(s) Special Instructions: 1.8 mg units daily Start Date: 10/01/14 Status: OrderedVisipaque 320mg/ml 100 mL, Route: IVP, Drug Form: SOLN, Dosing Weight 159.091, kg, ONCALL, STAT, Start date: 10/01/14 5:36:00, Duration: 1 doses or times, Dose=2.2ml/kg, Max [id number] -- "To be infused by Radiology Staff ONLY" Special Instructions: Dose=2.2ml/kg, Max agdf=[id number] -- "To be infused by Radiology Staff ONLY" Start Date: 10/01/14 Stop Date: 10/01/14 Status: Completed Results ELECTROLYTES Most recent to oldest [Reference Range]: 1 2 3 Sodium Lvl [135-145 mEq/L] 138 mEq/L 139 mEq/L (10/01/14 4:56 AM) (09/30/14 11:10 PM) Potassium Lvl [3.5-5.1 mEq/L] 3.3 mEq/L 2.9 mEq/L 1 *LOW* *CRIT* (10/01/14 4:56 AM) (09/30/14 11:10 PM) Chloride Lvl [95-109 mEq/L] 104 mEq/L 101 mEq/L (10/01/14 4:56 AM) (09/30/14 11:10 PM) CO2 [24-32 mEq/L] 26 mEq/L 24 mEq/L (10/01/14 4:56 AM) (09/30/14 11:10 PM) AGAP [10.0-20.0 mEq/L] 11.3 mEq/L 16.9 mEq/L (10/01/14 4:56 AM) (09/30/14 11:10 PM) 1Result Comment: Critical Result(s) called to Juan A Emmanuel)_ at 09/30/2014 23 :52 by stp. Read back OK.CHEM PANEL Most recent to oldest [Reference Range]: 1 2 3 Creatinine Lvl [0.5-1.4 mg/dL] 1.4 mg/dL 1.5 mg/dL (10/01/14 4:56 AM) *HI* (09/30/14 11:10 PM) eGFR 63 mL/min/1.73m2 2 58 mL/min/1.73m2 3 *NA* *NA* (10/01/14 4:56 AM) (09/30/14 11:10 PM) BUN [7-22 mg/dL] 11 mg/dL 12 mg/dL (10/01/14 4:56 AM) (09/30/14 11:10 PM) B/C Ratio [6-25] 8 (09/30/14 11:10 PM) Glucose Lvl [70-99 mg/dL] 188 mg/dL 4 145 mg/dL 5 *HI* *HI* (10/01/14 4:56 AM) (09/30/14 11:10 PM) Total Protein [6.4-8.4 g/dL] 8.0 g/dL (09/30/14 11:10 PM) Albumin Lvl [3.5-5.0 g/dL] 4.4 g/dL (09/30/14 11:10 PM) Globulin [2.0-4.0 g/dL] 3.6 g/dL (09/30/14 11:10 PM) A/G Ratio [0.7-1.6] 1.2 (09/30/14 11:10 PM) Calcium Lvl [8.5-10.5 mg/dL] 9.7 mg/dL 10.4 mg/dL (10/01/14 4:56 AM) (09/30/14 11:10 PM) ALT [0-65 unit/L] 113 unit/L *HI* (09/30/14 11:10 PM) AST [0-37 unit/L] 38 unit/L *HI* (09/30/14 11:10 PM) Alk Phos [39-136 unit/L] 97 unit/L (09/30/14 11:10 PM) Bili Total [0.2-1.3 mg/dL] 1.2 mg/dL (09/30/14 11:10 PM) Lipase Lvl [73-393 unit/L] 371 unit/L (09/30/14 11:10 PM) Lactic Acid Lvl [0.5-2.2 mMol/L] 2.5 mMol/L *HI* (09/30/14 11:10 PM) 2Result Comment: The eGFR is calculated using [...] eGFR should be multiplied by the estimated BMI.3Result Comment: The eGFR is calculated using the [...] eGFR should be multiplied by the estimated BMI.4Interpretive Data: Adult reference range values reflect the clinical guidelines of the [place] [employer].5Interpretive Data: Adult reference range values reflect the clinical guidelines of the [place] [employer].CARDIAC ENZYMES Most recent to oldest 1 2 3 [Reference Range]: Total CK [12-191 unit/L] 154 unit/L 124 unit/L 129 unit/L (10/01/14 2:30 PM) (10/01/14 4:56 AM) (09/30/14 11:10 PM) CK MB [0.5-3.6 ng/mL] 0.7 ng/mL 1.1 ng/mL 0.9 ng/mL (10/01/14 2:30 PM) (10/01/14 4:56 AM) (09/30/14 11:10 PM) CK MB Index [0.0-2.5] 0.5 0.9 0.7 (10/01/14 2:30 PM) (10/01/14 4:56 AM) (09/30/14 11:10 PM) Troponin-T [0.000-0.100 <0.010 ng/mL <0.010 ng/mL <0.010 ng/mL ng/mL] (10/01/14 2:30 PM) (10/01/14 4:56 AM) (09/30/14 11:10 PM) Troponin-I [0.00-0.40 <0.02 ng/mL <0.02 ng/mL <0.02 ng/mL ng/mL] (10/01/14 2:30 PM) (10/01/14 4:56 AM) (09/30/14 11:10 PM) BNP [<=100 pg/mL] <2 pg/mL 6 (10/01/14 4:00 AM) 6Interpretive Data: Elevated results are in line with increasing severity of congestive heart failure. Minor elevations between 100 and 300 may be seen with Myocardial Ischemia, Sodium retaining drugs, and compensated/treated heart failure.DRUG SCREEN Most recent to oldest [Reference Range]: 1 2 3 U Amph Scr [Negative] Negative *NA* (10/01/14 4:56 AM) U [place] Scr [Negative] Negative *NA* (10/01/14 4:56 AM) U Benzodia Scr [Negative] Negative *NA* (10/01/14 4:56 AM) U Cocaine Scr [Negative] Negative *NA* (10/01/14 4:56 AM) U Opiate Scr [Negative] Negative *NA* (10/01/14 4:56 AM) U Phencyc Scr [Negative] Negative *NA* (10/01/14 4:56 AM) U Cannab Scr [Negative] Negative *NA* (10/01/14 4:56 AM) UDS Note See Note 7 *NA* (10/01/14 4:56 AM) 7Interpretive Data: Drugs reported as positive have not been confirmed by a second method and should be used for medical purposes only. To order confirmation, contact laboratory. note: Below are cut-off concentrations for all urine drugs of abuse performed in the laboratory. Some drugs listed in the table may not be included in this panel. Description Cut-off concentration Amphetamine 1000 ng/mL Barbiturates 200 ng/mL Benzodiazepines 300 ng/mL Cocaine metabolites 300 ng/mL Opiates 300 ng/mL Phencyclidine 25 ng/mL Propoxyphene 300 ng/mL Marijuana metabolites 50 ng/mL Methadone 300 ng/mL Urine alcohol 20 mg/dLTOXICOLOGY Most recent to oldest [Reference Range]: 1 2 3 Etoh (%) <.003 % 8 *NA* (10/01/14 4:56 AM) Ethanol Lvl <3 mg/dL 9 *NA* (10/01/14 4:56 AM) 8Interpretive Data: Ethanol testing results should be used for medical purposes only. Negative Range: <0.003% Toxic Range: >0.25%9Interpretive Data: Negative Range: <3 mg/dL Toxic Range: >250 mg/dLHEMATOLOGY Most recent to oldest [Reference Range]: 1 2 3 WBC [3.7-10.4 K/CMM] 10.2 K/CMM (09/30/14 11:10 PM) RBC [4.70-6.10 M/CMM] 4.76 M/CMM (09/30/14 11:10 PM) Hgb [14.0-18.0 g/dL] 15.9 g/dL (09/30/14 11:10 PM) Hct [42.0-54.0 %] 47.4 % (09/30/14 11:10 PM) MCV [80.0-94.0 fL] 99.7 fL *HI* (09/30/14 11:10 PM) MCH [27.0-31.0 pg] 33.4 pg *HI* (09/30/14 11:10 PM) MCHC [32.0-36.0 g/dL] 33.5 g/dL (09/30/14 11:10 PM) RDW [11.5-14.5 %] 11.3 % *LOW* (09/30/14 11:10 PM) Platelet [133-450 K/CMM] 249 K/CMM (09/30/14 11:10 PM) MPV [7.4-10.4 fL] 9.4 fL (09/30/14 11:10 PM) Segs [45.0-75.0 %] 46.8 % (09/30/14 11:10 PM) Lymphocytes [20.0-40.0 %] 41.8 % *HI* (09/30/14 11:10 PM) Monocytes [2.0-12.0 %] 8.9 % (09/30/14 11:10 PM) Eosinophils [0.0-4.0 %] 1.6 % (09/30/14 11:10 PM) Basophils [0.0-1.0 %] 0.9 % (09/30/14 11:10 PM) Segs-Bands # [1.5-8.1 K/CMM] 4.7 K/CMM (09/30/14 11:10 PM) Lymphocytes # [1.0-5.5 K/CMM] 4.3 K/CMM (09/30/14 11:10 PM) Monocytes # [0.0-0.8 K/CMM] 0.9 K/CMM *HI* (09/30/14 11:10 PM) Eosinophils # [0.0-0.5 K/CMM] 0.2 K/CMM (09/30/14 11:10 PM) Basophils # [0.0-0.2 K/CMM] 0.1 K/CMM (09/30/14 11:10 PM) Macrocyte [None Seen] 1+ *ABN* (09/30/14 11:10 PM) PT [12.0-14.7 seconds] 13.4 seconds (09/30/14 11:11 PM) INR [0.85-1.17] 1.02 10 (09/30/14 11:11 PM) PTT [22.9-35.8 seconds] 28.9 seconds 11 (09/30/14 11:11 PM) 10Interpretive Data: RECOMMENDED RANGES FOR PROTIME INR: 2.0-3.0 for most medical and surgical thromboembolic states. 2.5-3.5 for artificial heart valves and recurrent embolism. INR SHOULD BE USED ONLY FOR PATIENTS ON STABLE ANTICOAGULANT THERAPY.11Interpretive Data: Heparin Therapeutic Range: 57 - 92 Seconds Immunizations No data available for this section Procedures Procedure Date Related Diagnosis Body Site Appendectomy Appendectomy Cholecystectomy Cholecystectomy Lipoma of face Lipoma of hand1 Miscellaneous operations2 Shoulder joint operations3 1left hand removal of [id number] shoulder, left [id number] shoulder Social History Social History Type Response Employment/School Status: Employed. 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 Alcohol Never Smoking Status Current some day smoker; Type: Cigarettes; Lives with someone who smokes; Cigarette Smoking Last 365 Days No; Reg Smoking Cessation Counseling No Assessment and Plan Extracted from: Title: Clinical Document Author: Flaquito Chaidez MD Date: 10/01/14 Date of Admission: 09/30/14 Date of Discharge: 10/01/14 ADMITTING DIAGNOSIS: Syncope chest pain DM2 HTN Obesity DISCHARGE DIAGNOSIS: Syncope and chest pain due to stress related, ACS ruled out Essential HTN MARIANNA on CKD II DM2 Obesity hypokalemia CONSULTS: none PROCEDURES: stress test: CONCLUSIONS: 1. Normal hemodynamic adenosine test. 2. Normal ECG adenosine test. 3. Normal adenosine Tc-99m myocardial perfusion study showing small, mild, apical and inferior attenuation artifacts. Transient ischemic dilatation of 1.14 noted. 4. Gated perfusion images show normal left ventricular function with an ejection fraction of 57%. 5. No previous SPECT study was available for comparison. Chief complaint , HPI & HOSPITAL COURSE: Pt with DM2, HTN admitted with syncope and chest pain, cardiac enzymes and stress test negative, needs f/u with PCP Discharge physical exam: GENERAL: Patient awake, alert, oriented to time, place, person. No distress, obese HEENT: no pallor, no icterus, no JVD, no carotid bruit, oral mucosa moist, no thyromegaly LUNGS: normal respiratory effort, Clear to auscultation bilaterally, no wheeze , no crackles CVS: S1, S2 +, Regular rhythm, no murmur, no edema GI: Bowel sounds +, soft, nontender, nondistended, no organomegaly MUSKULOSKELETAL: no restriction of movements SKIN: no rash, no ulcers NEURO: No focal deficits, normal strength in all extremities PSYCH: normal mood Discharge condition: Stable Discharge to : Home Discharge Meds: Please see home medication reconciliation DC instructions: F/U: PCP in one week I have seen & examined the patient on the day of discharge Time spent on discharge: Approximately 41 minutes, explaining about the diagnosis, follow up care plan Extracted from: Title: Admission H & P Author: Anthony Doyle MD Date: 10/01/14 Assessment/Plan #Syncope: unclear etiology; possibly ACS; EKG shows no st/t changes; troponin negative. -will check serial trops. patient was tachy/mild hypoxia at admission; CT PE protocol pending. -will also check stress test on patient since DM, HTN and improvement of chest pain with nitro. -possibly stress related as well, anxiety contributing. CT head negative. #chest pain: will r/o ACS with serial trops, place patient on tele to r/o cardiac arrhythmias. EKG with no st/t changes; check stress test. -check CTA to r/o PE as cause. -check BNP since heart increased size on xray -check UDS #enlarged heart: seen on xray: BNP normal; possibly cardiomyopathy from heavy alcohol use. -check echo #HTN: cont HCTZ/lisinopril; #HLD: cont simvastatin #DM: hold victoza, SSI, accu-checks #MARIANNA: gentle IV fluids, monitor Cr and respiratory status, on room air currently. -BNP normal. #hypokalemia: repleted in ER; recheck is 3.3; 40mg PO ordered; recheck in am. #h/o alcohol use: no current use per patient; last drink4 weeks ago. #transaminitis: possibly 2/2 to congestive hepatopathy; no abdominal pain, monitor with repeat labs. heparin sq Addendum by Anthony Doyle MD on CT PE: negative; heart mildly enlarged; 10/01/2014 06:19 no pericardial effusion.
--- OUTSIDE RECORDS SUMMARY | 2018-12-12 20:45 | XMS REPORT | Summary of Care ---
:1975 Author Organization [facility] [place] Address [address], [place] [address]- Encounter [facility](FIN) [id number] Date(s): 01/28/15 - 01/28/15 [facility] [place] [address] [place] [address]- Discharge Diagnosis: Acute flank pain Discharge Diagnosis: Pain of male genitalia Discharge Disposition: Home Attending Physician: Heather Nolan DO Vital Signs Most recent to oldest [Reference Range]: 1 2 3 Temperature Oral [96.4-99.1 DegF] 98.7 DegF 98.3 DegF (01/28/15 5:22 PM) (01/28/15 1:04 PM) Most recent to oldest 1 2 3 [Reference Range]: Blood Pressure [90-140/60-90 129/78 mmHg 126/83 mmHg 121/79 mmHg mmHg] (01/28/15 5:22 PM) (01/28/15 3:44 PM) (01/28/15 1:04 PM) Most recent to oldest 1 2 3 [Reference Range]: Respiratory Rate [14-20 BRMIN] 16 BRMIN 16 BRMIN 20 BRMIN (01/28/15 5:22 PM) (01/28/15 3:44 PM) (01/28/15 1:04 PM) Most recent to oldest 1 2 3 [Reference Range]: Peripheral Pulse Rate [60-100 68 bpm 80 bpm 83 bpm bpm] (01/28/15 5:22 PM) (01/28/15 3:44 PM) (01/28/15 1:04 PM) Most recent to oldest [Reference Range]: 1 2 3 Weight 146 kg (01/28/15 1:04 PM) Problem List Condition Effective Dates Status Health Status Informant Anxiety(Confirmed) Resolved Diabetes(Confirmed) Active DM (diabetes mellitus)(Confirmed) Active Acute flank pain(Confirmed) Active HTN (hypertension)(Confirmed) Resolved Hyperlipemia(Confirmed) Resolved Hypertension(Confirmed) Active Kidney stone(Confirmed) Resolved Allergies, Adverse Reactions, Alerts Substance Reaction Severity Status NKDA Active NKFA Active Medications Cipro 500 mg oral tablet 500 mg=1 tab, PO, Q12H, X 14 day, # 28 tab, 0 Refill(s) Start Date: 01/28/15 Stop Date: 02/11/15 Status: OrderedDilaudid 1 mg, Route: IVP, ONCE, Dosing Weight 146, kg, Priority: STAT, Start date: 01/28 14:09:00, Stop date: 01/28/15 14:09:00 Start Date: 01/28/15 Stop Date: 01/28/15 Status: CompletedDilaudid 2 mg, 1 mL, Route: IVP, Drug form: INJ, ONCE, Dosing Weight 146, kg, Priority: STAT, Start date: 01/28/15 15:22:00, Stop date: 01/28/15 15:22:00 Notes: (Same as: Dilaudid) Start Date: 01/28/15 Stop Date: 01/28/15 Status: CompletedFlomax 0.4 mg oral capsule 0.4 mg=1 cap, PO, Daily, # 30 cap, 0 Refill(s) Start Date: 01/28/15 Status: Orderedhydromorphone 1 mg, Route: IVP, ONCE, Dosing Weight 146, kg, Priority: STAT, Start date: 01/28 13:46:00, Stop date: 01/28/15 13:46:00 Start Date: 01/28/15 Stop Date: 01/28/15 Status: CompletedketOROLAC 15 mg, 0.5 mL, Route: IVP, Drug form: INJ, ONCE, Dosing Weight 146, kg, Priority : STAT, Start date: 01/28/15 15:23:00, Stop date: 01/28/15 15:23:00 Notes: (Same as:Toradol) IV bolus must be given >15 seconds. Give IM administration slowly and deeply into the muscle.Not for use > 4 days MEDICATION WASTE Product Size: 30 mgProduct Wasted: ___ mg Start Date: 01/28/15 Stop Date: 01/28/15 Status: CompletedketOROLAC 15 mg, Route: IVP, Drug form: INJ, ONCE, Dosing Weight 146, kg, Priority: STAT, Start date: 01/28/1514:10:00, Stop date: 01/28/15 14:10:00 Start Date: 01/28/15 Stop Date: 01/28/15 Status: CompletedketOROLAC 10 mg oral tablet 10 mg=1 tab, PO, Q6H, take with food. not to exceed 40 mg/day and 5 days duration for all dose forms, X 5 day, # 20 tab, 0 Refill(s) Special Instructions: take with food.not to exceed 40 mg/day and 5 days duration for all dose forms Start Date: 01/28/15 Stop Date: 02/02/15 Status: OrderedNorco 10/325 oral tablet 1 tab, Route: PO, Drug Form: TAB, Dosing Weight 146, kg, ONCE, STAT, Start date : 01/28/15 17:08:00, Stop date: 01/28/15 17:08:00 Start Date: 01/28/15 Stop Date: 01/28/15 Status: CompletedNS (Bolus) IV 1,000 mL, 1,000 ml/hr, Infuse Over: 1 hr, Route: IV, 1,000, Drug form: INJ, ONCE , Priority: STAT, Dosing Weight 146 kg, Start date: 01/28/15 15:22:00, Duration : 1 doses or times, Stop date: 01/28/15 15:22:00 Start Date: 01/28/15 Stop Date: 01/28/15 Status: Completedondansetron 4 mg, Route: IVP, ONCE, Dosing Weight 146, kg, Priority: STAT, Start date: 01/28 13:46:00, Stop date: 01/28/15 13:46:00 Start Date: 01/28/15 Stop Date: 01/28/15 Status: CompletedSaline Flush 0.9% 10 mL, Route: IVP, Drug Form: INJ, Dosing Weight 146, kg, PRN, PRN Line Flush, Start date: 01/28/15 13:46:00, Duration: 30 day, Stop date: 02/27/15 13:45:00 Notes: (Same as: BD Posiflush) Start Date: 01/28/15 Stop Date: 01/28/15 Status: DiscontinuedSodium Chloride 0.9% (Bolus) IV 1,000 mL, Infuse Over: 1 hr, Route: IV, ONCE, Priority: STAT, Dosing Weight 146 kg, Start date: 01/28/15 13:46:00, Duration: 1 doses or times, Stop date: 13:46:00 Start Date: 01/28/15 Stop Date: 01/28/15 Status: CompletedZofran 4 mg, 2 mL, Route: IVP, Drug form: INJ, ONCE, Dosing Weight 146, kg, Priority: STAT, Start date: 01/28/15 15:23:00, Stop date: 01/28/15 15:23:00 Notes: (Same as: Zofran) MEDICATION WASTE Product Size: 4 mgProduct Wasted: ___ mg Start Date: 01/28/15 Stop Date: 01/28/15 Status: CompletedZofran ODT 4 mg oral tablet, disintegrating 4 mg=1 tab, PO, BID, PRN Nausea and Vomiting, Dissolve tab under tongue, X 5 day , # 10 tab, 0 Refill(s) Special Instructions: Dissolve tab under tongue Start Date: 01/28/15 Stop Date: 02/02/15 Status: Ordered Results ELECTROLYTES Most recent to oldest [Reference Range]: 1 Sodium Lvl [135-145 mEq/L] 137 mEq/L (01/28/15 2:05 PM) Potassium Lvl [3.5-5.1 mEq/L] 3.8 mEq/L (01/28/15 2:05 PM) Chloride Lvl [95-109 mEq/L] 104 mEq/L (01/28/15 2:05 PM) CO2 [24-32 mEq/L] 21 mEq/L *LOW* (01/28/15 2:05 PM) AGAP [10.0-20.0 mEq/L] 15.8 mEq/L (01/28/15 2:05 PM) CHEM PANEL Most recent to oldest [Reference Range]: 1 Creatinine Lvl [0.5-1.4 mg/dL] 1.1 mg/dL (01/28/15 2:05 PM) eGFR 84 mL/min/1.73m2 1 *NA* (01/28/15 2:05 PM) BUN [7-22 mg/dL] 13 mg/dL (01/28/15 2:05 PM) B/C Ratio [6-25] 12 (01/28/15 2:05 PM) Glucose Lvl [70-99 mg/dL] 167 mg/dL *HI* (01/28/15 2:05 PM) Total Protein [6.4-8.4 g/dL] 7.8 g/dL (01/28/15 2:05 PM) Albumin Lvl [3.5-5.0 g/dL] 4.1 g/dL (01/28/15 2:05 PM) Globulin [2.0-4.0 g/dL] 3.7 g/dL (01/28/15 2:05 PM) A/G Ratio [0.7-1.6] 1.1 (01/28/15 2:05 PM) Calcium Lvl [8.5-10.5 mg/dL] 9.9 mg/dL (01/28/15 2:05 PM) ALT [0-65 unit/L] 170 unit/L *HI* (01/28/15 2:05 PM) AST [0-37 unit/L] 52 unit/L *HI* (01/28/15 2:05 PM) Alk Phos [39-136 unit/L] 140 unit/L *HI* (01/28/15 2:05 PM) Bili Total [0.2-1.3 mg/dL] 0.9 mg/dL (01/28/15 2:05 PM) Lipase Lvl [73-393 unit/L] 226 unit/L (01/28/15 2:05 PM) 1Result Comment: The eGFR is calculated [...] Most recent to oldest [Reference Range]: 1 UA Turbidity [Clear] Turbid *ABN* (01/28/15 2:05 PM) UA Color [Yellow] Red *ABN* (01/28/15 2:05 PM) UA pH [5.0-8.0] 7.0 (01/28/15 2:05 PM) UA Spec Grav [<=1.030] 1.015 (01/28/15 2:05 PM) UA Glucose [Negative] Negative (01/28/15 2:05 PM) UA Blood [Negative] Large *ABN* (01/28/15 2:05 PM) UA Ketones [Negative mg/dL] 40 mg/dL *ABN* (01/28/15 2:05 PM) UA Protein [Negative mg/dL] >=300 mg/dL *ABN* (01/28/15 2:05 PM) UA Urobilinogen [0.1-1.0 EU/dL] 1.0 EU/dL (01/28/15 2:05 PM) UA Bili [Negative] Small *ABN* (01/28/15 2:05 PM) UA Leuk Est [Negative] Trace *ABN* (01/28/15 2:05 PM) UA Nitrite [Negative] Positive *ABN* (01/28/15 2:05 PM) UA WBC [None Seen /HPF] 3-5 /HPF (01/28/15 2:05 PM) UA RBC [0-2 /HPF] >100 /HPF *ABN* (01/28/15 2:05 PM) UA Bacteria [None Seen /HPF] Few /HPF (01/28/15 2:05 PM) UA Sq Epi [Few /LPF] Few /LPF (01/28/15 2:05 PM) HEMATOLOGY Most recent to oldest [Reference Range]: 1 WBC [3.7-10.4 K/CMM] 7.9 K/CMM (01/28/15 2:05 PM) RBC [4.70-6.10 M/CMM] 4.84 M/CMM (01/28/15 2:05 PM) Hgb [14.0-18.0 g/dL] 16.1 g/dL (01/28/15 2:05 PM) Hct [42.0-54.0 %] 48.7 % (01/28/15 2:05 PM) MCV [80.0-94.0 fL] 100.6 fL *HI* (01/28/15 2:05 PM) MCH [27.0-31.0 pg] 33.2 pg *HI* (01/28/15 2:05 PM) MCHC [32.0-36.0 g/dL] 33.0 g/dL (01/28/15 2:05 PM) RDW [11.5-14.5 %] 14.6 % *HI* (01/28/15 2:05 PM) Platelet [133-450 K/CMM] 318 K/CMM (01/28/15 2:05 PM) MPV [7.4-10.4 fL] 9.6 fL (01/28/15 2:05 PM) Segs [45.0-75.0 %] 55.5 % (01/28/15 2:05 PM) Lymphocytes [20.0-40.0 %] 24.8 % (01/28/15 2:05 PM) Monocytes [2.0-12.0 %] 6.2 % (01/28/15 2:05 PM) Eosinophils [0.0-4.0 %] 12.7 % *HI* (01/28/15 2:05 PM) Basophils [0.0-1.0 %] 0.8 % (01/28/15 2:05 PM) Segs-Bands # [1.5-8.1 K/CMM] 4.4 K/CMM (01/28/15 2:05 PM) Lymphocytes # [1.0-5.5 K/CMM] 1.9 K/CMM (01/28/15 2:05 PM) Monocytes # [0.0-0.8 K/CMM] 0.5 K/CMM (01/28/15 2:05 PM) Eosinophils # [0.0-0.5 K/CMM] 1.0 K/CMM *HI* (01/28/15 2:05 PM) Basophils # [0.0-0.2 K/CMM] 0.1 K/CMM (01/28/15 2:05 PM) PT [12.0-14.7 seconds] 12.3 seconds (01/28/15 2:05 PM) INR [0.85-1.17] 0.92 (01/28/15 2:05 PM) PTT [22.9-35.8 seconds] 31.0 seconds (01/28/15 2:05 PM) Immunizations No data available for this section Procedures Procedure Date Related Diagnosis Body Site Cystoscopy1 01/18/15 Cystoscopic laser lithotripsy of ureteric 01/07/15 calculus2 Stent placement3 01/07/15 Appendectomy Cholecystectomy Lipoma of face Lipoma of hand4 Miscellaneous operations5 Shoulder joint operations6 1with left ureter stent [id number] [id number] [id number] hand removal of mmowmt3gkgp shoulder, left gzgd3qgzji shoulder Social History Social History Type Response Substance Abuse Use: None. IV drug use: No. Exercise 1 Employment/School Status: Employed. 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 Alcohol Current, Type Beer, Liquor. Frequency: 3-5 times per week. Alcohol use interferes with work or home: No. Drinks more than intended: No. Others hurt by drinking: No. Ready to change: No. Household alcohol concerns: No. 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
--- OUTSIDE RECORDS SUMMARY | 2018-12-12 20:45 | XMS REPORT | Summary of Care ---
:1975 Author Organization [facility] Address [address], [place] [address]- Encounter [facility](FIN) [id number] Date(s): 01/25/15 - 01/25/15 [facility] [address] [place] [address]- Discharge Diagnosis: Acute flank pain Discharge Disposition: Home Attending Physician: Heather Nolan DO Vital Signs Most recent to oldest [Reference Range]: 1 2 3 Height 182.88 cm (01/25/15 1:04 PM) Most recent to oldest 1 2 3 [Reference Range]: Temperature Oral [96.4-99.1 97.2 DegF 97.5 DegF 98.0 DegF DegF] (01/25/15 5:13 PM) (01/25/15 4:03 PM) (01/25/15 1:04 PM) Most recent to oldest 1 2 3 [Reference Range]: Blood Pressure [90-140/60-90 132/77 mmHg 146/88 mmHg 141/88 mmHg mmHg] (01/25/15 5:13 PM) *HI* *HI* (01/25/15 4:03 PM) (01/25/15 2:14 PM) Most recent to oldest 1 2 3 [Reference Range]: Respiratory Rate [14-20 BRMIN] 20 BRMIN 18 BRMIN 22 BRMIN (01/25/15 5:13 PM) (01/25/15 4:03 PM) *HI* (01/25/15 2:14 PM) Most recent to oldest 1 2 3 [Reference Range]: Peripheral Pulse Rate [60-100 98 bpm 92 bpm 98 bpm bpm] (01/25/15 5:13 PM) (01/25/15 4:03 PM) (01/25/15 2:14 PM) Most recent to oldest [Reference Range]: 1 2 3 Weight 150 kg (01/25/15 1:04 PM) Most recent to oldest [Reference Range]: 1 2 3 Body Mass Index 44.85 m2 (01/25/15 1:04 PM) Problem List Condition Effective Dates Status Health Status Informant Anxiety(Confirmed) Resolved Diabetes(Confirmed) Active DM (diabetes mellitus)(Confirmed) Active HTN (hypertension)(Confirmed) Resolved Hyperlipemia(Confirmed) Resolved Hypertension(Confirmed) Active Kidney stone(Confirmed) Resolved Allergies, Adverse Reactions, Alerts Substance Reaction Severity Status NKDA Active NKFA Active Medications cefTRIAXone 1 gm, Route: IVPB, ONCE, Dosing Weight 150, kg, Priority: STAT, Start date: 15:11:00, Stop date: 01/25/15 15:11:00 Start Date: 01/25/15 Stop Date: 01/25/15 Status: CompletedDilaudid 1 mg, Route: IV, ONCE, Dosing Weight 150, kg, Priority: STAT, Start date: 16:16:00, Stop date: 01/25/15 16:16:00 Start Date: 01/25/15 Stop Date: 01/25/15 Status: CompletedglipiZIDE PO, Daily, 0 Refill(s) Start Date: 01/25/15 Status: Orderedhydromorphone 2 mg, 1 mL, Route: IVP, Drug form: INJ, ONCE, Dosing Weight 150, kg, Priority: STAT, Start date: 01/25/15 13:44:00, Stop date: 01/25/15 13:44:00 Notes: (Same as: Dilaudid) Start Date: 01/25/15 Stop Date: 01/25/15 Status: Completedhydromorphone 1 mg, Route: IVP, ONCE, Dosing Weight 150, kg, Priority: STAT, Start date: 01/25 15:00:00, Stop date: 01/25/15 15:00:00 Start Date: 01/25/15 Stop Date: 01/25/15 Status: CompletedketOROLAC 30 mg, Route: IVP, ONCE, Dosing Weight 150, kg, Priority: STAT, Start date: 13:57:00, Stop date: 01/25/15 13:57:00 Start Date: 01/25/15 Stop Date: 01/25/15 Status: CompletedketOROLAC 10 mg oral tablet 10 mg=1 tab, PO, TID, X 5 day, # 15 tab, 0 Refill(s), Pharmacy: [facility]/pharmacy # [id number] Start Date: 01/25/15 Stop Date: 01/30/15 Status: OrderedNorco 10/325 oral tablet 2 tab, Route: PO, Dosing Weight 150, kg, ONCE, Start date: 01/25/15 17:19:00, Stop date: 01/25/15 17:19:00 Start Date: 01/25/15 Stop Date: 01/25/15 Status: CompletedNorco 10/325 oral tablet 1-2 tab, PO, Q4-6H, PRN Pain, X 5 day, # 30 tab, 0 Refill(s) Start Date: 01/25/15 Stop Date: 01/30/15 Status: Orderedondansetron 4 mg, 2 mL, Route: IVP, Drug form: INJ, ONCE, Dosing Weight 150, kg, Priority: STAT, Start date: 01/25/15 13:44:00, Stop date: 01/25/15 13:44:00 Notes: (Same as: Zofran) MEDICATION WASTE Product Size: 4 mgProduct Wasted: ___ mg Start Date: 01/25/15 Stop Date: 01/25/15 Status: CompletedSaline Flush 0.9% 10 mL, Route: IVP, Drug Form: INJ, Dosing Weight 150, kg, PRN, PRN Line Flush, Start date: 01/25/15 13:44:00, Duration: 30 day, Stop date: 02/24/15 13:43:00 Notes: (Same as: BD Posiflush) Start Date: 01/25/15 Stop Date: 01/25/15 Status: DiscontinuedSodium Chloride 0.9% (Bolus) IV 1,000 mL, 1000 ml/hr, Infuse Over: 1 hr, Route: IV, 1,000, Drug form: INJ, ONCE , Priority: STAT, Dosing Weight 150 kg, Start date: 01/25/15 13:44:00, Duration : 1 doses or times, Stop date: 01/25/15 13:44:00 Start Date: 01/25/15 Stop Date: 01/25/15 Status: CompletedZofran ODT 4 mg oral tablet, disintegrating 4 mg=1 tab, PO, TID, PRN Nausea and Vomiting, X 4 day, # 10 tab, 0 Refill(s), Pharmacy: [facility]/pharmacy#[id number] Start Date: 01/25/15 Stop Date: 01/29/15 Status: Ordered Results ELECTROLYTES Most recent to oldest [Reference Range]: 1 Sodium Lvl [135-145 mEq/L] 135 mEq/L (01/25/15 2:42 PM) Potassium Lvl [3.5-5.1 mEq/L] 3.8 mEq/L (01/25/15 2:42 PM) Chloride Lvl [95-109 mEq/L] 102 mEq/L (01/25/15 2:42 PM) CO2 [24-32 mEq/L] 21 mEq/L *LOW* (01/25/15 2:42 PM) AGAP [10.0-20.0 mEq/L] 15.8 mEq/L (01/25/15 2:42 PM) CHEM PANEL Most recent to oldest [Reference Range]: 1 Creatinine Lvl [0.5-1.4 mg/dL] 1.2 mg/dL (01/25/15 2:42 PM) eGFR 76 mL/min/1.73m2 1 *NA* (01/25/15 2:42 PM) BUN [7-22 mg/dL] 16 mg/dL (01/25/15 2:42 PM) B/C Ratio [6-25] 13 (01/25/15 2:42 PM) Glucose Lvl [70-99 mg/dL] 153 mg/dL *HI* (01/25/15 2:42 PM) Total Protein [6.4-8.4 g/dL] 8.1 g/dL (01/25/15 2:42 PM) Albumin Lvl [3.5-5.0 g/dL] 4.3 g/dL (01/25/15 2:42 PM) Globulin [2.0-4.0 g/dL] 3.8 g/dL (01/25/15 2:42 PM) A/G Ratio [0.7-1.6] 1.1 (01/25/15 2:42 PM) Calcium Lvl [8.5-10.5 mg/dL] 9.7 mg/dL (01/25/15 2:42 PM) ALT [0-65 unit/L] 141 unit/L *HI* (01/25/15 2:42 PM) AST [0-37 unit/L] 59 unit/L *HI* (01/25/15 2:42 PM) Alk Phos [39-136 unit/L] 129 unit/L (01/25/15 2:42 PM) Bili Total [0.2-1.3 mg/dL] 0.9 mg/dL (01/25/15 2:42 PM) 1Result Comment: The eGFR is calculated [...] oldest [Reference Range]: 1 UA Turbidity [Clear] Clear (01/25/15 2:42 PM) UA Color [Yellow] Weld *ABN* (01/25/15 2:42 PM) UA pH [5.0-8.0] 8.5 *HI* (01/25/15 2:42 PM) UA Spec Grav [<=1.030] 1.010 (01/25/15 2:42 PM) UA Glucose [Negative] Negative (01/25/15 2:42 PM) UA Blood [Negative] Large *ABN* (01/25/15 2:42 PM) UA Ketones [Negative] Negative *NA* (01/25/15 2:42 PM) UA Protein [Negative mg/dL] 100 mg/dL *ABN* (01/25/15 2:42 PM) UA Urobilinogen [0.1-1.0 EU/dL] 0.2 EU/dL (01/25/15 2:42 PM) UA Bili [Negative] Negative *NA* (01/25/15 2:42 PM) UA Leuk Est [Negative] Trace *ABN* (01/25/15 2:42 PM) UA Nitrite [Negative] Negative (01/25/15 2:42 PM) UA WBC [None Seen /HPF] 3-5 /HPF (01/25/15 2:42 PM) UA RBC [0-2 /HPF] >100 /HPF *ABN* (01/25/15 2:42 PM) UA Bacteria [None Seen /HPF] Occasional /HPF (01/25/15 2:42 PM) UA Sq Epi [Few] None Seen (01/25/15 2:42 PM) UA Mucus [None Seen /LPF] Few /LPF (01/25/15 2:42 PM) HEMATOLOGY Most recent to oldest [Reference Range]: 1 WBC [3.7-10.4 K/CMM] 11.5 K/CMM *HI* (01/25/15 2:42 PM) RBC [4.70-6.10 M/CMM] 5.13 M/CMM (01/25/15 2:42 PM) Hgb [14.0-18.0 g/dL] 17.1 g/dL (01/25/15 2:42 PM) Hct [42.0-54.0 %] 51.6 % (01/25/15 2:42 PM) MCV [80.0-94.0 fL] 100.7 fL *HI* (01/25/15 2:42 PM) MCH [27.0-31.0 pg] 33.4 pg *HI* (01/25/15 2:42 PM) MCHC [32.0-36.0 g/dL] 33.2 g/dL (01/25/15 2:42 PM) RDW [11.5-14.5 %] 15.4 % *HI* (01/25/15 2:42 PM) Platelet [133-450 K/CMM] 359 K/CMM (01/25/15 2:42 PM) MPV [7.4-10.4 fL] 10.0 fL (01/25/15 2:42 PM) Segs [45.0-75.0 %] 58.2 % (01/25/15 2:42 PM) Lymphocytes [20.0-40.0 %] 22.3 % (01/25/15 2:42 PM) Monocytes [2.0-12.0 %] 6.0 % (01/25/15 2:42 PM) Eosinophils [0.0-4.0 %] 12.6 % *HI* (01/25/15 2:42 PM) Basophils [0.0-1.0 %] 0.9 % (01/25/15 2:42 PM) Segs-Bands # [1.5-8.1 K/CMM] 6.7 K/CMM (01/25/15 2:42 PM) Lymphocytes # [1.0-5.5 K/CMM] 2.6 K/CMM (01/25/15 2:42 PM) Monocytes # [0.0-0.8 K/CMM] 0.7 K/CMM (01/25/15 2:42 PM) Eosinophils # [0.0-0.5 K/CMM] 1.4 K/CMM *HI* (01/25/15 2:42 PM) Basophils # [0.0-0.2 K/CMM] 0.1 K/CMM (01/25/15 2:42 PM) PT [12.0-14.7 seconds] 12.3 seconds (01/25/15 2:42 PM) INR [0.85-1.17] 0.92 (01/25/15 2:42 PM) PTT [22.9-35.8 seconds] 31.7 seconds (01/25/15 2:42 PM) Immunizations No data available for this section Procedures Procedure Date Related Diagnosis Body Site Cystoscopy1 01/18/15 Cystoscopic laser lithotripsy of ureteric 01/07/15 calculus2 Stent placement3 01/07/15 Appendectomy Cholecystectomy Lipoma of face Lipoma of hand4 Miscellaneous operations5 Shoulder joint operations6 1with left ureter stent vaxhzigky7jaokn bxlk5Csid strpjy0udll hand removal of hhjbtl1lvvj shoulder, left wopo4tolco shoulder Social History Social History Type Response Substance Abuse Use: None. IV drug use: No. Exercise 1 Employment/School Status: Employed. 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 Alcohol Current, Type Beer, Liquor. Frequency: 3-5 times per week. Alcohol use interferes with work or home: No. Drinks more than intended: No. Others hurt by drinking: No. Ready to change: No. Household alcohol concerns: No. 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
--- OUTSIDE RECORDS SUMMARY | 2018-12-12 20:45 | XMS REPORT | Summary of Care ---
:1975 Author Encounter FABY Kate([facility]) [id number] Date(s): 10/04/14 - 10/04/14 [facility] [address] [place] [address]- Discharge Diagnosis: Dizziness Discharge Disposition: Home Physician Attending: Amrik Yancey MD Vital Signs Most recent to oldest [Reference Range]: 1 2 Temperature Oral [96.4-99.1 DegF] 98.4 DegF 98.6 DegF (10/04/14 4:33 PM) (10/04/14 2:33 PM) Blood Pressure [90-140/60-90 mmHg] 129/72 mmHg 114/77 mmHg (10/04/14 4:33 PM) (10/04/14 2:33 PM) Respiratory Rate [14-20 BRMIN] 18 BRMIN 18 BRMIN (10/04/14 4:33 PM) (10/04/14 2:33 PM) Peripheral Pulse Rate [60-100 bpm] 82 bpm 108 bpm (10/04/14 4:33 PM) *HI* (10/04/14 2:33 PM) Weight 159.091 kg (10/04/14 2:33 PM) Problem List Condition Effective Dates Status Health Status Informant Anxiety(Confirmed) Resolved DM (diabetes mellitus)(Confirmed) Active Hyperlipemia(Confirmed) Resolved Hypertension(Confirmed) Active Allergies, Adverse Reactions, Alerts Substance Reaction Severity Status NKDA Active Medications meclizine 50 mg, 2 tab, Route: PO, Drug form: TAB, ONCE, Dosing Weight 159.091, kg, Priority: STAT, Start date: 10/04/14 14:45:00, Stop date: 10/04/14 14:45:00 Notes: (Same as: Antivert) Start Date: 10/04/14 Stop Date: 10/04/14 Status: Completedmeclizine 50 mg oral tablet 50 mg=1 tab, PO, BID, PRN Dizziness, # 20 tab, 0 Refill(s) Start Date: 10/04/14 Status: Orderedondansetron 4 mg, 2 mL, Route: IVP, Drug form: INJ, ONCE, Dosing Weight 159.091, kg, Priority: STAT, Start date:10/04/14 14:45:00, Stop date: 10/04/14 14:45:00 Notes: (Same as: Ho) MEDICATION WASTE Product Size: 4 mgProduct Wasted: ___ mg Start Date: 10/04/14 Stop Date: 10/04/14 Status: CompletedSaline Flush 0.9% 10 mL, Route: IVP, Drug Form: INJ, Dosing Weight 159.091, kg, PRN, PRN Line Flush, Start date: 10/04/14 14:45:00, Duration: 30 day, Stop date: 11/03/14 14: 44:00 Notes: (Same as: BD Posiflush) Start Date: 10/04/14 Stop Date: 10/04/14 Status: DiscontinuedSodium Chloride 0.9% (Bolus) IV 1,000 mL, 1,000 ml/hr, Infuse Over: 1 hr, Route: IV, ONCE, Priority: STAT, Dosing Weight 159.091 kg,Start date: 10/04/14 14:45:00, Duration: 1 doses or times, Stop date: 10/04/14 14:45:00 Start Date: 10/04/14 Stop Date: 10/04/14 Status: Completed Results ELECTROLYTES Most recent to oldest [Reference Range]: 1 Sodium Lvl [135-145 mEq/L] 140 mEq/L (10/04/14 2:55 PM) Potassium Lvl [3.5-5.1 mEq/L] 3.5 mEq/L (10/04/14 2:55 PM) Chloride Lvl [95-109 mEq/L] 107 mEq/L (10/04/14 2:55 PM) CO2 [24-32 mEq/L] 24 mEq/L (10/04/14 2:55 PM) AGAP [10.0-20.0 mEq/L] 12.5 mEq/L (10/04/14 2:55 PM) CHEM PANEL Most recent to oldest [Reference Range]: 1 Creatinine Lvl [0.5-1.4 mg/dL] 1.4 mg/dL (10/04/14 2:55 PM) eGFR 63 mL/min/1.73m2 1 *NA* (10/04/14 2:55 PM) BUN [7-22 mg/dL] 12 mg/dL (10/04/14 2:55 PM) B/C Ratio [6-25] 9 (10/04/14 2:55 PM) Glucose Lvl [70-99 mg/dL] 140 mg/dL 2 *HI* (10/04/14 2:55 PM) Total Protein [6.4-8.4 g/dL] 7.9 g/dL (10/04/14 2:55 PM) Albumin Lvl [3.5-5.0 g/dL] 4.4 g/dL (10/04/14 2:55 PM) Globulin [2.0-4.0 g/dL] 3.5 g/dL (10/04/14 2:55 PM) A/G Ratio [0.7-1.6] 1.3 (10/04/14 2:55 PM) Calcium Lvl [8.5-10.5 mg/dL] 9.9 mg/dL (10/04/14 2:55 PM) ALT [0-65 unit/L] 117 unit/L *HI* (10/04/14 2:55 PM) AST [0-37 unit/L] 37 unit/L (10/04/14 2:55 PM) Alk Phos [39-136 unit/L] 96 unit/L (10/04/14 2:55 PM) Bili Total [0.2-1.3 mg/dL] 0.6 mg/dL (10/04/14 2:55 PM) 1Result Comment: The eGFR is calculated [...] eGFR should be multiplied by the estimated BMI.2Interpretive Data: Adult reference range values reflect the clinical guidelines of the [place] [employer].CARDIAC ENZYMES Most recent to oldest [Reference Range]: 1 Total CK [12-191 unit/L] 105 unit/L (10/04/14 2:55 PM) CK MB [0.5-3.6 ng/mL] 0.5 ng/mL (10/04/14 2:55 PM) CK MB Index [0.0-2.5] 0.5 (10/04/14 2:55 PM) Troponin-I [0.00-0.40 ng/mL] <0.02 ng/mL (10/04/14 2:55 PM) HEMATOLOGY Most recent to oldest [Reference Range]: 1 WBC [3.7-10.4 K/CMM] 10.1 K/CMM (10/04/14 2:55 PM) RBC [4.70-6.10 M/CMM] 4.61 M/CMM *LOW* (10/04/14 2:55 PM) Hgb [14.0-18.0 g/dL] 16.0 g/dL (10/04/14 2:55 PM) Hct [42.0-54.0 %] 46.2 % (10/04/14 2:55 PM) MCV [80.0-94.0 fL] 100.0 fL *HI* (10/04/14 2:55 PM) MCH [27.0-31.0 pg] 34.7 pg *HI* (10/04/14 2:55 PM) MCHC [32.0-36.0 g/dL] 34.7 g/dL (10/04/14 2:55 PM) RDW [11.5-14.5 %] 12.2 % (10/04/14 2:55 PM) Platelet [133-450 K/CMM] 302 K/CMM (10/04/14 2:55 PM) MPV [7.4-10.4 fL] 9.6 fL (10/04/14 2:55 PM) Segs [45.0-75.0 %] 64.9 % (10/04/14 2:55 PM) Lymphocytes [20.0-40.0 %] 20.1 % (10/04/14 2:55 PM) Monocytes [2.0-12.0 %] 9.9 % (10/04/14 2:55 PM) Eosinophils [0.0-4.0 %] 4.8 % *HI* (10/04/14 2:55 PM) Basophils [0.0-1.0 %] 0.3 % (10/04/14 2:55 PM) Segs-Bands # [1.5-8.1 K/CMM] 6.6 K/CMM (10/04/14 2:55 PM) Lymphocytes # [1.0-5.5 K/CMM] 2.0 K/CMM (10/04/14 2:55 PM) Monocytes # [0.0-0.8 K/CMM] 1.0 K/CMM *HI* (10/04/14 2:55 PM) Eosinophils # [0.0-0.5 K/CMM] 0.5 K/CMM (10/04/14 2:55 PM) Basophils # [0.0-0.2 K/CMM] 0.0 K/CMM (10/04/14 2:55 PM) Immunizations No data available for this section Procedures Procedure Date Related Diagnosis Body Site Appendectomy Appendectomy Cholecystectomy Cholecystectomy Lipoma of face Lipoma of hand1 Miscellaneous operations2 Shoulder joint operations3 1left hand removal of [id number] shoulder, left [id number] shoulder Social History Social History Type Response Employment/School Status: Employed. 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 Alcohol Never Smoking Status Current some day smoker; Type: Cigarettes; Lives with someone who smokes; Cigarette Smoking Last 365 Days No; Reg Smoking Cessation Counseling No Assessment and Plan No data available for this section
--- OUTSIDE RECORDS SUMMARY | 2018-12-12 20:46 | XMS REPORT | Summary of Care ---
:1975 Author Encounter FABY Kate([facility]) [id number] Date(s): 12/20/14 - 12/20/14 [facility] [address] [place] [address]- Discharge Diagnosis: Abdominal pain Discharge Disposition: Home Physician Attending: Amrik Yancey MD Vital Signs Most recent to oldest 1 2 3 [Reference Range]: Height 182.88 cm (12/20/14 8:36 AM) Temperature Oral [96.4-99.1 98.1 DegF 98.3 DegF 98.3 DegF DegF] (12/20/14 1:12 PM) (12/20/14 10:39 AM) (12/20/14 8:36 AM) Blood Pressure [90-140/60-90 120/75 mmHg 115/68 mmHg 100/66 mmHg mmHg] (12/20/14 1:12 PM) (12/20/14 11:17 AM) (12/20/14 10:39 AM) Respiratory Rate [14-20 17 BRMIN 16 BRMIN 19 BRMIN BRMIN] (12/20/14 1:12 PM) (12/20/14 11:17 AM) (12/20/14 10:39 AM) Peripheral Pulse Rate [60-100 96 bpm 99 bpm 98 bpm bpm] (12/20/14 1:12 PM) (12/20/14 11:17 AM) (12/20/14 10:39 AM) Weight 150.455 kg (12/20/14 8:36 AM) Body Mass Index 44.99 m2 (12/20/14 8:36 AM) Problem List Condition Effective Dates Status Health Status Informant Anxiety(Confirmed) Resolved DM (diabetes mellitus)(Confirmed) Active Hyperlipemia(Confirmed) Resolved Hypertension(Confirmed) Active Kidney stone(Confirmed) Resolved Allergies, Adverse Reactions, Alerts Substance Reaction Severity Status NKDA Active Medications hydromorphone 1 mg, Route: IVP, ONCE, Dosing Weight 150.455, kg, Priority: STAT, Start date: 12/20/14 10:42:00, Stop date: 12/20/14 10:42:00 Start Date: 12/20/14 Stop Date: 12/20/14 Status: Completedmorphine Sulfate 4 mg, Route: IVP, ONCE, Dosing Weight 150.455, kg, Priority: STAT, Start date: 12/20/14 8:50:00, Stop date: 12/20/14 8:50:00 Start Date: 12/20/14 Stop Date: 12/20/14 Status: CompletedNS 1000 mL 1,000 mL, Rate: 1,000 ml/hr, Infuse over: 1 hr, Route: IV, Dosing Weight 150.455 kg, Total Volume: 1,000, Start date: 12/20/14 10:31:00, Duration: 1 doses or times, Stop date: 12/20/14 11:30:00, Bolus Dose Special Instructions: Bolus Dose Start Date: 12/20/14 Stop Date: 12/20/14 Status: Completedondansetron 4 mg, Route: IVP, ONCE, Dosing Weight 150.455, kg, Priority: STAT, Start date: 12/20/14 8:50:00, Stop date: 12/20/14 8:50:00 Start Date: 12/20/14 Stop Date: 12/20/14 Status: Completedondansetron 4 mg, Route: IVP, ONCE, Dosing Weight 150.455, kg, Priority: STAT, Start date: 12/20/14 10:42:00, Stop date: 12/20/14 10:42:00 Start Date: 12/20/14 Stop Date: 12/20/14 Status: CompletedReglan 10 mg, Route: IVP, Drug form: INJ, ONCE, Dosing Weight 150.455, kg, Priority: STAT, Start date: 12/20/14 11:05:00, Stop date: 12/20/14 11:05:00 Start Date: 12/20/14 Stop Date: 12/20/14 Status: CompletedSaline Flush 0.9% 10 mL, Route: IVP, Drug Form: INJ, Dosing Weight 150.455, kg, PRN, PRN Line Flush, Start date: 12/20/14 8:50:00, Duration: 30 day, Stop date: 01/19/15 8:49: 00 Notes: (Same as: BD Posiflush) Start Date: 12/20/14 Stop Date: 12/20/14 Status: DiscontinuedSodium Chloride 0.9% (Bolus) IV 1,000 mL, Infuse Over: 1 hr, Route: IV, ONCE, Priority: STAT, Dosing Weight 150.455 kg, Start date: 12/20/14 8:50:00, Duration: 1 doses or times, Stop date : 12/20/14 8:50:00 Start Date: 12/20/14 Stop Date: 12/20/14 Status: CompletedTylenol with Codeine #3 oral tablet 1 tab, PO, Q6H, PRN as needed for pain, X 4 day, # 16 tab, 0 Refill(s) Start Date: 12/20/14 Stop Date: 12/24/14 Status: OrderedZofran ODT 4 mg oral tablet, disintegrating 4 mg=1 tab, PO, TID, PRN Nausea and Vomiting, X 4 day, # 10 tab, 0 Refill(s) Start Date: 12/20/14 Stop Date: 12/24/14 Status: Ordered Results ELECTROLYTES Most recent to oldest [Reference Range]: 1 Sodium Lvl [135-145 mEq/L] 136 mEq/L (12/20/14 9:26 AM) Potassium Lvl [3.5-5.1 mEq/L] 3.5 mEq/L (12/20/14 9:26 AM) Chloride Lvl [95-109 mEq/L] 101 mEq/L (12/20/14 9:26 AM) CO2 [24-32 mEq/L] 22 mEq/L *LOW* (12/20/14 9:26 AM) AGAP [10.0-20.0 mEq/L] 16.5 mEq/L (12/20/14 9:26 AM) CHEM PANEL Most recent to oldest [Reference Range]: 1 Creatinine Lvl [0.5-1.4 mg/dL] 1.6 mg/dL *HI* (12/20/14 9:26 AM) eGFR 53 mL/min/1.73m2 1 *NA* (12/20/14:26 AM) BUN [7-22 mg/dL] 19 mg/dL (12/20/14:26 AM) B/C Ratio [6-25] 12 (12/20/14: AM) Glucose Lvl [70-99 mg/dL] 182 mg/dL 2 *HI* (12/20/14: AM) Total Protein [6.4-8.4 g/dL] 7.9 g/dL (12/20/14 AM) Albumin Lvl [3.5-5.0 g/dL] 4.1 g/dL (12/20/14: AM) Globulin [2.0-4.0 g/dL] 3.8 g/dL (12/20/14: AM) A/G Ratio [0.7-1.6] 1.1 (12/20/14: AM) Calcium Lvl [8.5-10.5 mg/dL] 10.4 mg/dL (12/20/14: AM) ALT [0-65 unit/L] 71 unit/L *HI* (12/20/14:26 AM) AST [0-37 unit/L] 22 unit/L (12/20/14: AM) Alk Phos [39-136 unit/L] 108 unit/L (12/20/14: AM) Bili Total [0.2-1.3 mg/dL] 0.9 mg/dL (12/20/14:26 AM) Amylase Lvl [25-115 unit/L] 64 unit/L (12/20/14:26 AM) Lipase Lvl [73-393 unit/L] 204 unit/L (12/20/14:26 AM) 1Result Comment: The eGFR is calculated [...] values reflect the clinical guidelines of the [place] [employer].HEMATOLOGY Most recent to oldest [Reference Range]: 1 WBC [3.7-10.4 K/CMM] 10.1 K/CMM (12/20/14 9:26 AM) RBC [4.70-6.10 M/CMM] 4.81 M/CMM (12/20/14: AM) Hgb [14.0-18.0 g/dL] 16.1 g/dL (12/20/14: AM) Hct [42.0-54.0 %] 48.0 % (12/20/14: AM) MCV [80.0-94.0 fL] 99.6 fL *HI* (12/20/14: AM) MCH [27.0-31.0 pg] 33.6 pg *HI* (12/20/14: AM) MCHC [32.0-36.0 g/dL] 33.7 g/dL (12/20/14: AM) RDW [11.5-14.5 %] 14.7 % *HI* (12/20/14: AM) Platelet [133-450 K/CMM] 311 K/CMM (12/20/14: AM) MPV [7.4-10.4 fL] 9.3 fL (12/20/14:26 AM) Segs [45.0-75.0 %] 61.2 % (12/20/14: AM) Lymphocytes [20.0-40.0 %] 27.3 % (12/20/14: AM) Monocytes [2.0-12.0 %] 8.6 % (12/20/14: AM) Eosinophils [0.0-4.0 %] 2.5 % (12/20/14: AM) Basophils [0.0-1.0 %] 0.4 % (12/20/14 9:26 AM) Segs-Bands # [1.5-8.1 K/CMM] 6.2 K/CMM (12/20/14 9:26 AM) Lymphocytes # [1.0-5.5 K/CMM] 2.8 K/CMM (12/20/14 9:26 AM) Monocytes # [0.0-0.8 K/CMM] 0.9 K/CMM *HI* (12/20/14 9:26 AM) Eosinophils # [0.0-0.5 K/CMM] 0.3 K/CMM (12/20/14 9:26 AM) Basophils # [0.0-0.2 K/CMM] 0.0 K/CMM (12/20/14 9:26 AM) Immunizations No data available for this section Procedures Procedure Date Related Diagnosis Body Site Appendectomy Appendectomy Cholecystectomy Cholecystectomy Lipoma of face Lipoma of hand1 Miscellaneous operations2 Shoulder joint operations3 1left hand removal of [id number] shoulder, left [id number] shoulder Social History Social History Type Response Employment/School Status: Employed. 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 Alcohol Never Smoking Status Current every day smoker; Type: Cigarettes; Previous treatment: None; Ready to change: No; Concerns about tobacco use in household: No; Lives with someone who smokes; Cigarette Smoking Last 365 Days No; Reg Smoking Cessation Counseling No Assessment and Plan No data available for this section
--- OUTSIDE RECORDS SUMMARY | 2018-12-12 20:46 | XMS REPORT | Summary of Care ---
:1975 Author Encounter FABY Kate([facility]) [id number] Date(s): 10/18/14 - 10/18/14 [facility] [address] [place] [address]- Discharge Diagnosis: Ureterolithiasis Discharge Disposition: Home Physician Attending: Ethel Hamm DO Vital Signs Most recent to oldest [Reference Range]: 1 2 Temperature Oral [96.4-99.1 DegF] 98.6 DegF 97.4 DegF (10/18/14 11:11 PM) (10/18/14 7:46 PM) Blood Pressure [90-140/60-90 mmHg] 134/96 mmHg 122/90 mmHg (10/18/14 11:11 PM) (10/18/14 7:46 PM) Respiratory Rate [14-20 BRMIN] 20 BRMIN 20 BRMIN (10/18/14 11:11 PM) (10/18/14 7:46 PM) Peripheral Pulse Rate [60-100 bpm] 115 bpm 112 bpm *HI* *HI* (10/18/14 11:11 PM) (10/18/14 7:46 PM) Weight 151.534 kg (10/18/14 7:46 PM) Problem List Condition Effective Dates Status Health Status Informant Anxiety(Confirmed) Resolved DM (diabetes mellitus)(Confirmed) Active Hyperlipemia(Confirmed) Resolved Hypertension(Confirmed) Active Kidney stone(Confirmed) Resolved Allergies, Adverse Reactions, Alerts Substance Reaction Severity Status NKDA Active Medications Dilaudid 1 mg, 0.5 mL, Route: IV, Drug form: INJ, ONCE, Dosing Weight 151.534, kg, Start date: 10/18/14 21:13:00, Stop date: 10/18/14 21:13:00 Notes: (Same as: Dilaudid) Start Date: 10/18/14 Stop Date: 10/18/14 Status: CompletedDilaudid 1 mg, 0.5 mL, Route: IV, Drug form: INJ, ONCE, Dosing Weight 151.534, kg, Start date: 10/18/14 22:53:00, Stop date: 10/18/14 22:53:00 Notes: (Same as: Dilaudid) Start Date: 10/18/14 Stop Date: 10/18/14 Status: Completedhydromorphone 1 mg, Route: IVP, ONCE, Dosing Weight 151.534, kg, Priority: STAT, Start date: 10/18/14 20:30:00, Stop date: 10/18/14 20:30:00 Start Date: 10/18/14 Stop Date: 10/18/14 Status: CompletedketOROLAC 30 mg, Route: IVP, ONCE, Dosing Weight 151.534, kg, Priority: STAT, Start date: 10/18/14 20:30:00, Stop date: 10/18/14 20:30:00 Start Date: 10/18/14 Stop Date: 10/18/14 Status: CompletedNorco 5/325 oral tablet 1 tab, PO, Q6H, # 24 tab, 0 Refill(s) Start Date: 10/18/14 Stop Date: 10/24/14 Status: Orderedondansetron 4 mg, Route: IVP, ONCE, Dosing Weight 151.534, kg, Priority: STAT, Start date: 10/18/14 20:30:00, Stop date: 10/18/14 20:30:00 Start Date: 10/18/14 Stop Date: 10/18/14 Status: CompletedSaline Flush 0.9% 10 mL, Route: IVP, Drug Form: INJ, Dosing Weight 151.534, kg, PRN, PRN Line Flush, Start date: 10/18/14 20:30:00, Duration: 30 day, Stop date: 11/17/14 20: 29:00 Notes: (Same as: BD Posiflush) Start Date: 10/18/14 Stop Date: 10/18/14 Status: DiscontinuedSodium Chloride 0.9% (Bolus) IV 1,000 mL, Infuse Over: 1 hr, Route: IV, ONCE, Priority: STAT, Dosing Weight 151.534 kg, Start date: 10/18/14 20:30:00, Duration: 1 doses or times, Stop date : 10/18/14 20:30:00 Start Date: 10/18/14 Stop Date: 10/18/14 Status: Completed Results ELECTROLYTES Most recent to oldest [Reference Range]: 1 2 Sodium Lvl [135-145 mEq/L] 140 mEq/L (10/18/14 8:38 PM) Potassium Lvl [3.5-5.1 mEq/L] 4.0 mEq/L (10/18/14 8:38 PM) Chloride Lvl [95-109 mEq/L] 106 mEq/L (10/18/14 8:38 PM) CO2 [24-32 mEq/L] 25 mEq/L (10/18/14 8:38 PM) AGAP [10.0-20.0 mEq/L] 13.0 mEq/L (10/18/14 8:38 PM) CHEM PANEL Most recent to oldest [Reference Range]: 1 2 Creatinine Lvl [0.5-1.4 mg/dL] 1.2 mg/dL (10/18/14 8:38 PM) eGFR 76 mL/min/1.73m2 1 *NA* (10/18/14 8:38 PM) BUN [7-22 mg/dL] 11 mg/dL (10/18/14 8:38 PM) B/C Ratio [6-25] 9 (10/18/14 8:38 PM) Glucose Lvl [70-99 mg/dL] 135 mg/dL 2 *HI* (10/18/14 8:38 PM) Total Protein [6.4-8.4 g/dL] 7.7 g/dL (10/18/14 8:38 PM) Albumin Lvl [3.5-5.0 g/dL] 4.1 g/dL (10/18/14 8:38 PM) Globulin [2.0-4.0 g/dL] 3.6 g/dL (10/18/14 8:38 PM) A/G Ratio [0.7-1.6] 1.1 (10/18/14 8:38 PM) Calcium Lvl [8.5-10.5 mg/dL] 9.8 mg/dL (10/18/14 8:38 PM) ALT [0-65 unit/L] 226 unit/L *HI* (10/18/14 8:38 PM) AST [0-37 unit/L] 104 unit/L *HI* (10/18/14 8:38 PM) Alk Phos [39-136 unit/L] 120 unit/L (10/18/14 8:38 PM) Bili Total [0.2-1.3 mg/dL] 0.7 mg/dL (10/18/14 8:38 PM) Amylase Lvl [25-115 unit/L] 111 unit/L (10/18/14 10:17 PM) Lipase Lvl [73-393 unit/L] 815 unit/L 1016 unit/L *HI* *HI* (10/18/14 10:17 PM) (10/18/14 8:38 PM) 1Result Comment: The eGFR is calculated [...] values reflect the clinical guidelines of the [place] [employer].URINE AND STOOL Most recent to oldest [Reference Range]: 1 2 UA Turbidity [Clear] Clear (10/18/14 8:38 PM) UA Color [Yellow] Yellow *NA* (10/18/14 8:38 PM) UA pH [5.0-8.0] 6.0 (10/18/14 8:38 PM) UA Spec Grav [<=1.030] 1.010 (10/18/14 8:38 PM) UA Glucose [Negative] Negative (10/18/14 8:38 PM) UA Blood [Negative] Large *ABN* (10/18/14 8:38 PM) UA Ketones [Negative] Negative *NA* (10/18/14 8:38 PM) UA Protein [Negative] Negative (10/18/14 8:38 PM) UA Urobilinogen [0.1-1.0 EU/dL] 0.2 EU/dL (10/18/14 8:38 PM) UA Bili [Negative] Negative *NA* (10/18/14 8:38 PM) UA Leuk Est [Negative] Negative (10/18/14 8:38 PM) UA Nitrite [Negative] Negative (10/18/14 8:38 PM) UA WBC [None Seen /HPF] 3-5 /HPF (10/18/14 8:38 PM) UA RBC [0-2 /HPF] 21-50 /HPF *ABN* (10/18/14 8:38 PM) UA Bacteria [None Seen /HPF] Occasional /HPF (10/18/14 8:38 PM) UA Sq Epi [Few /LPF] Occasional /LPF (10/18/14 8:38 PM) HEMATOLOGY Most recent to oldest [Reference Range]: 1 2 WBC [3.7-10.4 K/CMM] 8.1 K/CMM (10/18/14 8:38 PM) RBC [4.70-6.10 M/CMM] 4.60 M/CMM *LOW* (10/18/14 8:38 PM) Hgb [14.0-18.0 g/dL] 15.4 g/dL (10/18/14 8:38 PM) Hct [42.0-54.0 %] 46.2 % (10/18/14 8:38 PM) MCV [80.0-94.0 fL] 100.3 fL *HI* (10/18/14 8:38 PM) MCH [27.0-31.0 pg] 33.5 pg *HI* (10/18/14 8:38 PM) MCHC [32.0-36.0 g/dL] 33.4 g/dL (10/18/14 8:38 PM) RDW [11.5-14.5 %] 12.3 % (10/18/14 8:38 PM) Platelet [133-450 K/CMM] 287 K/CMM (10/18/14 8:38 PM) MPV [7.4-10.4 fL] 10.2 fL (10/18/14 8:38 PM) Segs [45.0-75.0 %] 42.9 % *LOW* (10/18/14 8:38 PM) Lymphocytes [20.0-40.0 %] 39.5 % (10/18/14 8:38 PM) Monocytes [2.0-12.0 %] 9.4 % (10/18/14 8:38 PM) Eosinophils [0.0-4.0 %] 7.7 % *HI* (10/18/14 8:38 PM) Basophils [0.0-1.0 %] 0.5 % (10/18/14 8:38 PM) Segs-Bands # [1.5-8.1 K/CMM] 3.5 K/CMM (10/18/14 8:38 PM) Lymphocytes # [1.0-5.5 K/CMM] 3.2 K/CMM (10/18/14 8:38 PM) Monocytes # [0.0-0.8 K/CMM] 0.8 K/CMM (10/18/14 8:38 PM) Eosinophils # [0.0-0.5 K/CMM] 0.6 K/CMM *HI* (10/18/14 8:38 PM) Basophils # [0.0-0.2 K/CMM] 0.0 K/CMM (10/18/14 8:38 PM) Immunizations No data available for this section Procedures Procedure Date Related Diagnosis Body Site Appendectomy Appendectomy Cholecystectomy Cholecystectomy Lipoma of face Lipoma of hand1 Miscellaneous operations2 Shoulder joint operations3 1left hand removal of [id number] shoulder, left [id number] shoulder Social History Social History Type Response Employment/School Status: Employed. 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
--- OUTSIDE RECORDS SUMMARY | 2018-12-12 20:46 | XMS REPORT | Summary of Care ---
:1975 Author Encounter FABY Kate(ARVIND) [id number] Date(s): 01/06/15 - 01/07/15 [facility] [address] [place] [address]- Discharge Disposition: Home Physician Attending: Duncan Simmons MD Physician Admitting: Duncan Simmons MD Vital Signs Most recent to oldest [Reference 1 2 3 Range]: Height 182.88 cm (01/07/15 12:26 AM) Temperature Oral [96.4-99.1 97.5 DegF 98.0 DegF 98.3 DegF DegF] (01/07/15 6:00 PM) (01/07/15 5:45 PM) (01/07/15 5:30 PM) Blood Pressure [90-140/60-90 140/72 mmHg 136/80 mmHg 142/76 mmHg mmHg] (01/07/15 6:00 PM) (01/07/15 5:45 PM) *HI* (01/07/15 5:30 PM) Respiratory Rate [14-20 BRMIN] 14 BRMIN 15 BRMIN 18 BRMIN (01/07/15 6:00 PM) (01/07/15 5:45 PM) (01/07/15 5:30 PM) Peripheral Pulse Rate [60-100 94 bpm 105 bpm 86 bpm bpm] (01/07/15 12:00 PM) *HI* (01/07/15 5:15 AM) (01/07/15 7:32 AM) Weight 151.051 kg 150.909 kg (01/07/15 12:26 AM) (01/06/15 10:07 PM) Body Mass Index 45.16 m2 (01/07/15 12:26 AM) Problem List Condition Effective Dates Status Health Status Informant Anxiety(Confirmed) Resolved DM (diabetes mellitus)(Confirmed) Active HTN (hypertension)(Confirmed) Resolved Hyperlipemia(Confirmed) Resolved Hypertension(Confirmed) Active Kidney stone(Confirmed) Resolved Allergies, Adverse Reactions, Alerts Substance Reaction Severity Status NKDA Active NKFA Active Medications acetaminophen 1,000 mg, 100 mL, Route: IVPB, Drug form: INJ, ONCE, Dosing Weight 151.051, kg, PRN Pain Score 1-3, Start date: 01/07/15 16:22:00, Duration: 1 doses or times, Stop date: Limited # of times Notes: Infuse over 15 minutesDo not exceed 4gm/day of acetaminophen MEDICATION WASTE ProductSize: 1000 mgProduct Wasted: ___ mg Start Date: 01/07/15 Stop Date: 01/07/15 Status: DiscontinuedCipro 250 mg oral tablet 250 mg=1 tab, PO, Q12H, X 7 day, # 14 tab, 0 Refill(s) Start Date: 01/07/15 Stop Date: 01/14/15 Status: OrderedCipro I.V. 400 mg/200 mL intravenous solution 400 mg, Route: IVPB, PRE OP, Dosing Weight 151.051, kg, Start date: 01/07/15 14: 00:00 Start Date: 01/07/15 Stop Date: 01/07/15 Status: CompletedColace 100 mg oral capsule 100 mg=1 cap, PO, BID, PRN Constipation, # 60 cap, 0 Refill(s) Start Date: 01/07/15 Status: Ordereddexamethasone 4 mg, 1 mL, Route: IVP, Drug form: INJ, ONCE, Dosing Weight 151.051, kg, PRN Nausea & Vomiting, Start date: 01/07/15 16:22:00 Notes: Concentration: 4mg/ml Start Date: 01/07/15 Stop Date: 01/07/15 Status: DiscontinuedDextrose 50% Syringe 25 gm, 50 mL, Route: IVP, Drug Form: INJ, Dosing Weight 151.051, kg, PRN, PRN Blood Glucose Results,Start date: 01/07/15 1:09:00, Duration: 30 day, Stop date : 02/06/15 1:08:00 Start Date: 01/07/15 Stop Date: 01/07/15 Status: DiscontinuedDextrose 50% Syringe 12.5 gm, 25 mL, Route: IVP, Drug Form: INJ, Dosing Weight 151.051, kg, PRN, PRN Blood Glucose Results, Start date: 01/07/15 1:09:00, Duration: 30 day, Stop date : 02/06/15 1:08:00 Start Date: 01/07/15 Stop Date: 01/07/15 Status: DiscontinuedDilaudid 1 mg, Route: IV, ONCE, Dosing Weight 150.909, kg, Start date: 01/06/15 22:56:00 , Stop date: 01/06/1522:56:00 Start Date: 01/06/15 Stop Date: 01/06/15 Status: CompletedDilaudid 0.5 mg, 0.25 mL, Route: IV, Drug form: INJ, Q3H, Dosing Weight 151.051, kg, PRN Pain Score 7-10, Start date: 01/07/15 1:11:00, Duration: 30 day, Stop date: 11/16 1:10:00 Notes: (Same as: Dilaudid) Start Date: 01/07/15 Stop Date: 01/07/15 Status: Discontinueddocusate 100 mg, 1 cap, Route: PO, Drug form: CAP, BID, Dosing Weight 150.909, kg, PRN Constipation, Start date: 01/06/15 23:23:00, Duration: 30 day, Stop date: 23:22:00 Notes: (Same as: Colace) (Do Not Crush) Start Date: 01/06/15 Stop Date: 01/07/15 Status: DiscontinuedfentaNYL 50 microgram, 1 mL, Route: IVP, Drug form: INJ, Q5Min, Dosing Weight 151.051, kg , PRN Pain Score 7-10, Start date: 01/07/15 16:22:00, Duration: 2 doses or times , Stop date: Limited # of times Notes: (Same as: Sublimaze) Preservative free. Start Date: 01/07/15 Stop Date: 01/07/15 Status: DiscontinuedFlomax 0.4 mg, 1 cap, Route: PO, Drug form: CAP, After Dinner, Dosing Weight 151.051, kg, Priority: NOW, Start date: 01/07/15 1:09:00, Duration: 30 day, Stop date: 17:00:00 Notes: (Same As: Flomax) "Do Not Crush" Start Date: 01/07/15 Stop Date: 01/07/15 Status: DiscontinuedFlomax 0.4 mg oral capsule =1 tab, PO, Daily, # 14 tab, 0 Refill(s) Start Date: 01/07/15 Stop Date: 01/21/15 Status: Orderedflumazenil 0.2 mg, 2 mL, Route: IVP, Drug form: INJ, PRN, Dosing Weight 151.051, kg, PRN Benzodiazepine Reversal, Initial dose, Start date: 01/07/15 16:22:00, Duration: 30 day, Stop date: 02/06/15 16:21:00 Notes: (Same as: Romazicon) Start Date: 01/07/15 Stop Date: 01/07/15 Status: Discontinuedglucagon 1 mg, Route: IM, Drug form: PDR/INJ, PRN, Dosing Weight 151.051, kg, PRN Blood Glucose Results, Start date: 01/07/15 1:09:00, Duration: 30 day, Stop date: 11/16 1:08:00 Start Date: 01/07/15 Stop Date: 01/07/15 Status: Discontinuedhydromorphone 1 mg, 0.5 mL, Route: IVP, Drug form: INJ, ONCE, Dosing Weight 150.909, kg, Priority: STAT, Start date: 01/06/15 22:10:00, Stop date: 01/06/15 22:10:00 Notes: (Same as: Dilaudid) Start Date: 01/06/15 Stop Date: 01/06/15 Status: Completedhydromorphone 0.5 mg, 0.25 mL, Route: IVP, Drug form: INJ, Q5Min, Dosing Weight 151.051, kg, PRN Pain Score 7-10, Start date: 01/07/15 16:22:00, Duration: 4 doses or times, Stop date: Limited # of times Notes: (Same as: Dilaudid) Start Date: 01/07/15 Stop Date: 01/07/15 Status: Discontinuedhydromorphone 0.5 mg, 0.25 mL, Route: IVP, Drug form: INJ, Q2H, Dosing Weight 151.051, kg, PRN Pain Score 7-10, Start date: 01/07/15 8:56:00, Duration: 30 day, Stop date: 02/06/15 8:55:00 Notes: (Same as: Dilaudid) Start Date: 01/07/15 Stop Date: 01/07/15 Status: Discontinuedinsulin aspart 4 unit, 0.04 mL, Route: SUB-Q, Drug form: SOLN, Sliding Scale, Dosing Weight 151.051, kg, PRN Blood Glucose Results, Start date: 01/07/15 1:09:00, Duration: 30 day, Stop date: 02/06/15 1:08:00 Notes: Roll in palms of hands gently; Do not shake vigorously. (Same as: NovoLOG)"single patient use only" Stable for 28 days at room temperature.Expires in days from Date Start Date: 01/07/15 Stop Date: 01/07/15 Status: Discontinuedinsulin aspart 10 unit, 0.1 mL, Route: SUB-Q, Drug form: SOLN, Sliding Scale, Dosing Weight 151.051, kg, PRN Blood Glucose Results, Start date: 01/07/15 1:09:00, Duration: 30 day, Stop date: 02/06/15 1:08:00 Notes: Roll in palms of hands gently; Do not shake vigorously. (Same as: NovoLOG)"single patient use only" Stable for 28 days at room temperature.Expires in days from Date Start Date: 01/07/15 Stop Date: 01/07/15 Status: Discontinuedinsulin aspart 8 unit, 0.08 mL, Route: SUB-Q, Drug form: SOLN, Sliding Scale, Dosing Weight 151.051, kg, PRN Blood Glucose Results, Start date: 01/07/15 1:09:00, Duration: 30 day, Stop date: 02/06/15 1:08:00 Notes: Roll in palms of hands gently; Do not shake vigorously. (Same as: NovoLOG)"single patient use only" Stable for 28 days at room temperature.Expires in days from Date Start Date: 01/07/15 Stop Date: 01/07/15 Status: Discontinuedinsulin aspart 6 unit, 0.06 mL, Route: SUB-Q, Drug form: SOLN, Sliding Scale, Dosing Weight 151.051, kg, PRN Blood Glucose Results, Start date: 01/07/15 1:09:00, Duration: 30 day, Stop date: 02/06/15 1:08:00 Notes: Roll in palms of hands gently; Do not shake vigorously. (Same as: NovoLOG)"single patient use only" Stable for 28 days at room temperature.Expires in days from Date Start Date: 01/07/15 Stop Date: 01/07/15 Status: Discontinuedinsulin aspart 2 unit, 0.02 mL, Route: SUB-Q, Drug form: SOLN, Sliding Scale, Dosing Weight 151.051, kg, PRN Blood Glucose Results, Start date: 01/07/15 1:09:00, Duration: 30 day, Stop date: 02/06/15 1:08:00 Notes: Roll in palms of hands gently; Do not shake vigorously. (Same as: NovoLOG)"single patient use only" Stable for 28 days at room temperature.Expires in days from Date Start Date: 01/07/15 Stop Date: 01/07/15 Status: DiscontinuedketOROLAC 30 mg, 1 mL, Route: IVP, Drug form: INJ, ONCE, Dosing Weight 150.909, kg, Priority: STAT, Start date: 01/06/15 22:10:00, Stop date: 01/06/15 22:10:00 Notes: (Same as:Toradol) IV bolus must be given >15 seconds. Give IM administration slowly and deeply into the muscle.Not for use > 4 days MEDICATION WASTE Product Size: 30 mgProduct Wasted: ___ mg Start Date: 01/06/15 Stop Date: 01/06/15 Status: CompletedketOROLAC 30 mg, 1 mL, Route: IVP, Drug form: INJ, ONCE, Dosing Weight 151.051, kg, Start date: 01/07/15 16:22:00, Duration: 1 doses or times, Stop date: 01/07/15 16:22: 00 Notes: (Same as:Toradol) IV bolus must be given >15 seconds. Give IM administration slowly and deeply into the muscle.Not for use > 4 days MEDICATION WASTE Product Size: 30 mgProduct Wasted: ___ mg Start Date: 01/07/15 Stop Date: 01/07/15 Status: DiscontinuedketOROLAC 10 mg oral tablet 10 mg=1 tab, PO, Q6H, PRN Pain Score 6-10, X 5 day, # 20 tab, 0 Refill(s) Start Date: 01/07/15 Stop Date: 01/12/15 Status: OrderedketOROLAC 15 mg/mL injectable solution 15 mg, 0.5 mL, Route: IVP, Drug form: INJ, Q6H, Dosing Weight 151.051, kg, PRN Pain Score 4-6, Startdate: 01/07/15 9:12:00, Duration: 4 day, Stop date: 9:11:00 Notes: (Same as:Toradol) IV bolus must be given >15 seconds. Give IM administration slowly and deeply into the muscle.Not for use > 4 days MEDICATION WASTE Product Size: 30 mgProduct Wasted: 15 mg Start Date: 01/07/15 Stop Date: 01/07/15 Status: Discontinuedlabetalol 10 mg, 2 mL, Route: IVP, Drug form: INJ, Q5Min, Dosing Weight 151.051, kg, PRN Elevated BP, Start date: 01/07/15 16:22:00, Duration: 5 doses or times, Stop date: Limited # of times Notes: (Same as: Normodyne, Trandate)Push over 2 minutes Give bolus over 2-3 minutes. Start Date: 01/07/15 Stop Date: 01/07/15 Status: Discontinuedmeperidine 12.5 mg, 0.25 mL, Route: IVP, Drug form: INJ, Q30Min, Dosing Weight 151.051, kg , PRN Other -See Comment, For shivering, Start date: 01/07/15 16:22:00, Duration : 2 doses or times, Stop date: Limited # of times Notes: (Same as: Demerol) "Use Precaution in Elderly, Seizure disorders, and Renal impairment" Start Date: 01/07/15 Stop Date: 01/07/15 Status: DiscontinuedmetFORMIN 500 mg oral tablet, extended release 1,000 mg=2 tab, PO, BID, 0 Refill(s) Start Date: 01/07/15 Status: Orderedmorphine Sulfate 2 mg, 1 mL, Route: IVP, Drug form: INJ, Q5Min, Dosing Weight 151.051, kg, PRN Pain Score 4-6, Start date: 01/07/15 16:22:00, Duration: 5 doses or times, Stop date: Limited # of times Notes: (Same as:MORPhine Sulfate) Start Date: 01/07/15 Stop Date: 01/07/15 Status: Discontinuednaloxone 0.04 mg, 0.1 mL, Route: IVP, Drug form: INJ, Q2MIN, Dosing Weight 151.051, kg, PRN Narcotic Reversal, Start date: 01/07/15 16:22:00, Duration: 8 doses or times , Stop date: Limited # of times Notes: Same as Narcan Start Date: 01/07/15 Stop Date: 01/07/15 Status: DiscontinuedNS 1,000 mL 1,000 mL, Rate: 150 ml/hr, Infuse over: 6.7 hr, Route: IV, Dosing Weight 151.051 kg, Total Volume: 1,000, Start date: 01/07/15 1:09:00, Duration: 30 day , Stop date: 02/06/15 1:08:00 Start Date: 01/07/15 Stop Date: 01/07/15 Status: Discontinuedondansetron 4 mg, 2 mL, Route: IVP, Drug form: INJ, Q8H, Dosing Weight 150.909, kg, PRN Nausea & Vomiting, Start date: 01/06/15 23:23:00, Duration: 30 day, Stop date: 02/05/15 23:22:00 Notes: (Same as: Zofran) MEDICATION WASTE Product Size: 4 mgProduct Wasted: ___ mg Start Date: 01/06/15 Stop Date: 01/07/15 Status: Discontinuedondansetron 4 mg, 2 mL, Route: IVP, Drug form: INJ, Q4H, Dosing Weight 150.909, kg, PRN Nausea & Vomiting, Start date: 01/07/15 1:10:00, Duration: 30 day, Stop date : 02/06/15 1:09:00 Notes: (Same as: Ho) MEDICATION WASTE Product Size: 4 mgProduct Wasted: ___ mg Start Date: 01/07/15 Stop Date: 01/07/15 Status: Discontinuedondansetron 4 mg, 2 mL, Route: IVP, Drug form: INJ, ONCE, Dosing Weight 150.909, kg, Priority: STAT, Start date:01/06/15 22:10:00, Stop date: 01/06/15 22:10:00 Notes: (Same as: Ho) MEDICATION WASTE Product Size: 4 mgProduct Wasted: ___ mg Start Date: 01/06/15 Stop Date: 01/06/15 Status: Completedondansetron 4 mg, 2 mL, Route: IVP, Drug form: INJ, ONCE, Dosing Weight 151.051, kg, PRN Nausea & Vomiting, Start date: 01/07/15 16:22:00 Notes: (Same as: Ho) MEDICATION WASTE Product Size: 4 mgProduct Wasted: ___ mg Start Date: 01/07/15 Stop Date: 01/07/15 Status: DiscontinuedoxyCODONE 10 mg, 2 tab, Route: PO, Drug form: TAB, Q4H, Dosing Weight 151.051, kg, PRN Pain Score 7-10, Start date: 01/07/15 16:22:00, Duration: 30 day, Stop date: 11/16 16:21:00 Notes: (Same as: Roxicodone) Start Date: 01/07/15 Stop Date: 01/07/15 Status: DiscontinuedoxyCODONE 5 mg, 1 tab, Route: PO, Drug form: TAB, Q4H, Dosing Weight 151.051, kg, PRN Pain Score 4-6, Start date: 01/07/15 16:22:00, Duration: 30 day, Stop date: 11/16 16:21:00 Notes: (Same as: Roxicodone) Start Date: 01/07/15 Stop Date: 01/07/15 Status: Discontinuedpromethazine 6.25 mg, 0.25 mL, Route: IM, Drug form: INJ, ONCE, Dosing Weight 151.051, kg, PRN Nausea & Vomiting, Start date: 01/07/15 16:22:00 Notes: Do not give IV push. (Same as: Phenergan) Start Date: 01/07/15 Stop Date: 01/07/15 Status: DiscontinuedPyridium 200 mg oral tablet 200 mg=1 tab, PO, TID, PRN Dysuria, X 3 day, # 9 tab, 0 Refill(s) Start Date: 01/07/15 Stop Date: 01/10/15 Status: OrderedSaline Flush 0.9% 10 mL, Route: IVP, Drug Form: INJ, Dosing Weight 150.909, kg, PRN, PRN Line Flush, Start date: 01/06/15 22:10:00, Duration: 30 day, Stop date: 02/05/15 22: 09:00 Notes: (Same as: BD Posiflush) Start Date: 01/06/15 Stop Date: 01/07/15 Status: DiscontinuedSodium Chloride 0.9% (Bolus) IV 1,000 mL, 1000 ml/hr, Infuse Over: 1 hr, Route: IV, 1,000, Drug form: INJ, ONCE , Priority: STAT, Dosing Weight 150.909 kg, Start date: 01/06/15 22:10:00, Duration: 1 doses or times, Stop date: 01/06/1522:10:00 Start Date: 01/06/15 Stop Date: 01/06/15 Status: Completedtamsulosin 0.4 mg oral capsule 0.4 mg=1 cap, PO, After Dinner, # 15 cap, 0 Refill(s) Start Date: 01/07/15 Status: OrderedTylenol with Codeine #3 oral tablet 1 - 2 tab, PO, Q6H, PRN Pain, X 4 day, # 32 tab, 0 Refill(s) Start Date: 01/07/15 Stop Date: 01/09/15 Status: Discontinued Results ELECTROLYTES Most recent to oldest [Reference Range]: 1 2 Sodium Lvl [135-145 mEq/L] 138 mEq/L 137 mEq/L (01/07/15 3:19 AM) (01/06/15 10:34 PM) Potassium Lvl [3.5-5.1 mEq/L] 3.7 mEq/L 3.8 mEq/L (01/07/15 3:19 AM) (01/06/15 10:34 PM) Chloride Lvl [95-109 mEq/L] 101 mEq/L 101 mEq/L (01/07/15 3:19 AM) (01/06/15 10:34 PM) CO2 [24-32 mEq/L] 28 mEq/L 24 mEq/L (01/07/15 3:19 AM) (01/06/15 10:34 PM) AGAP [10.0-20.0 mEq/L] 12.7 mEq/L 15.8 mEq/L (01/07/15 3:19 AM) (01/06/15 10:34 PM) CHEM PANEL Most recent to oldest [Reference Range]: 1 2 Creatinine Lvl [0.5-1.4 mg/dL] 1.4 mg/dL 1.4 mg/dL (01/07/15 3:19 AM) (01/06/15 10:34 PM) eGFR 63 mL/min/1.73m2 1 63 mL/min/1.73m2 2 *NA* *NA* (01/07/15 3:19 AM) (01/06/15 10:34 PM) BUN [7-22 mg/dL] 22 mg/dL 18 mg/dL (01/07/15 3:19 AM) (01/06/15 10:34 PM) Glucose Lvl [70-99 mg/dL] 164 mg/dL 3 224 mg/dL 4 *HI* *HI* (01/07/15 3:19 AM) (01/06/15 10:34 PM) Calcium Lvl [8.5-10.5 mg/dL] 9.1 mg/dL 9.5 mg/dL (01/07/15 3:19 AM) (01/06/15 10:34 PM) 1Result Comment: The eGFR is calculated [...] values reflect the clinical guidelines of the [place] [employer].4Interpretive Data: Adult reference range values reflect the clinical guidelines of the [place] [employer].URINE AND STOOL Most recent to oldest [Reference Range]: 1 2 UA Turbidity [Clear] Cloudy *ABN* (01/06/15 10:34 PM) UA Color [Yellow] Red *ABN* (01/06/15 10:34 PM) UA pH [5.0-8.0] 6.5 (01/06/15 10:34 PM) UA Spec Grav [<=1.030] 1.010 (01/06/15 10:34 PM) UA Glucose [Negative] Negative (01/06/15 10:34 PM) UA Blood [Negative] Trace *ABN* (01/06/15 10:34 PM) UA Ketones [Negative] Trace *ABN* (01/06/15 10:34 PM) UA Protein [Negative mg/dL] 30 mg/dL *ABN* (01/06/15 10:34 PM) UA Urobilinogen [0.1-1.0 EU/dL] 0.2 EU/dL (01/06/15 10:34 PM) UA Bili [Negative] Negative *NA* (01/06/15 10:34 PM) UA Leuk Est [Negative] Negative (01/06/15 10:34 PM) UA Nitrite [Negative] Negative (01/06/15 10:34 PM) UA WBC [None Seen /HPF] 3-5 /HPF (01/06/15 10:34 PM) UA RBC [0-2 /HPF] 51-100 /HPF *ABN* (01/06/15 10:34 PM) UA Bacteria [None Seen /HPF] Occasional /HPF (01/06/15 10:34 PM) UA Sq Epi [Few /LPF] Occasional /LPF (01/06/15 10:34 PM) HEMATOLOGY Most recent to oldest [Reference Range]: 1 2 WBC [3.7-10.4 K/CMM] 10.3 K/CMM 10.4 K/CMM (01/07/15 3:19 AM) (01/06/15 10:34 PM) RBC [4.70-6.10 M/CMM] 4.39 M/CMM 4.74 M/CMM *LOW* (01/06/15 10:34 PM) (01/07/15 3:19 AM) Hgb [14.0-18.0 g/dL] 14.8 g/dL 16.0 g/dL (01/07/15 3:19 AM) (01/06/15 10:34 PM) Hct [42.0-54.0 %] 43.5 % 47.2 % (01/07/15 3:19 AM) (01/06/15 10:34 PM) MCV [80.0-94.0 fL] 99.0 fL 99.5 fL *HI* *HI* (01/07/15 3:19 AM) (01/06/15 10:34 PM) MCH [27.0-31.0 pg] 33.7 pg 33.9 pg *HI* *HI* (01/07/15 3:19 AM) (01/06/15 10:34 PM) MCHC [32.0-36.0 g/dL] 34.0 g/dL 34.0 g/dL (01/07/15 3:19 AM) (01/06/15 10:34 PM) RDW [11.5-14.5 %] 15.3 % 15.2 % *HI* *HI* (01/07/15 3:19 AM) (01/06/15 10:34 PM) Platelet [133-450 K/CMM] 287 K/CMM 324 K/CMM (01/07/15 3:19 AM) (01/06/15 10:34 PM) MPV [7.4-10.4 fL] 9.2 fL 9.6 fL (01/07/15 3:19 AM) (01/06/15 10:34 PM) Segs [45.0-75.0 %] 52.1 % 42.9 % (01/07/15 3:19 AM) *LOW* (01/06/15 10:34 PM) Lymphocytes [20.0-40.0 %] 34.8 % 42.0 % (01/07/15 3:19 AM) *HI* (01/06/15 10:34 PM) Monocytes [2.0-12.0 %] 8.3 % 9.4 % (01/07/15 3:19 AM) (01/06/15 10:34 PM) Eosinophils [0.0-4.0 %] 4.4 % 5.1 % *HI* *HI* (01/07/15 3:19 AM) (01/06/15 10:34 PM) Basophils [0.0-1.0 %] 0.4 % 0.6 % (01/07/15 3:19 AM) (01/06/15 10:34 PM) Segs-Bands # [1.5-8.1 K/CMM] 5.3 K/CMM 4.4 K/CMM (01/07/15 3:19 AM) (01/06/15 10:34 PM) Lymphocytes # [1.0-5.5 K/CMM] 3.6 K/CMM 4.3 K/CMM (01/07/15 3:19 AM) (01/06/15 10:34 PM) Monocytes # [0.0-0.8 K/CMM] 0.9 K/CMM 1.0 K/CMM *HI* *HI* (01/07/15 3:19 AM) (01/06/15 10:34 PM) Eosinophils # [0.0-0.5 K/CMM] 0.5 K/CMM 0.5 K/CMM (01/07/15 3:19 AM) (01/06/15 10:34 PM) Basophils # [0.0-0.2 K/CMM] 0.0 K/CMM 0.1 K/CMM (01/07/15 3:19 AM) (01/06/15 10:34 PM) Immunizations No data available for this section Procedures Procedure Date Related Diagnosis Body Site Cystoscopic laser lithotripsy of ureteric 01/07/15 calculus1 Stent placement2 01/07/15 Appendectomy Appendectomy Cholecystectomy Cholecystectomy Lipoma of face Lipoma of hand3 Miscellaneous operations4 Shoulder joint operations5 1stent [id number] hand removal of [id number] shoulder, left [id number] shoulder Social History Social History Type Response Substance Abuse IV drug use: No. Employment/School Status: Employed. 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 Alcohol Current, Alcohol [...] No Assessment and Plan Extracted from: Title: Operative report Author: Carl Orosco MD Date: 01/07/15 PREOPERATIVE DIAGNOSIS Left ureteral and renal stones. POSTOPERATIVE DIAGNOSIS Same PROCEDURE Cystoscopy under anesthesia, left ureteroscopy, laser lithotripsy and basket extraction of stone, left retrograde pyelogram and left ureteral stent placement. SURGEON Carl Orosco MD ANESTHESIA General SPECIMENS Left ureteral and renal calculi. DRAINS: A 5-[place] 26-cm double-J [side] ureteral stent. STATEMENT OF OPERATIVE NEED: The patient is a 39-year-old male who presented with a history of left flank pain. CT revealed a 4 mm distal left ureteral stone with a 5 mm proximal left ureteral stone and multiple stones within the collecting system. The risks, benefits and alternatives to left ureteroscopy, laser lithotripsy, basket extraction and stent placement were explained to the patient and the patient provided written and verbal consent to proceed. SUMMARY OF OPERATION: The patient was taken to the operating room, placed supine on the operating table. After adequate general endotracheal anesthesia was administered, the patient was given 400 mg of IV Cipro and placed i n dorsal lithotomy position using Donis stirrups. All pressure points were padded. The patient was prepped and draped in standard surgical fashion. Rigid cystoscopy was performed which revealed a nor mal-appearing urethra and bladder. The left ureteral orifice was identified and intubated with a 5-[place] open-ended catheter through which a retrograde pyelogram was performed. This revealed a fillin g defect in distal left ureter as well as more proximally consistent with his known ureteral stones. Through the 5-[place] open-ended catheter, a 0.035 sensor wire was placed into the collecting system, under fluoroscopic guidance. The catheter and cystoscope were then backloaded off the wire. An 8F/10F dilator was advanced to the level of the stone and a second wire was advanced through the coaxial dilator sheath into the collecting system under fluoroscopic guidance. The first wire was then clamped to the drape as a safety wire. Over the working wire an 11 [place] 13 [place] ureteral access sheat h was advanced to the distal ureter. A flexible ureteroscope was then advanced through the access sheath to the level of the distal stone. A 200 Micron holmium laser fiber was advanced through the wor bryant channel of the ureteroscope and used to fragment the stone into several smaller pieces. The ureteroscope was then advanced to the more proximal stone and once again the 200 holmium laser fiber was used to fragment the stone into this very small pieces. A 0-tip nitinol basket was used to grasp these stone fragments and these were sent as a specimen. The ureteroscope was then advanced to the kidney, where there were multiple small stones affixed to the renal papilla. The larger stones were fragmented and removed via the 0 tip 90 basket. Once this was performed and there was no further tere dence of significant stone in the urinary tract. A 5-[place] 26-cm double-J left ureteral stent was advanced over the wire into the collecting system under fluoroscopic guidance. The radiographic pushe r was used to ensure good coil both within the collecting system as well as in the bladder. The dangler string was left intact for removal in clinic. At this point, the patient's bladder was drained. The patient was cleaned, taken out of dorsal lithotomy position, awakened from anesthesia. Postop plan is to discharge patient home and follow up in approximately 1 week for stent removal. Extracted from: Title: Urology consult Author: Carl Orosco MD Date: 01/07/15 Impression and Plan 39 yo HM with left ureteral calculi, obstructing. Also with bilateral renal calculi. Plan left ureteroscopy, laser lithotripy and stent today. R/B/A discussed, pt interested in surgical therapy. Thank you for allowing me to participate in this patient's care.
--- OUTSIDE RECORDS SUMMARY | 2018-12-12 20:47 | XMS REPORT | Summary of Care ---
:1975 Author Organization [facility] Address [address], [place] [address]- Encounter [facility](FIN) [phone] Date(s): 12/16/15 - 12/16/15 [facility] [address] [place] [address]- Discharge Diagnosis: Acute flank pain Discharge Disposition: Home Attending Physician: Norm Webster MD Vital Signs Most recent to oldest 1 2 3 [Reference Range]: Height 185.42 cm (12/16/15 6:33 PM) Temperature Oral [96.4-99.1 98 DegF 98.3 DegF 98 DegF DegF] (12/16/15 10:50 PM) (12/16/15 9:19 PM) (12/16/15 6:33 PM) Blood Pressure [90-140/60-90 114/73 mmHg 128/81 mmHg 136/101 mmHg mmHg] (12/16/15 10:50 PM) (12/16/15 9:19 PM) (12/16/15 6:33 PM) Respiratory Rate [14-20 BRMIN] 19 BRMIN 18 BRMIN 18 BRMIN (12/16/15 10:50 PM) (12/16/15 9:19 PM) (12/16/15 6:33 PM) Peripheral Pulse Rate [60-100 79 bpm 83 bpm 88 bpm bpm] (12/16/15 10:50 PM) (12/16/15 9:19 PM) (12/16/15 6:33 PM) Weight 143.182 kg (12/16/15 6:33 PM) Body Mass Index 41.65 m2 (12/16/15 6:33 PM) Problem List Condition Effective Dates Status Health Status Informant Anxiety(Confirmed) Resolved Diabetes(Confirmed) Active DM (diabetes mellitus)(Confirmed) Active Acute flank pain(Confirmed) Active HTN (hypertension)(Confirmed) Resolved Hyperlipemia(Confirmed) Resolved Hypertension(Confirmed) Active Kidney stone(Confirmed) Resolved Ureteric stone1 01/11/15 Active 1Data migrated from [facility] on 02/06/15. Allergies, Adverse Reactions, Alerts Substance Reaction Severity Status NKDA Active NKFA Active Medications hydromorphone 1 mg, 0.5 mL, Route: IVP, Drug form: INJ, ONCE, Dosing Weight 143.182, kg, Priority: STAT, Start date: 12/16/15 20:57:00 CDT, Stop date: 12/16/15 20:57:00 CDT Notes: (Same as: Dilaudid) Start Date: 12/16/15 Stop Date: 12/16/15 Status: Completedhydromorphone 1 mg, 0.5 mL, Route: IVP, Drug form: INJ, ONCE, Dosing Weight 143.182, kg, Priority: STAT, Start date: 12/16/15 19:36:00 CDT, Stop date: 12/16/15 19:36:00 CDT Notes: (Same as: Dilaudid) Start Date: 12/16/15 Stop Date: 12/16/15 Status: CompletedketOROLAC 30 mg, 1 mL, Route: IVP, Drug form: INJ, ONCE, Dosing Weight 143.182, kg, Priority: STAT, Start date: 12/16/15 19:36:00 CDT, Stop date: 12/16/15 19:36:00 CDT Notes: (Same as:Toradol) IV bolus must be given >15 seconds. Give IM administration slowly and deeply into the muscle.Not for use > 4 days MEDICATION WASTE Product Size: 30 mgProduct Wasted: ___ mg Start Date: 12/16/15 Stop Date: 12/16/15 Status: CompletedketOROLAC 10 mg oral tablet 10 mg=1 tab, PO, TID, X 5 day, # 15 tab, 0 Refill(s) Start Date: 12/16/15 Stop Date: 12/21/15 Status: OrderedNorco 5/325 oral tablet 2 tab, Route: PO, Drug Form: TAB, Dosing Weight 143.182, kg, ONCE, Start date: 12/16/15 22:40:00 CDT, Stop date: 12/16/15 22:40:00 CDT Notes: (Same as: [place] 325/5) Do not exceed 4gm/day of acetaminophen. Start Date: 12/16/15 Stop Date: 12/16/15 Status: Completedondansetron 4 mg, 2 mL, Route: IVP, Drug form: INJ, ONCE, Dosing Weight 143.182, kg, Priority: STAT, Start date:12/16/15 19:36:00 CDT, Stop date: 12/16/15 19:36:00 CDT Notes: (Same as: Zofran) MEDICATION WASTE Product Size: 4 mgProduct Wasted: ___ mg Start Date: 12/16/15 Stop Date: 12/16/15 Status: CompletedSaline Flush 0.9% 10 mL, Route: IVP, Drug Form: INJ, Dosing Weight 143.182, kg, PRN, PRN Line Flush, Start date: 12/16/15 19:36:00 CDT, Duration: 30 day, Stop date: 01/15/16 19:35:00 CDT Notes: (Same as: BD Posiflush) Start Date: 12/16/15 Stop Date: 12/17/15 Status: DiscontinuedSodium Chloride 0.9% (Bolus) IV 1,000 mL, 2,000 ml/hr, Infuse Over: 30 minutes, Route: IV, 1,000, Drug form: INJ , ONCE, Priority: STAT, Dosing Weight 143.182 kg, Start date: 12/16/15 19:36:00 CDT, Duration: 1 doses or times, Stop date: 12/16/15 19:36:00 CDT Start Date: 12/16/15 Stop Date: 12/16/15 Status: CompletedZofran ODT 4 mg oral tablet, disintegrating 4 mg=1 tab, PO, TID, PRN Nausea and Vomiting, X 4 day, # 10 tab, 0 Refill(s) Start Date: 12/16/15 Stop Date: 12/20/15 Status: Ordered Results ELECTROLYTES Most recent to oldest [Reference Range]: 1 Sodium Lvl [135-145 mEq/L] 141 mEq/L (12/16/15 7:45 PM) Potassium Lvl [3.5-5.1 mEq/L] 4.0 mEq/L (12/16/15 7:45 PM) Chloride Lvl [95-109 mEq/L] 105 mEq/L (12/16/15 7:45 PM) CO2 [24-32 mEq/L] 25 mEq/L (12/16/15 7:45 PM) AGAP [10.0-20.0 mEq/L] 15.0 mEq/L (12/16/15 7:45 PM) CHEM PANEL Most recent to oldest [Reference Range]: 1 Creatinine Lvl [0.50-1.40 mg/dL] 1.09 mg/dL (12/16/15 7:45 PM) eGFR 84 mL/min/1.73m2 1 *NA* (12/16/15 7:45 PM) BUN [7-22 mg/dL] 14 mg/dL (12/16/15 7:45 PM) B/C Ratio [6-25] 13 (12/16/15 7:45 PM) Glucose Lvl [70-99 mg/dL] 213 mg/dL *HI* (12/16/15 7:45 PM) Total Protein [6.4-8.4 g/dL] 7.9 g/dL (12/16/15 7:45 PM) Albumin Lvl [3.5-5.0 g/dL] 3.9 g/dL (12/16/15 7:45 PM) Globulin [2.0-4.0 g/dL] 4.0 g/dL (12/16/15 7:45 PM) A/G Ratio [0.7-1.6] 1.0 (12/16/15 7:45 PM) Calcium Lvl [8.5-10.5 mg/dL] 9.5 mg/dL (12/16/15 7:45 PM) ALT [0-65 unit/L] 38 unit/L (12/16/15 7:45 PM) AST [0-37 unit/L] 13 unit/L (12/16/15 7:45 PM) Alk Phos [39-136 unit/L] 128 unit/L (12/16/15 7:45 PM) Bili Total [0.2-1.3 mg/dL] 0.5 mg/dL (12/16/15 7:45 PM) Lipase Lvl [73-393 unit/L] 178 unit/L (12/16/15 7:45 PM) 1Result Comment: The eGFR is calculated [...] [Reference Range]: 1 UA Turbidity [Clear] Clear (12/16/15 7:45 PM) UA Color [Yellow] Yellow *NA* (12/16/15 7:45 PM) UA pH [5.0-8.0] 6.5 (12/16/15 7:45 PM) UA Spec Grav [<=1.030] 1.025 (12/16/15 7:45 PM) UA Glucose [Negative mg/dL] Negative mg/dL (12/16/15 7:45 PM) UA Blood [Negative] Negative (12/16/15 7:45 PM) UA Ketones [Negative mg/dL] Negative mg/dL *NA* (12/16/15 7:45 PM) UA Protein [Negative mg/dL] Negative mg/dL (12/16/15 7:45 PM) UA Urobilinogen [0.1-1.0 EU/dL] 0.2 EU/dL (12/16/15 7:45 PM) UA Bili [Negative] Negative *NA* (12/16/15 7:45 PM) UA Leuk Est [Negative] Negative (12/16/15 7:45 PM) UA Nitrite [Negative] Negative (12/16/15 7:45 PM) UA WBC [None Seen /HPF] 0-2 /HPF (12/16/15 7:45 PM) UA RBC [0-2] None Seen (12/16/15 7:45 PM) UA Bacteria [None Seen /HPF] Occasional /HPF (12/16/15 7:45 PM) UA Sq Epi [Few /LPF] Occasional /LPF (12/16/15 7:45 PM) HEMATOLOGY Most recent to oldest [Reference Range]: 1 WBC [3.7-10.4 K/CMM] 7.3 K/CMM (12/16/15 7:45 PM) RBC [4.70-6.10 M/CMM] 5.03 M/CMM (12/16/15 7:45 PM) Hgb [14.0-18.0 g/dL] 16.2 g/dL (12/16/15 7:45 PM) Hct [42.0-54.0 %] 49.2 % (12/16/15 7:45 PM) MCV [80.0-94.0 fL] 97.8 fL *HI* (12/16/15 7:45 PM) MCH [27.0-31.0 pg] 32.2 pg *HI* (12/16/15 7:45 PM) MCHC [32.0-36.0 g/dL] 33.0 g/dL (12/16/15 7:45 PM) RDW [11.5-14.5 %] 13.4 % (12/16/15 7:45 PM) Platelet [133-450 K/CMM] 259 K/CMM (12/16/15 7:45 PM) MPV [7.4-10.4 fL] 9.7 fL (12/16/15 7:45 PM) Segs [45.0-75.0 %] 47.8 % (12/16/15 7:45 PM) Lymphocytes [20.0-40.0 %] 38.0 % (12/16/15 7:45 PM) Monocytes [2.0-12.0 %] 11.0 % (12/16/15 7:45 PM) Eosinophils [0.0-4.0 %] 2.6 % (12/16/15 7:45 PM) Basophils [0.0-1.0 %] 0.6 % (12/16/15 7:45 PM) Segs-Bands # [1.5-8.1 K/CMM] 3.5 K/CMM (12/16/15 7:45 PM) Lymphocytes # [1.0-5.5 K/CMM] 2.8 K/CMM (12/16/15 7:45 PM) Monocytes # [0.0-0.8 K/CMM] 0.8 K/CMM (12/16/15 7:45 PM) Eosinophils # [0.0-0.5 K/CMM] 0.2 K/CMM (12/16/15 7:45 PM) Basophils # [0.0-0.2 K/CMM] 0.0 K/CMM (12/16/15 7:45 PM) Immunizations No data available for this section Procedures Procedure Date Related Diagnosis Body Site Cystoscopy1 01/18/15 Cystoscopic laser lithotripsy of ureteric 01/07/15 calculus2 Stent placement3 01/07/15 Appendectomy Cholecystectomy Lipoma of face Lipoma of hand4 Miscellaneous operations5 Shoulder joint operations6 1with left ureter stent [id number] [id number] hand removal of egwwhe1ngop shoulder, left [id number] shoulder Social History Social History Type Response Substance Abuse Use: None. IV drug use: No. Exercise 1 Employment/School Status: Employed. 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 Alcohol Current, Type Beer, Liquor. Frequency: 3-5 times per week. Alcohol use interferes with work or home: No. Drinks more than intended: No. Others hurt by drinking: No. Ready to change: No. Household alcohol concerns: No. Smoking Status Former smoker; Type: Cigarettes; Tobacco use per day: 10; Previous treatment: None; Ready to change: No; Concerns about tobacco use in household: No; Lives with someone who smokes; Cigarette Smoking Last 365 Days No; Reg Smoking Cessation Counseling No2 1WORK INVOLVES A LOT OF PHYSICAL WORK WITH TRUCK AND HEAVY [id number] SMOKING 4 MONTHS AGO Assessment and Plan No data available for this section
--- NOTE | 2018-12-12 20:54 | RAD REPORT ---
EXAM DESCRIPTION: CT - Stone Protocol - 12/12/2018 8:32 pm CLINICAL HISTORY: Abdominal pain. Left flank pain COMPARISON: 2016 TECHNIQUE: Computed axial tomography of the abdomen pelvis was obtained without oral or IV contrast. Lack of IV and oral contrast limits evaluation of solid organs, bowel, and vessels. Coronal reformat merly images were obtained and reviewed. All CT scans are performed using dose optimization technique as appropriate and may include automated exposure control or mA/KV adjustment according to patient size. FINDINGS: Multiple, small bilateral renal calculi. . An ureteral calculus is not noted. A bladder ca lculus is not present. Fatty liver. Cholecystectomy Spleen, pancreas and adrenals appear grossly normal There is no evidence of diverticulitis. Small periumbilical hernia IMPRESSION: Multiple, bilateral nonobstructing renal calculi
[2018-12-12] MEDS ORDERED: ONDANSETRON 4 MG/2 ML VIAL ONE (21:12)
[2018-12-12] MEDS ORDERED: MORPHINE 4 MG/ML SYR ONE (21:12)
[2018-12-12 21:17] LABS: Absolute Lymphocytes (CBC) 2.1 K/uL (0.7-4.9); Absolute Monocytes 0.8 K/uL (0.1-1.3); Absolute Neutrophil 3.8 K/uL (1.8-8.0); Basophils % 0.7 % (0-1.3); Eosinophils % 4.2 % (0-4.4); Hematocrit 49.7 % (39.6-49.0); Lymphocytes % 29.8 % (15.3-44.8); MPV 10.4 fL (7.6-11.3); Monocytes % 11.3 % (3.3-12.3); RBC Red Blood Cell Count 4.68 M/uL (4.33-5.43)
[2018-12-12] MEDS ORDERED: NA CHLORIDE 0.9% 1,000 ML ONE (21:24)
[2018-12-12 21:49] LABS: Platelet Estimate ADEQ; Urine White Blood Cell Casts OK
[2018-12-12 21:50] LABS: Blood Morphology Comment NOTED (NOT SEEN); Macrocytosis 1+
--- NOTE | 2018-12-12 21:55 | ER ---
Nurse's Notes [facility] Name: Josue Kaba Age: 43 yrs Sex: Male : 1975 Arrival Date: 12/12/2018 Time: 20:18 Bed 7 Private MD: Diagnosis: Flank pain Presentation: 12/12 20:22 Presenting complaint: Patient states: Left flank pain that started 2 hours RESTROOMS OR LOUNGES MAID. Patient aj reports that he thinks he is passing a kidney stone. Care prior to arrival: None. 20:22 Method Of Arrival: Ambulatory aj 20:22 Acuity: JOLYNN 3 aj Triage Assessment: 20:23 General: Appears in no apparent distress. comfortable, Behavior is calm, cooperative, aj appropriate for age. Pain: Complains of pain in anterior aspect of left lateral abdomen and posterior aspect of left lateral abdomen. Neuro: Level of Consciousness is awake, alert, obeys commands, Oriented to person, place, time, situation, Appropriate for age. Respiratory: Airway is patent Respiratory effort is even, unlabored, Respiratory pattern is regular, symmetrical. GI: Abdomen is obese. : Reports pain in left flank(s). Derm: Skin is intact, is healthy with good turgor, Skin is pink, warm \\T\\ dry. normal. Historical: - Allergies: 20:23 No Known Drug Allergies; aj Screenin:50 Abuse screen: Denies threats or abuse. Denies injuries from another. Nutritional aa1 screening: No deficits noted. Tuberculosis screening: No symptoms or risk factors identified. Fall Risk None identified. Assessment: 20:50 General: Appears in no apparent distress. uncomfortable, Behavior is calm, cooperative, aa1 appropriate for age. Pain: Complains of pain in left flank Pain began suddenly, Is continuous. Neuro: Level of Consciousness is awake, alert, obeys commands, Oriented to person, place, time, situation, Moves all extremities. Full function Gait is steady. Respiratory: Airway is patent Respiratory effort is even, unlabored, Respiratory pattern is regular, symmetrical. GI: Abdomen is obese, Bowel sounds present X 4 quads. Abd is soft X 4 quads. : Reports pain in left flank(s). EENT: No signs and/or symptoms were reported regarding the EENT system. Derm: Skin is intact, is healthy with good turgor, Skin is pink, warm \\T\\ dry. Musculoskeletal: Circulation, motion, and sensation intact. Capillary refill < 3 seconds. 21:37 Reassessment: Patient appears in no apparent distress at this time. Patient and/or aa1 family updated on plan of care and expected duration. Pain level reassessed. Patient is alert, oriented x 3, equal unlabored respirations, skin warm/dry/pink. Pt states he does not want to wear monitoring equipment. States, "I don't need it, I'm not here for cardiac problems or anything. And this pain medicine hasn't helped either." Provider notified. 22:08 Reassessment: Patient appears in no apparent distress at this time. Patient is alert, aa1 oriented x 3, equal unlabored respirations, skin warm/dry/pink. Discussed d/c \\T\\ f/u instructions with pt; denies questions or concerns at this time. Amb to lobby with steady gait Patient states symptoms have improved. Vital Signs: 20:23 BP 140 / 88; Pulse 108; Resp 20; Temp 98.2; Pulse Ox 96% on R/A; Weight 158.76 kg; aj Height 6 ft. 0 in. (182.88 cm); 21:14 BP 125 / 92; Pulse 98; Resp 18; Pulse Ox 94% on R/A; aa1 21:58 BP 133 / 87; Pulse 92; Resp 18; Temp 98.4; Pulse Ox 97% on R/A; Pain 7/10; aa1 20:23 Body Mass Index 47.47 (158.76 kg, 182.88 cm) aj ED Course: 20:18 Patient arrived in ED. es 20:22 Triage completed. aj 20:23 Arm band placed on right wrist. Patient placed in an exam room. aj 20:25 Janki Lynch FNP-C is PHCP. kb 20:25 Nadiya Magallanes MD is Attending Physician. kb 20:[address] vm2 20:32 CT Stone Protocol In Process Unspecified. EDMS 20:46 Koki Hatch, ARIELLE is Primary Nurse. aa1 20:50 Patient has correct armband on for positive identification. Bed in low position. Call aa1 light in reach. Pulse ox on. NIBP on. Warm blanket given. Pillow given. 20:55 Initial lab(s) drawn, by ia, sent to lab. Inserted saline lock: 18 gauge in right aa1 antecubital area, using aseptic technique. Blood collected. 21:45 Urine collected: clean catch specimen, clear. aa1 22:08 No provider procedures requiring assistance completed. IV discontinued, intact, aa1 bleeding controlled, No redness/swelling at site. Pressure dressing applied. Administered Medications: 21:00 Drug: Zofran 4 mg Route: IVP; Site: right antecubital; aa1 22:00 Follow up: Response: No adverse reaction; Nausea is decreased aa1 21:02 Drug: morphine 4 mg Route: IVP; Site: right antecubital; aa1 21:38 Follow up: Response: No adverse reaction; Pain is unchanged, physician notified aa1 21:09 Drug: NS 0.9% 1000 ml Route: IV; Rate: 1000 ml; Site: right antecubital; aa1 22:00 Follow up: IV Status: Completed infusion; IV Intake: 1000ml aa1 21:48 Drug: TORadol 30 mg Route: IVP; Site: right antecubital; aa1 22:10 Follow up: Response: No adverse reaction; Pain is decreased aa1 Intake: 22:00 IV: 1000ml; Total: 1000ml. aa1 Outcome: 21:54 Discharge ordered by . den 22:08 Discharged to home ambulatory. aa1 22:08 Condition: good 22:08 Discharge instructions given to patient, Instructed on discharge instructions, follow up and referral plans. medication usage, Demonstrated understanding of instructions, follow-up care, medications, Prescriptions given X 2. 22:11 Patient left the ED. aa1 Signatures: Dispatcher [employer] Janki Valenzuela, GAUDENCIOC RN MENTAL HEALTH-Koki Pederson RN RN Emilie Villegas RN RN aj Salyer, Edna es McGuire, Victoria [facility]
--- NOTE | 2018-12-12 21:55 | EDPHYS ---
Physician Documentation [facility] Name: Josue Kaba Age: 43 yrs Sex: Male : 1975 Arrival Date: 12/12/2018 Time: 20:18 Bed 7 Private MD: ED Physician Nadiya Magallanes HPI: 12/12 21:05 This 43 yrs old Male presents to ER via Ambulatory with complaints of Possible kb Kidney Stone. 21:06 The patient complains of pain in the left flank. The pain does not radiate. Onset: The kb symptoms/episode began/occurred at 18:00. Modifying factors: The symptoms are alleviated by nothing. the symptoms are aggravated by nothing. Associated signs and symptoms: The patient has no apparent associated signs or symptoms. Severity of pain: At its worst the pain was moderate in the emergency department the pain is unchanged. The patient has experienced similar episodes in the past, several times. The patient has not recently seen a physician. Pt reports he started having left flank pain at 1800. Reports it feels similar to previous kidney stones. Historical: - Allergies: 20:23 No Known Drug Allergies; aj ROS: 21:08 Constitutional: Negative for fever, chills, and weight loss, Cardiovascular: Negative kb for chest pain, palpitations, and edema, Respiratory: Negative for shortness of breath, cough, wheezing, and pleuritic chest pain, Abdomen/GI: Negative for abdominal pain, nausea, vomiting, diarrhea, and constipation, MS/Extremity: Negative for injury and deformity, Skin: Negative for injury, rash, and discoloration, Neuro: Negative for headache, weakness, numbness, tingling, and seizure. 21:08 Back: Positive for flank pain, on the left. Exam: 21:08 Constitutional: This is a well developed, well nourished patient who is awake, alert, kb and in no acute distress. Head/Face: Normocephalic, atraumatic. ENT: Nares patent. No nasal discharge, no septal abnormalities noted. Tympanic membranes are normal and external auditory canals are clear. Oropharynx with no redness, swelling, or masses, exudates, or evidence of obstruction, uvula midline. Mucous membranes moist. Neck: Trachea midline, no thyromegaly or masses palpated, and no cervical lymphadenopathy. Supple, full range of motion without nuchal rigidity, or vertebral point tenderness. No Meningismus. Chest/axilla: Normal chest wall appearance and motion. Nontender with no deformity. No lesions are appreciated. Cardiovascular: Regular rate and rhythm with a normal S1 and S2. No gallops, murmurs, or rubs. Normal PMI, no JVD. No pulse deficits. Respiratory: Lungs have equal breath sounds bilaterally, clear to auscultation and percussion. No rales, rhonchi or wheezes noted. No increased work of breathing, no retractions or nasal flaring. Abdomen/GI: Soft, non-tender, with normal bowel sounds. No distension or tympany. No guarding or rebound. No evidence of tenderness throughout. Back: No spinal tenderness. No costovertebral tenderness. Full range of motion. Skin: Warm, dry with normal turgor. Normal color with no rashes, no lesions, and no evidence of cellulitis. MS/ Extremity: Pulses equal, no cyanosis. Neurovascular intact. Full, normal range of motion. Neuro: Awake and alert, GCS 15, oriented to person, place, time, and situation. Cranial nerves II-XII grossly intact. Motor strength 5/5 in all extremities. Sensory grossly intact. Cerebellar exam normal. Normal gait. Vital Signs: 20:23 BP 140 / 88; Pulse 108; Resp 20; Temp 98.2; Pulse Ox 96% on R/A; Weight 158.76 kg; aj Height 6 ft. 0 in. (182.88 cm); 21:14 BP 125 / 92; Pulse 98; Resp 18; Pulse Ox 94% on R/A; aa1 21:58 BP 133 / 87; Pulse 92; Resp 18; Temp 98.4; Pulse Ox 97% on R/A; Pain 7/10; aa1 20:23 Body Mass Index 47.47 (158.76 kg, 182.88 cm) aj MDM: 20:25 Patient medically screened. kb 21:08 Data reviewed: vital signs, nurses notes. Data interpreted: Pulse oximetry: on room air kb is 96 %. Interpretation: normal. 21:54 Counseling: I had a detailed discussion with the patient and/or guardian regarding: the kb historical points, exam findings, and any diagnostic results supporting the discharge/admit diagnosis, lab results, radiology results, the need for outpatient follow up, a family practitioner, to return to the emergency department if symptoms worsen or persist or if there are any questions or concerns that arise at home. 12/12 20:49 Order name: CBC with Diff; Complete Time: 21:55 kb 12/12 20:49 Order name: Basic Metabolic Panel; Complete Time: 21:38 kb 12/12 20:25 Order name: CT Stone Protocol; Complete Time: 20:58 mw 12/12 21:50 Order name: CBC Smear Scan; Complete Time: 21:55 EDMS 12/12 21:56 Order name: Urine Dipstick--Ancillary (enter results) [facility] 12/12 20:49 Order name: Urine Dipstick-Ancillary (obtain specimen); Complete Time: 22:00 kb 12/12 20:49 Order name: IV Start; Complete Time: 20:54 kb Administered Medications: 21:00 Drug: Zofran 4 mg Route: IVP; Site: right antecubital; aa1 22:00 Follow up: Response: No adverse reaction; Nausea is decreased aa1 21:02 Drug: morphine 4 mg Route: IVP; Site: right antecubital; aa1 21:38 Follow up: Response: No adverse reaction; Pain is unchanged, physician notified aa1 21:09 Drug: NS 0.9% 1000 ml Route: IV; Rate: 1000 ml; Site: right antecubital; aa1 22:00 Follow up: IV Status: Completed infusion; IV Intake: 1000ml aa1 21:48 Drug: TORadol 30 mg Route: IVP; Site: right antecubital; aa1 22:10 Follow up: Response: No adverse reaction; Pain is decreased aa1 Disposition: 12/13 02:20 Co-signature as Attending Physician, Nadiya Magallanes MD. ma2 Disposition: 12/12/18 21:54 Discharged to Home. Impression: Flank pain. - Condition is Stable. - Discharge Instructions: Flank Pain, [id number]. - Prescriptions for Cyclobenzaprine 10 mg Oral Tablet - take 1 tablet by ORAL route every 8 hours As needed; 21 tablet. Diclofenac Sodium 75 mg Oral Tablet, Delayed Release (E.C.) - take 1 tablet by ORAL route 2 times per day As needed; 30 tablet. - Medication Reconciliation Form, Thank You Letter, Antibiotic Education, Prescription Opioid Use form. - Follow up: Emergency Department; When: As needed; Reason: Worsening of condition. Follow up: Private Physician; When: 2 - 3 days; Reason: Recheck today's complaints, Continuance of care, Re-evaluation by your physician. Signatures: Dispatcher [employer] TRICIAJanki Gómez, NATALIIA-C SEARCH MARKETING ANALYST-Ckb Koki Hatch RN RN aa1 Emilie Blankenship RN RN aj Alzahri, Mohammad, MD MD ma2 Corrections: (The following items were deleted from the chart) 12/12 22:11 21:54 12/12/2018 21:54 Discharged to Home. Impression: Flank pain. Condition is Stable. aa1 Forms are Medication Reconciliation Form, Thank You Letter, Antibiotic Education, Prescription Opioid Use. Follow up: Emergency Department; When: As needed; Reason: Worsening of condition. Follow up: Private Physician; When: 2 - 3 days; Reason: Recheck today's complaints, Continuance of care, Re-evaluation by your physician. kb
[2018-12-12] MEDS ORDERED: KETOROLAC 30 MG/ML INJ ONE (21:56)
[2018-12-12 22:07] LABS: Urine Blood TRACE (NEG); Urine Glucose 2+ (NEG); Urine Protein NEGATIVE (NEG); Urine Specific Gravity 1.015 (1.005-1.030); Urine pH 6.5 (5.0-7.0)
[2018-12-13 04:32] VITALS: BP 133/87; TEMP 98.4; O2SAT 97
== END 2018-12-12 22:11 | disposition home or self-care (01) ==
LOC: ER 20:14
DX: R10.9 Unspecified abdominal pain (principal)
CPT/HCPCS: 36415; 74176; 76377; 80048; 81003; 85025; 96361; 96374; 96375; 99284; J2405; J7030